=== PATIENT | male | born 1940 | race Caucasian/White ===

== ENCOUNTER → 2017-01-15 | Outpatient (CLI) | payer MEDICARE, OTHER ==
--- NOTE | 2017-01-15 19:59 | CT ---
EXAMINATION TYPE: CT abdomen pelvis w con DATE OF EXAM: 01/15/2017 7:52 PM COMPARISON: NONE HISTORY: Follow-up abdominal abscess after surgery from acute cholecystitis. CT DLP: 1857.00 mGycm Automated exposure control for dose reduction was used. TECHNIQUE: Helical acquisition of images was performed from the lung bases through the pelvis. CONTRAST: Performed with Oral Contrast and with IV Contrast, patient injected with 100 mL of Omnipaque 300. FINDINGS: There is some mild interstitial density at the lung bases. This probably relates to pulmonary fibrosi s. Heart is enlarged. There is no pericardial effusion. There is no pleural effusion. There is a pigtail drainage catheter at the swetha hepatis. Cholecystectomy is noted. Liver shows no f ocal defect. Spleen appear normal. Bile ducts are not dilated. There is a small amount of free fluid in the abdomen in the paracolic gutters. There is no adrenal mass. There are multiple bilateral renal cortical cysts that measure up to 7 cm. There is no hydronephrosis. There is no retroperitoneal adenopathy. There is no sign of a bowel obstr uction. Bladder distends smoothly. There are some sigmoid diverticula. There is no sign of diverticul itis. There is mild stranding around the pancreatic head. I see no bony destructive process. IMPRESSION: PIGTAIL CATHETER APPEARS IN GOOD POSITION AT THE CHOLECYSTECTOMY SITE. I DO NOT SEE EVIDENCE FOR RESI DUAL ABSCESS. NO DILATED DUCTS. MILD FAT STRANDING AROUND THE PANCREATIC HEAD SUGGESTIVE OF PANCREATI TIS. NUMEROUS BILATERAL RENAL CORTICAL CYSTS. FIBROTIC CHANGES AT THE LUNG BASES. NO FREE AIR.
== END ==
LOC: RADCTMAIN 18:40
PROVIDERS: ATTEND Surgery
DX: N28.1 Cyst of kidney, acquired (principal); J84.10 Pulmonary fibrosis, unspecified
CPT/HCPCS: 74177; Q9967

== ENCOUNTER → 2017-07-31 | Outpatient (CLI) | payer MEDICARE, OTHER ==
[2017-07-31 11:58] LABS: Basophils % (A) 1 %; CH 28.1; CHCM 30.6; Eosinophils # (A) 0.1 k/uL (0-0.7); Eosinophils % (A) 1 %; HCT 45.5 % (39.0-53.0); HDW 2.46; HGB 14.2 gm/dL (13.0-17.5); Hypochromasia Moderate; Luc # (Auto) 0.17; Luc % (Auto) 2; Lymphocytes # (A) 1.4 k/uL (1.0-4.8); Lymphocytes % (A) 20 %; MCH 28.8 pg (25.0-35.0); MCHC 31.3 g/dL (31.0-37.0); Mean Platelet Volume 7.6; Monocytes # (A) 0.4 k/uL (0-1.0); Monocytes % (A) 6 %; Neutrophils % (A) 70 %; RBC 4.94 m/uL (4.30-5.90); RDW 13.7 % (11.5-15.5); WBC 7.1 k/uL (3.8-10.6); WBC (Perox) 7.15
[2017-07-31 12:15] LABS: ALT 46 U/L (21-72); AST 38 U/L (17-59); Alkaline Phosphatase 88 U/L (38-126); Anion Gap 12 mmol/L; Blood Urea Nitrogen 18 mg/dL (9-20); Calcium 9.3 mg/dL (8.4-10.2); Carbon Dioxide 24 mmol/L (22-30); Chloride 102 mmol/L (98-107); Cholesterol 114 mg/dL (<200); Creatine Kinase 117 U/L (55-170); Glucose 121 mg/dL (74-99); HDL Cholesterol 52 mg/dL (40-60); Non-African American GFR(MDRD) >60 (>60 ml/min/1.73 sqM); Potassium 5.4 mmol/L (3.5-5.1); Sodium 138 mmol/L (137-145); Total Bilirubin 1.2 mg/dL (0.2-1.3); Total Protein 7.1 g/dL (6.3-8.2)
[2017-07-31 13:46] LABS: Hemoglobin A1C 7.7 % (4.2-6.1)
== END | disposition home or self-care (01) ==
LOC: LABWHC1 11:21
PROVIDERS: ATTEND Internal Medicine Critical Care Medicine
DX: N40.0 Benign prostatic hyperplasia without lower urinary tract symptoms (principal); E11.9 Type 2 diabetes mellitus without complications; E78.5 Hyperlipidemia, unspecified
CPT/HCPCS: 84439; 80061; 80053; 83036; 82550; 85025; 82306; 36415; G0103

== ENCOUNTER → 2018-02-04 | Outpatient (CLI) | payer MEDICARE, OTHER ==
[2018-02-04 11:51] LABS: Albumin 4.1 g/dL (3.5-5.0); Calcium 9.2 mg/dL (8.4-10.2); Total Bilirubin 1.6 mg/dL (0.2-1.3)
[2018-02-04 19:37] LABS: Hemoglobin A1C 8.3 % (4.0-6.0)
== END | disposition home or self-care (01) ==
LOC: LABWHC1 10:38
PROVIDERS: ATTEND Internal Medicine Critical Care Medicine
DX: E11.9 Type 2 diabetes mellitus without complications (principal); N40.0 Benign prostatic hyperplasia without lower urinary tract symptoms; E78.00 Pure hypercholesterolemia, unspecified; J61 Pneumoconiosis due to asbestos and other mineral fibers; I10 Essential (primary) hypertension; I25.10 Atherosclerotic heart disease of native coronary artery without angina pectoris
CPT/HCPCS: 36415; 80053; 82232; 83036

== ENCOUNTER → 2018-12-03 | Outpatient (CLI) | payer MEDICARE ==
[2018-12-03 12:32] LABS: Basophils % (A) 1 %; Eosinophils # (A) 0.1 k/uL (0-0.7); Eosinophils % (A) 3 %; HCT 46.1 % (39.0-53.0); HGB 14.3 gm/dL (13.0-17.5); Lymphocytes # (A) 1.3 k/uL (1.0-4.8); Lymphocytes % (A) 27 %; MCHC 30.9 g/dL (31.0-37.0); MCV 87.5 fL (80.0-100.0); Monocytes # (A) 0.4 k/uL (0-1.0); Monocytes % (A) 8 %; Neutrophils # (A) 2.9 k/uL (1.3-7.7); Neutrophils % (A) 60 %; Platelet Count 189 k/uL (150-450); RBC 5.28 m/uL (4.30-5.90); WBC 4.9 k/uL (3.8-10.6)
[2018-12-03 16:46] LABS: Albumin 4.3 g/dL (3.80-4.90); Albumin/Globulin Ratio 1.95 (1.60-3.17); Anion Gap 7.2 mmol/L (4.00-12.00); Calcium 9.2 mg/dL (8.7-10.3); Carbon Dioxide 26.8 mmol/L (21.6-31.8); Globulin 2.2 g/dL (1.6-3.3); Potassium 5.6 mmol/L (3.5-5.5); Total Bilirubin 1.3 mg/dL (0.3-1.2); Total Protein 6.5 g/dL (6.2-8.2)
[2018-12-03 20:10] LABS: Hemoglobin A1C 8.5 % (4.0-6.0)
== END | disposition home or self-care (01) ==
LOC: LABWHC1 10:56
PROVIDERS: ATTEND Internal Medicine Critical Care Medicine
DX: E11.42 Type 2 diabetes mellitus with diabetic polyneuropathy (principal); N40.0 Benign prostatic hyperplasia without lower urinary tract symptoms
CPT/HCPCS: 36415; 80053; 80061; 83036; 84153; 85025

== ENCOUNTER → 2018-12-11 | Outpatient (CLI) | payer MEDICARE ==
[2018-12-11 23:08] LABS: Anion Gap 6.9 mmol/L (4.00-12.00); Calcium 9.4 mg/dL (8.7-10.3); Carbon Dioxide 27.1 mmol/L (21.6-31.8); Potassium 5.2 mmol/L (3.5-5.5)
== END | disposition home or self-care (01) ==
LOC: LABWHC1 16:31
PROVIDERS: ATTEND Internal Medicine Critical Care Medicine
DX: E11.9 Type 2 diabetes mellitus without complications (principal); E78.5 Hyperlipidemia, unspecified
CPT/HCPCS: 36415; 80048

== ENCOUNTER → 2019-04-10 | Outpatient (CLI) | payer MEDICARE ==
[2019-04-10 16:55] LABS: African American GFR (CKD) 73.1 (60.0-200.0); Albumin 4.2 g/dL (3.80-4.90); Albumin/Globulin Ratio 1.91 (1.60-3.17); Anion Gap 7.2 mmol/L (4.00-12.00); BUN/Creat Ratio 20.91 Ratio (12.00-20.00); Calcium 9.5 mg/dL (8.7-10.3); Carbon Dioxide 26.8 mmol/L (21.6-31.8); Globulin 2.2 g/dL (1.6-3.3); LDL Cholesterol,Calculated 56.2 mg/dL (0.0-131.0); Potassium 5.4 mmol/L (3.5-5.5); Total Protein 6.4 g/dL (6.2-8.2); VLDL Calculation 16.8 mg/dL (5.00-40.00)
[2019-04-10 17:17] LABS: Hemoglobin A1C 7.6 % (4.0-6.0)
== END | disposition home or self-care (01) ==
LOC: LABWHC1 09:19
PROVIDERS: ATTEND Internal Medicine Endocrinology, Diabetes & Metabolism
DX: E11.65 Type 2 diabetes mellitus with hyperglycemia (principal)
CPT/HCPCS: 36415; 80053; 80061; 82043; 82570; 83036; 84443

== ENCOUNTER → 2020-03-16 | Outpatient (CLI) | payer MEDICARE ==
[2020-03-16 18:58] LABS: African American GFR (CKD) 72.6 (60.0-200.0); Albumin 4.3 g/dL (3.80-4.90); Albumin/Globulin Ratio 1.79 (1.60-3.17); Anion Gap 8.6 mmol/L (4.00-12.00); Calcium 9.5 mg/dL (8.7-10.3); Carbon Dioxide 26.4 mmol/L (21.6-31.8); Chol/HDL Ratio 3.23; Globulin 2.4 g/dL (1.6-3.3); LDL Cholesterol,Calculated 61.8 mg/dL (0.0-131.0); Non-African American GFR(CKD) 62.6 (60.0-200.0); Potassium 5.3 mmol/L (3.5-5.5); Total Bilirubin 1.3 mg/dL (0.2-1.2); Total Protein 6.7 g/dL (6.2-8.2); VLDL Calculation 25.2 mg/dL (5.00-40.00)
[2020-03-16 20:01] LABS: Urine Creatinine 48.2 mg/dL
[2020-03-16 22:20] LABS: Hemoglobin A1C 8.3 % (4.0-6.0)
== END | disposition home or self-care (01) ==
LOC: LABWHC1 11:24
PROVIDERS: ATTEND Internal Medicine Endocrinology, Diabetes & Metabolism
DX: E11.65 Type 2 diabetes mellitus with hyperglycemia (principal)
CPT/HCPCS: 36415; 80053; 80061; 82043; 82570; 83036; 84443

== ENCOUNTER → 2020-11-01 | Outpatient (CLI) | payer MEDICARE ==
[2020-11-01 15:35] LABS: African American GFR (CKD) 64.9 (60.0-200.0); Albumin 4.3 g/dL (3.80-4.90); Albumin/Globulin Ratio 2.05 (1.60-3.17); Anion Gap 6.7 mmol/L (4.00-12.00); BUN/Creat Ratio 17.5 Ratio (12.00-20.00); Calcium 8.9 mg/dL (8.7-10.3); Carbon Dioxide 28.3 mmol/L (21.6-31.8); Chol/HDL Ratio 2.97; Globulin 2.1 g/dL (1.6-3.3); LDL Cholesterol,Calculated 49.4 mg/dL (0.0-131.0); Potassium 4.6 mmol/L (3.5-5.5); Total Bilirubin 1.2 mg/dL (0.3-1.2); Total Protein 6.4 g/dL (6.2-8.2); VLDL Calculation 23.6 mg/dL (5.00-40.00)
[2020-11-01 16:59] LABS: Hemoglobin A1C 8.6 % (4.0-6.0)
[2020-11-01 17:52] LABS: Urine Creatinine 78.7 mg/dL
== END | disposition home or self-care (01) ==
LOC: LABWHC1 08:49
PROVIDERS: ATTEND Internal Medicine Endocrinology, Diabetes & Metabolism
DX: E11.65 Type 2 diabetes mellitus with hyperglycemia (principal)
CPT/HCPCS: 36415; 80053; 80061; 82043; 82570; 83036; 84443

== ENCOUNTER 2021-02-09 15:54 | Emergency (ER) | payer MEDICARE ==
--- NOTE | 2021-02-09 16:23 | ED ---
General Adult HPI - General Source: patient, RN notes reviewed Mode of arrival: ambulatory Limitations: no limitations <Hemanth Garcia - Last Filed: 02/09/21 16:20> <Jesse Burden - Last Filed: 02/09/21 19:57> - General Stated complaint: Side Pain Time Seen by Provider: 02/09/21 16:15 - History of Present Illness Initial comments: 80-year-old male presents emergency department chief complaint of right side pain. Patient states his has been going on for a few weeks. Patient states is progressing getting worse. states that he was seen by a chiropractor who told he pulled some muscles. He states it's not improved. He does have pain with movement. He's had some issues with constipation no dysuria. Reports no fevers or chills. Patient does state the pain moves up and down. (Hemanth Garcia) - Related Data Home Medications Medication Instructions Recorded Confirmed Aspirin EC [Ecotrin Low Dose] 81 mg PO DAILY 02/09/21 02/09/21 Atenolol [Tenormin] 50 mg PO DAILY 02/09/21 02/09/21 Atorvastatin [Lipitor] 40 mg PO DAILY 02/09/21 02/09/21 Dapagliflozin Propanediol [Farxiga] 5 mg PO DAILY 02/09/21 02/09/21 Ezetimibe [Zetia] 10 mg PO DAILY 02/09/21 02/09/21 Finasteride [Proscar] 5 mg PO DAILY 02/09/21 02/09/21 Isosorbide Dinitrate 30 mg PO BID 02/09/21 02/09/21 Multivitamins, Thera [Multivitamin 1 tab PO DAILY 02/09/21 02/09/21 (formulary)] Naproxen [Naprosyn] 500 mg PO DAILY 02/09/21 02/09/21 Niacin 500 mg PO DAILY 02/09/21 02/09/21 Nitroglycerin [Nitroglycerin 1 spray TRANSLINGU Q5M PRN 02/09/21 02/09/21 400MCG [place]] [place]-3 Fatty Acids [[place]-3] 1,000 mg PO DAILY 02/09/21 02/09/21 Omeprazole 20 mg PO DAILY 02/09/21 02/09/21 Ramipril [Altace] 10 mg PO DAILY 02/09/21 02/09/21 Terazosin HCl 5 mg PO DAILY 02/09/21 02/09/21 glipiZIDE [Glucotrol] 10 mg PO DAILY 02/09/21 02/09/21 metFORMIN HCL [Glucophage] 500 mg PO BID 02/09/21 02/09/21 sitaGLIPtin PHOSPHATE [Januvia] 100 mg PO DAILY 02/09/21 02/09/21 Previous Rx's Medication Instructions Recorded HYDROcodone/APAP 5-325MG [[place] 1 tab PO Q6HR PRN #10 tab 02/09/21 5-325] Allergies Allergy/AdvReac Type Severity Reaction Status Date / Time No Known Allergies Allergy Verified 02/09/21 17:58 Review of Systems ROS Other: All systems not noted in ROS Statement are negative. <Hemanht Garcia - Last Filed: 02/09/21 16:20> ROS Other: All systems not noted in ROS Statement are negative. <Jesse Burden - Last Filed: 02/09/21 19:57> ROS Statement: Those systems with pertinent positive or pertinent negative responses have been documented in the HPI. Course Vital Signs 02/09/21 02/09/21 16:20 17:41 Temperature 97.6 F Pulse Rate 80 72 Respiratory 16 18 Rate Blood Pressure 110/68 111/65 O2 Sat by Pulse 97 97 Oximetry Medical Decision Making - Lab Data Result diagrams: 02/09/21 16:39 02/09/21 16:39 <Jesse Burden - Last Filed: 02/09/21 19:57> - Medical Decision Making 80-year-old male presents for right-sided pain times one month. Patient does have right upper quadrant and right flank tenderness. CBC is unremarkable. White count is normal. Hemoglobin 13.1. CMP does show slight dehydration, fluids given. Hyperglycemia noted, patient is a diabetic. CT did show an irregular septated cystic complex fluid collection in the right upper quadrant. There is some loculation. Possibilities of abscess versus complex subcapsular hematoma versus pseudocyst from pancreas. Case was discussed with Dr. West. Given symptoms have been ongoing for 1 month she feels he is stable for outpatient follow-up. Patient will be written [place]. He will follow up o utpatient. He will return here for any worsening symptoms. Patient also evaluated by Dr. Oconnor. (Jesse Burden) - Lab Data Lab Results 02/09/21 02/09/21 02/09/21 Range/Units 16:39 16:39 16:39 WBC 10.5 (3.8-10.6) k/uL RBC 4.83 (4.30-5.90) m/uL Hgb 13.1 (13.0-17.5) gm/dL Hct 40.5 (39.0-53.0) % MCV 83.8 (80.0-100.0) fL MCH 27.1 (25.0-35.0) pg MCHC 32.3 (31.0-37.0) g/dL RDW 13.6 (11.5-15.5) % Plt Count 426 (150-450) k/uL MPV 7.2 Neutrophils % 86 % Lymphocytes % 6 % Monocytes % 6 % Eosinophils % 1 % Basophils % 0 % Neutrophils # 9.1 H (1.3-7.7) k/uL Lymphocytes # 0.6 L (1.0-4.8) k/uL Monocytes # 0.7 (0-1.0) k/uL Eosinophils # 0.1 (0-0.7) k/uL Basophils # 0.0 (0-0.2) k/uL Sodium 132 L (137-145) mmol/L Potassium 5.0 (3.5-5.1) mmol/L Chloride 99 (98-107) mmol/L Carbon Dioxide 23 (22-30) mmol/L Anion Gap 10 mmol/L BUN 27 H (9-20) mg/dL Creatinine 0.92 (0.66-1.25) mg/dL Est GFR (CKD-EPI)AfAm 89 (>60 ml/min/1.73 sqM) Est GFR (CKD-EPI)NonAf 77 (>60 ml/min/1.73 sqM) Glucose 289 H (74-99) mg/dL Calcium 9.1 (8.4-10.2) mg/dL Total Bilirubin 1.0 (0.2-1.3) mg/dL AST 31 (17-59) U/L ALT 20 (4-49) U/L Alkaline Phosphatase 140 H (38-126) U/L Total Protein 6.7 (6.3-8.2) g/dL Albumin 3.2 L (3.5-5.0) g/dL Amylase 46 (30-110) U/L Lipase 106 (23-300) U/L Urine Color Light Yellow Urine Appearance Clear (Clear) Urine pH 5.0 (5.0-8.0) Ur Specific [place] 1.031 (1.001-1.035) Urine Protein Negative (Negative) Urine Glucose (UA) 4+ H (Negative) Urine Ketones Negative (Negative) Urine Blood Negative (Negative) Urine Nitrite Negative (Negative) Urine Bilirubin Negative (Negative) Urine Urobilinogen <2.0 (<2.0) mg/dL Ur Leukocyte Esterase Negative (Negative) Disposition <Hemanth Garcia - Last Filed: 02/09/21 16:20> Is patient prescribed a controlled substance at d/c from ED?: Yes When asked, does pt state using other controlled substances?: No If prescribed controlled substance>3 days was MAPS reviewed?: Prescribed <3 Days If opioid is for acute pain is fill amount 7 days or less?: Yes If Rx opioid, was Start Talking consent form obtained?: Yes Time of Disposition: 19:52 <Jesse Burden - Last Filed: 02/09/21 19:57> Clinical Impression: Abdominal pain Narrative: septated cystic collection (Jesse Bruden) Disposition: HOME SELF-CARE Condition: Good Instructions (If sedation given, give patient instructions): Abdominal Pain (ED) Additional Instructions: Please take pain medications as needed. Do not drive while taking these. Follow-up with your doctor. Return to the emergency room for any worsening symptoms. Prescriptions: HYDROcodone/APAP 5-325MG [[place] 5-325] 1 tab PO Q6HR PRN #10 tab PRN Reason: Pain Referrals: Chely Huntley MD [Primary Care Provider] - 1-2 days Mer West MD [STAFF PHYSICIAN] - 1-2 days
[2021-02-09 16:54] LABS: Appearance,Urine Clear (Clear); Bilirubin,Urine Negative (Negative); Blood,Urine Negative (Negative); Color,Urine Light Yellow; Glucose,Urine (UA) 4+ (Negative); Ketones,Urine Negative (Negative); Leukocyte Esterase,Urine Negative (Negative); Nitrite,Urine Negative (Negative); Protein,Urine Negative (Negative); Specific Gravity,Urine 1.031 (1.001-1.035); Urobilinogen,Urine <2.0 mg/dL (<2.0)
[2021-02-09 16:58] LABS: Basophils % (A) 0 %; Eosinophils # (A) 0.1 k/uL (0-0.7); Eosinophils % (A) 1 %; HCT 40.5 % (39.0-53.0); HGB 13.1 gm/dL (13.0-17.5); Lymphocytes # (A) 0.6 k/uL (1.0-4.8); Lymphocytes % (A) 6 %; MCH 27.1 pg (25.0-35.0); MCHC 32.3 g/dL (31.0-37.0); MCV 83.8 fL (80.0-100.0); Mean Platelet Volume 7.2; Monocytes # (A) 0.7 k/uL (0-1.0); Monocytes % (A) 6 %; Neutrophils # (A) 9.1 k/uL (1.3-7.7); Neutrophils % (A) 86 %; Platelet Count 426 k/uL (150-450); RBC 4.83 m/uL (4.30-5.90); RDW 13.6 % (11.5-15.5); WBC 10.5 k/uL (3.8-10.6)
[2021-02-09 17:07] LABS: Albumin 3.2 g/dL (3.5-5.0); Calcium 9.1 mg/dL (8.4-10.2); Total Protein 6.7 g/dL (6.3-8.2)
[2021-02-09] MEDS ORDERED: SODIUM CHLORIDE 0.9% 500 ML 500 ML IV STA (17:22)
[2021-02-09] MEDS ORDERED: MORPHINE SULFATE 2 MG/ML SYRINGE IVP STA (17:22)
[2021-02-09 17:43] VITALS: RESP 18
--- NOTE | 2021-02-09 18:26 | CT ---
EXAMINATION TYPE: CT abdomen pelvis w con DATE OF EXAM: 02/09/2021 COMPARISON: 01/15/2017 HISTORY: right flank pain CT DLP: 1084.1 mGycm Automated exposure control for dose reduction was used. CONTRAST: Performed with IV Contrast, patient injected with 100 mL of Isovue 300. Images were obtained from the diaphragm to the floor the pelvis with IV contrast. FINDINGS: There is mild subsegmental atelectasis at the lung bases. There is no pleural effusion. Heart size is normal. There is coronary artery calcification. There is complex septated fluid collection in the right upper quadrant adjacent to the lateral right lobe of the liver. This measures 11 x 6 cm. This appears to be outside of the liver capsule. There has been removal of the pigtail drainage catheter at the swetha hepatis compared to old exam. Ga llbladder is absent. The bile ducts are not dilated. Spleen is intact. There is vascular calcificatio n. There is no evidence of pancreatic mass. The stomach is intact. There is no adrenal mass. There are multiple bilateral renal cortical cysts that are larger on the le ft side. The largest cyst measures 7 cm. There is no hydronephrosis. Delayed images show normal renal excretion. There is possible tiny calculi in the right kidney. There is 1 cm calcified cyst posterio r left kidney. There are small calcified cyst of the lateral cortex of the left kidney. There is no r etroperitoneal adenopathy. Bladder distends smoothly. There is no inguinal hernia. There is no free f luid in the pelvis. There are multiple sigmoid diverticula. I see no sign of diverticulitis. There is no mesenteric edema. There is no ascites or free air. There is no bowel obstruction. There is a mild L4-5 spondylolisthesis. There is degenerative disc space narrowing in the upper lumba r spine. There is L5-S1 disc space narrowing. There is no lumbar compression fracture. The bony pelvi s is intact. The hip joints are intact. IMPRESSION: There is irregular septated cystic complex fluid collection in the right upper quadrant. There is rosa e loculation. This appears new compared to old exam. I would consider possibilities of abscess or com plex subcapsular hematoma of the liver. Also consider unusual pseudocyst from pancreatitis.. There is clearing of the inflammatory changes in the pancreatic head compared to old exam. Stable mul tiple renal cysts.
[2021-02-09 20:11] VITALS: BP 110/67; PULSE 74; TEMP 98.1
== END 2021-02-09 20:11 | disposition home or self-care (01) ==
LOC: EC 15:54
DX: R10.9 Unspecified abdominal pain (principal); Z79.82 Long term (current) use of aspirin
CPT/HCPCS: 36415; 80053; 82150; 83690; 85025; 81003; 74177; 99284; 96374; 96361; J2270; Q9967

== ENCOUNTER → 2021-02-18 | Outpatient (CLI) | payer MEDICARE ==
--- NOTE | 2021-02-18 12:01 | US ---
EXAMINATION TYPE: US abdomen limited DATE OF EXAM: 02/18/2021 COMPARISON: CT 02/09/2021 CLINICAL HISTORY: 80-year-old male K76.89 Other specified diseases of liver. Liver cysts f/u to CT sc an. EXAM MEASUREMENTS: Liver Length: 16 cm Gallbladder: Surgically absent CBD: .4 cm Right Kidney: 11.7 x 4.8 x 5.1 cm Pancreas: Obscured by bowel gas Liver: Very complex, heterogeneous area seen measuring 9.6 x 11.5 x 12.1 cm along the right liver lo be extending inferiorly. Areas of fluid with debris are present as well. Gallbladder: Surgically absent Evidence for sonographic Kenny's sign: No CBD: wnl Right Kidney: Cystic area seen mid pole 2.7 x 2.4 x 3.7 cm and lower pole measuring 3.8 x 2.9 x 3. 1cm. No hydronephrosis. IMPRESSION: 1. Large 12.1 x 11.5 x 9.6 cm complex, heterogeneous area along the right liver lobe extending inferi zully corresponding to the CT abnormality. Correlate to exclude an aggressive infectious etiology as t here may be some early invasion into the chest wall musculature. Complex pseudocyst as mentioned on C T is also possible. Biliary cystadenoma/cystadenocarcinoma are alternative considerations. 2. Couple cysts within the right kidney measuring up to 3.7 cm.
== END | disposition home or self-care (01) ==
LOC: RADUSWWP 07:21
PROVIDERS: ATTEND Surgery Plastic and Reconstructive Surgery
DX: K76.89 Other specified diseases of liver (principal); N28.89 Other specified disorders of kidney and ureter
CPT/HCPCS: 76705

== ENCOUNTER → 2021-03-07 | Day surgery (SDC) | payer MEDICARE ==
[2021-03-07 09:42] VITALS: RESP 18; TEMP 98.1
[2021-03-07 09:57] LABS: Mean Platelet Volume 7.4; Platelet Count 507 k/uL (150-450)
[2021-03-07 10:11] LABS: INR 1.1 (<1.2); Prothrombin Time 11.5 sec (9.0-12.0)
[2021-03-07 13:26] VITALS: BP 103/64; PULSE 76
--- NOTE | 2021-03-07 13:57 | US ---
EXAMINATION TYPE: US guided soft tissue drainage DATE OF EXAM: 03/07/2021 HISTORY: Perihepatic abscess COMPARISON: CT 02/09/2021 PROCEDURE: Maximal barrier technique was utilized. The skin over suitable path to the abscess was localized wit h ultrasound and the overlying skin prepped and draped. Ultrasound used with sterile technique. Lidoc flash was used for local anesthesia. A skin watson made with a scalpel. Access was gained using NextGxDX maryam dance with a 21-gauge needle, purulent material returned in the hub of the needle. A 0.018 inch wire was advanced and the access site was upsized, the wire was upsized and subsequently an 8-[place] drai n was deployed within the abscess cavity and fixed in place. Catheter attached to gravity drainage, 20 cc of hill fluid was aspirated. No immediate complication. Purulent material sent for laboratory analysis and draining into the bag. The patient remained in stable condition. IMPRESSION: STATUS POST ultrasound GUIDED ABSCESS DRAINAGE, MICROBIOLOGY ANALYSIS IS PENDING. THIS PROCEDURE WAS PERFORMED BY THE UNDERSIGNED.
== END ==
LOC: RADPROMAIN 09:02
PROVIDERS: ATTEND Surgery Plastic and Reconstructive Surgery
DX: K75.0 Abscess of liver (principal); R16.0 Hepatomegaly, not elsewhere classified
CPT/HCPCS: 10030; 82947; 85049; 85610; 87070; 87205; 87075; 36415; J0690; 76942

== ENCOUNTER 2021-03-15 15:36 | Day surgery (SDC) | payer MEDICARE ==
[2021-03-07 15:04] VITALS: RESP 16
[2021-03-15 16:07] VITALS: BP 112/73; PULSE 78; TEMP 98.2
== END 2021-03-15 16:30 | disposition home or self-care (01) ==
LOC: RADPROMAIN 15:36
PROVIDERS: ATTEND Radiology Diagnostic Radiology
DX: Z43.8 Encounter for attention to other artificial openings (principal)
CPT/HCPCS: 99213

== ENCOUNTER 2021-03-22 12:51 | Inpatient (IN) | payer MEDICARE ==
[2021-03-22] MEDS ORDERED: SODIUM CHLORIDE 0.9% 1,000 ML IV STA (13:22)
[2021-03-22] MEDS ORDERED: VANCOMYCIN IV PER PHARMACY 1 EACH MISC MISCELLANE PRN (13:24)
[2021-03-22] MEDS ORDERED: PIPERACILLIN-TAZOBACTAM 3.375 GM in SODIUM CHLORIDE 0.9% 100 ML IVPB STA (13:25)
--- NOTE | 2021-03-22 13:35 | ED ---
General Adult HPI - General Chief complaint: Recheck/Abnormal Lab/Rx Stated complaint: [place] Time Seen by Provider: 03/22/21 13:11 Source: patient, RN notes reviewed, old records reviewed Mode of arrival: wheelchair Limitations: no limitations - History of Present Illness Initial comments: 80-year-old male presents from Dr. Jones's office with concerns for sepsis and persistent liver abscess. Patient had a drainage tube placed approximately 2 weeks ago and had a liver abscess drained at that time. He has been on antibiotics and was seen in follow-up. The drain was no longer draining any purulent material and was removed by the surgeon. He was instructed to present to the emergency department with concerns for ongoing infection. Patient was noted to be mildly hypotensive. He denies measured fever. He does report pain in the flank and right upper quadrant. - Related Data Home Medications Medication Instructions Recorded Confirmed Aspirin EC [Ecotrin Low Dose] 81 mg PO DAILY 02/09/21 02/23/21 Atenolol [Tenormin] 50 mg PO DAILY 02/09/21 02/23/21 Atorvastatin [Lipitor] 40 mg PO DAILY 02/09/21 02/23/21 Dapagliflozin Propanediol [Farxiga] 5 mg PO DAILY 02/09/21 02/23/21 Ezetimibe [Zetia] 10 mg PO DAILY 02/09/21 02/23/21 Finasteride [Proscar] 5 mg PO DAILY 02/09/21 02/23/21 Isosorbide Dinitrate 30 mg PO BID 02/09/21 02/23/21 Multivitamins, Thera [Multivitamin 1 tab PO DAILY 02/09/21 02/23/21 (formulary)] Naproxen [Naprosyn] 500 mg PO DAILY 02/09/21 02/23/21 Niacin 500 mg PO DAILY 02/09/21 02/23/21 Nitroglycerin [Nitroglycerin 1 spray TRANSLINGU Q5M PRN 02/09/21 02/23/21 400MCG [place]] [place]-3 Fatty Acids [[place]-3] 1,000 mg PO DAILY 02/09/21 02/23/21 Omeprazole 20 mg PO DAILY 02/09/21 02/23/21 Ramipril [Altace] 10 mg PO DAILY 02/09/21 02/23/21 Terazosin HCl 5 mg PO DAILY 02/09/21 02/23/21 glipiZIDE [Glucotrol] 10 mg PO DAILY 02/09/21 02/23/21 metFORMIN HCL [Glucophage] 500 mg PO BID 02/09/21 02/23/21 sitaGLIPtin PHOSPHATE [Januvia] 100 mg PO DAILY 02/09/21 02/23/21 Previous Rx's Medication Instructions Recorded Ciprofloxacin HCl [Cipro] 500 mg PO Q12HR #20 tablet 03/07/21 metroNIDAZOLE [Flagyl] 500 mg PO TID #30 tab 03/07/21 Allergies Allergy/AdvReac Type Severity Reaction Status Date / Time No Known Allergies Allergy Verified 03/22/21 13:03 Review of Systems ROS Statement: Those systems with pertinent positive or pertinent negative responses have been documented in the HPI. ROS Other: All systems not noted in ROS Statement are negative. Past Medical History Past Medical History: Coronary Artery Disease (CAD), Diabetes Mellitus, Hyperlipidemia, Hypertension, Prostate Disorder History of Any Multi-Drug Resistant Organisms: None Reported Past Surgical History: Cholecystectomy, Coronary Bypass/CABG, Heart Catheterization Past Anesthesia/Blood Transfusion Reactions: No Reported Reaction Past Psychological History: No Psychological Hx Reported Smoking Status: Former smoker Past Alcohol Use History: Occasional Past Drug Use History: None Reported General Exam Limitations: no limitations Head exam: Present: atraumatic, normocephalic Eye exam: Present: normal appearance, PERRL ENT exam: Present: normal exam Neck exam: Present: normal inspection. Absent: tenderness, meningismus Respiratory exam: Present: normal lung sounds bilaterally. Absent: respiratory distress, wheezes Cardiovascular Exam: Present: regular rate, normal rhythm GI/Abdominal exam: Present: soft, tenderness ( right upper quadrant tenderness). Absent: distended, guarding Extremities exam: Present: normal inspection, normal capillary refill. Absent: pedal edema Back exam: Present: CVA tenderness (R) (There is tenderness at the puncture site of previously inserted drainage tube with purulent drainage.) Neurological exam: Present: alert, oriented X3, CN II-XII intact. Absent: motor sensory deficit Psychiatric exam: Present: normal affect, normal mood Course Vital Signs 03/22/21 13:00 Temperature 98.2 F Pulse Rate 80 Respiratory 18 Rate Blood Pressure 87/51 O2 Sat by Pulse 98 Oximetry Medical Decision Making - Medical Decision Making 80-year-old male came for suspected persistent infection. Recent liver abscess. Patient is started on broad-spectrum antibiotics. CT is ordered, results pending. Patient evaluated by in the emergency department. Will be admitted to internal medicine with general surgery on consult. May require consultation with interventional radiology if abscess is persistent. - Lab Data Result diagrams: 03/22/21 13:47 03/22/21 13:47 Lab Results 03/22/21 03/22/21 03/22/21 Range/Units 13:47 13:47 13:47 WBC 6.8 (3.8-10.6) k/uL RBC 4.66 (4.30-5.90) m/uL Hgb 12.2 L (13.0-17.5) gm/dL Hct 38.8 L (39.0-53.0) % MCV 83.3 (80.0-100.0) fL MCH 26.1 (25.0-35.0) pg MCHC 31.4 (31.0-37.0) g/dL RDW 16.8 H (11.5-15.5) % Plt Count 444 (150-450) k/uL MPV 7.4 Neutrophils % 84 % Lymphocytes % 8 % Monocytes % 6 % Eosinophils % 1 % Basophils % 0 % Neutrophils # 5.7 (1.3-7.7) k/uL Lymphocytes # 0.5 L (1.0-4.8) k/uL Monocytes # 0.4 (0-1.0) k/uL Eosinophils # 0.0 (0-0.7) k/uL Basophils # 0.0 (0-0.2) k/uL Hypochromasia Moderate Anisocytosis Slight PT (9.0-12.0) sec INR (<1.2) APTT (22.0-30.0) sec Sodium 133 L (137-145) mmol/L Potassium 4.8 (3.5-5.1) mmol/L Chloride 99 (98-107) mmol/L Carbon Dioxide 21 L (22-30) mmol/L Anion Gap 13 mmol/L BUN 13 (9-20) mg/dL Creatinine 0.82 (0.66-1.25) mg/dL Est GFR (CKD-EPI)AfAm >90 (>60 ml/min/1.73 sqM) Est GFR (CKD-EPI)NonAf 82 (>60 ml/min/1.73 sqM) Glucose 283 H (74-99) mg/dL Plasma Lactic Acid [place] 4.6 H* (0.7-2.0) mmol/L Calcium 8.9 (8.4-10.2) mg/dL Total Bilirubin 0.4 (0.2-1.3) mg/dL AST 27 (17-59) U/L ALT 13 (4-49) U/L Alkaline Phosphatase 90 (38-126) U/L Total Protein 6.4 (6.3-8.2) g/dL Albumin 3.2 L (3.5-5.0) g/dL 03/22/21 Range/Units 13:47 WBC (3.8-10.6) k/uL RBC (4.30-5.90) m/uL Hgb (13.0-17.5) gm/dL Hct (39.0-53.0) % MCV (80.0-100.0) fL MCH (25.0-35.0) pg MCHC (31.0-37.0) g/dL RDW (11.5-15.5) % Plt Count (150-450) k/uL MPV Neutrophils % % Lymphocytes % % Monocytes % % Eosinophils % % Basophils % % Neutrophils # (1.3-7.7) k/uL Lymphocytes # (1.0-4.8) k/uL Monocytes # (0-1.0) k/uL Eosinophils # (0-0.7) k/uL Basophils # (0-0.2) k/uL Hypochromasia Anisocytosis PT 12.3 H (9.0-12.0) sec INR 1.2 H (<1.2) APTT 23.5 (22.0-30.0) sec Sodium (137-145) mmol/L Potassium (3.5-5.1) mmol/L Chloride (98-107) mmol/L Carbon Dioxide (22-30) mmol/L Anion Gap mmol/L BUN (9-20) mg/dL Creatinine (0.66-1.25) mg/dL Est GFR (CKD-EPI)AfAm (>60 ml/min/1.73 sqM) Est GFR (CKD-EPI)NonAf (>60 ml/min/1.73 sqM) Glucose (74-99) mg/dL Plasma Lactic Acid Arthur (0.7-2.0) mmol/L Calcium (8.4-10.2) mg/dL Total Bilirubin (0.2-1.3) mg/dL AST (17-59) U/L ALT (4-49) U/L Alkaline Phosphatase (38-126) U/L Total Protein (6.3-8.2) g/dL Albumin (3.5-5.0) g/dL Disposition Clinical Impression: Liver abscess Disposition: ADMITTED IP TO THIS HOSP Condition: Stable Is patient prescribed a controlled substance at d/c from ED?: No Referrals: Chely Huntley MD [Primary Care Provider] - 1-2 days Decision to Admit Reason: Admit from EC Decision Date: 03/22/21 Decision Time: 14:33
[2021-03-22] MEDS ORDERED: VANCOMYCIN 1,500 MG in SODIUM CHLORIDE 0.9% 250 ML IVPB ONE (14:00)
[2021-03-22 14:05] LABS: Anisocytosis Slight; Basophils % (A) 0 %; Eosinophils % (A) 1 %; HCT 38.8 % (39.0-53.0); HGB 12.2 gm/dL (13.0-17.5); Hypochromasia Moderate; Lymphocytes # (A) 0.5 k/uL (1.0-4.8); Lymphocytes % (A) 8 %; MCH 26.1 pg (25.0-35.0); MCHC 31.4 g/dL (31.0-37.0); MCV 83.3 fL (80.0-100.0); Mean Platelet Volume 7.4; Monocytes # (A) 0.4 k/uL (0-1.0); Monocytes % (A) 6 %; Neutrophils # (A) 5.7 k/uL (1.3-7.7); Neutrophils % (A) 84 %; Platelet Count 444 k/uL (150-450); RBC 4.66 m/uL (4.30-5.90); RDW 16.8 % (11.5-15.5); WBC 6.8 k/uL (3.8-10.6)
[2021-03-22 14:14] LABS: ALT 13 U/L (4-49); AST 27 U/L (17-59); African American GFR (CKD) >90 (>60 ml/min/1.73 sqM); Albumin 3.2 g/dL (3.5-5.0); Alkaline Phosphatase 90 U/L (38-126); Anion Gap 13 mmol/L; Blood Urea Nitrogen 13 mg/dL (9-20); Calcium 8.9 mg/dL (8.4-10.2); Carbon Dioxide 21 mmol/L (22-30); Chloride 99 mmol/L (98-107); Glucose 283 mg/dL (74-99); Non-African American GFR(CKD) 82 (>60 ml/min/1.73 sqM); Potassium 4.8 mmol/L (3.5-5.1); Sodium 133 mmol/L (137-145); Total Bilirubin 0.4 mg/dL (0.2-1.3); Total Protein 6.4 g/dL (6.3-8.2)
[2021-03-22 14:19] LABS: INR 1.2 (<1.2); Partial Thromboplastin Time 23.5 sec (22.0-30.0); Prothrombin Time 12.3 sec (9.0-12.0)
[2021-03-22] MEDS ORDERED: NALOXONE 0.4 MG/ML 1 ML VIAL IV PRN (14:30)
[2021-03-22] MEDS ORDERED: ACETAMINOPHEN TAB 325 MG TAB PO PRN (14:30)
[2021-03-22] MEDS: SODIUM CHLORIDE 0.9% 1,000 ML IV SCH ×2 (14:43→20:19)
--- NOTE | 2021-03-22 14:55 | P.HPIM ---
History of Present Illness Patient is an 80-year-old pleasant male was sent in from Dr. West's office for liver abscess. Patient came in for regular biopsy for liver mass and patient was told he has an abscess and a drain was put in about 2 weeks ago by interventional radiologist and he the continued to drain until few days ago went stopped draining. Patient has seen Dr. West. Neck following removed the drain as it started draining anymore. The cultures from the drainage fluid are negative for any bacteria or any other infection. Repeat computed tomography scan is being obtained at this time. Patient has seen infectious disease doctor as well who reviewed his chart and all the cultures appear to be negative. Today the drain site had some purulent discharge as per the ER physician when I evaluated it's packed and the didn't see much of drainage but there is mild redness around the day. Patient was started on vancomycin and the Zosyn which will be continued for now infectious disease was consulted. Patient was on ciprofloxacin at home. Patient did note that he had significant weight loss and generalized weakness but doesn't have any fever or leukocytosis. Patient blood sugars are bit high patient is bit hyponatremic does have lactic acidosis. Review of Systems REVIEW OF SYSTEMS: CONSTITUTIONAL: As mentioned in HPI HEENT: No recent visual problems or hearing problems. Denied any sore throat. CARDIOVASCULAR: No chest pain, orthopnea, PND, no palpitations, no syncope. PULMONARY: No shortness of breath, no cough, no hemoptysis. GASTROINTESTINAL: No diarrhea, no nausea, no vomiting, no abdominal pain. NEUROLOGICAL: No headaches, no weakness, no numbness. HEMATOLOGICAL: Denies any bleeding or petechiae. GENITOURINARY: Denies any burning micturition, frequency, or urgency. MUSCULOSKELETAL/RHEUMATOLOGICAL: Denies any joint pain, swelling, or any muscle pain. ENDOCRINE: Denies any polyuria or polydipsia. The rest of the 14-point review of systems is negative. Past Medical History Past Medical History: Coronary Artery Disease (CAD), Diabetes Mellitus, Hyperlipidemia, Hypertension, Prostate Disorder History of Any Multi-Drug Resistant Organisms: None Reported Past Surgical History: Cholecystectomy, Coronary Bypass/CABG, Heart Catheterization Past Anesthesia/Blood Transfusion Reactions: No Reported Reaction Past Psychological History: No Psychological Hx Reported Smoking Status: Former smoker Past Alcohol Use History: Occasional Past Drug Use History: None Reported Medications and Allergies Home Medications Medication Instructions Recorded Confirmed Type Aspirin EC [Ecotrin Low Dose] 81 mg PO DAILY 02/09/21 02/23/21 History Atenolol [Tenormin] 50 mg PO DAILY 02/09/21 02/23/21 History Atorvastatin [Lipitor] 40 mg PO DAILY 02/09/21 02/23/21 History Dapagliflozin Propanediol [Farxiga] 5 mg PO DAILY 02/09/21 02/23/21 History Ezetimibe [Zetia] 10 mg PO DAILY 02/09/21 02/23/21 History Finasteride [Proscar] 5 mg PO DAILY 02/09/21 02/23/21 History Isosorbide Dinitrate 30 mg PO BID 02/09/21 02/23/21 History Multivitamins, Thera [Multivitamin 1 tab PO DAILY 02/09/21 02/23/21 History (formulary)] Naproxen [Naprosyn] 500 mg PO DAILY 02/09/21 02/23/21 History Niacin 500 mg PO DAILY 02/09/21 02/23/21 History Nitroglycerin [Nitroglycerin 1 spray TRANSLINGU Q5M PRN 02/09/21 02/23/21 History 400MCG [place]] [place]-3 Fatty Acids [[place]-3] 1,000 mg PO DAILY 02/09/21 02/23/21 History Omeprazole 20 mg PO DAILY 02/09/21 02/23/21 History Ramipril [Altace] 10 mg PO DAILY 02/09/21 02/23/21 History Terazosin HCl 5 mg PO DAILY 02/09/21 02/23/21 History glipiZIDE [Glucotrol] 10 mg PO DAILY 02/09/21 02/23/21 History metFORMIN HCL [Glucophage] 500 mg PO BID 02/09/21 02/23/21 History sitaGLIPtin PHOSPHATE [Januvia] 100 mg PO DAILY 02/09/21 02/23/21 History Ciprofloxacin HCl [Cipro] 500 mg PO Q12HR #20 tablet 03/07/21 Rx metroNIDAZOLE [Flagyl] 500 mg PO TID #30 tab 03/07/21 Rx Allergies Allergy/AdvReac Type Severity Reaction Status Date / Time No Known Allergies Allergy Verified 03/22/21 13:03 Physical Exam Vitals: Vital Signs Temp Pulse Resp BP Pulse Ox 03/22/21 14:45 72 18 102/57 98 03/22/21 13:00 98.2 F 80 18 87/51 98 Intake and Output 03/21/21 03/22/21 03/22/21 22:59 06:59 14:59 Other: Weight 74.843 kg PHYSICAL EXAMINATION: GENERAL: The patient is alert and oriented x3, not in any acute distress. Well developed, well nourished. HEENT: Pupils are round and equally reacting to light. EOMI. No scleral icterus. No conjunctival pallor. Normocephalic, atraumatic. No pharyngeal erythema. No thyromegaly. CARDIOVASCULAR: S1 and S2 present. No murmurs, rubs, or gallops. PULMONARY: Chest is clear to auscultation, no wheezing or crackles. ABDOMEN: Soft, nontender, nondistended, normoactive bowel sounds. No palpable organomegaly. Patient's the drainage site is bit red MUSCULOSKELETAL: No joint swelling or deformity. EXTREMITIES: No cyanosis, clubbing, or pedal edema. NEUROLOGICAL: Gross neurological examination did not reveal any focal deficits. SKIN: As mentioned above Results CBC & Chem 7: 03/22/21 13:47 03/22/21 13:47 Labs: Abnormal Lab Results - Last 24 Hours (Table) 03/22/21 03/22/21 03/22/21 Range/Units 13:47 13:47 13:47 Hgb 12.2 L (13.0-17.5) gm/dL Hct 38.8 L (39.0-53.0) % RDW 16.8 H (11.5-15.5) % Lymphocytes # 0.5 L (1.0-4.8) k/uL PT (9.0-12.0) sec INR (<1.2) Sodium 133 L (137-145) mmol/L Carbon Dioxide 21 L (22-30) mmol/L Glucose 283 H (74-99) mg/dL Plasma Lactic Acid Arthur 4.6 H* (0.7-2.0) mmol/L Albumin 3.2 L (3.5-5.0) g/dL 03/22/21 Range/Units 13:47 Hgb (13.0-17.5) gm/dL Hct (39.0-53.0) % RDW (11.5-15.5) % Lymphocytes # (1.0-4.8) k/uL PT 12.3 H (9.0-12.0) sec INR 1.2 H (<1.2) Sodium (137-145) mmol/L Carbon Dioxide (22-30) mmol/L Glucose (74-99) mg/dL Plasma Lactic Acid Arthur (0.7-2.0) mmol/L Albumin (3.5-5.0) g/dL Assessment and Plan Plan: -Possible liver abscess: Patient's pain is not draining anymore will obtain a CT of the abdomen to see if the abscess resolved. For now will start him on empiric antibiotics and infectious disease and general surgery were consulted. -Lactic is doses mostly secondary to intravascular depletion rather than infection or sepsis there is no overt evidence of sepsis at this time patient will be started and continued on IV fluids hold off on antidepressant medications patient the is on tramadol and atenolol these will be held although these medications are not verified yet -Type 2 diabetes mellitus patient blood sugars are elevated patient will be resumed on home medications once these are very bad for now patient will be on sliding scale insulin -Gastroesophageal reflux disease -Hyperlipidemia -Benign prostatic hypertrophy -Coronary artery disease with CABG in the past -DVT prophylaxis with Lovenox
--- NOTE | 2021-03-22 15:38 | CT ---
EXAMINATION TYPE: CT abdomen pelvis w con DATE OF EXAM: 03/22/2021 COMPARISON: 01/30/2021 HISTORY: Liver abscess. CT DLP: 966.3 mGycm CONTRAST: CT scan of the abdomen and pelvis is performed without Oral Contrast and with IV Contrast, patient in jected with 100 mL of Isovue 300. FINDINGS: LUNG BASES-: No visible nodule. No infiltrate. LIVER/GB: Again noted is a complex septated collection adjacent to the right hepatic lobe and extendi ng caudally with infiltration into the intercostal musculature as well as the lateral anterior abdomi nal wall musculature. Current measurement of the abscess 16.7 x 8.7 cm versus 11 5 6 cm previously. PANCREAS: No inflammation. No distinct mass. SPLEEN: No splenic enlargement. No lesion seen. ADRENALS: No nodule. No thickening. KIDNEYS/BLADDER: No hydronephrosis. No nephrolithiasis. Multiple bilateral renal cysts identified. Urinary bladder grossly unremarkable. BOWEL: Normal appendix. Normal bowel caliber. No inflammation. GENITAL ORGANS: No gross abnormality. LYMPH NODES: No greater than 1cm abdominal or pelvic lymph nodes are appreciated. AORTA: No significant abnormality. OSSEOUS STRUCTURES: No significant abnormality is seen. OTHER: No significant additional abnormality is seen. IMPRESSION: 1. Subcapsular hepatic abscess with the caudal extension into the intercostal and right lateral obliq ue musculature persists and has increased in size.
[2021-03-22] MEDS: HYDROmorphone 0.5 MG/0.5 ML SYRINGE IVP PRN (19:39)
[2021-03-22 20:15] LABS: Glucose,Whole Blood 233 mg/dL (75-99)
[2021-03-22] MEDS: PIPERACILLIN-TAZOBACTAM 3.375 GM in SODIUM CHLORIDE 0.9% 100 ML IVPB SCH (20:15)
[2021-03-22] MEDS: FAMOTIDINE 20 MG TAB PO SCH (20:16)
[2021-03-23] MEDS: HYDROmorphone 0.5 MG/0.5 ML SYRINGE IVP PRN ×4 (01:09→21:35)
[2021-03-23] MEDS ORDERED: VANCOMYCIN 1,250 MG in SODIUM CHLORIDE 0.9% 250 ML IVPB SCH (02:00)
[2021-03-23] MEDS: PIPERACILLIN-TAZOBACTAM 3.375 GM in SODIUM CHLORIDE 0.9% 100 ML IVPB SCH ×3 (05:38→22:02)
[2021-03-23] MEDS: SODIUM CHLORIDE 0.9% 1,000 ML IV SCH ×3 (05:39→21:33)
[2021-03-23 07:00] LABS: Glucose,Whole Blood 233 mg/dL (75-99)
[2021-03-23] MEDS: ENOXAPARIN 40 MG/0.4 ML SYRINGE SQ SCH (08:36)
[2021-03-23] MEDS: EZETIMIBE 10 MG TAB PO SCH (08:36)
[2021-03-23] MEDS: FAMOTIDINE 20 MG TAB PO SCH ×2 (08:36→21:35)
[2021-03-23] MEDS: ATORVASTATIN 40 MG TAB PO SCH (08:36)
[2021-03-23] MEDS: FINASTERIDE 5 MG TAB PO SCH (08:36)
[2021-03-23 10:47] LABS: HCT 38.1 % (39.6-50.0); HGB 11.4 g/dL (13.0-17.0); MCH 25.4 pg (27.0-32.0); MCHC 29.9 g/dL (32.0-37.0); MCV 84.9 fL (80.0-97.0); Mean Platelet Volume 9.8 fL (9.5-12.2); Platelet Count 379 X 10*3/uL (140-440); RBC 4.49 X 10*6/uL (4.40-5.60); RDW 18.8 % (11.5-14.5); WBC 5.78 X 10*3/uL (4.50-10.00)
[2021-03-23 11:12] LABS: Glucose,Whole Blood 388 mg/dL (75-99)
[2021-03-23] MEDS: INSULIN ASPART (NovoLOG) 100 UNIT/ML VIAL SQ SCH ×3 (11:28→21:37)
[2021-03-23 12:27] LABS: African American GFR (CKD) 96.4 (60.0-200.0); Albumin/Globulin Ratio 1.11 (1.60-3.17); Anion Gap 9.2 mmol/L (4.00-12.00); BUN/Creat Ratio 12.5 Ratio (12.00-20.00); Calcium 8.4 mg/dL (8.7-10.3); Carbon Dioxide 22.8 mmol/L (21.6-31.8); Globulin 2.7 g/dL (1.6-3.3); Non-African American GFR(CKD) 83.2 (60.0-200.0); Potassium 4.4 mmol/L (3.5-5.5); Total Bilirubin 0.4 mg/dL (0.3-1.2); Total Protein 5.7 g/dL (6.2-8.2)
[2021-03-23] MEDS: INSULIN DETEMIR (LEVEMIR) 100 UNIT/ML SYR SQ SCH (16:03)
--- NOTE | 2021-03-23 16:03 | P.PN ---
Subjective Progress Note Date: 03/23/21 Patient is an 80-year-old pleasant male was sent in from Dr. West's office for liver abscess. Patient came in for regular biopsy for liver mass and patient was told he has an abscess and a drain was put in about 2 weeks ago by interventional radiologist and he the continued to drain until few days ago went stopped draining. Patient has seen Dr. West. removed the drain as it wasn't draining anymore. The cultures from the drainage fluid are negative for any bacteria or any other infection. Repeat computed tomography scan is being obtained at this time. Patient has seen infectious disease doctor as well who reviewed his chart and all the cultures appear to be negative. Today the drain site had some purulent discharge as per the ER physician when I evaluated it's packed and the didn't see much of drainage but there is mild redness around the day. Patient was started on vancomycin and the Zosyn which will be continued for now infectious disease was consulted. Patient was on ciprofloxacin at home. Patient did note that he had significant weight loss and generalized weakness b ut doesn't have any fever or leukocytosis. Patient blood sugars are bit high patient is bit hyponatremic does have lactic acidosis. 03/23/2021 Patient is seen and evaluated in follow-up this morning continues to have right- sided discomfort. Surgery following. Patient is maintained on IV antibiotics in the form of Zosyn and infectious disease following. White blood count is 5.78, hemoglobin is 11.4, sodium is 136 with a potassium of 4.4 current creatinine is 0.8. Blood sugars are elevated and will continue sliding scale and will add long-acting and monitor closely. Cardiology has been consulted for possible clearance for surgical intervention. Echo has been ordered and currently pending. Review of systems: Constitutional: No reports of fatigue, fever, or chills Cardiovascular: No reports of chest pain or palpitations Respiratory: No reports of shortness of breath or cough GI: No reports of nausea, vomiting, or diarrhea, reports right side discomfort at the abscess site : No reports of dysuria or retention Neurovascular: No reports of weakness or numbness All medications have been reviewed Objective - Vital Signs Vital signs: Vital Signs Temp 98.5 F 03/23/21 14:00 Pulse 74 03/23/21 14:00 Resp 14 03/23/21 14:00 BP 120/76 03/23/21 14:00 Pulse Ox 97 03/23/21 14:00 Intake & Output 03/22/21 03/23/21 03/23/21 18:59 06:59 18:59 Weight 74.843 kg Other: Voiding Method Toilet Toilet Urinal # Voids 1 2 - Exam GENERAL: The patient is alert and oriented x3, not in any acute distress. Well developed, well nourished. HEENT: Pupils are round and equally reacting to light. EOMI. No scleral icterus. No conjunctival pallor. Normocephalic, atraumatic. No pharyngeal erythema. No thyromegaly. CARDIOVASCULAR: S1 and S2 present. No murmurs, rubs, or gallops. PULMONARY: Chest is clear to auscultation, no wheezing or crackles. ABDOMEN: Soft, nontender, nondistended, normoactive bowel sounds. No palpable organomegaly. Patient's right side abscess site is reddened and inflamed and tender on palpation around the site MUSCULOSKELETAL: No joint swelling or deformity. EXTREMITIES: No cyanosis, clubbing, or pedal edema. NEUROLOGICAL: Gross neurological examination did not reveal any focal deficits. SKIN: As mentioned above - Labs CBC & Chem 7: 03/23/21 07:18 03/23/21 07:18 Labs: Abnormal Lab Results - Last 24 Hours (Table) 03/22/21 03/22/21 03/23/21 Range/Units 17:10 20:13 06:58 Hgb (13.0-17.0) g/dL Hct (39.6-50.0) % MCH (27.0-32.0) pg MCHC (32.0-37.0) g/dL RDW (11.5-14.5) % Glucose (70-110) mg/dL POC Glucose (mg/dL) 233 H 233 H (75-99) mg/dL Plasma Lactic Acid Arthur 2.3 H* (0.7-2.0) mmol/L Calcium (8.7-10.3) mg/dL Total Protein (6.2-8.2) g/dL Albumin (3.80-4.90) g/dL Albumin/Globulin Ratio (1.60-3.17) g/dL 03/23/21 03/23/21 03/23/21 Range/Units 07:18 07:18 11:11 Hgb 11.4 L (13.0-17.0) g/dL Hct 38.1 L (39.6-50.0) % MCH 25.4 L (27.0-32.0) pg MCHC 29.9 L (32.0-37.0) g/dL RDW 18.8 H (11.5-14.5) % Glucose 226 H (70-110) mg/dL POC Glucose (mg/dL) 388 H (75-99) mg/dL Plasma Lactic Acid Arthur (0.7-2.0) mmol/L Calcium 8.4 L (8.7-10.3) mg/dL Total Protein 5.7 L (6.2-8.2) g/dL Albumin 3.00 L (3.80-4.90) g/dL Albumin/Globulin Ratio 1.11 L (1.60-3.17) g/dL Microbiology - Last 24 Hours (Table) 03/22/21 13:47 Gram Stain - Preliminary Back Wound Culture - Preliminary 03/22/21 15:31 Anaerobic Culture - Preliminary Abdominal Fluid Assessment and Plan Assessment: -Possible liver abscess: Patient had an IR guided drain for a liver abscess and is not draining anymore and was removed by surgery. Repeat CT shows subcapsular hepatic abscess with caudal extension into the intercostal and right lateral oblique musculature persists and that is increased in size. Patient remains on IV Zosyn with infectious disease and surgery following. -Lactic acidosis mostly secondary to intravascular depletion rather than infection or sepsis there is no overt evidence of sepsis at this time patient will be started and continued on IV fluids, improved we'll decrease IV fluids to 75 ML per hour -Type 2 diabetes mellitus patient blood sugars are elevated patient will continue with sliding scale and will add small dose of long-acting Levemir and continue to monitor Accu-Cheks before meals and at bedtime -Gastroesophageal reflux disease -Hyperlipidemia -Benign prostatic hypertrophy -Coronary artery disease with CABG in the past -DVT prophylaxis with Lovenox Plan: Continue with current medications with infectious disease and surgery following. Cardiology evaluating the patient for clearance for possible surgical intervention. We'll continue with IV Zosyn at this time. Have decreased IV fluids to 75 ML per hour and will monitor closely. Continue sliding scale and have added long-acting insulin his blood sugars are consistently in the 200s to 300s.
[2021-03-23 16:38] LABS: Glucose,Whole Blood 202 mg/dL (75-99)
--- NOTE | 2021-03-23 18:26 | P.GSCN ---
History of Present Illness Consult date: 03/23/21 History of present illness: Patient seen and evaluated with failed outpatient management for liver abcess and CT guided drainage. He presented to the office with hypotension and weakness and right upper quadrant pain. Patient had lactic acidosis. Today he reports his weakness has improved. He is tolerating diet. CT reviewed with increasing size of liver abscess from prior. Recommend surgical drainage via subcutaneous and robotic approach. Will need cardiac risk assessment prior to surgery. Continue diet in interim. Surgical drainage described pending cardiac clearance. Patient agreed with care plan. Past Medical History Past Medical History: Coronary Artery Disease (CAD), Diabetes Mellitus, Hyperlipidemia, Hypertension, Prostate Disorder History of Any Multi-Drug Resistant Organisms: None Reported Past Surgical History: Cholecystectomy, Coronary Bypass/CABG, Heart Ca theterization Past Anesthesia/Blood Transfusion Reactions: No Reported Reaction Past Psychological History: No Psychological Hx Reported Smoking Status: Former smoker Past Alcohol Use History: Occasional Past Drug Use History: None Reported Medications and Allergies Home Medications Medication Instructions Recorded Confirmed Type Aspirin EC [Ecotrin Low Dose] 81 mg PO DAILY 02/09/21 03/22/21 History Atenolol [Tenormin] 50 mg PO DAILY 02/09/21 03/22/21 History Atorvastatin [Lipitor] 40 mg PO DAILY 02/09/21 03/22/21 History Dapagliflozin Propanediol [Farxiga] 5 mg PO DAILY 02/09/21 03/22/21 History Ezetimibe [Zetia] 10 mg PO DAILY 02/09/21 03/22/21 History Finasteride [Proscar] 5 mg PO DAILY 02/09/21 03/22/21 History Isosorbide Dinitrate 30 mg PO BID 02/09/21 03/22/21 History Multivitamins, Thera [Multivitamin 1 tab PO DAILY 02/09/21 03/22/21 History (formulary)] Naproxen [Naprosyn] 500 mg PO DAILY 02/09/21 03/22/21 History Niacin 500 mg PO DAILY 02/09/21 03/22/21 History Nitroglycerin [Nitroglycerin 1 spray TRANSLINGU Q5M PRN 02/09/21 03/22/21 History 400MCG [place]] [place]-3 Fatty Acids [[place]-3] 1,000 mg PO DAILY 02/09/21 03/22/21 History Omeprazole 20 mg PO DAILY 02/09/21 03/22/21 History Ramipril [Altace] 10 mg PO DAILY 02/09/21 03/22/21 History Terazosin HCl 5 mg PO DAILY 02/09/21 03/22/21 History glipiZIDE [Glucotrol] 10 mg PO DAILY 02/09/21 03/22/21 History metFORMIN HCL [Glucophage] 500 mg PO BID 02/09/21 03/22/21 History sitaGLIPtin PHOSPHATE [Januvia] 100 mg PO DAILY 02/09/21 03/22/21 History metroNIDAZOLE [Flagyl] 500 mg PO TID #30 tab 03/07/21 03/22/21 Rx Ciprofloxacin HCl [Cipro] 500 mg PO Q12H 03/22/21 03/22/21 History Allergies Allergy/AdvReac Type Severity Reaction Status Date / Time No Known Allergies Allergy Verified 03/22/21 15:08 Surgical - Exam Vital Signs Temp Pulse Resp BP Pulse Ox 98.2 F 80 18 87/51 98 03/22/21 13:00 03/22/21 13:00 03/22/21 13:00 03/22/21 13:00 03/22/21 13:00 Results - Labs 03/23/21 07:18 03/23/21 07:18 Abnormal Lab Results - Last 24 Hours (Table) 03/22/21 03/23/21 03/23/21 Range/Units 20:13 06:58 07:18 Hgb 11.4 L (13.0-17.0) g/dL Hct 38.1 L (39.6-50.0) % MCH 25.4 L (27.0-32.0) pg MCHC 29.9 L (32.0-37.0) g/dL RDW 18.8 H (11.5-14.5) % Glucose (70-110) mg/dL POC Glucose (mg/dL) 233 H 233 H (75-99) mg/dL Calcium (8.7-10.3) mg/dL Total Protein (6.2-8.2) g/dL Albumin (3.80-4.90) g/dL Albumin/Globulin Ratio (1.60-3.17) g/dL 03/23/21 03/23/21 03/23/21 Range/Units 07:18 11:11 16:37 Hgb (13.0-17.0) g/dL Hct (39.6-50.0) % MCH (27.0-32.0) pg MCHC (32.0-37.0) g/dL RDW (11.5-14.5) % Glucose 226 H (70-110) mg/dL POC Glucose (mg/dL) 388 H 202 H (75-99) mg/dL Calcium 8.4 L (8.7-10.3) mg/dL Total Protein 5.7 L (6.2-8.2) g/dL Albumin 3.00 L (3.80-4.90) g/dL Albumin/Globulin Ratio 1.11 L (1.60-3.17) g/dL Microbiology - Last 24 Hours (Table) 03/22/21 13:47 Gram Stain - Preliminary Back Wound Culture - Preliminary 03/22/21 14:00 Blood Culture - Preliminary Blood No Growth after 24 hours 03/22/21 13:45 Blood Culture - Preliminary Blood No Growth after 24 hours 03/22/21 15:31 Anaerobic Culture - Preliminary Abdominal Fluid Diabetes panel 03/23/21 Range/Units 07:18 Sodium 136 (135-145) mmol/L Potassium 4.4 (3.5-5.5) mmol/L Chloride 104 (96-109) mmol/L Carbon Dioxide 22.8 (21.6-31.8) mmol/L BUN 10.0 (9.0-27.0) mg/dL Creatinine 0.8 (0.6-1.5) mg/dL Glucose 226 H (70-110) mg/dL Calcium 8.4 L (8.7-10.3) mg/dL AST 19 (14-35) U/L ALT 11 (10-49) U/L Alkaline Phosphatase 75 (41-126) U/L Total Protein 5.7 L (6.2-8.2) g/dL Albumin 3.00 L (3.80-4.90) g/dL Calcium panel 03/23/21 Range/Units 07:18 Calcium 8.4 L (8.7-10.3) mg/dL Albumin 3.00 L (3.80-4.90) g/dL Pituitary panel 03/23/21 Range/Units 07:18 Sodium 136 (135-145) mmol/L Potassium 4.4 (3.5-5.5) mmol/L Chloride 104 (96-109) mmol/L Carbon Dioxide 22.8 (21.6-31.8) mmol/L BUN 10.0 (9.0-27.0) mg/dL Creatinine 0.8 (0.6-1.5) mg/dL Glucose 226 H (70-110) mg/dL Calcium 8.4 L (8.7-10.3) mg/dL Adrenal panel 03/23/21 Range/Units 07:18 Sodium 136 (135-145) mmol/L Potassium 4.4 (3.5-5.5) mmol/L Chloride 104 (96-109) mmol/L Carbon Dioxide 22.8 (21.6-31.8) mmol/L BUN 10.0 (9.0-27.0) mg/dL Creatinine 0.8 (0.6-1.5) mg/dL Glucose 226 H (70-110) mg/dL Calcium 8.4 L (8.7-10.3) mg/dL Total Bilirubin 0.4 (0.3-1.2) mg/dL AST 19 (14-35) U/L ALT 11 (10-49) U/L Alkaline Phosphatase 75 (41-126) U/L Total Protein 5.7 L (6.2-8.2) g/dL Albumin 3.00 L (3.80-4.90) g/dL
--- NOTE | 2021-03-23 18:55 | CONS ---
CONSULTATION DATE OF SERVICE: 03/24/2021. REASON FOR CONSULTATION: Liver abscess. HISTORY OF PRESENT ILLNESS: The patient is an 80-year-old male, apparently started having some pain to the right upper quadrant area, happened around the middle of January of 2021. The patient mentioned there was a snow storm at that time and he was shoveling some snow. Subsequently noted to have some discomfort to the right upper quadrant area. The patient describes the pain to be more of a dull, aching, intensity 4-5 out of 10 and no radiation. The patient was evaluated in the ER on 02/09/2021 The patient did have a CT of abdomen and pelvis completed at that point which did show a complex septated fluid collection in the right upper quadrant adjacent to the lateral right lobe of the liver measuring 11-6 cm for which the patient has been referred to Dr. West in the outpatient setting. The patient did have an ultrasound-guided drainage of this fluid collection on 03/07/2021 and the patient has been treated with oral Cipro and Flagyl. Culture done on March 07 remains to be negative. The patient was referred to the office for evaluation and was seen by Dr. West in the office yesterday. The pigtail catheter was discontinued and the patient was sent to the ER for further evaluation. On arrival to the ER, the patient was afebrile. The patient did have a normal white count. Liver enzymes are normal as well. The patient did have a repeat CT scan completed yesterday which did show subsequent capsular herpetic abscess which has increased with into the intercostal and right lateral oblique musculatures. The patient was started on vancomycin and Zosyn and admitted to the hospital. Infectious disease was consulted for further management of antibiotic therapy. REVIEW OF SYSTEMS: Positive points have been mentioned in HPI. Rest of systems are negative. PAST MEDICAL HISTORY: Significant for cholecystitis status post cholecystectomy. Coronary artery disease, diabetes mellitus, hypertension, hyperlipidemia, prostate disorder. PAST SURGICAL HISTORY: Cholecystectomy, coronary artery bypass grafting and heart catheterization. SOCIAL HISTORY: Remote history of smoking. Rarely drinks. No drug use. FAMILY HISTORY: No pertinent findings noticed. ALLERGIES: No known drug allergies. MEDICATIONS: The patient is currently on Tylenol, Lipitor, Lovenox, Zetia, Pepcid, Proscar, Dilaudid, NovoLog, Narcan, Zosyn and vancomycin . PHYSICAL EXAMINATION: Blood pressure 126/69 with pulse of 62, temperature 98.1. He is 97% on room air. General description: The patient is an elderly male lying in bed in no distress. No tachypnea or accessory muscles of respiration use. HEENT examination: Slight pallor. No scleral icterus. Oral mucous membranes dry. NECK: Trachea. No thyromegaly. LUNGS: Unlabored breathing. Clear to auscultation anteriorly. No rhonchi. No crackles. HEART S1, S2. Regular rate and rhythm. ABDOMEN: Soft. Mild tenderness right upper quadrant area. No guarding. No rigidity. No organomegaly. EXTREMITIES: No edema of the feet. SKIN: No rash or mass palpable. NEUROLOGICAL: Patient is awake, alert, oriented x3. Mood and affect normal. LABS: Hemoglobin 11.4, white count 5.78, BUN of 10, creatinine 0.8. Electrolytes have been normal. Liver enzymes are normal. Previous cultures were negative. DIAGNOSTIC IMPRESSION AND PLAN: Patient with liver abscess. This seemed to have fairly responded to the ultrasound- guided drainage and oral antibiotic therapy. Previous cultures were negative. PLAN: 1. Patient may benefit from open drainage of this abscess and deep cultures. 2. Zosyn 3.375 q.8 hours to continue. 3. We will follow on clinical condition and culture to further adjust medication if needed. Thank you for this consult. We will follow this patient along with you. MMODL / IJN: [id number] /
[2021-03-23 20:25] LABS: Glucose,Whole Blood 263 mg/dL (75-99)
[2021-03-24] MEDS: HYDROmorphone 0.5 MG/0.5 ML SYRINGE IVP PRN ×4 (02:51→19:53)
[2021-03-24] MEDS: PIPERACILLIN-TAZOBACTAM 3.375 GM in SODIUM CHLORIDE 0.9% 100 ML IVPB SCH ×3 (05:50→22:36)
[2021-03-24 07:20] LABS: Anisocytosis Slight; Basophils % (A) 0 %; Eosinophils # (A) 0.1 k/uL (0-0.7); Eosinophils % (A) 2 %; HCT 39.2 % (39.0-53.0); HGB 11.7 gm/dL (13.0-17.5); Hypochromasia Moderate; Lymphocytes # (A) 0.6 k/uL (1.0-4.8); Lymphocytes % (A) 10 %; MCH 25.1 pg (25.0-35.0); MCHC 29.8 g/dL (31.0-37.0); MCV 84.3 fL (80.0-100.0); Mean Platelet Volume 6.9; Monocytes # (A) 0.5 k/uL (0-1.0); Monocytes % (A) 8 %; Neutrophils # (A) 4.5 k/uL (1.3-7.7); Neutrophils % (A) 77 %; Platelet Count 358 k/uL (150-450); RBC 4.65 m/uL (4.30-5.90); RDW 17.2 % (11.5-15.5); WBC 5.8 k/uL (3.8-10.6)
[2021-03-24 07:29] LABS: African American GFR (CKD) >90 (>60 ml/min/1.73 sqM); Anion Gap 3 mmol/L; Blood Urea Nitrogen 8 mg/dL (9-20); Calcium 8.1 mg/dL (8.4-10.2); Carbon Dioxide 28 mmol/L (22-30); Chloride 102 mmol/L (98-107); Glucose 200 mg/dL (74-99); Non-African American GFR(CKD) >90 (>60 ml/min/1.73 sqM); Potassium 4.4 mmol/L (3.5-5.1); Sodium 133 mmol/L (137-145)
[2021-03-24 07:29] LABS: Glucose,Whole Blood 180 mg/dL (75-99)
[2021-03-24] MEDS: INSULIN DETEMIR (LEVEMIR) 100 UNIT/ML SYR SQ SCH (07:40)
[2021-03-24] MEDS: FINASTERIDE 5 MG TAB PO SCH (07:40)
[2021-03-24] MEDS: FAMOTIDINE 20 MG TAB PO SCH ×2 (07:40→21:19)
[2021-03-24] MEDS: INSULIN ASPART (NovoLOG) 100 UNIT/ML VIAL SQ SCH ×4 (07:40→21:17)
[2021-03-24] MEDS: ATORVASTATIN 40 MG TAB PO SCH (07:41)
[2021-03-24] MEDS: EZETIMIBE 10 MG TAB PO SCH (07:41)
[2021-03-24] MEDS: ENOXAPARIN 40 MG/0.4 ML SYRINGE SQ SCH (07:41)
--- NOTE | 2021-03-24 11:00 | ECHOF ---
Referral Reason:congestive heart failure MEASUREMENTS -------- HEIGHT: 167.6 cm WEIGHT: 74.8 kg BP: 123/69 IVSd: 1.3 cm (0.6 - 1.1) LVIDd: 4.3 cm (3.9 - 5.3) LVPWd: 1.4 cm (0.6 - 1.1) EDV(Teich): 82 ml IVSs: 1.7 cm LVIDs: 2.9 cm LVPWs: 1.9 cm %IVS Thck: 29 % ESV(Teich): 32 ml EF(Teich): 61 % %FS: 33 % SV(Teich): 50 ml RVIDd: 4.1 cm (< 3.3) LALs A4C: 5.4 cm LAAs A4C: 18.4 cm LAESV A-L A4C: 53 ml LAESV MOD A4C: 50 ml LALs A2C: 6.2 cm LAAs A2C: 23.5 cm LAESV A-L A2C: 75 ml LAESV MOD A2C: 74 ml LAESV(A-L): 68 ml LAESV Index (A-L): 36.96 ml/m Ao Diam: 3.6 cm (2.0 - 3.7) LA Diam: 4.8 cm (2.7 - 3.8) AV Cusp: 2.3 cm (1.5 - 2.6) EPSS: 1.3 cm MV E Perfecto: 0.73 m/s MV DecT: 202 ms MV Dec [place]: 3.6 m/s MV A Perfecto: 0.97 m/s MV E/A Ratio: 0.75 MV PHT: 59 ms LVOT Vmax: 1.04 m/s LVOT maxP.32 mmHg TR Vmax: 1.61 m/s TR maxP.43 mmHg RAP: 5.00 mmHg RVSP: 15.43 mmHg MV EF SLOPE: 98.27 mm/s (70 - 150) MV EXCURSION: 19.32 mm (> 18.000) FINDINGS -------- Sinus rhythm. This was a technically adequate study. The left ventricular size is normal. Left ventricular wall thickness is normal. Overall left vent ricular systolic function is low-normal with, an EF between 50 - 55 %. Septal wall motion is delaye d and consistent with prior cardiac surgery. The right ventricle is moderately enlarged. LA is moderately dilated 34-39 ml/m2 The right atrial size is normal. Interatrial and interventricular septum intact. There is no evidence of aortic regurgitation. There is no evidence of aortic stenosis. [id number] mitral regurgitation is present. Mild tricuspid regurgitation present. There is no evidence of pulmonary hypertension. The right v entricular systolic pressure, as measured by Doppler, is 15.43mmHg. There is no pulmonic regurgitation present. The aortic root size is normal. IVC Not well visulized. There is no pericardial effusion. CONCLUSIONS -------- 1. The left ventricular size is normal. 2. Left ventricular wall thickness is normal. 3. Overall left ventricular systolic function is low-normal with, an EF between 50 - 55 %. 4. The right ventricle is moderately enlarged. 5. LA is moderately dilated 34-39 ml/m2 6. Gwiw-hr-gkqtqmws mitral regurgitation is present. 7. Mild tricuspid regurgitation present. CHOPPER FEEDER: Raven Eaton RDCS
[2021-03-24 11:58] LABS: Glucose,Whole Blood 198 mg/dL (75-99)
--- NOTE | 2021-03-24 13:12 | P.CRDCN ---
History of Present Illness History of present illness: This is a 80 year old pleasant male with past medical history of coronary artery disease s/p CABG 4 vessel in 01/1988 and PCI to mid RCA in 08/2000, Type 2 Diabetes, Hypertension, Hyperlipidemia, former nicotine dependence. He follow with squilgeer Dr. Foreman. We are being consulted for cardiac clearance. He was sent into the hospital by Dr. West's office due to his liver ab scess and failed outpatient management for liver abcess and CT guided drainage. He presented to Dr. West's office with hypotension and weakness and right upper quadrant pain. CT abdomen and pelvis revealed hepatic abscess which increased in size from prior. Surgery is recommending surgical drainage via subcutaneous and robotic approach. Patient seen and examined at bedside, no acute distress. Resting comfortably in bed. Patient appears euvolemic on exam. He has no complaints at this time. He denies chest pain, shortness of breath, palpitations, dizziness, lightheadedness, lower extremity edema. DIAGNOSTICS Cardiac catheterization 1999 with PCI to mid RCA CABG 01/1988 ACS, FLORIAN and 4 VGs Echocardiogram revealed left ventricular systolic function is low-normal with EF between 50-55%, LA is moderately dilated, mild to moderate mitral regurgitation, mild tricuspid regurgitation. Lexiscan stress test 2019- negative EKG reveals sinus rhythm, heart rate 76, no significant ST-T wave abnormalities. Laboratory reviewed, WBC 5.8, hemoglobin 11.7, platelets 358, sodium 133, potassium 4.4, serum creatinine 0.62, BUN 8 Current home cardiac medications include Imdur 30 mg twice a day, atorvastatin 40 mg daily, atenolol 50 mg daily, aspirin 81 mg daily, Zetia 10 mg daily, Ramipril 10mg daily REVIEW OF SYSTEMS At the time of my exam: CONSTITUTIONAL: Denies fever or chills. CARDIOVASCULAR: Denies chest pain, shortness of breath, orthopnea, PND or palpitations. RESPIRATORY: Denies cough. GASTROINTESTINAL: Denies abdominal pain, diarrhea, constipation, nausea or vomiting. MUSCULOSKELETAL: Denies myalgias. NEUROLOGIC: Denies numbness, tingling, headacbe or weakness. ENDOCRINE: Denies fatigue, weight change, polydipsia or polyurina. GENITOURINARY: Denies burning, hematuria or urgency with micturation. HEMATOLOGIC: Denies history of anemia or bleeding. PHYSICAL EXAMINATION Blood pressure 119/75 heart rate 71 afebrile and maintaining oxygen saturation 96% on room air CONSTITUTIONAL: No apparent distress. HEENT: Head is normocephalic. Pupils are equal, round. Sclerae anicteric. Mucous membranes of the mouth are moist. No JVD. No carotid bruit. CHEST EXAMINATION: Lungs are clear to auscultation. No chest wall tenderness is noted on palpation or with deep breathing. HEART EXAMINATION: Regular rate and rhythm. S1, S2 heard. No murmurs, gallops or rub. ABDOMEN: Soft, nontender. Positive bowel sounds. EXTREMITIES: 2+ peripheral pulses, no lower extremity edema and no calf tenderness. NEUROLOGIC EXAMINATION: Patient is awake, alert and oriented x3. ASSESSMENT Coronary artery disease s/p CABG 4 vessel in 01/1988 and PCI to mid RCA in 08/2000 Type 2 Diabetes Hypertension Hyperlipidemia Former nicotine dependence PLAN EKG and echocardiogram reviewed as above. Patient is at moderate risk for cardiovascular event during surgery. He has the following risk factors history of ischemic heart disease, hypertension, preoperative treatment with insulin. He does not have any acute cardiac conditions. He appears euvolemic on exam. Caution with fluid administration and blood pressure control intraoperatively. Patient may proceed with surgery with no additional cardiac testing or procedures. We will sign off at this time, follow the patient as needed. Please reach out for further questions or concerns. Nurse Practitioner note has been reviewed, I agree with a documented findings and plan of care. Patient was seen and examined. Past Medical History Past Medical History: Coronary Artery Disease (CAD), Diabetes Mellitus, Hyperlipidemia, Hypertension, Prostate Disorder History of Any Multi-Drug Resistant Organisms: None Reported Past Surgical History: Cholecystectomy, Coronary Bypass/CABG, Heart Catheterization Past Anesthesia/Blood Transfusion Reactions: No Reported Reaction Past Psychological History: No Psychological Hx Reported Smoking Status: Former smoker Past Alcohol Use History: Occasional Past Drug Use History: None Reported Medications and Allergies Home Medications Medication Instructions Recorded Confirmed Type Aspirin EC [Ecotrin Low Dose] 81 mg PO DAILY 02/09/21 03/22/21 History Atenolol [Tenormin] 50 mg PO DAILY 02/09/21 03/22/21 History Atorvastatin [Lipitor] 40 mg PO DAILY 02/09/21 03/22/21 History Dapagliflozin Propanediol [Farxiga] 5 mg PO DAILY 02/09/21 03/22/21 History Ezetimibe [Zetia] 10 mg PO DAILY 02/09/21 03/22/21 History Finasteride [Proscar] 5 mg PO DAILY 02/09/21 03/22/21 History Isosorbide Dinitrate 30 mg PO BID 02/09/21 03/22/21 History Multivitamins, Thera [Multivitamin 1 tab PO DAILY 02/09/21 03/22/21 History (formulary)] Naproxen [Naprosyn] 500 mg PO DAILY 02/09/21 03/22/21 History Niacin 500 mg PO DAILY 02/09/21 03/22/21 History Nitroglycerin [Nitroglycerin 1 spray TRANSLINGU Q5M PRN 02/09/21 03/22/21 History 400MCG [place]] [place]-3 Fatty Acids [[place]-3] 1,000 mg PO DAILY 02/09/21 03/22/21 History Omeprazole 20 mg PO DAILY 02/09/21 03/22/21 History Ramipril [Altace] 10 mg PO DAILY 02/09/21 03/22/21 History Terazosin HCl 5 mg PO DAILY 02/09/21 03/22/21 History glipiZIDE [Glucotrol] 10 mg PO DAILY 02/09/21 03/22/21 History metFORMIN HCL [Glucophage] 500 mg PO BID 02/09/21 03/22/21 History sitaGLIPtin PHOSPHATE [Januvia] 100 mg PO DAILY 02/09/21 03/22/21 History metroNIDAZOLE [Flagyl] 500 mg PO TID #30 tab 03/07/21 03/22/21 Rx Ciprofloxacin HCl [Cipro] 500 mg PO Q12H 03/22/21 03/22/21 History Allergies Allergy/AdvReac Type Severity Reaction Status Date / Time No Known Allergies Allergy Verified 03/22/21 15:08 Physical Exam Vitals: Vital Signs Temp Pulse Resp BP Pulse Ox 03/23/21 14:00 98.5 F 74 14 120/76 97 03/23/21 08:00 98.1 F 63 13 123/69 97 03/23/21 00:39 98.3 F 66 14 128/70 97 03/22/21 20:00 72 14 03/22/21 19:02 98.3 F 72 14 96/60 99 Intake and Output 03/23/21 03/23/21 03/23/21 06:59 14:59 22:59 Other: Voiding Method Toilet Urinal # Voids 1 2 2 Results 03/24/21 06:47 03/24/21 06:47 Cardiac Enzymes 03/23/21 Range/Units 07:18 AST 19 (14-35) U/L CBC 03/23/21 Range/Units 07:18 WBC 5.78 (4.50-10.00) X 10*3/uL RBC 4.49 (4.40-5.60) X 10*6/uL Hgb 11.4 L (13.0-17.0) g/dL Hct 38.1 L (39.6-50.0) % Plt Count 379 (140-440) X 10*3/uL Comprehensive Metabolic Panel 03/23/21 Range/Units 07:18 Sodium 136 (135-145) mmol/L Potassium 4.4 (3.5-5.5) mmol/L Chloride 104 (96-109) mmol/L Carbon Dioxide 22.8 (21.6-31.8) mmol/L BUN 10.0 (9.0-27.0) mg/dL Creatinine 0.8 (0.6-1.5) mg/dL Glucose 226 H (70-110) mg/dL Calcium 8.4 L (8.7-10.3) mg/dL AST 19 (14-35) U/L ALT 11 (10-49) U/L Alkaline Phosphatase 75 (41-126) U/L Total Protein 5.7 L (6.2-8.2) g/dL Albumin 3.00 L (3.80-4.90) g/dL Current Medications Generic Name Dose Route Start Last Admin Trade Name Freq PRN Reason Stop Dose Admin Acetaminophen 650 mg 03/22/21 14:30 Acetaminophen Tab 325 Mg Tab PO Q6HR PRN Mild Pain or Fever > 100.5 Atorvastatin Calcium 40 mg 03/23/21 09:00 03/23/21 08:36 Atorvastatin 40 Mg Tab PO 40 mg DAILY ZOEY Administration Ezetimibe 10 mg 03/23/21 09:00 03/23/21 08:36 Ezetimibe 10 Mg Tab PO 10 mg DAILY ZOEY Administration Enoxaparin Sodium 40 mg 03/23/21 09:00 03/23/21 08:36 Enoxaparin 40 Mg/0.4 Ml Syringe SQ 40 mg DAILY ZOEY Administration Famotidine 20 mg 03/22/21 21:00 03/23/21 08:36 Famotidine 20 Mg Tab PO 20 mg BID ZOEY Administration Finasteride 5 mg 03/23/21 09:00 03/23/21 08:36 Finasteride 5 Mg Tab PO 5 mg DAILY ZOEY Administration Hydromorphone HCl 0.5 mg 03/22/21 14:30 03/23/21 15:17 Hydromorphone 0.5 Mg/0.5 Ml Syringe IVP 0.5 mg Q3HR PRN Administration Moderate Pain Piperacillin Sod/Tazobactam 100 mls @ 25 mls/hr 03/22/21 22:00 03/23/21 14:07 Sod 3.375 gm/ Sodium Chloride IVPB 25 mls/hr Q8H ZOEY Administration Sodium Chloride 1,000 mls @ 75 mls/hr 03/22/21 14:30 03/23/21 11:28 Saline 0.9% IV 130 mls/hr .[id number] ZOEY Administration Insulin Aspart 0 unit 03/23/21 12:30 03/23/21 17:18 Insulin Aspart (Novolog) 100 Unit/Ml Vial SQ 2 unit ACHS ZOEY Administration Protocol Insulin Detemir 10 unit 03/23/21 16:15 03/23/21 16:03 Insulin Detemir (Levemir) 100 Unit/Ml Syr SQ Not Given DAILY@0700 ZOEY Naloxone HCl 0.2 mg 03/22/21 14:30 Naloxone 0.4 Mg/Ml 1 Ml Vial IV Q2M PRN Opioid Reversal Intake and Output 03/23/21 03/23/21 03/23/21 06:59 14:59 22:59 Other: Voiding Method Toilet Urinal # Voids 1 2 2 03/23/21 07:18 03/23/21 07:18
[2021-03-24] MEDS: SODIUM CHLORIDE 0.9% 1,000 ML IV SCH (15:12)
--- NOTE | 2021-03-24 15:50 | P.PN ---
Subjective Progress Note Date: 03/24/21 Patient is an 80-year-old pleasant male was sent in from Dr. West's office for liver abscess. Patient came in for regular biopsy for liver mass and patient was told he has an abscess and a drain was put in about 2 weeks ago by interventional radiologist and he the continued to drain until few days ago went stopped draining. Patient has seen Dr. West. removed the drain as it wasn't draining anymore. The cultures from the drainage fluid are negative for any bacteria or any other infection. Repeat computed tomography scan is being obtained at this time. Patient has seen infectious disease doctor as well who reviewed his chart and all the cultures appear to be negative. Today the drain site had some purulent discharge as per the ER physician when I evaluated it's packed and the didn't see much of drainage but there is mild redness around the day. Patient was started on vancomycin and the Zosyn which will be continued for now infectious disease was consulted. Patient was on ciprofloxacin at home. Patient did note that he had significant weight loss and generalized weakness b ut doesn't have any fever or leukocytosis. Patient blood sugars are bit high patient is bit hyponatremic does have lactic acidosis. 03/23/2021 Patient is seen and evaluated in follow-up this morning continues to have right- sided discomfort. Surgery following. Patient is maintained on IV antibiotics in the form of Zosyn and infectious disease following. White blood count is 5.78, hemoglobin is 11.4, sodium is 136 with a potassium of 4.4 current creatinine is 0.8. Blood sugars are elevated and will continue sliding scale and will add long-acting and monitor closely. Cardiology has been consulted for possible clearance for surgical intervention. Echo has been ordered and currently pending. 03/24/2021 Patient is seen this morning with no acute overnight issues. Patient continues to have right-sided discomfort although states is slightly improved and if he does not move around it as tolerated. Patient is currently on diet and tolerating with no reports of nausea or vomiting noted. Plans are for cardiac clearance and surgical intervention with Dr. Liang and possible drainage placement and will await surgical report. No reported results of wound cultures and blood cultures remain negative. Patient is continued on Zosyn and will continue. Blood count this morning within normal limits at 5.8 and hemoglobin is 11.7, sodium is 133 with a potassium of 4.4 and current creatinine is 0.62. Continue with Accu-Cheks and before meals and at bedtime and will continue slidi ng scale along with long-acting. Will repeat a.m. labs. Most likely nothing by mouth at midnight. Patient did undergo 2-D echo showing LV systolic function is low to normal with an EF of 50-55% with septal wall motion delayed consistent with previous cardiac surgery. Mild to moderate mitral regurgitation present along with mild tricuspid regurgitation and no evidence of pulmonary hypertension noted. Cardiology clears for surgical interventions with risks versus benefits explained in detail. Review of systems: Constitutional: No reports of fatigue, fever, or chills Cardiovascular: No reports of chest pain or palpitations Respiratory: No reports of shortness of breath or cough GI: No reports of nausea, vomiting, or diarrhea, reports right side discomfort at the abscess site : No reports of dysuria or retention Neurovascular: No reports of weakness or numbness All medications have been reviewed Objective - Vital Signs Vital signs: Vital Signs Temp 98.0 F 03/24/21 08:00 Pulse 71 03/24/21 08:00 Resp 16 03/24/21 08:00 BP 119/75 03/24/21 08:00 Pulse Ox 96 03/24/21 08:00 Intake & Output 03/23/21 03/24/21 03/24/21 18:59 06:59 18:59 Intake Total 200 Output Total 400 Balance -400 200 Intake: Oral 200 Output: Urine 400 Other: Voiding Method Toilet Toilet Urinal Urinal # Voids 6 - Exam GENERAL: The patient is alert and oriented x3, not in any acute distress. Well developed, well nourished. HEENT: Pupils are round and equally reacting to light. EOMI. No scleral icterus. No conjunctival pallor. Normocephalic, atraumatic. No pharyngeal erythema. No thyromegaly. CARDIOVASCULAR: S1 and S2 present. No murmurs, rubs, or gallops. PULMONARY: Chest is clear to auscultation, no wheezing or crackles. ABDOMEN: Soft, nontender, nondistended, normoactive bowel sounds. No palpable organomegaly. Patient's right side abscess site is reddened and inflamed and tender on palpation around the site MUSCULOSKELETAL: No joint swelling or deformity. EXTREMITIES: No cyanosis, clubbing, or pedal edema. NEUROLOGICAL: Gross neurological examination did not reveal any focal deficits. SKIN: As mentioned above - Labs CBC & Chem 7: 03/24/21 06:47 03/24/21 06:47 Labs: Abnormal Lab Results - Last 24 Hours (Table) 03/23/21 03/23/21 03/24/21 Range/Units 16:37 20:22 06:47 Hgb 11.7 L (13.0-17.5) gm/dL MCHC 29.8 L (31.0-37.0) g/dL RDW 17.2 H (11.5-15.5) % Lymphocytes # 0.6 L (1.0-4.8) k/uL Sodium (137-145) mmol/L BUN (9-20) mg/dL Creatinine (0.66-1.25) mg/dL Glucose (74-99) mg/dL POC Glucose (mg/dL) 202 H 263 H (75-99) mg/dL Calcium (8.4-10.2) mg/dL 03/24/21 03/24/21 03/24/21 Range/Units 06:47 07:24 11:56 Hgb (13.0-17.5) gm/dL MCHC (31.0-37.0) g/dL RDW (11.5-15.5) % Lymphocytes # (1.0-4.8) k/uL Sodium 133 L (137-145) mmol/L BUN 8 L (9-20) mg/dL Creatinine 0.62 L (0.66-1.25) mg/dL Glucose 200 H (74-99) mg/dL POC Glucose (mg/dL) 180 H 198 H (75-99) mg/dL Calcium 8.1 L (8.4-10.2) mg/dL Microbiology - Last 24 Hours (Table) 03/22/21 13:47 Gram Stain - Preliminary Back Wound Culture - Preliminary 03/22/21 14:00 Blood Culture - Preliminary Blood No Growth after 24 hours 03/22/21 13:45 Blood Culture - Preliminary Blood No Growth after 24 hours Assessment and Plan Assessment: -Possible liver abscess: Patient had an IR guided drain for a liver abscess and is not draining anymore and was removed by surgery. Repeat CT shows subcapsular hepatic abscess with caudal extension into the intercostal and right lateral oblique musculature persists and that is increased in size. Patient remains on IV Zosyn with infectious disease and surgery following. -Lactic acidosis mostly secondary to intravascular depletion rather than infection or sepsis there is no overt evidence of sepsis at this time patient will be started and continued on IV fluids, improved we'll decrease IV fluids to 20 ML per hour -Type 2 diabetes mellitus patient blood sugars are elevated patient will contin ue with sliding scale and will add small dose of long-acting Levemir and continue to monitor Accu-Cheks before meals and at bedtime -Gastroesophageal reflux disease -Hyperlipidemia -Benign prostatic hypertrophy -Coronary artery disease with CABG in the past -DVT prophylaxis with Lovenox Plan: Continue with current medications with infectious disease and surgery following. Cardiology evaluating the patient for clearance and has been cleared for surgical intervention. We'll continue with IV Zosyn at this time. Have decreased IV fluids to 20 ML per hour and will monitor closely. Will repeat a.m. labs. Continue sliding scale and have added long-acting insulin and continue with Accu-Cheks before meals and at bedtime.
[2021-03-24 17:04] LABS: Glucose,Whole Blood 246 mg/dL (75-99)
--- NOTE | 2021-03-24 18:21 | P.PN ---
Subjective Progress Note Date: 03/24/21 CHIEF COMPLAINT: Abdominal pain HISTORY OF PRESENT ILLNESS: The patient is a 80 year old male with persistent liver abscess identified over 3+ months ago. He has moderate severe right upper quadrant abdominal pain. Computed tomography scan findings consistent with worsening liver abscess after failure of outpatient treatment was CT-guided drainage and antibiotics. He presented with lactic acidosis, dehydration with hypotension. He is tolerating diet. He reports increased strength. His been seen by cardiology due to pre-existing ischemic cardiomyopathy. REVIEW OF ORGAN SYSTEMS: No chest pain, no shortness of breath. No fevers or chills. PHYSICAL EXAM: VITALS: Reviewed CONSTITUTIONAL: Well developed and in no acute distress. EYES: Conjuctivae without sclera icterus. Extraocular movements grossly intact. HEAD, EARS, NOSE, THROAT: Moist buccal mucosa. Head is atraumatic, normocepha lic. Hears conversational speech. RESPIRATORY: Non labored breathing. No gross wheezes. CARDIOVASCULAR: Palpable 2+ radial pulses. ABDOMEN: Soft. Tender with swelling along the right upper abdomen/flank NEUROLOGIC: Cranial nerves II through XII grossly intact. No focal or lateralizing signs. MUSCULOSKELETAL: No bilateral calf pain. PSYCH: Alert and oriented to person place time CLINCAL LABS: Reviewed. WBC normal at 5.8 MICRO: No new growth at this time ECHO: Ejection fraction of 55% with septal wall motion delay. ASSESSMENT: 1. Failed outpatient treatment for liver abscess 2. Right upper quadrant abdominal pain 3. Diabetes type 2 poorly controlled 4. Ischemic cardiomyopathy PLAN: 1. Care plan discussed with infectious disease team including patient patient had failed outpatient management of a large liver abscess. We'll proceed with surgical drainage. Placement of a drain was also described. 2. Patient's elevated risk for complications with pre-existing ischemic cardiomyopathy including poorly controlled diabetes type 2 Objective - Vital Signs Vital signs: Vital Signs Temp 98.9 F 03/24/21 15:16 Pulse 72 03/24/21 15:16 Resp 16 03/24/21 15:16 BP 150/90 03/24/21 15:16 Pulse Ox 97 03/24/21 15:16 Intake & Output 03/23/21 03/24/21 03/24/21 18:59 06:59 18:59 Intake Total 200 Output Total 400 Balance -400 200 Intake: Oral 200 Output: Urine 400 Other: Voiding Method Toilet Toilet Toilet Urinal Urinal Urinal # Voids 6 - Labs CBC & Chem 7: 03/24/21 06:47 03/24/21 06:47 Labs: Abnormal Lab Results - Last 24 Hours (Table) 03/23/21 03/24/21 03/24/21 Range/Units 20:22 06:47 06:47 Hgb 11.7 L (13.0-17.5) gm/dL MCHC 29.8 L (31.0-37.0) g/dL RDW 17.2 H (11.5-15.5) % Lymphocytes # 0.6 L (1.0-4.8) k/uL Sodium 133 L (137-145) mmol/L BUN 8 L (9-20) mg/dL Creatinine 0.62 L (0.66-1.25) mg/dL Glucose 200 H (74-99) mg/dL POC Glucose (mg/dL) 263 H (75-99) mg/dL Calcium 8.1 L (8.4-10.2) mg/dL 03/24/21 03/24/21 03/24/21 Range/Units 07:24 11:56 16:51 Hgb (13.0-17.5) gm/dL MCHC (31.0-37.0) g/dL RDW (11.5-15.5) % Lymphocytes # (1.0-4.8) k/uL Sodium (137-145) mmol/L BUN (9-20) mg/dL Creatinine (0.66-1.25) mg/dL Glucose (74-99) mg/dL POC Glucose (mg/dL) 180 H 198 H 246 H (75-99) mg/dL Calcium (8.4-10.2) mg/dL Microbiology - Last 24 Hours (Table) 03/22/21 14:00 Blood Culture - Preliminary Blood No Growth after 48 hours 03/22/21 13:45 Blood Culture - Preliminary Blood No Growth after 48 hours 03/22/21 13:47 Gram Stain - Preliminary Back Wound Culture - Preliminary Assessment and Plan (1) Poorly controlled type 2 diabetes mellitus Current Visit: Yes Status: Acute Code(s): E11.65 - TYPE 2 DIABETES MELLITUS WITH HYPERGLYCEMIA SNOMED Code(s): 30749567 (2) Ischemic cardiomyopathy Current Visit: Yes Status: Acute Code(s): I25.5 - ISCHEMIC CARDIOMYOPATHY SNOMED Code(s): 629183673 (3) Right upper quadrant abdominal pain Current Visit: Yes Status: Acute Code(s): R10.11 - RIGHT UPPER QUADRANT PAIN SNOMED Code(s): 127260967 (4) Failure of outpatient treatment Current Visit: Yes Status: Acute Code(s): Z78.9 - OTHER SPECIFIED HEALTH STATUS SNOMED Code(s): 723574083 (5) Hypertensive heart disease Current Visit: Yes Status: Acute Code(s): I11.9 - HYPERTENSIVE HEART DISEASE WITHOUT HEART FAILURE SNOMED Code(s): 50537702 (6) Liver abscess Current Visit: Yes Status: Acute Code(s): K75.0 - ABSCESS OF LIVER SNOMED Code(s): 15595147 (7) Dehydration Current Visit: Yes Status: Acute Code(s): E86.0 - DEHYDRATION SNOMED Code(s): 21576338 (8) Lactic acid acidosis Current Visit: Yes Status: Acute Code(s): E87.2 - ACIDOSIS SNOMED Code(s): 07291709 (9) Hypotension Current Visit: Yes Status: Acute Code(s): I95.9 - HYPOTENSION, UNSPECIFIED SNOMED Code(s): 24601649
[2021-03-24 20:43] LABS: Glucose,Whole Blood 221 mg/dL (75-99)
[2021-03-25] MEDS: SODIUM CHLORIDE 0.9% 1,000 ML IV SCH ×2 (00:26→23:37)
[2021-03-25] MEDS: HYDROmorphone 0.5 MG/0.5 ML SYRINGE IVP PRN ×5 (00:43→21:06)
--- NOTE | 2021-03-25 04:00 | PN ---
PROGRESS NOTE DATE OF SERVICE: 03/24/2021. REASON FOR FOLLOWUP: Liver abscess. INTERVAL HISTORY: The patient is afebrile. The patient is breathing comfortably. The patient's pain to the right upper wound is currently controlled. Denies any nausea, no vomiting. No chest pain, shortness of breath or cough. No diarrhea. PHYSICAL EXAMINATION: Blood pressure 131/76, pulse of 77, temperature 99.2. He is 97% on room air. General description is an elderly male lying in bed in no distress. Respiratory system: Unlabored breathing, clear to auscultation anteriorly. Heart S1, S2. Regular rate and rhythm. ABDOMEN: Soft, no tenderness. EXTREMITIES: No edema of the feet. LAB: Hemoglobin 11.7, white count 5.8, BUN of 8. Creatinine 0.62. DIAGNOSTIC IMPRESSION AND PLAN: Patient with liver abscess failing the CT-guided drainage and antibiotic therapy. Waiting for surgical drainage and deep cultures. The patient is covered with Zosyn to continue, adjusting antibiotic further on the basis of clinical response and culture. Discussed with the admitting surgeon. MMODL / IJN: [id number] /
[2021-03-25] MEDS: PIPERACILLIN-TAZOBACTAM 3.375 GM in SODIUM CHLORIDE 0.9% 100 ML IVPB SCH ×3 (06:05→21:05)
[2021-03-25] MEDS ORDERED: IV FLUID CONTINUATION 1,000 ML IV ONE (06:47)
[2021-03-25 06:57] LABS: Glucose,Whole Blood 209 mg/dL (75-99)
[2021-03-25] MEDS ORDERED: ONDANSETRON 4 MG/2 ML VIAL ONE (07:03)
[2021-03-25] MEDS ORDERED: INSULIN ASPART (NovoLOG) 100 UNIT/ML VIAL SQ ONE (07:05)
[2021-03-25] MEDS ORDERED: ONDANSETRON 4 MG/2 ML VIAL IVP ONE ×2 (07:10→07:11)
[2021-03-25] MEDS ORDERED: DEXAMETHASONE SOD PHOSPHATE 4 MG/ML 1 ML VIAL IV ONE (07:11)
[2021-03-25] MEDS ORDERED: HEPARIN SODIUM,PORCINE/PF 5,000 UNIT/0.5 ML SYRINGE SQ ONE (07:32)
[2021-03-25] MEDS ORDERED: PROPOFOL 10 MG/ML 20 ML VIAL IV ONE (07:34)
[2021-03-25] MEDS ORDERED: fentaNYL (PF) 50 MCG/ML 2 ML AMP ONE (07:34)
[2021-03-25] MEDS ORDERED: LIDOCAINE 1% INJ 10MG/ML (20 ML MDV) ONE (07:34)
[2021-03-25] MEDS ORDERED: MIDAZOLAM 2 MG/2 ML VIAL ONE (07:34)
[2021-03-25] MEDS ORDERED: GLYCOPYRROLATE 0.2 MG/ML 2 ML VIAL ONE (07:34)
[2021-03-25] MEDS ORDERED: SUCCINYLCHOLINE CHLORIDE 100 MG/5 ML SYR IV ONE (07:34)
[2021-03-25] MEDS ORDERED: PHENYLEPHRINE-0.9% NACL SYG 1,000 MCG/10 ML SYRINGE ONE (07:34)
[2021-03-25] MEDS ORDERED: NEOSTIGMINE 1 MG/ML 10 ML VIAL ONE (07:34)
[2021-03-25] MEDS ORDERED: ROCURONIUM 10 MG/ML (5 ML VIAL) IV ONE (07:34)
[2021-03-25] MEDS ORDERED: HEPARIN SODIUM,PORCINE 5,000 UNIT/ML 1 ML VIAL SQ ONE (07:35)
[2021-03-25] MEDS ORDERED: LIDOCAINE 1%-EPI 1:100,000 20 ML VIAL SQ ONE (08:06)
[2021-03-25] MEDS ORDERED: LACTATED RINGERS 1,000 ML IV ONE (08:50)
[2021-03-25] MEDS ORDERED: ONDANSETRON 4 MG/2 ML VIAL IVP PRN (10:31)
[2021-03-25 10:32] LABS: Glucose,Whole Blood 184 mg/dL (75-99)
[2021-03-25] MEDS ORDERED: NITROGLYCERIN SL TABS 0.4 MG TAB SUBLINGUAL PRN (10:33)
[2021-03-25 10:45] LABS: Anisocytosis Slight; Basophils % (A) 0 %; Eosinophils # (A) 0.1 k/uL (0-0.7); Eosinophils % (A) 2 %; HCT 41.6 % (39.0-53.0); HGB 12.8 gm/dL (13.0-17.5); Hypochromasia Slight; Lymphocytes # (A) 0.7 k/uL (1.0-4.8); Lymphocytes % (A) 11 %; MCH 25.6 pg (25.0-35.0); MCHC 30.7 g/dL (31.0-37.0); MCV 83.6 fL (80.0-100.0); Mean Platelet Volume 6.8; Monocytes # (A) 0.4 k/uL (0-1.0); Monocytes % (A) 7 %; Neutrophils # (A) 4.8 k/uL (1.3-7.7); Neutrophils % (A) 78 %; Platelet Count 366 k/uL (150-450); RBC 4.98 m/uL (4.30-5.90); RDW 17.4 % (11.5-15.5); WBC 6.2 k/uL (3.8-10.6)
--- NOTE | 2021-03-25 10:51 | P.OP ---
Date of Procedure: 03/25/21 Description of Procedure: SURGEON: JERRY ALY MD PREOPERATIVE DIAGNOSES: 1. Complicated right lower lobe liver abscess 17 cm x 9 cm 2. Right upper quadrant abdominal pain 3. Failed outpatient treatment for liver abscess 4. Diabetes type 2, poorly controlled 5. Ischemic cardiomyopathy 6. History of prior cholecystectomy 7. Hypertensive heart disease 8. Coronary artery disease 9. History of CABG 10. History of cardiac stent placement POSTOPERATIVE DIAGNOSES: 1. Complicated septated right lower lobe liver abscess, 17 cm x 9 cm , peritoneal adhesions 2. Right upper quadrant abdominal pain 3. Failed outpatient treatment for liver abscess 4. Diabetes type 2, poorly controlled 5. Ischemic cardiomyopathy 6. History of prior cholecystectomy 7. Hypertensive heart disease 8. Coronary artery disease 9. History of CABG 10. History of cardiac stent placement 11. Peritoneal adhesions epigastrium, right upper quadrant OPERATION: 1. Robotic-assisted da Sonja Xi laparoscopic lysis of adhesions over 1 hour 2. Drainage of complex septated liver abscess right lower lobe, 500 mL ryan purulence Anesthesia: GETA, local Pathology: other (aerobic, anerobic, fungal) Condition: stable Disposition: floor Operative Findings: 1. Complex septated right lower lobe liver abscess, 17 cm x 9 cm completely drained with non-malodorous purulence 2. Moderate epigastric and right upper quadrant peritoneal adhesions including andre-hepatic lesions lysed 3. Abscess tract intra-abdominal to subcutaneous at right upper quadrant also drained INDICATIONS: The patient is a 80-year-old female who presents with over 2 month history of persistent right upper quadrant abdominal pain. He had initial CT- guided drainage attempt with outpatient antibiotics and had failed therapy. His condition continued to worsen. He was admitted with orthostatic hypotension, lactic acidosis and suspected sepsis. Patient had cardiac risk assessment prior including discussion infectious disease was performed. Surgical drainage of complex liver abscess was described. Robotic assisted laparoscopic approach was described. Benefits and risks of the procedure including but not limited to bleeding, infection, injury to the biliary tree was described. Informed consent was obtained. DESCRIPTION OF PROCEDURE: Patient was brought to the operating room, placed in supine position. After general induction, the abdomen had been prepped and draped in standard sterile fashion. The robotic da Sonja XI system was primed. After a timeout protocol was performed, the patient had been prepped and draped in standard sterile fashion. A 5 mm 0 degrees laparoscopic trocar entry was performed along the left upper quadrant. The abdomen insufflated to 15 mmHg pressure which was tolerated well. Diagnostic laparoscopy demonstrated no injury to bowel viscera or mesentery. Dense omental to abdominal adhesions involving the right upper quadrant epigastric was identified including perihepatic adhesions. An oblique fashion, 3 - 8 mm trochars were placed from the right lower quadrant to right upper quadrant and 15 cm away from the target anatomy. CT imaging was used during the case to navigate the tract of the abscess. The robot was docked along the right lateral abdomen. The patient was repositioned in reverse Trendelenburg position at 7, with the right side up. Using a grasper for arm 3, including hook cautery for arm 1, the robotic system was docked and primed as described. Instruments were interchanged by the assistant press operator offset including hook cautery, Bovie cautery and vessel sealer as well as suction. I had sat at the console. The right upper quadrant including the epigastrium adhesions were addressed using vessel sealer for over one hour for lysis of adhesions. At the inferior liver edge, cautery was used to identified the tract and confirmed with CT imaging. Lysis of adhesions was performed to free surrounding tissues from the liver edge. Next, moderate yellow non-malodorous purulence was found tracking into the subcutaneous tissue and right lateral abdominal wall of the patient. A total of 500 mL of purulence was aspirated with aerobic, anaerobic, fungal cultures obtained. Hemostasis was checked. The trocar of the left upper quadrant were exchanged for 12 mm trocar. A round #19 drain was navigated into the abdominal wall tract of the abscess and exited along the right inferior edge of the liver. The robot was undocked. I re-scrubbed into the case. The round #19 CHELSEY drain was tacked using 2-0 nylon 2. Bulb suction was attached once the abdomen was desufflated. All pneumoperitoneum instruments were evacuated from the abdominal cavity. The incisions were reapproximated using 4-0 Monocryl in an interrupted subcuticular fashion. Fascial defects were less than 8 mm in size. Please note along the trocar sites, local anesthetic was placed as a field block prior to insertion of all instruments. Liquid glue was applied to the skin. At the end of the procedure needle, sponge, and instrument count had been verified correct by the surgical aide. The patient was transferred to postanesthesia care unit in stable condition. Intraoperative films were shared with the patient's family.
[2021-03-25] MEDS ORDERED: ACETAMINOPHEN IV (For NPO) 1,000 MG in EMPTY BAG 1 BAG IVPB ONE (11:00)
[2021-03-25 11:12] LABS: African American GFR (CKD) >90 (>60 ml/min/1.73 sqM); Anion Gap 9 mmol/L; Blood Urea Nitrogen 8 mg/dL (9-20); Carbon Dioxide 24 mmol/L (22-30); Chloride 102 mmol/L (98-107); Glucose 211 mg/dL (74-99); Non-African American GFR(CKD) 90 (>60 ml/min/1.73 sqM); Potassium 4.1 mmol/L (3.5-5.1); Sodium 135 mmol/L (137-145)
[2021-03-25] MEDS: LACTATED RINGERS 1,000 ML IV SCH (12:04)
[2021-03-25] MEDS: INSULIN DETEMIR (LEVEMIR) 100 UNIT/ML SYR SQ SCH (12:04)
[2021-03-25] MEDS: ATORVASTATIN 40 MG TAB PO SCH (12:05)
[2021-03-25] MEDS: ENOXAPARIN 40 MG/0.4 ML SYRINGE SQ SCH (12:05)
[2021-03-25] MEDS: FINASTERIDE 5 MG TAB PO SCH (12:05)
[2021-03-25] MEDS: INSULIN ASPART (NovoLOG) 100 UNIT/ML VIAL SQ SCH ×4 (12:05→21:42)
[2021-03-25] MEDS: EZETIMIBE 10 MG TAB PO SCH (12:05)
[2021-03-25] MEDS: FAMOTIDINE 20 MG TAB PO SCH ×2 (12:05→21:05)
[2021-03-25 12:08] LABS: Glucose,Whole Blood 166 mg/dL (75-99)
--- NOTE | 2021-03-25 15:51 | P.PN ---
Subjective Progress Note Date: 03/25/21 Patient is an 80-year-old pleasant male was sent in from Dr. West's office for liver abscess. Patient came in for regular biopsy for liver mass and patient was told he has an abscess and a drain was put in about 2 weeks ago by interventional radiologist and he the continued to drain until few days ago went stopped draining. Patient has seen Dr. West. removed the drain as it wasn't draining anymore. The cultures from the drainage fluid are negative for any bacteria or any other infection. Repeat computed tomography scan is being obtained at this time. Patient has seen infectious disease doctor as well who reviewed his chart and all the cultures appear to be negative. Today the drain site had some purulent discharge as per the ER physician when I evaluated it's packed and the didn't see much of drainage but there is mild redness around the day. Patient was started on vancomycin and the Zosyn which will be continued for now infectious disease was consulted. Patient was on ciprofloxacin at home. Patient did note that he had significant weight loss and generalized weakness b ut doesn't have any fever or leukocytosis. Patient blood sugars are bit high patient is bit hyponatremic does have lactic acidosis. 03/23/2021 Patient is seen and evaluated in follow-up this morning continues to have right- sided discomfort. Surgery following. Patient is maintained on IV antibiotics in the form of Zosyn and infectious disease following. White blood count is 5.78, hemoglobin is 11.4, sodium is 136 with a potassium of 4.4 current creatinine is 0.8. Blood sugars are elevated and will continue sliding scale and will add long-acting and monitor closely. Cardiology has been consulted for possible clearance for surgical intervention. Echo has been ordered and currently pending. 03/24/2021 Patient is seen this morning with no acute overnight issues. Patient continues to have right-sided discomfort although states is slightly improved and if he does not move around it as tolerated. Patient is currently on diet and tolerating with no reports of nausea or vomiting noted. Plans are for cardiac clearance and surgical intervention with Dr. Liang and possible drainage placement and will await surgical report. No reported results of wound cultures and blood cultures remain negative. Patient is continued on Zosyn and will continue. Blood count this morning within normal limits at 5.8 and hemoglobin is 11.7, sodium is 133 with a potassium of 4.4 and current creatinine is 0.62. Continue with Accu-Cheks and before meals and at bedtime and will continue slidi ng scale along with long-acting. Will repeat a.m. labs. Most likely nothing by mouth at midnight. Patient did undergo 2-D echo showing LV systolic function is low to normal with an EF of 50-55% with septal wall motion delayed consistent with previous cardiac surgery. Mild to moderate mitral regurgitation present along with mild tricuspid regurgitation and no evidence of pulmonary hypertension noted. Cardiology clears for surgical interventions with risks versus benefits explained in detail. 03/25/2021 Patient is seen and evaluated in follow-up today for liver abscess and is being closely monitored. Patient scheduled to undergo drainage placement Dr. Liang today and has been nothing by mouth. White blood count is 6.2 and hemoglobin is stable at 12.8, sodium is 135 with a potassium 4.1 and current creatinine is 0.67. Will continue with Accu-Cheks before meals and at bedtime and continue to monitor blood sugars closely. Cultures will be obtained during the procedure and patient is maintained on Zosyn with infectious disease following. Blood cultures continue to remain negative and admission cultures are negative and will await culture finalization from the drainage placement. Patient is afebrile. Review of systems: Constitutional: No reports of fatigue, fever, or chills Cardiovascular: No reports of chest pain or palpitations Respiratory: No reports of shortness of breath or cough GI: No reports of nausea, vomiting, or diarrhea, reports right side discomfort a t the abscess site : No reports of dysuria or retention Neurovascular: No reports of weakness or numbness All medications have been reviewed Active Medications Acetaminophen (Acetaminophen Tab 325 Mg Tab) 650 mg PO Q6HR PRN PRN Reason: Mild Pain or Fever > 100.5 Aspirin (Aspirin 81 Mg) 81 mg PO DAILY [facility] Atenolol (Atenolol 50 Mg Tab) 50 mg PO DAILY [facility] Atorvastatin Calcium (Atorvastatin 40 Mg Tab) 40 mg PO DAILY [facility] Last Admin: 03/25/21 12:05 Dose: Not Given Documented by: Doxazosin Mesylate (Doxazosin 4 Mg Tab) 8 mg PO DAILY [facility] Ezetimibe (Ezetimibe 10 Mg Tab) 10 mg PO DAILY [facility] Last Admin: 03/25/21 12:05 Dose: Not Given Documented by: Enoxaparin Sodium (Enoxaparin 40 Mg/0.4 Ml Syringe) 40 mg SQ DAILY [facility] Last Admin: 03/25/21 12:05 Dose: Not Given Documented by: Famotidine (Famotidine 20 Mg Tab) 20 mg PO BID [facility] Last Admin: 03/25/21 12:05 Dose: Not Given Documented by: Finasteride (Finasteride 5 Mg Tab) 5 mg PO DAILY [facility] Last Admin: 03/25/21 12:05 Dose: Not Given Documented by: Hydromorphone HCl (Hydromorphone 0.5 Mg/0.5 Ml Syringe) 0.5 mg IVP Q3HR PRN PRN Reason: Moderate Pain Last Admin: 03/25/21 13:35 Dose: 0.5 mg Documented by: Hydromorphone HCl (Hydromorphone 0.5 Mg/0.5 Ml Syringe) 0.5 mg IVP Q5M PRN PRN Reason: Pain Control Stop: 03/25/21 23:00 Last Admin: 03/25/21 10:24 Dose: 0.5 mg Documented by: Piperacillin Sod/Tazobactam (Sod 3.375 gm/ Sodium Chloride) 100 mls @ 25 mls/hr IVPB Q8H [facility] Last Admin: 03/25/21 13:36 Dose: 25 mls/hr Documented by: Sodium Chloride (Saline 0.9%) 1,000 mls @ 20 mls/hr IV .Q24H [facility] Last Admin: 03/25/21 00:26 Dose: 20 mls/hr Documented by: Lactated Ringer's (Lactated Ringers) 1,000 mls @ 20 mls/hr IV .Q24H [facility] Last Admin: 03/25/21 12:04 Dose: Not Given Documented by: Insulin Aspart (Insulin Aspart (Novolog) 100 Unit/Ml Vial) 0 unit SQ ACHS [facility]; Protocol Last Admin: 03/25/21 12:35 Dose: Not Given Documented by: Insulin Detemir (Insulin Detemir (Levemir) 100 Unit/Ml Syr) 10 unit SQ DAILY@0700 [facility] Last Admin: 03/25/21 12:04 Dose: Not Given Documented by: Isosorbide Dinitrate (Isosorbide Dinitrate 10 Mg Tab) 30 mg PO BID [facility] Linagliptin (Linagliptin 5 Mg Tablet) 5 mg PO DAILY [facility] Lisinopril (Lisinopril 20 Mg Tab) 40 mg PO DAILY [facility] Metformin HCl (Metformin 500 Mg Tab) 500 mg PO AC-BID [facility] Naloxone HCl (Naloxone 0.4 Mg/Ml 1 Ml Vial) 0.2 mg IV Q2M PRN PRN Reason: Opioid Reversal Nitroglycerin (Nitroglycerin Sl Tabs 0.4 Mg Tab) 0.4 mg SUBLINGUAL Q5M PRN PRN Reason: Chest Pain Dapagliflozin Propanediol [Farxiga ] 10 Mg Tablet 5 mg PO DAILY [facility] Ondansetron HCl (Ondansetron 4 Mg/2 Ml Vial) 4 mg IVP Q6HR PRN PRN Reason: Nausea And Vomiting Pantoprazole Sodium (Pantoprazole 40 Mg/10 Ml Vial) 40 mg IV DAILY [facility] Objective - Vital Signs Vital signs: Vital Signs Temp 96.8 F L 03/25/21 10:01 Pulse 64 03/25/21 10:45 Resp 16 03/25/21 10:45 BP 123/62 03/25/21 10:45 Pulse Ox 97 03/25/21 10:45 Intake & Output 03/24/21 03/25/21 03/25/21 18:59 06:59 18:59 Intake Total 726 043 8409 Output Total 600 20 Balance 200 -500 1630 Weight 74.843 kg Intake: IV 100 1650 Oral 200 Output: Urine 600 Estimated Blood Loss 20 Other: Voiding Method Toilet Urinal Urinal # Voids 2 1 - Exam GENERAL: The patient is alert and oriented x3, not in any acute distress. Well developed, well nourished. Temp is 98.7F, pulse is 63, respirations are 16, blood pressure is 127/73, oxygen saturation is 96% on room air. HEENT: Pupils are round and equally reacting to light. EOMI. No scleral icterus. No conjunctival pallor. Normocephalic, atraumatic. No pharyngeal erythema. No thyromegaly. CARDIOVASCULAR: S1 and S2 present. No murmurs, rubs, or gallops. PULMONARY: Chest is clear to auscultation, no wheezing or crackles. ABDOMEN: Soft, nontender, nondistended, normoactive bowel sounds. No palpable organomegaly. Patient's right side abscess site is reddened and inflamed and tender on palpation around the site MUSCULOSKELETAL: No joint swelling or deformity. EXTREMITIES: No cyanosis, clubbing, or pedal edema. NEUROLOGICAL: Gross neurological examination did not reveal any focal deficits. SKIN: As mentioned above - Labs CBC & Chem 7: 03/25/21 10:30 03/25/21 10:30 Labs: Abnormal Lab Results - Last 24 Hours (Table) 03/24/21 03/24/21 03/24/21 Range/Units 11:56 16:51 20:41 Hgb (13.0-17.5) gm/dL MCHC (31.0-37.0) g/dL RDW (11.5-15.5) % Lymphocytes # (1.0-4.8) k/uL Sodium (137-145) mmol/L BUN (9-20) mg/dL Glucose (74-99) mg/dL POC Glucose (mg/dL) 198 H 246 H 221 H (75-99) mg/dL Calcium (8.4-10.2) mg/dL 03/25/21 03/25/21 03/25/21 Range/Units 06:55 10:29 10:30 Hgb 12.8 L (13.0-17.5) gm/dL MCHC 30.7 L (31.0-37.0) g/dL RDW 17.4 H (11.5-15.5) % Lymphocytes # 0.7 L (1.0-4.8) k/uL Sodium (137-145) mmol/L BUN (9-20) mg/dL Glucose (74-99) mg/dL POC Glucose (mg/dL) 209 H 184 H (75-99) mg/dL Calcium (8.4-10.2) mg/dL 03/25/21 Range/Units 10:30 Hgb (13.0-17.5) gm/dL MCHC (31.0-37.0) g/dL RDW (11.5-15.5) % Lymphocytes # (1.0-4.8) k/uL Sodium 135 L (137-145) mmol/L BUN 8 L (9-20) mg/dL Glucose 211 H (74-99) mg/dL POC Glucose (mg/dL) (75-99) mg/dL Calcium 8.0 L (8.4-10.2) mg/dL Microbiology - Last 24 Hours (Table) 03/22/21 15:31 Anaerobic Culture - Preliminary Abdominal Fluid 03/22/21 13:47 Gram Stain - Final Back Wound Culture - Final 03/22/21 14:00 Blood Culture - Preliminary Blood No Growth after 48 hours 03/22/21 13:45 Blood Culture - Preliminary Blood No Growth after 48 hours Assessment and Plan Assessment: -Subcapsular hepatic abscess with caudal extension into the intercostal and right lateral oblique musculature persists and that has increased in size. Failure of outpatient treatment -Lactic acidosis mostly secondary to intravascular depletion rather than infection or sepsis -Type 2 diabetes mellitus with elevated blood sugars -Gastroesophageal reflux disease -Hyperlipidemia -Benign prostatic hypertrophy -Coronary artery disease with CABG in the past -DVT prophylaxis with Lovenox Recommendation and discussion: Recommend continue with current medications, management, and symptomatic treatment. Recommend to continue with IV antibiotic therapy with infectious disease following closely and will await culture finalization of drainage placement. Surgery Dr. West also following closely as she had initially placed the original drainage that had stopped draining and sent patient here for further evaluation. Drain of the liver abscess to be replaced by surgery today and will await report. Continue to monitor Accu-Cheks before meals and at bedtime and treat accordingly with sliding scale and will continue with long- acting. Recommend continue current medication regimen and will repeat a.m. labs. Further recommendations to follow based on the clinical course of the patient. Prognosis is guarded.
[2021-03-25] MEDS: metFORMIN 500 MG TAB PO SCH (16:51)
[2021-03-25 17:21] LABS: Glucose,Whole Blood 159 mg/dL (75-99)
--- NOTE | 2021-03-25 19:51 | PN ---
PROGRESS NOTE DATE OF SERVICE: 03/25/2021 REASON FOR FOLLOWUP: Liver abscess. INTERVAL HISTORY: The patient is afebrile. The patient was taken to the OR and is status post drainage of the liver abscess. Culture has been obtained. Patient tolerated the procedure. He denies having any chest pain, shortness of breath or cough. No vomiting or diarrhea. PHYSICAL EXAMINATION: Blood pressure 117/75 with a pulse of 77, temperature 98.7. He is 95% on room air. General description is an elderly male lying in bed in no distress. RESPIRATORY SYSTEM: Unlabored breathing. Clear to auscultation anteriorly. HEART: S1, S2. Regular rate and rhythm. ABDOMEN: Soft. No tenderness. LABS: Hemoglobin is 12.8, white count 6.2, BUN of 8, creatinine 0.67. DIAGNOSTIC IMPRESSION AND PLAN: Patient with liver abscess, status post drainage. Cultures are pending. The patient is covered with Zosyn, adjusting it further based on the culture report. Continue with supportive care. MMODL / IJN: [id number] /
[2021-03-25] MEDS: ISOSORBIDE DINITRATE 10 MG TAB PO SCH (21:05)
[2021-03-25 21:08] LABS: Glucose,Whole Blood 240 mg/dL (75-99)
[2021-03-26] MEDS: HYDROmorphone 0.5 MG/0.5 ML SYRINGE IVP PRN ×2 (02:10→07:13)
[2021-03-26] MEDS: PIPERACILLIN-TAZOBACTAM 3.375 GM in SODIUM CHLORIDE 0.9% 100 ML IVPB SCH ×3 (05:47→23:07)
[2021-03-26 07:42] LABS: Glucose,Whole Blood 216 mg/dL (75-99)
[2021-03-26] MEDS: INSULIN DETEMIR (LEVEMIR) 100 UNIT/ML SYR SQ SCH (08:16)
[2021-03-26] MEDS: INSULIN ASPART (NovoLOG) 100 UNIT/ML VIAL SQ SCH ×4 (08:16→20:21)
[2021-03-26] MEDS: ENOXAPARIN 40 MG/0.4 ML SYRINGE SQ SCH (08:17)
[2021-03-26] MEDS: ASPIRIN 81 MG PO SCH (08:20)
[2021-03-26] MEDS: metFORMIN 500 MG TAB PO SCH ×2 (08:20→17:20)
[2021-03-26] MEDS: FAMOTIDINE 20 MG TAB PO SCH ×2 (08:20→23:03)
[2021-03-26] MEDS: FINASTERIDE 5 MG TAB PO SCH (08:20)
[2021-03-26] MEDS: ATORVASTATIN 40 MG TAB PO SCH (08:20)
[2021-03-26] MEDS: LINAGLIPTIN 5 MG TABLET PO SCH (08:20)
[2021-03-26] MEDS: ISOSORBIDE DINITRATE 10 MG TAB PO SCH ×2 (08:21→22:57)
[2021-03-26] MEDS: PANTOPRAZOLE 40 MG/10 ML VIAL IV SCH (08:21)
[2021-03-26] MEDS: EZETIMIBE 10 MG TAB PO SCH (08:22)
[2021-03-26] MEDS ORDERED: DOXAZOSIN 4 MG TAB PO SCH (09:00)
[2021-03-26] MEDS ORDERED: lisinopriL 20 MG TAB PO SCH (09:00)
[2021-03-26] MEDS ORDERED: atenoloL 50 MG TAB PO SCH (09:00)
--- NOTE | 2021-03-26 10:22 | P.PN ---
Subjective Progress Note Date: 03/26/21 Principal diagnosis: Liver abscess Patient doing well today. CHELSEY drain is mostly serosanguineous. He is afebrile. Complaining of mild pain. Objective - Vital Signs Vital signs: Vital Signs Temp 98.5 F 03/26/21 08:00 Pulse 91 03/26/21 08:00 Resp 16 03/26/21 08:00 BP 117/67 03/26/21 08:00 Pulse Ox 94 L 03/26/21 08:00 Intake & Output 03/25/21 03/26/21 03/26/21 18:59 06:59 18:59 Intake Total 1650 Output Total 80 880 120 Balance 1570 -880 -120 Weight 74.843 kg Intake: IV 1650 Output: Drainage 60 80 20 Left Upper Abdomen 60 80 20 Urine 800 100 Estimated Blood Loss 20 Other: Voiding Method Toilet Urinal Urinal # Voids 2 1 # Bowel Movements 0 - Exam Abdomen: Soft, nondistended, mild tenderness, CHELSEY drain noted - Labs CBC & Chem 7: 03/25/21 10:30 03/25/21 10:30 Labs: Abnormal Lab Results - Last 24 Hours (Table) 03/25/21 03/25/21 03/25/21 Range/Units 10:29 10:30 10:30 Hgb 12.8 L (13.0-17.5) gm/dL MCHC 30.7 L (31.0-37.0) g/dL RDW 17.4 H (11.5-15.5) % Lymphocytes # 0.7 L (1.0-4.8) k/uL Sodium 135 L (137-145) mmol/L BUN 8 L (9-20) mg/dL Glucose 211 H (74-99) mg/dL POC Glucose (mg/dL) 184 H (75-99) mg/dL Calcium 8.0 L (8.4-10.2) mg/dL 03/25/21 03/25/21 03/25/21 Range/Units 12:01 17:10 21:06 Hgb (13.0-17.5) gm/dL MCHC (31.0-37.0) g/dL RDW (11.5-15.5) % Lymphocytes # (1.0-4.8) k/uL Sodium (137-145) mmol/L BUN (9-20) mg/dL Glucose (74-99) mg/dL POC Glucose (mg/dL) 166 H 159 H 240 H (75-99) mg/dL Calcium (8.4-10.2) mg/dL 03/26/21 Range/Units 07:27 Hgb (13.0-17.5) gm/dL MCHC (31.0-37.0) g/dL RDW (11.5-15.5) % Lymphocytes # (1.0-4.8) k/uL Sodium (137-145) mmol/L BUN (9-20) mg/dL Glucose (74-99) mg/dL POC Glucose (mg/dL) 216 H (75-99) mg/dL Calcium (8.4-10.2) mg/dL Microbiology - Last 24 Hours (Table) 03/25/21 09:45 Gram Stain - Preliminary Aspirate Body Fluid Culture - Preliminary 03/22/21 14:00 Blood Culture - Preliminary Blood No Growth after 72 hours 03/22/21 13:45 Blood Culture - Preliminary Blood No Growth after 72 hours 03/25/21 09:45 Fungal Culture - Preliminary Aspirate 03/25/21 09:45 Anaerobic Culture - Preliminary Aspirate Assessment and Plan (1) Liver abscess Narrative/Plan: Patient doing relatively well. Will add oral pain medication and Toradol for pa in control. Continue diet. Monitor CHELSEY drain. Continue antibiotics. Current Visit: Yes Status: Acute Code(s): K75.0 - ABSCESS OF LIVER SNOMED Code(s): 82161496
[2021-03-26] MEDS: LACTATED RINGERS 1,000 ML IV SCH (11:18)
[2021-03-26 11:39] LABS: Glucose,Whole Blood 241 mg/dL (75-99)
[2021-03-26] MEDS: KETOROLAC 15 MG/ML 1 ML VIAL IVP SCH ×3 (12:01→23:03)
[2021-03-26 12:06] LABS: Basophils # (A) 0.03 X 10*3/uL (0.00-0.10); Basophils % (A) 0.5 %; Eosinophils # (A) 0.05 X 10*3/uL (0.04-0.35); Eosinophils % (A) 0.8 %; HCT 35.9 % (39.6-50.0); HGB 10.8 g/dL (13.0-17.0); Lymphocytes # (A) 0.41 X 10*3/uL (0.90-5.00); Lymphocytes % (A) 6.2 %; MCH 25.4 pg (27.0-32.0); MCHC 30.1 g/dL (32.0-37.0); MCV 84.3 fL (80.0-97.0); Mean Platelet Volume 9.9 fL (9.5-12.2); Monocytes # (A) 0.64 X 10*3/uL (0.20-1.00); Monocytes % (A) 9.7 %; Neutrophils # (A) 5.43 X 10*3/uL (1.80-7.70); Neutrophils % (A) 82.5 %; Platelet Count 415 X 10*3/uL (140-440); RBC 4.26 X 10*6/uL (4.40-5.60); RDW 19.7 % (11.5-14.5); WBC 6.58 X 10*3/uL (4.50-10.00)
[2021-03-26] MEDS: HYDROcodone/APAP 5-325MG 1 EACH TAB PO PRN (12:37)
--- NOTE | 2021-03-26 13:20 | PN ---
PROGRESS NOTE Jimmy Wood is an elderly 80-year-old gentleman, history of aortocoronary bypass surgery in the past. He has stable CAD, came into the hospital for a liver abscess, was seen by Dr. West who performed a laparoscopic drainage of liver abscess. The patient is doing well. Post procedure, he seems to be comfortable, asymptomatic. At the time of my evaluation, he is resting comfortably. Vitals are stable. No JVD. S1, S1-S2 heard normally. There is a short systolic murmur audible. Lungs reveal bilateral diminished air entry. Abdomen exam was deferred. Rest of physical exam unchanged. IMPRESSION: 1. Stable coronary artery disease. 2. Status post drainage of liver abscess. RECOMMENDATIONS: From a cardiac standpoint, no specific recommendations. His medications have been resumed. He is stable and we will see him as needed from a cardiac standpoint. MMODL / IJN: [id number] /
[2021-03-26] MEDS ORDERED: SODIUM CHLORIDE 0.9% 500 ML 500 ML IV ONE (14:14)
[2021-03-26 15:10] LABS: African American GFR (CKD) 108.5 (60.0-200.0); Albumin 2.7 g/dL (3.80-4.90); Albumin/Globulin Ratio 1.04 (1.60-3.17); Anion Gap 7.7 mmol/L (4.00-12.00); BUN/Creat Ratio 13.33 Ratio (12.00-20.00); Carbon Dioxide 24.3 mmol/L (21.6-31.8); Globulin 2.6 g/dL (1.6-3.3); Non-African American GFR(CKD) 93.6 (60.0-200.0); Potassium 4.2 mmol/L (3.5-5.5); Total Bilirubin 0.7 mg/dL (0.2-1.2); Total Protein 5.3 g/dL (6.2-8.2)
--- NOTE | 2021-03-26 15:51 | XR ---
EXAMINATION TYPE: XR chest 1V DATE OF EXAM: 03/26/2021 COMPARISON: 10/12/2020 HISTORY: Pneumonia. TECHNIQUE: Dual view FINDINGS: Heart is enlarged. There is bilateral moderate calcified pleural plaque. There is mild elev ation of the right diaphragm. There is no heart failure. IMPRESSION: Calcified pleural plaque. Atelectasis at right lung base is new compared to old exam. No heart failure.
[2021-03-26 16:45] LABS: Glucose,Whole Blood 194 mg/dL (75-99)
[2021-03-26] MEDS: MIDODRINE 5 MG TAB PO SCH (17:20)
[2021-03-26 20:13] LABS: Glucose,Whole Blood 176 mg/dL (75-99)
[2021-03-26] MEDS: IOPAMIDOL CONTRAST (ORAL USE) VIAL PO PRN ×2 (20:23→21:28)
[2021-03-26] MEDS: metroNIDAZOLE-NS PMX 500 MG in SALINE 1 100ML.BAG IVPB SCH (20:23)
[2021-03-26 21:41] LABS: Glucose,Whole Blood 171 mg/dL (75-99)
[2021-03-26] MEDS: SODIUM CHLORIDE 0.9% 1,000 ML IV SCH (23:09)
--- NOTE | 2021-03-26 23:19 | PN ---
PROGRESS NOTE DATE OF SERVICE: 03/26/2021 REASON FOR FOLLOWUP: Liver abscess. INTERVAL HISTORY: The patient is currently afebrile. The patient is breathing comfortably. The patient denies having any chest pain. No shortness of breath or cough. Abdominal pain is currently controlled. No nausea, no vomiting. No diarrhea. PHYSICAL EXAMINATION: Blood pressure 137/63 with pulse of 81, temperature 98.8. He is 94% on room air. General description is an elderly male lying in in no distress. Respiratory system: Unlabored breathing, clear to auscultation anteriorly. Heart S1, S2. Regular rate and rhythm. Abdomen is soft, no tenderness. Extremities: No edema of the feet. LABS: Cultures currently pending. DIAGNOSTIC IMPRESSION AND PLAN: Patient with liver abscess that has failed to respond to the CT-guided drainage or antibiotic therapy, status post surgical drainage. Cultures are currently pending. Patient is on Zosyn, to continue while waiting for the culture to finalize and monitor clinical course closely. MMODL / IJN: [id number] /
--- NOTE | 2021-03-26 23:37 | PN ---
PROGRESS NOTE DATE OF SERVICE: 03/26/2021 This 80-year-old gentleman who was admitted with liver abscess underwent robotic assisted laparoscopic lysis of adhesions and as well as drainage of the complex septated liver abscess, right lobe. About 500 mL of ryan purulence was noted and the patient is on broad-spectrum IV antibiotics. Currently patient is on IV Zosyn at this time. Otherwise, cultures are negative so far. Surgery and as well as Infectious disease is also following the patient as well as Cardiology. The patient also found to have some relative hypotension today responding to fluid bolus. No chest pain. No palpitations. PAST MEDICAL HISTORY: Reviewed. REVIEW OF SYSTEMS: Cardiovascular: No angina or palpitations. Respiration as mentioned earlier. GI as mentioned earlier. : As mentioned earlier. NERVOUS SYSTEM: No focal deficits. CURRENT MEDICATIONS: Are reviewed and include: Tylenol, [place], aspirin, Lipitor, Lovenox, Zetia, Pepcid, Proscar. Doses reviewed. PHYSICAL EXAMINATION: Patient is alert and oriented x2. Pulse 71. Blood pressure 94/50. Respirations 20. Temp normal. Pulse ox 97%. HEENT: Conjunctivae normal. NECK: No JVD. CARDIOVASCULAR: S1, S2 muffled. RESPIRATION: Breath sounds diminished in the bases. Scattered rhonchi. ABDOMEN: Soft, nontender. LEGS are no edema, no swelling. NERVOUS SYSTEM: No focal deficits. LABS: WBC 6.3, hemoglobin 10.8. Sodium 133, glucose 241. ASSESSMENT: 1. Acute hepatic abscess with complex septated liver abscess, right lower lobe, status post drainage with sepsis, present on admission. 2. Hypertension with severe sepsis. 3. Lactic acidosis. 4. Diabetes mellitus type 2. 5. Gastroesophageal reflux disease. 6. Hyperlipidemia. 7. Benign prostatic hypertrophy. 8. History of coronary artery disease, coronary artery bypass grafting. 9. Hyponatremia. 10.Hypoalbuminemia with mild protein calorie malnutrition. 11.Anemia, normocytic anemia of chronic disease. 12.History of coronary artery disease. 13.History of prostate disorder. 14.Remote history of nicotine dependence. 15.FULL CODE. RECOMMENDATIONS AND DISCUSSION: This 80-year-old gentleman who presented with multiple complex medical issues, we will monitor the patient closely. Continue the current medications, symptomatic treatment. Add Flagyl to the regimen. Otherwise IV fluids and avoid antihypertensive medications. DVT prophylaxis. Troponins are negative and most recent chest x-ray which was done today which was reviewed personally by me showed some bilateral atelectasis. Will repeat CT scan of the chest, abdomen and pelvis also with continued followup. Prognosis guarded. Further recommendations to follow. See orders for details. MMODL / IJN: [id number] /
--- NOTE | 2021-03-26 23:47 | CT ---
EXAMINATION TYPE: CT ChestAbdPelvis wo con DATE OF EXAM: 03/26/2021 COMPARISON: 03/22/2021 CT abdomen pelvis HISTORY: liver abscess CT DLP: 658.1 mGycm Automated exposure control for dose reduction was used. Images were obtained from the thoracic inlet to the floor the pelvis with no contrast. There is mild right pleural effusion. There is infiltrate and atelectasis right lower lobe. There is contrast in the stomach. Liver appears intact. Spleen is intact. There is no pancreatic mass. There i s a drain in the right upper quadrant along the lateral aspect of the lower right lobe of the liver. There is air bubbles along side the right lobe of the liver with fluid. There is some thickening of t he right lateral abdominal wall. There is fluid to a small extent extending along the lower right lat eral abdominal wall that appears extraperitoneal. There is small amount of fluid in the perirenal spa ce bilaterally. There are a few intraperitoneal air bubbles in the upper abdomen. There is no adrenal mass. There are multiple cortical cysts in both kidneys that measure up to 7.2 cm . There is no hydronephrosis. There is cerebral calcification around the lower pole cyst on the left kidney. I see no definite soft tissue density renal mass. There is no retroperitoneal adenopathy. Elver dder distends smoothly. There are some sigmoid diverticula. I see no definite diverticulitis. There i s no evidence of a bowel obstruction. There is oral contrast in the small bowel which extends to the right lower quadrant. There is no sign of thickened appendix. Thoracic and lumbar spine appear intact. There is no compression fracture. Bony pelvis is intact. The hip joints are intact. There is no mediastinal adenopathy. There are no hilar masses. There is extensive coronary artery james cification. There is bilateral calcified pleural plaque formation IMPRESSION: There is complex fluid in the right side of the abdomen adjacent to the liver and extending into the paracolic gutter consistent with abscess which is decreased in size compared to last exam. There is a drainage catheter in good position. There is decrease in the loculated fluid collections along the r ight lateral abdomen. Colonic diverticulosis without diverticulitis. Multiple renal calculi with calcifications. No suspici ous renal mass. Unchanged. There is right pleural effusion and right basilar pulmonary infiltrate that is increased compared to recent exam. No suspicious pulmonary mass.
[2021-03-27] MEDS: metroNIDAZOLE-NS PMX 500 MG in SALINE 1 100ML.BAG IVPB SCH ×3 (05:48→21:17)
[2021-03-27] MEDS: KETOROLAC 15 MG/ML 1 ML VIAL IVP SCH ×4 (06:05→23:01)
[2021-03-27] MEDS: PIPERACILLIN-TAZOBACTAM 3.375 GM in SODIUM CHLORIDE 0.9% 100 ML IVPB SCH ×3 (06:06→23:01)
[2021-03-27 07:11] LABS: Glucose,Whole Blood 188 mg/dL (75-99)
[2021-03-27] MEDS: HYDROcodone/APAP 5-325MG 1 EACH TAB PO PRN (07:20)
[2021-03-27] MEDS: LACTATED RINGERS 1,000 ML IV SCH (07:29)
[2021-03-27] MEDS: INSULIN DETEMIR (LEVEMIR) 100 UNIT/ML SYR SQ SCH ×2 (07:44→21:17)
[2021-03-27] MEDS: INSULIN ASPART (NovoLOG) 100 UNIT/ML VIAL SQ SCH ×4 (07:44→21:17)
[2021-03-27] MEDS: MIDODRINE 5 MG TAB PO SCH ×3 (07:47→17:34)
[2021-03-27] MEDS: FINASTERIDE 5 MG TAB PO SCH (07:47)
[2021-03-27] MEDS: ASPIRIN 81 MG PO SCH (07:47)
[2021-03-27] MEDS: ATORVASTATIN 40 MG TAB PO SCH (07:47)
[2021-03-27] MEDS: LINAGLIPTIN 5 MG TABLET PO SCH (07:47)
[2021-03-27] MEDS: ENOXAPARIN 40 MG/0.4 ML SYRINGE SQ SCH (07:48)
[2021-03-27] MEDS: PANTOPRAZOLE 40 MG/10 ML VIAL IV SCH (07:48)
[2021-03-27] MEDS: FAMOTIDINE 20 MG TAB PO SCH (07:48)
[2021-03-27] MEDS: EZETIMIBE 10 MG TAB PO SCH (07:48)
[2021-03-27] MEDS: ISOSORBIDE DINITRATE 10 MG TAB PO SCH ×2 (07:49→21:17)
[2021-03-27] MEDS ORDERED: SODIUM CHLORIDE 0.9% 1,000 ML IV SCH (08:45)
--- NOTE | 2021-03-27 09:43 | PN ---
PROGRESS NOTE Mr. Jimmy Wood underwent draining of a liver abscess laparoscopically. He had an episode of hypotension yesterday, however, he feels better today. He has diabetes with some orthostatic hypotension, some autonomic dysfunction, hyperlipidemia, and also previous history of aortocoronary bypass surgery. His blood pressure is better. He is comfortable. I think he will continue to need some IV fluids as well. He is doing better today. No chest pain. His vitals are stable. There is no JVD. No carotid bruit. S1-S2 heard normally. Short systolic murmur is evident. Lungs reveal diminished air entry over both bases. Abdomen exam deferred. Lower extremity exam revealed diminished pulses. Central nervous system is normal. RECOMMENDATIONS: I would recommend that we give him IV fluids at 75 mL/hour normal saline and continue his other medications as before. No intervention from a cardiac standpoint. We will see him as needed during this hospitalization. MMODL / IJN: [id number] /
--- NOTE | 2021-03-27 10:30 | P.PN ---
Subjective Progress Note Date: 03/27/21 Principal diagnosis: Liver abscess Patient says his pain is improved today. He is tolerating his diet. He had a bowel movement yesterday. No nausea or vomiting. CHELSEY drain remains serosanguineous with some cloudiness Objective - Vital Signs Vital signs: Vital Signs Temp 98.2 F 03/27/21 07:54 Pulse 85 03/27/21 07:54 Resp 16 03/27/21 07:54 BP 100/61 03/27/21 07:54 Pulse Ox 94 L 03/27/21 07:54 Intake & Output 03/26/21 03/27/21 03/27/21 18:59 06:59 18:59 Intake Total 500 Output Total 160 80 20 Balance 340 -80 -20 Intake: IV 500 Sodium Chloride 0.9% 500 500 ml 500 ml @ 999 mls/hr IV .Q31M ONE Rx#:[id number] Output: Drainage 60 80 20 Left Upper Abdomen 60 80 20 Urine 100 Other: Voiding Method Urinal Toilet Toilet Urinal Urinal # Voids 1 # Bowel Movements 1 - Exam Abdomen: Soft, nondistended, mild tenderness, incisions clean and dry - Labs CBC & Chem 7: 03/26/21 07:31 03/26/21 07:31 Labs: Abnormal Lab Results - Last 24 Hours (Table) 03/26/21 03/26/21 03/26/21 Range/Units 07:31 07:31 11:28 RBC 4.26 L (4.40-5.60) X 10*6/uL Hgb 10.8 L (13.0-17.0) g/dL Hct 35.9 L (39.6-50.0) % MCH 25.4 L (27.0-32.0) pg MCHC 30.1 L (32.0-37.0) g/dL RDW 19.7 H (11.5-14.5) % Lymphocytes # 0.41 L (0.90-5.00) X 10*3/uL Sodium 133 L (135-145) mmol/L BUN 8.0 L (9.0-27.0) mg/dL Glucose 230 H (70-110) mg/dL POC Glucose (mg/dL) 241 H (75-99) mg/dL Calcium 8.0 L (8.7-10.3) mg/dL AST 37 H (14-35) U/L Total Protein 5.3 L (6.2-8.2) g/dL Albumin 2.70 L (3.80-4.90) g/dL Albumin/Globulin Ratio 1.04 L (1.60-3.17) g/dL 03/26/21 03/26/21 03/26/21 Range/Units 16:44 20:11 21:40 RBC (4.40-5.60) X 10*6/uL Hgb (13.0-17.0) g/dL Hct (39.6-50.0) % MCH (27.0-32.0) pg MCHC (32.0-37.0) g/dL RDW (11.5-14.5) % Lymphocytes # (0.90-5.00) X 10*3/uL Sodium (135-145) mmol/L BUN (9.0-27.0) mg/dL Glucose (70-110) mg/dL POC Glucose (mg/dL) 194 H 176 H 171 H (75-99) mg/dL Calcium (8.7-10.3) mg/dL AST (14-35) U/L Total Protein (6.2-8.2) g/dL Albumin (3.80-4.90) g/dL Albumin/Globulin Ratio (1.60-3.17) g/dL 03/27/21 Range/Units 07:04 RBC (4.40-5.60) X 10*6/uL Hgb (13.0-17.0) g/dL Hct (39.6-50.0) % MCH (27.0-32.0) pg MCHC (32.0-37.0) g/dL RDW (11.5-14.5) % Lymphocytes # (0.90-5.00) X 10*3/uL Sodium (135-145) mmol/L BUN (9.0-27.0) mg/dL Glucose (70-110) mg/dL POC Glucose (mg/dL) 188 H (75-99) mg/dL Calcium (8.7-10.3) mg/dL AST (14-35) U/L Total Protein (6.2-8.2) g/dL Albumin (3.80-4.90) g/dL Albumin/Globulin Ratio (1.60-3.17) g/dL Microbiology - Last 24 Hours (Table) 03/22/21 15:31 Anaerobic Culture - Final Abdominal Fluid 03/22/21 14:00 Blood Culture - Preliminary Blood No Growth after 96 hours 03/22/21 13:45 Blood Culture - Preliminary Blood No Growth after 96 hours 03/25/21 09:45 Gram Stain - Preliminary Aspirate Body Fluid Culture - Preliminary Assessment and Plan (1) Liver abscess Narrative/Plan: Patient doing well at this time. Continue antibiotics. Follow cultures. Continue diet as tolerated. Current Visit: Yes Status: Acute Code(s): K75.0 - ABSCESS OF LIVER SNOMED Code(s): 79094264
[2021-03-27 11:56] LABS: Glucose,Whole Blood 269 mg/dL (75-99)
[2021-03-27 17:05] LABS: Glucose,Whole Blood 204 mg/dL (75-99)
--- NOTE | 2021-03-27 18:59 | PN ---
PROGRESS NOTE DATE OF SERVICE: 03/27/2021 REASON FOR FOLLOW UP: Liver abscess. INTERVAL HISTORY: The patient is currently afebrile. The patient is breathing comfortably. Complaining of some pain to the right upper quadrant area especially with cough. No nausea, no vomiting. No chest pain, shortness of breath or cough. PHYSICAL EXAMINATION: Blood pressure 100/61, pulse 85, temperature 98.2. He is 94% on room air. General description: The patient is an elderly male lying in in no distress. Respiratory system: Unlabored breathing, clear to auscultation anteriorly. Heart S1, S2. Regular rate and rhythm. Abdomen soft, no tenderness. LABS: Cultures so far pending. DIAGNOSTIC IMPRESSION AND PLAN: Patient with liver abscess status post surgical drainage. Cultures pending. Continue Zosyn, adjusting it further based on culture report. Continue supportive care. MMODL / IJN: [id number] /
[2021-03-27 21:06] LABS: Glucose,Whole Blood 203 mg/dL (75-99)
--- NOTE | 2021-03-27 21:11 | PN ---
PROGRESS NOTE DATE OF SERVICE: 03/27/2021 This 80-year-old gentleman with liver abscess and drainage. The repeat CT scan of the abdomen and pelvis was done. The cultures are negative so far. The repeat CT scan showed significant complex fluid in the right side of the abdomen adjacent to the liver and extending into the paracolic gutter consistent with abscess which is decreased in size compared to the previous exam. The drainage catheter was found to be in good position. Colonic diverticulosis also noted. Patient closely monitored. The patient was started on Flagyl as well. The sugars are elevated up to 204. PAST MEDICAL HISTORY: Reviewed. REVIEW OF SYSTEMS: Cardiovascular system: No angina or palpitations. Respiration: As mentioned earlier. GI as mentioned earlier. no dysuria. Nervous system: No numbness, weakness. CURRENT MEDICATIONS: Reviewed and include: Tylenol, [place], Lipitor, Zetia, Pepcid, Proscar. Doses reviewed. PHYSICAL EXAMINATION: Patient is alert and oriented times three. Pulse 63, blood pressure 92/50, respirations 20, temperature 97.7, pulse ox 97% on room air. HEENT: Conjunctivae normal. NECK: No JVD. CARDIOVASCULAR: S1, S2 muffled. RESPIRATION: Breath sounds diminished in the bases. A few scattered rhonchi and crackles. ABDOMEN: Soft. Mild diffuse tenderness present. LEGS: No edema. No swelling. NERVOUS SYSTEM: No focal deficits. LABS: Accu-Cheks 260, 204, hemoglobin 10.6, sodium 133. ASSESSMENT: 1. Acute hepatic abscess with complex septated liver abscess with extension in the paracolic gutter and right lower lobe, status post drainage with sepsis present on admission. 2. Change in mental status, acute metabolic encephalopathy secondary to sepsis. 3. Hypotension with severe sepsis present on admission. 4. Lactic acidosis present on admission secondary to sepsis. 5. Diabetes mellitus type 2, uncontrolled with hyperglycemia. 6. Gastroesophageal reflux disease. 7. Hyperlipidemia. 8. Benign prostatic hypertrophy. 9. History of coronary artery disease, coronary artery bypass grafting. 10.Hyponatremia. 11.Hypoalbuminemia with mild protein calorie malnutrition. 12.Anemia, normocytic anemia of chronic disease. 13.History of coronary artery disease. 14.History of prostate disorder. 15.Remote history of nicotine dependence. 16.FULL CODE. RECOMMENDATIONS AND DISCUSSION: Recommend to continue current medications, symptomatic treatment. Otherwise, at this time, I recommend broad-spectrum IV antibiotics. I would also recommend symptomatic treatment. I will add vitamins to the current regimen. I would also recommend increase the dose of Lantus to 20 units daily and continue to monitor. Prognosis guarded. Further recommendations to follow. MMODL / IJN: [id number] /
[2021-03-28] MEDS: metroNIDAZOLE-NS PMX 500 MG in SALINE 1 100ML.BAG IVPB SCH ×3 (03:30→23:04)
[2021-03-28] MEDS: KETOROLAC 15 MG/ML 1 ML VIAL IVP SCH ×3 (06:01→17:37)
[2021-03-28] MEDS: PIPERACILLIN-TAZOBACTAM 3.375 GM in SODIUM CHLORIDE 0.9% 100 ML IVPB SCH ×2 (06:02→15:26)
[2021-03-28] MEDS: LACTATED RINGERS 1,000 ML IV SCH (07:45)
[2021-03-28] MEDS: INSULIN ASPART (NovoLOG) 100 UNIT/ML VIAL SQ SCH ×4 (07:45→23:04)
[2021-03-28] MEDS: PANTOPRAZOLE 40 MG/10 ML VIAL IV SCH (07:47)
[2021-03-28] MEDS: INSULIN DETEMIR (LEVEMIR) 100 UNIT/ML SYR SQ SCH ×2 (07:47→23:05)
[2021-03-28] MEDS: ENOXAPARIN 40 MG/0.4 ML SYRINGE SQ SCH (07:47)
[2021-03-28] MEDS: ASPIRIN 81 MG PO SCH (07:47)
[2021-03-28] MEDS: MIDODRINE 5 MG TAB PO SCH ×3 (07:48→17:37)
[2021-03-28] MEDS: LINAGLIPTIN 5 MG TABLET PO SCH (07:48)
[2021-03-28] MEDS: ATORVASTATIN 40 MG TAB PO SCH (07:48)
[2021-03-28] MEDS: ISOSORBIDE DINITRATE 10 MG TAB PO SCH ×2 (07:48→23:05)
[2021-03-28] MEDS: EZETIMIBE 10 MG TAB PO SCH (07:52)
[2021-03-28 08:01] LABS: Glucose,Whole Blood 119 mg/dL (75-99)
--- NOTE | 2021-03-28 09:53 | P.PN ---
Subjective Progress Note Date: 03/28/21 Principal diagnosis: Liver abscess Patient feels better today. Pain is gradually improving. Cultures remain negative. He had 2 bowel lumens. Feels less bloated. Objective - Vital Signs Vital signs: Vital Signs Temp 98.2 F 03/28/21 08:00 Pulse 74 03/28/21 08:00 Resp 16 03/28/21 08:00 BP 102/60 03/28/21 08:00 Pulse Ox 95 03/28/21 08:00 Intake & Output 03/27/21 03/28/21 03/28/21 18:59 06:59 18:59 Intake Total 200 Output Total 40 Balance 160 Intake: Oral 200 Output: Drainage 40 Left Upper Abdomen 40 Other: Voiding Method Toilet Toilet Urinal Urinal # Voids 1 2 # Bowel Movements 2 - Exam Abdomen: Soft, nondistended, mild tenderness, CHELSEY serosanguineous - Labs CBC & Chem 7: 03/26/21 07:31 03/26/21 07:31 Labs: Abnormal Lab Results - Last 24 Hours (Table) 03/27/21 03/27/21 03/27/21 Range/Units 11:47 16:59 21:05 POC Glucose (mg/dL) 269 H 204 H 203 H (75-99) mg/dL 03/28/21 Range/Units 07:40 POC Glucose (mg/dL) 119 H (75-99) mg/dL Microbiology - Last 24 Hours (Table) 03/26/21 19:10 Blood Culture - Preliminary Blood No Growth after 24 hours 03/22/21 14:00 Blood Culture - Preliminary Blood No Growth after 120 hours 03/22/21 13:45 Blood Culture - Preliminary Blood No Growth after 120 hours 03/25/21 09:45 Gram Stain - Preliminary Aspirate Body Fluid Culture - Preliminary 03/25/21 09:45 Anaerobic Culture - Preliminary Aspirate Assessment and Plan (1) Liver abscess Narrative/Plan: Excision doing fairly well. Continue increasing activity. Continue antibiotics. Follow cultures. Continue regular diet. Current Visit: Yes Status: Acute Code(s): K75.0 - ABSCESS OF LIVER SNOMED Code(s): 11284714
[2021-03-28] MEDS: FINASTERIDE 5 MG TAB PO SCH (11:41)
[2021-03-28 12:00] LABS: Glucose,Whole Blood 171 mg/dL (75-99)
[2021-03-28 17:18] LABS: Glucose,Whole Blood 173 mg/dL (75-99)
[2021-03-28] MEDS: metFORMIN 500 MG TAB PO SCH (17:37)
--- NOTE | 2021-03-28 20:27 | PN ---
PROGRESS NOTE DATE OF SERVICE: 03/28/2021 REASON FOR FOLLOW UP: Liver abscess. INTERVAL HISTORY: The patient is currently afebrile. The patient is breathing comfortably. Abdominal pain is currently controlled. No chest pain, shortness of breath or cough. No nausea, vomiting or diarrhea. PHYSICAL EXAMINATION: Blood pressure 114/68 with a pulse of 69, temperature 98.7. He is 96% on room air. General description: The patient is an elderly male lying in in no distress. Respiratory system: Unlabored breathing, clear to auscultation anteriorly. Heart S1, S2. Regular rate and rhythm. ABDOMEN: Soft, no tenderness. EXTREMITIES: No edema of the feet. LABS: Abdominal cultures still pending. DIAGNOSTIC IMPRESSION AND PLAN: Patient with liver abscess failed to respond to the CT-guided drainage and oral Cipro and Flagyl status post open drainage. Cultures are pending. Continue Zosyn. Discharge antibiotic depending upon the culture report. He will need a PICC line for outpatient antibiotic, which will be arranged. MMODL / IJN: [id number] /
[2021-03-28 21:53] LABS: Glucose,Whole Blood 196 mg/dL (75-99)
[2021-03-28 23:03] LABS: African American GFR (CKD) 96.4 (60.0-200.0); Albumin 2.5 g/dL (3.80-4.90); Albumin/Globulin Ratio 1.09 (1.60-3.17); Calcium 7.4 mg/dL (8.7-10.3); Globulin 2.3 g/dL (1.6-3.3); Non-African American GFR(CKD) 83.2 (60.0-200.0); Potassium 4.4 mmol/L (3.5-5.5); Total Bilirubin 0.4 mg/dL (0.3-1.2); Total Protein 4.8 g/dL (6.2-8.2)
--- NOTE | 2021-03-28 23:04 | PN ---
PROGRESS NOTE DATE OF SERVICE: 03/28/2021 This 80-year-old gentleman who was admitted with liver abscess had drainage. Repeat CT appears to be improving at this time. Cultures are negative. Patient on broad spectrum IV antibiotics. The patient had tracking through the paracolic gutter also at this time on the CT scan. Multiple consultants are following the patient closely including Surgery and as well as Infectious Disease, Cardiology. PAST MEDICAL HISTORY: Reviewed. REVIEW OF SYSTEMS: CARDIOVASCULAR system: No angina or palpitations. RESPIRATORY as mentioned earlier. GI: As mentioned earlier. : No dysuria. NERVOUS SYSTEM: No focal deficits. CURRENT MEDICATIONS: Reviewed and include: Tylenol, [place], aspirin, Lipitor, Lovenox, Zetia, Proscar, Dilaudid, Levemir, Isordil, Toradol, Tradjenta, Glucophage, Flagyl, Narcan, Nitrostat, Zosyn, Protonix. PHYSICAL EXAMINATION: Patient is alert and oriented times three. Pulse 69, blood pressure 140/60, respirations 16, temperature 98.2, pulse ox 97% on room air. HEENT: Conjunctivae normal. NECK: No JVD. CARDIOVASCULAR: S1, S2 muffled. RESPIRATORY SYSTEM: Breath sounds diminished at the bases. A few scattered rhonchi and crackles. ABDOMEN: Soft, mild diffuse tenderness present. CHELSEY drain present. LEGS are no edema. No swelling. NERVOUS SYSTEM: No focal deficits. LABORATORY DATA: Accu-Cheks 171, 173, otherwise WBC 6.8, hemoglobin 10.2, sodium 133. ASSESSMENT: 1. Acute hepatic abscess with complex septated liver abscess with extension into the paracolic gutter and right lower lobe, status post drainage of sepsis present on admission. 2. Change in mental status acute metabolic encephalopathy secondary to sepsis. 3. Hypotension with severe sepsis present on admission. 4. Hyponatremia. 5. Acute lactic acidosis present on admission with secondary to sepsis. 6. Diabetes mellitus type 2, uncontrolled with hyperglycemia. 7. Gastroesophageal reflux disease. 8. Hyperlipidemia. 9. Benign prostatic hypertrophy. 10.History of coronary artery disease, coronary artery bypass grafting. 11.Hypoalbuminemia with mild protein calorie malnutrition. 12.Anemia, normocytic anemia of chronic disease. 13.History of coronary artery disease. 14.History of prostate disorder. 15.Remote history of nicotine dependence. 16.FULL CODE. RECOMMENDATIONS AND DISCUSSION: I recommend to continue current medications, management and symptomatic treatment. Otherwise, at this time I recommend repeat labs. Continue the antibiotics. Monitor blood sugars closely. If blood sugars are still elevated, I would increase the dose of insulin to 20 units subcutaneously b.i.d. and continue to monitor. Guarded prognosis. Further recommendations to follow. MMODL / IJN: [id number] /
[2021-03-29] MEDS: KETOROLAC 15 MG/ML 1 ML VIAL IVP SCH ×5 (00:21→23:09)
[2021-03-29] MEDS: PIPERACILLIN-TAZOBACTAM 3.375 GM in SODIUM CHLORIDE 0.9% 100 ML IVPB SCH ×4 (00:21→20:53)
[2021-03-29] MEDS: metroNIDAZOLE-NS PMX 500 MG in SALINE 1 100ML.BAG IVPB SCH ×2 (04:22→12:02)
[2021-03-29 07:09] LABS: Glucose,Whole Blood 70 mg/dL (75-99)
[2021-03-29] MEDS: INSULIN ASPART (NovoLOG) 100 UNIT/ML VIAL SQ SCH ×4 (07:24→20:54)
[2021-03-29] MEDS: INSULIN DETEMIR (LEVEMIR) 100 UNIT/ML SYR SQ SCH ×2 (07:25→20:54)
[2021-03-29 07:32] LABS: INR 1.2 (<1.2); Prothrombin Time 12.3 sec (9.0-12.0)
[2021-03-29] MEDS: HYDROcodone/APAP 5-325MG 1 EACH TAB PO PRN (08:23)
[2021-03-29] MEDS: ATORVASTATIN 40 MG TAB PO SCH (08:23)
[2021-03-29] MEDS: LINAGLIPTIN 5 MG TABLET PO SCH (08:23)
[2021-03-29] MEDS: metFORMIN 500 MG TAB PO SCH ×2 (08:23→17:31)
[2021-03-29] MEDS: ISOSORBIDE DINITRATE 10 MG TAB PO SCH ×2 (08:23→20:54)
[2021-03-29] MEDS: FINASTERIDE 5 MG TAB PO SCH (08:23)
[2021-03-29] MEDS: MIDODRINE 5 MG TAB PO SCH ×3 (08:23→17:31)
[2021-03-29] MEDS: ASPIRIN 81 MG PO SCH (08:23)
[2021-03-29] MEDS: EZETIMIBE 10 MG TAB PO SCH (08:23)
[2021-03-29] MEDS: ENOXAPARIN 40 MG/0.4 ML SYRINGE SQ SCH (08:24)
[2021-03-29] MEDS: PANTOPRAZOLE 40 MG/10 ML VIAL IV SCH (08:24)
[2021-03-29] MEDS ORDERED: LIDOCAINE 1% INJ 10MG/ML (20 ML MDV) SQ ONE (10:11)
[2021-03-29 11:26] LABS: Basophils # (A) 0.01 X 10*3/uL (0.00-0.10); Basophils % (A) 0.2 %; Eosinophils # (A) 0.04 X 10*3/uL (0.04-0.35); Eosinophils % (A) 0.7 %; HCT 28.5 % (39.6-50.0); HGB 8.8 g/dL (13.0-17.0); Lymphocytes # (A) 0.44 X 10*3/uL (0.90-5.00); Lymphocytes % (A) 7.3 %; MCHC 30.9 g/dL (32.0-37.0); MCV 84.1 fL (80.0-97.0); Mean Platelet Volume 9.8 fL (9.5-12.2); Monocytes # (A) 0.74 X 10*3/uL (0.20-1.00); Monocytes % (A) 12.3 %; Neutrophils # (A) 4.79 X 10*3/uL (1.80-7.70); Neutrophils % (A) 79.2 %; Platelet Count 374 X 10*3/uL (140-440); RBC 3.39 X 10*6/uL (4.40-5.60); RDW 19.8 % (11.5-14.5); WBC 6.04 X 10*3/uL (4.50-10.00)
[2021-03-29 11:30] LABS: Glucose,Whole Blood 98 mg/dL (75-99)
--- NOTE | 2021-03-29 11:32 | IR ---
EXAMINATION TYPE: IR cvc insert >=5 years DATE OF EXAM: 03/29/2021 COMPARISON: NONE CLINICAL HISTORY: Infection Needs long-term intravenous access for antibiotics. PROCEDURE: Hand hygiene obtained with soap and water and alcohol-based hand rub. After informed consent, the skin overlying the left brachial vein was localized with ultrasound and n oted to be compressible and patent. An ultrasound image was obtained and submitted on the patient's chart. The overlying skin was prepped and draped and Lidocaine was used for local anesthesia. A ski n watson was made with a scalpel. Access was gained to the vein under ultrasound guidance with a 21 ga uge needle and a 0.018 inch wire was advanced. Access site was dilated with Peel-Away sheath and cat heter tailored to the appropriate length and advanced such that the distal tip is at the cavoatrial j unction. Spot image was obtained verifying placement. Catheter was fixed to the skin and a sterile dressing was placed following hemostasis. Catheter was aspirated and flushed with saline. Patient w as discharged in stable condition without complication.Maximal barrier technique is utilized. Ultras ound image is documented on the chart. Ultrasound used with sterile technique. Fluoro time and fluoroscopic images submitted to document procedure: 105 intraoperative C-arm images, 0.3 minutes fluoroscopy time IMPRESSION: STATUS POST ULTRASOUND AND FLUOROSCOPIC GUIDED PICC LINE PLACEMENT, READY FOR USE. THIS PROCEDURE WAS PERFORMED BY THE UNDERSIGNED.
[2021-03-29 14:32] VITALS: BMI 26.6
--- NOTE | 2021-03-29 14:58 | P.PN ---
<Chloé Adame - Last Filed: 03/29/21 14:47> Subjective Progress Note Date: 03/29/21 CHIEF COMPLAINT: Abdominal pain HISTORY OF PRESENT ILLNESS: Surgical service is following in regards to patient's liver abscess. He failed outpatient treatment of the liver abscess. He is status post Robotic-assisted da Sonja Xi laparoscopic lysis of adhesions over 1 hour and Drainage of complex septated liver abscess right lower lobe, 500 mL ryan purulence. Patient reports improvement in his abdominal pain. Denies any nause a or vomiting. Tolerating regular diet. He is having bowel movements. Afebrile. WBC is 6.04 hemoglobin 8.8 patient is status post PICC line placement. Fluid Cultures remain negative. Patient does complain of mild cough. He feels weak and was able to sit in bedside chair yesterday. PHYSICAL EXAM: VITAL SIGNS: Reviewed GENERAL: Well-developed in no acute distress. HEENT: No sclera icterus. Extraocular movements grossly intact. Moist buccal mucosa. Head is atraumatic, normocephalic. Hears conversational speech. No nasal drainage. NECK: Supple without lymphadenopathy. CHEST: Non-labored respirations and equal bilateral excursions. CARDIOVASCULAR: Palpable 2+ radial pulses. ABDOMEN: Soft. Nondistended. Abdominal binder in place. Incision sites clean dry and intact. CHELSEY drain with purulent drainage MUSCULOSKELETAL: No clubbing or cyanosis. NEUROLOGIC: No focal or lateralizing signs. Cranial nerves II through XII grossly intact. PSYCH: Appropriate affect. Alert and oriented to person, place and time. SKIN: Well perfused. Good skin turgor. ASSESSMENT: 1. Complicated septated right lower lobe liver abscess, 17 cm x 9 cm , peritoneal adhesions status post Robotic-assisted da Sonja Xi laparoscopic lysis of adhesions over 1 hour and Drainage of complex septated liver abscess right lower lobe, 500 mL ryan purulence 2. Right upper quadrant abdominal pain 3. Failed outpatient treatment for liver abscess 4. Diabetes type 2, poorly controlled 5. Ischemic cardiomyopathy 6. History of prior cholecystectomy 7. Hypertensive heart disease 8. Coronary artery disease 9. History of CABG 10. History of cardiac stent placement 11. Peritoneal adhesions epigastrium, right upper quadrant PLAN: -Continue antibiotics per ID recommendations -Continue pain medication as needed -Ordered incentive spirometer -Encouraged patient to increase activity -Consult PT/OT Physician Diesel [employer] note has been reviewed by physician. Signing provider agrees with the documented findings, assessment, and plan of care. Objective - Vital Signs Vital signs: Vital Signs Temp 98 F 03/29/21 14:21 Pulse 68 03/29/21 08:33 Resp 14 03/29/21 14:21 BP 117/68 03/29/21 14:21 Pulse Ox 97 03/29/21 14:21 Intake & Output 03/28/21 03/29/21 03/29/21 18:59 06:59 18:59 Intake Total 200 Output Total 1 5 Balance 200 -1 -5 Weight 74.843 kg Intake: Oral 200 Output: Drainage 5 Left Upper Abdomen 5 Urine 1 Other: Voiding Method Toilet Toilet Toilet Urinal Urinal Urinal # Voids 4 3 - Labs CBC & Chem 7: 03/29/21 06:46 03/28/21 20:10 Labs: Abnormal Lab Results - Last 24 Hours (Table) 03/28/21 03/28/21 03/28/21 Range/Units 16:57 20:10 21:51 RBC (4.40-5.60) X 10*6/uL Hgb (13.0-17.0) g/dL Hct (39.6-50.0) % MCH (27.0-32.0) pg MCHC (32.0-37.0) g/dL RDW (11.5-14.5) % Lymphocytes # (0.90-5.00) X 10*3/uL PT (9.0-12.0) sec INR (<1.2) Glucose 201 H (70-110) mg/dL POC Glucose (mg/dL) 173 H 196 H (75-99) mg/dL Calcium 7.4 L (8.7-10.3) mg/dL Total Protein 4.8 L (6.2-8.2) g/dL Albumin 2.50 L (3.80-4.90) g/dL Albumin/Globulin Ratio 1.09 L (1.60-3.17) g/dL 03/29/21 03/29/21 03/29/21 Range/Units 06:46 06:46 06:57 RBC 3.39 L (4.40-5.60) X 10*6/uL Hgb 8.8 L (13.0-17.0) g/dL Hct 28.5 L (39.6-50.0) % MCH 26.0 L (27.0-32.0) pg MCHC 30.9 L (32.0-37.0) g/dL RDW 19.8 H (11.5-14.5) % Lymphocytes # 0.44 L (0.90-5.00) X 10*3/uL PT 12.3 H (9.0-12.0) sec INR 1.2 H (<1.2) Glucose (70-110) mg/dL POC Glucose (mg/dL) 70 L (75-99) mg/dL Calcium (8.7-10.3) mg/dL Total Protein (6.2-8.2) g/dL Albumin (3.80-4.90) g/dL Albumin/Globulin Ratio (1.60-3.17) g/dL Microbiology - Last 24 Hours (Table) 03/25/21 09:45 Anaerobic Culture - Final Aspirate 03/25/21 09:45 Gram Stain - Final Aspirate Body Fluid Culture - Final 03/26/21 19:10 Blood Culture - Preliminary Blood No Growth after 48 hours 03/22/21 14:00 Blood Culture - Final Blood No Growth after 144 hours 03/22/21 13:45 Blood Culture - Final Blood No Growth after 144 hours <Mer West - Last Filed: 03/29/21 22:03> Subjective CHELSEY drain to be discontinued as outpatient. Otherwise, stable for discharge from a surgical standpoint. Will follow as needed. Objective - Vital Signs Vital signs: Vital Signs Temp 97.7 F 03/29/21 19:27 Pulse 68 03/29/21 08:33 Resp 18 03/29/21 19:27 BP 143/75 03/29/21 19:27 Pulse Ox 98 03/29/21 19:27 Intake & Output 03/29/21 03/29/21 03/30/21 06:59 18:59 06:59 Output Total 1 5 Balance -1 -5 Weight 74.843 kg Output: Drainage 5 Left Upper Abdomen 5 Urine 1 Other: Voiding Method Toilet Toilet Urinal Urinal # Voids 3 3 1 # Bowel Movements 1 1 - Labs CBC & Chem 7: 03/29/21 06:46 03/28/21 20:10 Labs: Abnormal Lab Results - Last 24 Hours (Table) 03/28/21 03/29/21 03/29/21 Range/Units 20:10 06:46 06:46 RBC 3.39 L (4.40-5.60) X 10*6/uL Hgb 8.8 L (13.0-17.0) g/dL Hct 28.5 L (39.6-50.0) % MCH 26.0 L (27.0-32.0) pg MCHC 30.9 L (32.0-37.0) g/dL RDW 19.8 H (11.5-14.5) % Lymphocytes # 0.44 L (0.90-5.00) X 10*3/uL PT 12.3 H (9.0-12.0) sec INR 1.2 H (<1.2) Glucose 201 H (70-110) mg/dL POC Glucose (mg/dL) (75-99) mg/dL Calcium 7.4 L (8.7-10.3) mg/dL Total Protein 4.8 L (6.2-8.2) g/dL Albumin 2.50 L (3.80-4.90) g/dL Albumin/Globulin Ratio 1.09 L (1.60-3.17) g/dL 03/29/21 03/29/21 03/29/21 Range/Units 06:57 16:37 20:26 RBC (4.40-5.60) X 10*6/uL Hgb (13.0-17.0) g/dL Hct (39.6-50.0) % MCH (27.0-32.0) pg MCHC (32.0-37.0) g/dL RDW (11.5-14.5) % Lymphocytes # (0.90-5.00) X 10*3/uL PT (9.0-12.0) sec INR (<1.2) Glucose (70-110) mg/dL POC Glucose (mg/dL) 70 L 151 H 203 H (75-99) mg/dL Calcium (8.7-10.3) mg/dL Total Protein (6.2-8.2) g/dL Albumin (3.80-4.90) g/dL Albumin/Globulin Ratio (1.60-3.17) g/dL Microbiology - Last 24 Hours (Table) 03/26/21 19:10 Blood Culture - Preliminary Blood No Growth after 72 hours 03/25/21 09:45 Anaerobic Culture - Final Aspirate 03/25/21 09:45 Gram Stain - Final Aspirate Body Fluid Culture - Final Assessment and Plan (1) Poorly controlled type 2 diabetes mellitus Current Visit: Yes Status: Acute Code(s): E11.65 - TYPE 2 DIABETES MELLITUS WITH HYPERGLYCEMIA SNOMED Code(s): 62253383 (2) Ischemic cardiomyopathy Current Visit: Yes Status: Acute Code(s): I25.5 - ISCHEMIC CARDIOMYOPATHY SNOMED Code(s): 872017342 (3) Right upper quadrant abdominal pain Current Visit: Yes Status: Acute Code(s): R10.11 - RIGHT UPPER QUADRANT PAIN SNOMED Code(s): 107217943 (4) Failure of outpatient treatment Current Visit: Yes Status: Acute Code(s): Z78.9 - OTHER SPECIFIED HEALTH STATUS SNOMED Code(s): 766516904 (5) Hypertensive heart disease Current Visit: Yes Status: Acute Code(s): I11.9 - HYPERTENSIVE HEART DISEASE WITHOUT HEART FAILURE SNOMED Code(s): 19029176 (6) Liver abscess Current Visit: Yes Status: Acute Code(s): K75.0 - ABSCESS OF LIVER SNOMED Code(s): 30988310 (7) Dehydration Current Visit: Yes Status: Acute Code(s): E86.0 - DEHYDRATION SNOMED Code(s): 60179784 (8) Lactic acid acidosis Current Visit: Yes Status: Acute Code(s): E87.2 - ACIDOSIS SNOMED Code(s): 61133800 (9) Hypotension Current Visit: Yes Status: Acute Code(s): I95.9 - HYPOTENSION, UNSPECIFIED SNOMED Code(s): 65287605
[2021-03-29 16:39] LABS: Glucose,Whole Blood 151 mg/dL (75-99)
--- NOTE | 2021-03-29 17:04 | P.PN ---
Subjective Progress Note Date: 03/29/21 Patient is an 80-year-old pleasant male was sent in from Dr. West's office for liver abscess. Patient came in for regular biopsy for liver mass and patient was told he has an abscess and a drain was put in about 2 weeks ago by interventional radiologist and he the continued to drain until few days ago went stopped draining. Patient has seen Dr. West. removed the drain as it wasn't draining anymore. The cultures from the drainage fluid are negative for any bacteria or any other infection. Repeat computed tomography scan is being obtained at this time. Patient has seen infectious disease doctor as well who reviewed his chart and all the cultures appear to be negative. Today the drain site had some purulent discharge as per the ER physician when I evaluated it's packed and the didn't see much of drainage but there is mild redness around the day. Patient was started on vancomycin and the Zosyn which will be continued for now infectious disease was consulted. Patient was on ciprofloxacin at home. Patient did note that he had significant weight loss and generalized weakness b ut doesn't have any fever or leukocytosis. Patient blood sugars are bit high patient is bit hyponatremic does have lactic acidosis. 03/29/2021 Patient is seen and evaluated and follow-up and continues to be closely monitored and is maintained on IV antibiotics in the form of Zosyn with infectious disease following closely. Surgery also following status post liver abscess with drainage. Patient underwent repeat CT abdomen which appears to be improving. Patient has received a PICC line and will require broad-spectrum IV antibiotics and again infectious disease is following closely. Patient is weak and will have PT/OT evaluate the patient as he may likely need ECF upon discharge for some strengthening mobility with continued PT/OT therapy and also IV antibiotic management. Social work is being consulted and patient would like to go to [facility]. Patient denies any chest pain or shortness of breath. Patient is afebrile. Patient is tolerating diet and will continue with Accu- Cheks before meals and at bedtime. Review of systems: Constitutional: No reports of fatigue, fever, or chills Cardiovascular: No reports of chest pain or palpitations Respiratory: No reports of shortness of breath or cough GI: No reports of nausea, vomiting, or diarrhea : No reports of dysuria or retention Neurovascular: No reports of weakness or numbness All medications have been reviewed Active Medications Acetaminophen (Acetaminophen Tab 325 Mg Tab) 650 mg PO Q6HR PRN PRN Reason: Mild Pain or Fever > 100.5 Hydrocodone Bitart/Acetaminophen (Hydrocodone/Apap 5-325mg 1 Each Tab) 1 each PO Q4HR PRN PRN Reason: Pain Last Admin: 03/29/21 08:23 Dose: 1 each Documented by: Aspirin (Aspirin 81 Mg) 81 mg PO DAILY [facility] Last Admin: 03/29/21 08:23 Dose: 81 mg Documented by: Atorvastatin Calcium (Atorvastatin 40 Mg Tab) 40 mg PO DAILY [facility] Last Admin: 03/29/21 08:23 Dose: 40 mg Documented by: Ezetimibe (Ezetimibe 10 Mg Tab) 10 mg PO DAILY [facility] Last Admin: 03/29/21 08:23 Dose: 10 mg Documented by: Enoxaparin Sodium (Enoxaparin 40 Mg/0.4 Ml Syringe) 40 mg SQ DAILY [facility] Last Admin: 03/29/21 08:24 Dose: 40 mg Documented by: Finasteride (Finasteride 5 Mg Tab) 5 mg PO DAILY [facility] Last Admin: 03/29/21 08:23 Dose: 5 mg Documented by: Hydromorphone HCl (Hydromorphone 0.5 Mg/0.5 Ml Syringe) 0.5 mg IVP Q3HR PRN PRN Reason: Moderate Pain Last Admin: 03/26/21 07:13 Dose: 0.5 mg Documented by: Piperacillin Sod/Tazobactam (Sod 3.375 gm/ Sodium Chloride) 100 mls @ 25 mls/hr IVPB Q8H [facility] Last Admin: 03/29/21 15:50 Dose: 25 mls/hr Documented by: Lactated Ringer's (Lactated Ringers) 1,000 mls @ 20 mls/hr IV .Q24H [facility] Last Admin: 03/28/21 07:45 Dose: Not Given Documented by: Insulin Aspart (Insulin Aspart (Novolog) 100 Unit/Ml Vial) 0 unit SQ ACHS [facility]; Protocol Last Admin: 03/29/21 12:01 Dose: Not Given Documented by: Insulin Detemir (Insulin Detemir (Levemir) 100 Unit/Ml Syr) 20 unit SQ BID [facility] Last Admin: 03/29/21 07:25 Dose: Not Given Documented by: Isosorbide Dinitrate (Isosorbide Dinitrate 10 Mg Tab) 30 mg PO BID [facility] Last Admin: 03/29/21 08:23 Dose: 30 mg Documented by: Ketorolac Tromethamine (Ketorolac 15 Mg/Ml 1 Ml Vial) 15 mg IVP Q6HR [facility] Stop: 03/31/21 12:01 Last Admin: 03/29/21 12:02 Dose: 15 mg Documented by: Linagliptin (Linagliptin 5 Mg Tablet) 5 mg PO DAILY [facility] Last Admin: 03/29/21 08:23 Dose: 5 mg Documented by: Metformin HCl (Metformin 500 Mg Tab) 500 mg PO AC-BID [facility] Last Admin: 03/29/21 08:23 Dose: 500 mg Documented by: Metronidazole (Metronidazole 500 Mg Tab) 500 mg PO Q8H [facility] Midodrine (Midodrine 5 Mg Tab) 5 mg PO AC-TID [facility] Last Admin: 03/29/21 12:01 Dose: Not Given Documented by: Naloxone HCl (Naloxone 0.4 Mg/Ml 1 Ml Vial) 0.2 mg IV Q2M PRN PRN Reason: Opioid Reversal Nitroglycerin (Nitroglycerin Sl Tabs 0.4 Mg Tab) 0.4 mg SUBLINGUAL Q5M PRN PRN Reason: Chest Pain Dapagliflozin Propanediol [Farxiga ] 10 Mg Tablet 5 mg PO DAILY [facility] Last Admin: 03/29/21 08:24 Dose: Not Given Documented by: Ondansetron HCl (Ondansetron 4 Mg/2 Ml Vial) 4 mg IVP Q6HR PRN PRN Reason: Nausea And Vomiting Last Admin: 03/26/21 14:32 Dose: 4 mg Documented by: Pantoprazole Sodium (Pantoprazole 40 Mg/10 Ml Vial) 40 mg IV DAILY [facility] Last Admin: 03/29/21 08:24 Dose: 40 mg Documented by: Sodium Chloride (Sodium Chloride 0.9% Flush 10 Ml Syringe) 10 ml IV Q4HR PRN PRN Reason: PICC Line Sodium Chloride (Sodium Chloride 0.9% Flush 10 Ml Syringe) 10 ml IV WEEKLY [facility] Sodium Chloride (Sodium Chloride 0.9% Flush 10 Ml Syringe) 20 ml IV Q4HR PRN PRN Reason: PICC Line Objective - Vital Signs Vital signs: Vital Signs Temp 97.9 F 03/29/21 08:33 Pulse 68 03/29/21 08:33 Resp 14 03/29/21 08:33 BP 118/62 03/29/21 08:33 Pulse Ox 95 03/29/21 08:33 Intake & Output 03/28/21 03/29/21 03/29/21 18:59 06:59 18:59 Intake Total 200 Output Total 1 5 Balance 200 -1 -5 Intake: Oral 200 Output: Drainage 5 Left Upper Abdomen 5 Urine 1 Other: Voiding Method Toilet Toilet Toilet Urinal Urinal Urinal # Voids 4 3 - Exam GENERAL: The patient is alert and oriented x3, not in any acute distress. Well developed, well nourished. Temp is 98.0F, pulse is 68, respirations are 14, blood pressure is 117/68, oxygen saturation is 97% on room air. HEENT: Pupils are round and equally reacting to light. EOMI. No scleral icterus. No conjunctival pallor. Normocephalic, atraumatic. No pharyngeal erythema. No thyromegaly. CARDIOVASCULAR: S1 and S2 muffled PULMONARY: Diminished breath sounds with some mild rhonchi noted ABDOMEN: Soft, nontender, nondistended, normoactive bowel sounds. No palpable organomegaly. CHELSEY drain noted MUSCULOSKELETAL: No joint swelling or deformity. EXTREMITIES: No cyanosis, clubbing, or pedal edema. NEUROLOGICAL: Gross neurological examination did not reveal any focal deficits. Diffusely weak SKIN: As mentioned above - Labs CBC & Chem 7: 03/29/21 06:46 03/28/21 20:10 Labs: Abnormal Lab Results - Last 24 Hours (Table) 03/28/21 03/28/21 03/28/21 Range/Units 16:57 20:10 21:51 RBC (4.40-5.60) X 10*6/uL Hgb (13.0-17.0) g/dL Hct (39.6-50.0) % MCH (27.0-32.0) pg MCHC (32.0-37.0) g/dL RDW (11.5-14.5) % Lymphocytes # (0.90-5.00) X 10*3/uL PT (9.0-12.0) sec INR (<1.2) Glucose 201 H (70-110) mg/dL POC Glucose (mg/dL) 173 H 196 H (75-99) mg/dL Calcium 7.4 L (8.7-10.3) mg/dL Total Protein 4.8 L (6.2-8.2) g/dL Albumin 2.50 L (3.80-4.90) g/dL Albumin/Globulin Ratio 1.09 L (1.60-3.17) g/dL 03/29/21 03/29/21 03/29/21 Range/Units 06:46 06:46 06:57 RBC 3.39 L (4.40-5.60) X 10*6/uL Hgb 8.8 L (13.0-17.0) g/dL Hct 28.5 L (39.6-50.0) % MCH 26.0 L (27.0-32.0) pg MCHC 30.9 L (32.0-37.0) g/dL RDW 19.8 H (11.5-14.5) % Lymphocytes # 0.44 L (0.90-5.00) X 10*3/uL PT 12.3 H (9.0-12.0) sec INR 1.2 H (<1.2) Glucose (70-110) mg/dL POC Glucose (mg/dL) 70 L (75-99) mg/dL Calcium (8.7-10.3) mg/dL Total Protein (6.2-8.2) g/dL Albumin (3.80-4.90) g/dL Albumin/Globulin Ratio (1.60-3.17) g/dL Microbiology - Last 24 Hours (Table) 03/25/21 09:45 Anaerobic Culture - Final Aspirate 03/25/21 09:45 Gram Stain - Final Aspirate Body Fluid Culture - Final 03/26/21 19:10 Blood Culture - Preliminary Blood No Growth after 48 hours 03/22/21 14:00 Blood Culture - Final Blood No Growth after 144 hours 03/22/21 13:45 Blood Culture - Final Blood No Growth after 144 hours Assessment and Plan Assessment: Acute hepatic abscess with complex septated liver abscess with extension into the paracolic gutter and right lower lobe, status post drainage of sepsis, present on admission Change in mental status, acute mental encephalopathy, secondary to sepsis Hypotension with severe sepsis, present on admission Hyponatremia next line acute lactic acidosis, present on admission with secondary to sepsis Diabetes mellitus type 2, uncontrolled with hyperglycemia Gastroesophageal reflux disease Hyperlipidemia benign prostatic hypertrophy history of coronary artery disease, coronary artery bypass grafting Hypoalbuminemia with mild protein calorie malnutrition Anemia, normocytic anemia of chronic disease History of coronary artery disease history of prostate disorder remote history of nicotine dependence Full code Recommendations and discussion: Recommend continue current medications, management, and symptomatic treatment. We'll continue to monitor and repeat a.m. labs. Patient to receive a PICC line as he will likely require IV antibiotics outpatient. He should maintain on Accu-Cheks before meals and at bedtime and will continue. Blood sugars on the lower side today and will continue with current regimen and monitor closely. Patient is weak and will have PT/OT therapy evaluate the patient with the possibility of the ECF and patient is requesting [facility] if possible. Patient may require ECF for continued PT/OT therapy and IV antibiotic management. S ocial work consulted and will continue to follow. Due to multiple complex medical issues, prognosis is guarded. Further recommendations to follow.
--- NOTE | 2021-03-29 20:02 | PN ---
PROGRESS NOTE DATE OF SERVICE: 03/29/2021 REASON FOR FOLLOW UP: Liver abscess. INTERVAL HISTORY: The patient is afebrile. The patient is breathing comfortably. Occasional pain to the right upper quadrant area. No chest pain, shortness of breath or cough and no diarrhea. PHYSICAL EXAMINATION: Blood pressure is 113/68 with a pulse of 68, temperature 98. He is 97% on room air. General description is an elderly male lying in in no distress. Respiratory system: Unlabored breathing, clear to auscultation anteriorly. Heart S1, S2. Regular rate and rhythm. Abdomen soft, no tenderness. Extremities: No edema of the feet. LAB: Hemoglobin 8.1 white count 6.04, BUN of 16, creatinine 0.8. Abdominal culture so far negative. DIAGNOSTIC IMPRESSION AND PLAN: Patient with liver abscess status post surgical drainage. Cultures negative. The patient on Zosyn. May consider short course of IV Rocephin and Flagyl in the outpatient setting and close outpatient followup. MMODL / IJN: [id number] /
[2021-03-29 20:32] LABS: Glucose,Whole Blood 203 mg/dL (75-99)
[2021-03-29] MEDS: LACTATED RINGERS 1,000 ML IV SCH (20:47)
[2021-03-29] MEDS: metroNIDAZOLE 500 MG TAB PO SCH (20:53)
[2021-03-30] MEDS: LACTATED RINGERS 1,000 ML IV SCH (00:38)
[2021-03-30] MEDS: KETOROLAC 15 MG/ML 1 ML VIAL IVP SCH ×4 (05:58→23:07)
[2021-03-30] MEDS: PIPERACILLIN-TAZOBACTAM 3.375 GM in SODIUM CHLORIDE 0.9% 100 ML IVPB SCH ×3 (05:58→20:57)
[2021-03-30] MEDS: metroNIDAZOLE 500 MG TAB PO SCH ×3 (05:58→20:57)
[2021-03-30 06:42] LABS: Glucose,Whole Blood 71 mg/dL (75-99)
[2021-03-30] MEDS: INSULIN ASPART (NovoLOG) 100 UNIT/ML VIAL SQ SCH ×4 (06:58→20:57)
[2021-03-30] MEDS: INSULIN DETEMIR (LEVEMIR) 100 UNIT/ML SYR SQ SCH ×2 (06:58→20:57)
[2021-03-30] MEDS: FINASTERIDE 5 MG TAB PO SCH (08:13)
[2021-03-30] MEDS: ENOXAPARIN 40 MG/0.4 ML SYRINGE SQ SCH (08:13)
[2021-03-30] MEDS: MIDODRINE 5 MG TAB PO SCH ×3 (08:13→18:30)
[2021-03-30] MEDS: metFORMIN 500 MG TAB PO SCH ×2 (08:13→18:30)
[2021-03-30] MEDS: ATORVASTATIN 40 MG TAB PO SCH (08:13)
[2021-03-30] MEDS: EZETIMIBE 10 MG TAB PO SCH (08:14)
[2021-03-30] MEDS: ASPIRIN 81 MG PO SCH (08:14)
[2021-03-30] MEDS: LINAGLIPTIN 5 MG TABLET PO SCH (08:14)
[2021-03-30] MEDS: ISOSORBIDE DINITRATE 10 MG TAB PO SCH ×2 (08:14→20:57)
[2021-03-30] MEDS ORDERED: FUROSEMIDE 10 MG/ML 4 ML VIAL IV STA (09:29)
[2021-03-30] MEDS: PANTOPRAZOLE 40 MG/10 ML VIAL IV SCH (10:50)
[2021-03-30 11:08] LABS: Anisocytosis Slight; Basophils % (A) 0 %; Eosinophils # (A) 0.1 k/uL (0-0.7); Eosinophils % (A) 1 %; HGB 10.2 gm/dL (13.0-17.5); Hypochromasia Moderate; Lymphocytes # (A) 0.4 k/uL (1.0-4.8); Lymphocytes % (A) 6 %; MCH 26.1 pg (25.0-35.0); MCHC 30.9 g/dL (31.0-37.0); MCV 84.3 fL (80.0-100.0); Mean Platelet Volume 7.2; Monocytes # (A) 0.4 k/uL (0-1.0); Monocytes % (A) 7 %; Neutrophils # (A) 5.6 k/uL (1.3-7.7); Neutrophils % (A) 85 %; Platelet Count 436 k/uL (150-450); RBC 3.91 m/uL (4.30-5.90); WBC 6.6 k/uL (3.8-10.6)
[2021-03-30 11:15] LABS: African American GFR (CKD) >90 (>60 ml/min/1.73 sqM); Anion Gap 7 mmol/L; Blood Urea Nitrogen 15 mg/dL (9-20); Calcium 8.1 mg/dL (8.4-10.2); Carbon Dioxide 25 mmol/L (22-30); Chloride 107 mmol/L (98-107); Glucose 133 mg/dL (74-99); Non-African American GFR(CKD) 85 (>60 ml/min/1.73 sqM); Potassium 4.5 mmol/L (3.5-5.1); Sodium 139 mmol/L (137-145)
[2021-03-30 11:48] LABS: Glucose,Whole Blood 107 mg/dL (75-99)
--- NOTE | 2021-03-30 14:25 | P.PN ---
Subjective Progress Note Date: 03/30/21 CHIEF COMPLAINT: Abdominal pain HISTORY OF PRESENT ILLNESS: Surgical service is following in regards to jimmy mortensen's liver abscess. He failed outpatient treatment of the liver abscess. He is status post Robotic-assisted da Sonja Xi laparoscopic lysis of adhesions over 1 hour and Drainage of complex septated liver abscess right lower lobe, 500 mL ryan purulence. Patient denies any abdominal pain. Denies any nausea or vomiting. Tolerating regular diet. He is having bowel movements. Nursing staff was concerned that CHELSEY drain output was more cloudy and had increase in output. Therefore surgical service came back through to reevaluate. CHELSEY drain and is still is having purulent drainage and did have 30 mL output through the drain. These are expected findings. Patient remains Afebrile. WBC 6.6 hemoglobin 10.2 patient has worked with PT OT and they're recommending ECF placement. PHYSICAL EXAM: VITAL SIGNS: Reviewed GENERAL: Well-developed in no acute distress. HEENT: No sclera icterus. Extraocular movements grossly intact. Moist buccal mucosa. Head is atraumatic, normocephalic. Hears conversational speech. No nasal drainage. NECK: Supple without lymphadenopathy. CHEST: Non-labored respirations and equal bilateral excursions. CARDIOVASCULAR: Palpable 2+ radial pulses. ABDOMEN: Soft. Nondistended. Abdominal binder in place. Incision sites clean dry and intact. CHELSEY drain with purulent drainage MUSCULOSKELETAL: No clubbing or cyanosis. NEUROLOGIC: No focal or lateralizing signs. Cranial nerves II through XII grossly intact. PSYCH: Appropriate affect. Alert and oriented to person, place and time. SKIN: Well perfused. Good skin turgor. ASSESSMENT: 1. Complicated septated right lower lobe liver abscess, 17 cm x 9 cm , peritoneal adhesions status post Robotic-assisted da Sonja Xi laparoscopic lysis of adhesions over 1 hour and Drainage of complex septated liver abscess right lower lobe, 500 mL ryan purulence 2. Right upper quadrant abdominal pain 3. Failed outpatient treatment for liver abscess 4. Diabetes type 2, poorly controlled 5. Ischemic cardiomyopathy 6. History of prior cholecystectomy 7. Hypertensive heart disease 8. Coronary artery disease 9. History of CABG 10. History of cardiac stent placement 11. Peritoneal adhesions epigastrium, right upper quadrant PLAN: -Patient is stable for discharge from surgical standpoint. We will follow as needed -Patient will be discharged with CHELSEY drain -Continue antibiotics per ID recommendations -Continue pain medication as needed -Continue incentive spirometer -Encouraged patient to increase activity Physician Machinist [employer] note has been reviewed by physician. Signing provider agrees with the documented findings, assessment, and plan of care. Objective - Vital Signs Vital signs: Vital Signs Temp 98.3 F 03/30/21 07:31 Pulse 72 03/30/21 07:51 Resp 15 03/30/21 07:51 BP 140/73 03/30/21 07:31 Pulse Ox 98 03/30/21 07:31 Intake & Output 03/29/21 03/30/21 03/30/21 18:59 06:59 18:59 Intake Total 100 Output Total 5 31 Balance -5 100 -31 Weight 74.843 kg Intake: Intake, IV Titration 100 Amount Piperacillin-Tazobactam 3 100 .375 gm In Sodium Chloride 0.9% 100 ml @ 25 mls/hr IVPB Q8H [facility] Rx#: [id number] Output: Drainage 5 30 Left Upper Abdomen 5 30 Urine 1 Other: Voiding Method Toilet Toilet Toilet Urinal Urinal Urinal # Voids 3 1 1 # Bowel Movements 1 1 1 - Labs CBC & Chem 7: 03/30/21 10:30 03/30/21 10:30 Labs: Abnormal Lab Results - Last 24 Hours (Table) 03/29/21 03/29/21 03/30/21 Range/Units 16:37 20:26 06:40 RBC (4.30-5.90) m/uL Hgb (13.0-17.5) gm/dL Hct (39.0-53.0) % MCHC (31.0-37.0) g/dL RDW (11.5-15.5) % Lymphocytes # (1.0-4.8) k/uL Glucose (74-99) mg/dL POC Glucose (mg/dL) 151 H 203 H 71 L (75-99) mg/dL Calcium (8.4-10.2) mg/dL 03/30/21 03/30/21 03/30/21 Range/Units 10:30 10:30 11:46 RBC 3.91 L (4.30-5.90) m/uL Hgb 10.2 L (13.0-17.5) gm/dL Hct 33.0 L (39.0-53.0) % MCHC 30.9 L (31.0-37.0) g/dL RDW 18.0 H (11.5-15.5) % Lymphocytes # 0.4 L (1.0-4.8) k/uL Glucose 133 H (74-99) mg/dL POC Glucose (mg/dL) 107 H (75-99) mg/dL Calcium 8.1 L (8.4-10.2) mg/dL Microbiology - Last 24 Hours (Table) 03/26/21 19:10 Blood Culture - Preliminary Blood No Growth after 72 hours 03/25/21 09:45 Anaerobic Culture - Final Aspirate
[2021-03-30 16:45] LABS: Glucose,Whole Blood 153 mg/dL (75-99)
--- NOTE | 2021-03-30 20:33 | PN ---
PROGRESS NOTE This 80-year-old gentleman who was admitted with acute hepatic abscess is being closely monitored. No chest pain. No palpitations. No fever. The cultures are negative so far. The patient on empiric antibiotics. EXAM: Alert and oriented x2. Pulse 73, blood pressure 117/79, respiration 18, temperature 97.6, pulse ox 98% on room air. HEENT: Conjunctivae normal. NECK: No JVD. RESPIRATION: Breath sounds diminished in the bases. A few scattered rhonchi. ABDOMEN: Soft. Mild diffuse tenderness. LEGS: No edema. NERVOUS SYSTEM: No focal deficits. LABS: WBC 6.6, hemoglobin 10.2. Accu-Cheks noted. Calcium is 8.1. ASSESSMENT: 1. Acute hepatic abscess with complex septated liver abscess with extension into the pericolic gutter and right lower lobe, status post drainage with sepsis, present on admission. 2. Change in mental status, acute metabolic encephalopathy secondary to sepsis. 3. Hypotension with severe sepsis, present on admission. 4. Hyponatremia. 5. Acute lactic acidosis present on admission secondary to sepsis. 6. Diabetes mellitus type 2, uncontrolled with hyperglycemia. 7. Gastroesophageal reflux disease. 8. Hyperlipidemia. 9. Benign prostatic hypertrophy. 10.History of coronary artery disease, coronary artery bypass grafting. 11.Hypoalbuminemia with mild protein calorie malnutrition. 12.Anemia, normocytic anemia of chronic disease. 13.History of coronary artery disease. 14.History of prostate disorder. 15.Remote history of nicotine dependence. 16.FULL CODE. COMMENT: Continue current medications, management and symptomatic treatment. Otherwise, continue the antibiotics. PT/OT evaluation, possible ECF rehab. Guarded prognosis. Further recommendations to follow. MMODL / IJN: [id number] /
[2021-03-30 20:41] LABS: Glucose,Whole Blood 203 mg/dL (75-99)
[2021-03-30] MEDS: TEMAZEPAM 15 MG CAP PO SCH (20:57)
--- NOTE | 2021-03-30 22:58 | PN ---
PROGRESS NOTE DATE OF SERVICE: 04/17/2021 REASON FOR FOLLOWUP: Liver abscess. INTERVAL HISTORY: The patient is afebrile. The patient is breathing comfortably. The patient denies having any chest pain. No shortness of breath. No cough. No nausea, no vomiting. Abdominal pain is currently controlled. No diarrhea. PHYSICAL EXAMINATION: Blood pressure 147/73 with a pulse of 73, temperature 97.9. He is 97% on room air. General description: The patient is an elderly male lying in bed in no distress. Respiratory system: Unlabored breathing, clear to auscultation anteriorly. Heart S1, S2. Regular rate and rhythm. ABDOMEN: Soft, no tenderness. LABS: Hemoglobin is 10.1, white count 6.6. Abdominal culture so far negative. DIAGNOSTIC IMPRESSION AND PLAN: Patient with liver abscess status post open drainage. Unfortunately cultures negative so far with negative for resistant pathogen. We will plan on Rocephin 2 grams daily with oral Flagyl for 3 weeks with close outpatient followup. MMODL / IJN: [id number] /
[2021-03-31] MEDS: metroNIDAZOLE 500 MG TAB PO SCH ×3 (05:26→21:06)
[2021-03-31] MEDS: KETOROLAC 15 MG/ML 1 ML VIAL IVP SCH ×2 (05:26→14:29)
[2021-03-31] MEDS: PIPERACILLIN-TAZOBACTAM 3.375 GM in SODIUM CHLORIDE 0.9% 100 ML IVPB SCH (05:26)
[2021-03-31 06:48] LABS: Glucose,Whole Blood 55 mg/dL (75-99)
[2021-03-31 06:58] LABS: Glucose,Whole Blood 65 mg/dL (75-99)
[2021-03-31 07:11] LABS: Glucose,Whole Blood 75 mg/dL (75-99)
[2021-03-31] MEDS: INSULIN ASPART (NovoLOG) 100 UNIT/ML VIAL SQ SCH ×4 (08:22→21:06)
[2021-03-31] MEDS: EZETIMIBE 10 MG TAB PO SCH (08:26)
[2021-03-31] MEDS: metFORMIN 500 MG TAB PO SCH ×2 (08:26→17:32)
[2021-03-31] MEDS: FINASTERIDE 5 MG TAB PO SCH (08:26)
[2021-03-31] MEDS: ASPIRIN 81 MG PO SCH (08:26)
[2021-03-31] MEDS: LINAGLIPTIN 5 MG TABLET PO SCH (08:26)
[2021-03-31] MEDS: INSULIN DETEMIR (LEVEMIR) 100 UNIT/ML SYR SQ SCH (08:26)
[2021-03-31] MEDS: ATORVASTATIN 40 MG TAB PO SCH (08:26)
[2021-03-31] MEDS: ENOXAPARIN 40 MG/0.4 ML SYRINGE SQ SCH (08:26)
[2021-03-31] MEDS: ISOSORBIDE DINITRATE 10 MG TAB PO SCH ×2 (08:26→21:07)
[2021-03-31] MEDS: MIDODRINE 5 MG TAB PO SCH ×3 (08:26→17:32)
[2021-03-31] MEDS: PANTOPRAZOLE 40 MG/10 ML VIAL IV SCH (08:32)
[2021-03-31 11:07] LABS: Glucose,Whole Blood 71 mg/dL (75-99)
--- NOTE | 2021-03-31 14:12 | PN ---
PROGRESS NOTE DATE OF SERVICE: 03/31/2021 REASON FOR FOLLOWUP: Liver abscess. INTERVAL HISTORY: The patient is currently afebrile. The patient is breathing comfortably. Denies having any chest pain. No shortness of breath or cough. No nausea, no vomiting. Abdominal pain is currently controlled. No diarrhea. PHYSICAL EXAMINATION: Blood pressure 154/78, pulse of 71, temperature is 97.6. He is 97% on room air. General description is an elderly male lying in bed in no distress. Respiratory system: Unlabored breathing, clear to auscultation anteriorly. Heart S1, S2. Regular rate and rhythm. ABDOMEN: Soft, no tenderness EXTREMITIES: No edema of the feet. LABS: No new labs have been obtained today. Cultures remain to be negative. DIAGNOSTIC IMPRESSION AND PLAN: Patient with liver abscess status post surgical drainage. Culture negative, sensitive pathogen. Antibiotic adjusted to Rocephin 2 grams daily along with oral Flagyl to continue for another [address] before completion of antibiotic therapy and weekly monitor of blood work. MMODL / IJN: [id number] /
--- NOTE | 2021-03-31 15:46 | PN ---
PROGRESS NOTE DATE OF SERVICE: 03/31/2021 This 80-year-old gentleman admitted with acute hepatic abscess had a CHELSEY drain. The patient is on empiric antibiotics. No chest pain. No palpitations. No fever. ECF rehab is being planned. PHYSICAL EXAMINATION: Alert and oriented times three. Pulse 71, pressure 150/78, respiration 18, temperature 97.6, pulse ox 97 percent on room air. HEENT: Conjunctivae normal. NECK: No JVD. CARDIOVASCULAR: S1, S2 muffled. RESPIRATORY: Breath sounds diminished in the bases. A few scattered rhonchi and crackles. ABDOMEN: Soft. LEGS: No edema, no swelling. NERVOUS SYSTEM: No focal deficits. LABS: Glucose 65, 71. ASSESSMENT: 1. Acute hepatic abscess with complex septated liver abscess with extension in the pericolic gutter and right lower lobe, status post drainage with sepsis, present on admission. 2. Change in mental status, acute metabolic encephalopathy secondary to sepsis. 3. Hypotension with severe sepsis present on admission. 4. Hyponatremia. 5. Acute lactic acidosis, present on admission, secondary to sepsis. 6. Diabetes mellitus type 2, uncontrolled with hyperglycemia. 7. Gastroesophageal reflux disease. 8. Hyperlipidemia. 9. Benign prostatic hypertrophy. 10.History of coronary artery disease, coronary artery bypass grafting. 11.Hypoalbuminemia with mild protein calorie malnutrition. 12.Anemia, normocytic anemia of chronic disease. 13.History of coronary artery disease. 14.History of prostate disorder. 15.Remote history of nicotine dependence. 16.FULL CODE. 17.Diabetes mellitus type 2. DISCUSSION AND RECOMMENDATIONS: Recommend to continue current medications, monitoring and symptomatic treatment. Otherwise at this time I would recommend continued IV antibiotics. Continue with drainage. Outpatient followup. ECF rehab. Recommend followup CT scan in the next 1-2 weeks and follow with multiple consultants. Prognosis extremely guarded. Discussed with the family. Further recommendations to follow. MMODL / IJN: [id number] /
[2021-03-31 17:14] LABS: Glucose,Whole Blood 106 mg/dL (75-99)
[2021-03-31 20:19] LABS: Glucose,Whole Blood 212 mg/dL (75-99)
[2021-03-31] MEDS: TEMAZEPAM 15 MG CAP PO SCH (21:07)
[2021-03-31] MEDS: LACTATED RINGERS 1,000 ML IV SCH (22:46)
[2021-04-01] MEDS: metroNIDAZOLE 500 MG TAB PO SCH ×2 (04:35→12:52)
[2021-04-01 06:58] LABS: Glucose,Whole Blood 138 mg/dL (75-99)
[2021-04-01] MEDS ORDERED: INSULIN DETEMIR (LEVEMIR) 100 UNIT/ML SYR SQ SCH (07:00)
[2021-04-01] MEDS: LACTATED RINGERS 1,000 ML IV SCH (07:28)
[2021-04-01] MEDS: ENOXAPARIN 40 MG/0.4 ML SYRINGE SQ SCH (07:31)
[2021-04-01] MEDS: FINASTERIDE 5 MG TAB PO SCH (07:32)
[2021-04-01] MEDS: ASPIRIN 81 MG PO SCH (07:32)
[2021-04-01] MEDS: LINAGLIPTIN 5 MG TABLET PO SCH (07:32)
[2021-04-01] MEDS: MIDODRINE 5 MG TAB PO SCH ×2 (07:32→12:52)
[2021-04-01] MEDS: ATORVASTATIN 40 MG TAB PO SCH (07:32)
[2021-04-01] MEDS: ISOSORBIDE DINITRATE 10 MG TAB PO SCH (07:32)
[2021-04-01] MEDS: EZETIMIBE 10 MG TAB PO SCH (07:32)
[2021-04-01] MEDS: metFORMIN 500 MG TAB PO SCH (07:32)
[2021-04-01] MEDS: PANTOPRAZOLE 40 MG/10 ML VIAL IV SCH (07:32)
[2021-04-01] MEDS: INSULIN ASPART (NovoLOG) 100 UNIT/ML VIAL SQ SCH ×2 (07:33→12:07)
[2021-04-01 09:15] VITALS: BP 157/88; PULSE 68; RESP 18; TEMP 97.9
[2021-04-01 11:26] LABS: Glucose,Whole Blood 125 mg/dL (75-99)
--- NOTE | 2021-04-01 11:46 | P.DS ---
Providers Date of admission: 03/22/21 14:30 Attending physician: Josseline Jaimes Consults: 03/22/21 14:30 Consult Physician Routine Consulting Provider: Mer West Consult Reason/Comments: Liver abscess Do you want consulting provider notified?: Yes Consult Physician Routine Consulting Provider: Clinton Khan Consult Reason/Comments: liver abscess Do you want consulting provider notified?: Yes 03/23/21 11:22 Consult Physician Urgent Consulting Provider: Tere Foreman Consult Reason/Comments: Cardiac risk assessment Do you want consulting provider notified?: Yes Primary care physician: [facility] Course: Vital diagnosis Acute hepatic abscess with a complex septated liver abscess with the extension into the paracolic guarded in the right lower lobe status post drainage with the sepsis present on admission Change in mental status acute metabolic considerably secondary to sepsis Hypotension with a severe sepsis present on admission improved Hyponatremia hypovolemic Acute lactic acidosis present on admission possibly secondary sepsis Diabetes was type II uncontrolled with hypoglycemia GERD Hyperlipidemia BPH History of CAD CABG Hypoalbuminemia the mild protein calorie calorie malnutrition Anemia normocytic anemia of chronic disease History of CAD History of prostate disorder History and nicotine dependence Full code Discharge depression patient discharged in a stable condition with guarded prognosis. Total time taken 35 minutes. Patient be discharged to ECF at this time. She present illness This 80-year-old gentleman with a past medical history multiple medical problems admitted with acute hepatic abscess. The drainage was done. Patient was treated medically with antibiotics. Patient was significantly. Cultures are negative. Patient was also seen by multiple consults. ECF rehab is being planned because of gait dysfunction multiple complex medical issues. IV antibiotics were recommended. See orders for further details. On exam vitals are stable. Cardio system normal. Abdomen soft nontender. Nervous system no focal deficit. The patient has been recommended the insulin for better sugar control. Monitor blood sugars closely and hold insulin if the Accu-Chek less than 120. Recommended follow-up as mentioned earlier. Please see the medication list sheet for list of medications. Patient Condition at Discharge: Stable Plan - Discharge Summary Discharge Rx Participant: No New Discharge Prescriptions: New cefTRIAXone [Rocephin] 2 gm IVPB Q24H #21 bag Enoxaparin [Lovenox] 40 mg SQ DAILY #1 syringe Acetaminophen Tab [Tylenol] 650 mg PO Q6HR PRN tab PRN Reason: Mild Pain Or Fever > 100.5 metroNIDAZOLE [Flagyl] 500 mg PO TID #90 tab Insulin Detemir (Levemir) [Levemir] 20 unit SQ DAILY@0700 syr Midodrine [ProAmatine] 5 mg PO AC-TID tab Continue Terazosin HCl 5 mg PO DAILY Nitroglycerin [Nitroglycerin 400MCG [place]] 1 spray TRANSLINGU Q5M PRN PRN Reason: Chest Pain Multivitamins, Thera [Multivitamin (formulary)] 1 tab PO DAILY metFORMIN HCL [Glucophage] 500 mg PO BID Finasteride [Proscar] 5 mg PO DAILY Ezetimibe [Zetia] 10 mg PO DAILY Atenolol [Tenormin] 50 mg PO DAILY Aspirin EC [Ecotrin Low Dose] 81 mg PO DAILY sitaGLIPtin PHOSPHATE [Januvia] 100 mg PO DAILY Ramipril [Altace] 10 mg PO DAILY Omeprazole 20 mg PO DAILY [place]-3 Fatty Acids [[place]-3] 1,000 mg PO DAILY Niacin 500 mg PO DAILY Isosorbide Dinitrate 30 mg PO BID glipiZIDE [Glucotrol] 10 mg PO DAILY Dapagliflozin Propanediol [Farxiga] 5 mg PO DAILY Atorvastatin [Lipitor] 40 mg PO DAILY Discontinued Ciprofloxacin HCl [Cipro] 500 mg PO Q12H Naproxen [Naprosyn] 500 mg PO DAILY metroNIDAZOLE [Flagyl] 500 mg PO TID #30 tab Discharge Medication List Aspirin EC [Ecotrin Low Dose] 81 mg PO DAILY 02/09/21 [History] Atenolol [Tenormin] 50 mg PO DAILY 02/09/21 [History] Atorvastatin [Lipitor] 40 mg PO DAILY 02/09/21 [History] Dapagliflozin Propanediol [Farxiga] 5 mg PO DAILY 02/09/21 [History] Ezetimibe [Zetia] 10 mg PO DAILY 02/09/21 [History] Finasteride [Proscar] 5 mg PO DAILY 02/09/21 [History] Isosorbide Dinitrate 30 mg PO BID 02/09/21 [History] Multivitamins, Thera [Multivitamin (formulary)] 1 tab PO DAILY 02/09/21 [History] Niacin 500 mg PO DAILY 02/09/21 [History] Nitroglycerin [Nitroglycerin 400MCG [place]] 1 spray TRANSLINGU Q5M PRN 02/09/21 [History] [place]-3 Fatty Acids [[place]-3] 1,000 mg PO DAILY 02/09/21 [History] Omeprazole 20 mg PO DAILY 02/09/21 [History] Ramipril [Altace] 10 mg PO DAILY 02/09/21 [History] Terazosin HCl 5 mg PO DAILY 02/09/21 [History] glipiZIDE [Glucotrol] 10 mg PO DAILY 02/09/21 [History] metFORMIN HCL [Glucophage] 500 mg PO BID 02/09/21 [History] sitaGLIPtin PHOSPHATE [Januvia] 100 mg PO DAILY 02/09/21 [History] cefTRIAXone [Rocephin] 2 gm IVPB Q24H #21 bag 03/31/21 [Rx] metroNIDAZOLE [Flagyl] 500 mg PO TID #90 tab 03/31/21 [Rx] Acetaminophen Tab [Tylenol] 650 mg PO Q6HR PRN tab 04/01/21 [Rx] Enoxaparin [Lovenox] 40 mg SQ DAILY #1 syringe 04/01/21 [Rx] Insulin Detemir (Levemir) [Levemir] 20 unit SQ DAILY@0700 syr 04/01/21 [Rx] Midodrine [ProAmatine] 5 mg PO AC-TID tab 04/01/21 [Rx] Follow up Appointment(s)/Referral(s): [facility], [NON-STAFF] - As Needed Mer West MD [STAFF PHYSICIAN] - 04/12/21 Clinton Khan MD [STAFF PHYSICIAN] - 1 Week Chely Huntley MD [Primary Care Provider] - 2 Weeks Ambulatory/Diagnostic Orders: Basic Metabolic Panel [LAB.AMB] Location: None Selected C Reactive Protein [LAB.AMB] Location: None Selected Complete Blood Count w/diff [LAB.AMB] Location: None Selected Patient Instructions/Handouts: Liver Abscess (ED), How to Flush Your PICC or Midline Catheter (DC) Activity/Diet/Wound Care/Special Instructions: Keep a log of CHELSEY drain output and bring with you to your follow-up appointment Milk/strip drains 2-3 times a day Diet cardiac Act as limited follow-up Follow-up with the primary physician as recommended
--- NOTE | 2021-04-01 12:42 | P.PN ---
Subjective Progress Note Date: 04/01/21 CHIEF COMPLAINT: Abdominal pain HISTORY OF PRESENT ILLNESS: Surgical service is following in regards to jimmy mortensen's liver abscess. He failed outpatient treatment of the liver abscess. He is status post Robotic-assisted da Sonja Xi laparoscopic lysis of adhesions over 1 hour and Drainage of complex septated liver abscess right lower lobe, 500 mL ryan purulence. Patient denies any abdominal pain. Denies any nausea or vomiting. Tolerating regular diet. He is having bowel movements. Nursing staff was concerned about drainage around the CHELSEY drain site. The drainage is serous in color. There is no skin breakdown. No evidence of any erythema around the skin CHELSEY drain. Patient's CHELSEY drain has serosanguineous output. He is afebrile. And is scheduled for discharge to [facility] today. PHYSICAL EXAM: VITAL SIGNS: Reviewed GENERAL: Well-developed in no acute distress. HEENT: No sclera icterus. Extraocular movements grossly intact. Moist buccal mucosa. Head is atraumatic, normocephalic. Hears conversational speech. No nasal drainage. NECK: Supple without lymphadenopathy. CHEST: Non-labored respirations and equal bilateral excursions. CARDIOVASCULAR: Palpable 2+ radial pulses. ABDOMEN: Soft. Nondistended. Abdominal binder in place. Incision sites clean dry and intact. CHELSEY drain with serosanguineous fluid. Serous drainage noted around the CHELSEY site. No skin breakdown or erythema noted. MUSCULOSKELETAL: No clubbing or cyanosis. NEUROLOGIC: No focal or lateralizing signs. Cranial nerves II through XII grossly intact. PSYCH: Appropriate affect. Alert and oriented to person, place and time. SKIN: Well perfused. Good skin turgor. ASSESSMENT: 1. Complicated septated right lower lobe liver abscess, 17 cm x 9 cm , peritoneal adhesions status post Robotic-assisted da Sonja Xi laparoscopic lysis of adhesions over 1 hour and Drainage of complex septated liver abscess right lower lobe, 500 mL ryan purulence 2. Right upper quadrant abdominal pain 3. Failed outpatient treatment for liver abscess 4. Diabetes type 2, poorly controlled 5. Ischemic cardiomyopathy 6. History of prior cholecystectomy 7. Hypertensive heart disease 8. Coronary artery disease 9. History of CABG 10. History of cardiac stent placement 11. Peritoneal adhesions epigastrium, right upper quadrant PLAN: -Patient is stable for discharge from surgical standpoint. -Patient will be discharged with CHELSEY drain -Patient to have the dressing changed around CHELSEY drain site as needed or if it becomes saturated -Continue antibiotics per ID recommendations -Continue pain medication as needed -Continue incentive spirometer -Encouraged patient to increase activity Physician Proof Carrier note has been reviewed by physician. Signing provider agrees with the documented findings, assessment, and plan of care. Objective - Vital Signs Vital signs: Vital Signs Temp 97.9 F 04/01/21 08:00 Pulse 68 04/01/21 08:00 Resp 18 04/01/21 08:00 BP 157/88 04/01/21 08:00 Pulse Ox 96 04/01/21 08:00 Intake & Output 03/31/21 04/01/21 04/01/21 18:59 06:59 18:59 Intake Total 750 Output Total 5 20 Balance 745 -20 Intake: Intake, IV Titration 100 Amount Piperacillin-Tazobactam 3 100 .375 gm In Sodium Chloride 0.9% 100 ml @ 25 mls/hr IVPB Q8H [facility] Rx#: [id number] Oral 650 Output: Drainage 5 20 Left Upper Abdomen 5 20 Other: Voiding Method Toilet Toilet Urinal Urinal # Voids 3 1 # Bowel Movements 1 1 - Labs CBC & Chem 7: 03/30/21 10:30 03/30/21 10:30 Labs: Abnormal Lab Results - Last 24 Hours (Table) 03/31/21 03/31/21 04/01/21 Range/Units 17:12 20:16 06:56 POC Glucose (mg/dL) 106 H 212 H 138 H (75-99) mg/dL 04/01/21 Range/Units 11:25 POC Glucose (mg/dL) 125 H (75-99) mg/dL Microbiology - Last 24 Hours (Table) 03/26/21 19:10 Blood Culture - Preliminary Blood No Growth after 120 hours
--- NOTE | 2021-04-01 18:08 | PN ---
PROGRESS NOTE DATE OF SERVICE: 04/01/2021. REASON FOR FOLLOWUP: Liver abscess. INTERVAL HISTORY: The patient is afebrile. The patient is breathing comfortably. Denies having any chest pain. No shortness of breath or cough. No nausea, vomiting, abdominal pain. Did have some drainage around the drainage catheter site. No diarrhea. PHYSICAL EXAMINATION: Blood pressure 157/80 with a pulse of 68. Temperature is 97.9. He is 93% on room air. General description: The patient is an elderly male up in the chair in no distress. Respiratory system: Unlabored breathing. Abdominal examination is soft and did have a minimal drainage around his drainage catheter. No significant output in the drainage tube itself. LABS: Cultures have been negative so far. DIAGNOSTIC IMPRESSION AND PLAN: Patient with a liver abscess status post open drainage. Culture did not grow any resistant pathogen, finishing therapy with Rocephin 2 grams daily and Flagyl for 3 weeks and close outpatient followup. MMODL / IJN: [id number] /
== END 2021-04-01 15:31 | DRG 853 ==
LOC: EC 12:51 → 4SSUR 14:30
PROVIDERS: ADMIT Internal Medicine; ATTEND Internal Medicine
PROC: 0W9F40Z Drainage of Abdominal Wall with Drainage Device, Percutaneous Endoscopic Approach (ICD-10-PCS; 2021-03-25)
PROC: 8E0W4CZ Robotic Assisted Procedure of Trunk Region, Percutaneous Endoscopic Approach (ICD-10-PCS; 2021-03-25)
PROC: 0FN14ZZ Release Right Lobe Liver, Percutaneous Endoscopic Approach (ICD-10-PCS; principal; 2021-03-25 07:30)
PROC: 02HV33Z Insertion of Infusion Device into Superior Vena Cava, Percutaneous Approach (ICD-10-PCS; 2021-03-29)
PROC: B548ZZA Ultrasonography of Superior Vena Cava, Guidance (ICD-10-PCS; 2021-03-29)
DX: A41.9 Sepsis, unspecified organism (principal); K75.0 Abscess of liver; G93.41 Metabolic encephalopathy; K65.1 Peritoneal abscess; E87.2 Acidosis; E87.1 Hypo-osmolality and hyponatremia; E44.1 Mild protein-calorie malnutrition; R65.20 Severe sepsis without septic shock; I25.10 Atherosclerotic heart disease of native coronary artery without angina pectoris; N40.0 Benign prostatic hyperplasia without lower urinary tract symptoms; Z20.822 Contact with and (suspected) exposure to COVID-19; I10 Essential (primary) hypertension; K21.9 Gastro-esophageal reflux disease without esophagitis; D63.8 Anemia in other chronic diseases classified elsewhere; E11.43 Type 2 diabetes mellitus with diabetic autonomic (poly)neuropathy; E11.65 Type 2 diabetes mellitus with hyperglycemia; E86.0 Dehydration; I11.9 Hypertensive heart disease without heart failure; I25.5 Ischemic cardiomyopathy; I95.1 Orthostatic hypotension; Z79.82 Long term (current) use of aspirin; Z79.84 Long term (current) use of oral hypoglycemic drugs; Z95.1 Presence of aortocoronary bypass graft; Z95.5 Presence of coronary angioplasty implant and graft; E78.5 Hyperlipidemia, unspecified; Z87.891 Personal history of nicotine dependence; Z68.26 Body mass index [BMI] 26.0-26.9, adult; F32.9 Major depressive disorder, single episode, unspecified; R26.9 Unspecified abnormalities of gait and mobility; D53.9 Nutritional anemia, unspecified; E86.1 Hypovolemia; Z90.49 Acquired absence of other specified parts of digestive tract; K66.0 Peritoneal adhesions (postprocedural) (postinfection); K57.30 Diverticulosis of large intestine without perforation or abscess without bleeding; Z79.899 Other long term (current) drug therapy
CPT/HCPCS: 36415; 36573; 71045; 71250; 74176; 74177; 80048; 80053; 83605; 84484; 85025; 85027; 85610; 85652; 85730; 86140; 87040; 87070; 87075; 87102; 87205; 87635; 93005; 93306; 96365; 99285

== ENCOUNTER → 2021-06-22 | Outpatient (CLI) | payer MEDICARE ==
[2021-06-22 14:56] LABS: African American GFR (CKD) >90 (>60 ml/min/1.73 sqM); Blood Urea Nitrogen 18 mg/dL (9-20); Non-African American GFR(CKD) 89 (>60 ml/min/1.73 sqM)
--- NOTE | 2021-06-22 21:52 | CT ---
EXAMINATION TYPE: CT abdomen w con DATE OF EXAM: 06/22/2021 COMPARISON: 03/26/2021 and 04/22/2021 HISTORY: 81 year-old male K75.0, f/u liver abscess TECHNIQUE: Contiguous axial scanning of the abdomen following administration of 100 ml Isovue 300 IV contrast. Delayed images through the kidneys and coronal/sagittal reconstructions performed. CT DLP: 867.8 mGycm Automated exposure control for dose reduction was used. FINDINGS: Median sternotomy wires are present. Heart upper limits of normal in size post CABG changes. Some strandy atelectasis and scarring in the lower lungs with some subpleural reticulation suggesting some interstitial fibrosis. Some scattered calcified pleural plaques are also noted suggesting prior asbestos exposure. There are approximately 9 subtle new hypodense hepatic lesions measuring up to 7 mm, not clearly seen on 04/22/2021. Portal venous system is patent. No biliary ductal dilatation. The extensive abnormal heterogeneous enhancing thickened soft tissue and fluid collections along the right flank have largely resolved. There is mild residual asymmetric thickening of the right lateral mid abdominal wall musculature and only a thin sliver of residual fluid within the planes of the intr a-abdominal musculature measuring 4.9 cm AP by 5 mm wide, refer to axial images 42 and 43. The previous peritoneal or subcapsular liver abscess along the inferior right liver lobe has largely resolved. Minimal thickening hypodensity remains, reference axial image 32 measuring 4.5 x 1.0 cm. Surgical material in the gallbladder fossa. Adrenal glands, spleen with anterior splenule, and pancreas appear within normal limits. Numerous bilateral renal cysts measuring up to 7.7 cm on the left and 3.6 cm on the right are unchang ed. Some of these lesions measuring up to 1.1 cm on the left show peripheral calcification. Somewhat delayed excretion of contrast from both kidneys. Correlate with kidney function to exclude acute kidn ey injury. No dilated small bowel, free fluid, or free air. No mesenteric or retroperitoneal lymphadenopathy. Moderate stool burden. Left-sided colonic diverticulosis. No pericolonic inflammatory change. Mild anasarca change. Pelvis not imaged. Bones: Degenerative changes SI joints. Advanced hypertrophic facet arthropathy throughout the lumbar spine. Grade 1 retrolisthesis T12-L1 and L1-L2. Grade 1, nearly grade 2 anterolisthesis L4-L5. Possib le moderate to severe spinal canal stenosis secondary to disc bulge and ligamentum flavum thickening at L2-L3. IMPRESSION: 1. THE EXTENSIVE HETEROGENEOUSLY ENHANCING THICKENED SOFT TISSUE WITH ASSOCIATED FLUID COLLECTIONS CE NTERED WITHIN THE RIGHT LATERAL FLANK ABDOMINAL WALL MUSCULATURE HAS LARGELY RESOLVED. THERE IS MINIM AL RESIDUAL THICKENING OF THE MUSCULATURE HERE NOW WITH ONLY A THIN SLIVER OF FLUID MEASURING 4.9 CM AP BY 5 MM WIDE. 2. THE ABNORMAL PERITONEAL VERSUS SUBCAPSULAR ABSCESS ALONG THE INFERIOR CORNER OF THE RIGHT LIVER LO BE HAS LARGELY RESOLVED WELL. MINIMAL 4.5 X 1.0 CM HYPODENSITY REMAINS HERE. SOME RESIDUAL INFLAMM ATORY CHANGE OR SCAR TISSUE ARE POSSIBILITIES. 3. APPROXIMATELY 9 NEW SUBTLE HYPODENSE HEPATIC LESIONS MEASURING UP TO 7 MM. SHORT INTERVAL FOLLOW-U P CT RECOMMENDED TO EXCLUDE MULTIPLE DEVELOPING LIVER ABSCESSES AND ALSO TO EXCLUDE OTHER POSSIBILITI ES SUCH METASTATIC DISEASE. 4. CALCIFIED PLEURAL PLAQUES COMPATIBLE WITH PRIOR ASBESTOS EXPOSURE.
== END | disposition home or self-care (01) ==
LOC: RADCTMAIN 13:38
PROVIDERS: ATTEND Internal Medicine Critical Care Medicine
DX: K75.0 Abscess of liver (principal)
CPT/HCPCS: 82565; 84520; 74160; 36415; Q9967

== ENCOUNTER 2021-09-02 01:29 | Observation (INO) | payer MEDICARE ==
[2021-09-02 01:41] VITALS: TEMP 97.3
--- NOTE | 2021-09-02 01:56 | ED ---
Chest Pain HPI - General Chief Complaint: Chest Pain Stated Complaint: Chest pain Time Seen by Provider: 09/02/21 01:44 Source: patient, family, RN notes reviewed, old records reviewed Mode of arrival: wheelchair Limitations: no limitations - History of Present Illness Initial Comments: This is a 81-year-old male to the emergency room today. Patient is drinking today for evaluation regards to chest pain patient has no significant traumatic injuries. Patient has no cough or congestion no fevers. She does have history of CAD high blood pressure high cholesterol. MD Complaint: chest pain -: hour(s) Onset: during rest, during exertion Pain Location: substernal, left chest Pain Radiation: back Severity: moderate Quality: tightness Consistency: intermittent Improves With: nothing Worsens With: nothing Anginal Symptoms: dyspnea Other Symptoms: palpitations Treatments Prior to Arrival: none - Related Data Home Medications Medication Instructions Recorded Confirmed Aspirin EC [Ecotrin Low Dose] 81 mg PO DAILY 02/09/21 05/05/21 Atenolol [Tenormin] 50 mg PO DAILY 02/09/21 05/05/21 Atorvastatin [Lipitor] 40 mg PO DAILY 02/09/21 05/05/21 Dapagliflozin Propanediol [Farxiga] 5 mg PO DAILY 02/09/21 05/05/21 Ezetimibe [Zetia] 10 mg PO DAILY 02/09/21 05/05/21 Finasteride [Proscar] 5 mg PO DAILY 02/09/21 05/05/21 Isosorbide Dinitrate 30 mg PO BID 02/09/21 05/05/21 Multivitamins, Thera [Multivitamin 1 tab PO DAILY 02/09/21 05/05/21 (formulary)] Niacin 500 mg PO DAILY 02/09/21 05/05/21 Nitroglycerin [Nitroglycerin 1 spray TRANSLINGU Q5M PRN 02/09/21 05/05/21 400MCG [place]] [place]-3 Fatty Acids [[place]-3] 1,000 mg PO DAILY 02/09/21 05/05/21 Omeprazole 20 mg PO DAILY 02/09/21 05/05/21 Ramipril [Altace] 10 mg PO DAILY 02/09/21 05/05/21 Terazosin HCl 5 mg PO DAILY 02/09/21 05/05/21 glipiZIDE [Glucotrol] 10 mg PO DAILY 02/09/21 05/05/21 metFORMIN HCL [Glucophage] 500 mg PO BID 02/09/21 05/05/21 sitaGLIPtin PHOSPHATE [Januvia] 100 mg PO DAILY 02/09/21 05/05/21 Previous Rx's Medication Instructions Recorded cefTRIAXone [Rocephin] 2 gm IVPB Q24H #21 bag 03/31/21 metroNIDAZOLE [Flagyl] 500 mg PO TID #90 tab 03/31/21 Acetaminophen Tab [Tylenol] 650 mg PO Q6HR PRN tab 04/01/21 Insulin Detemir (Levemir) [Levemir] 20 unit SQ DAILY@0700 syr 04/01/21 Allergies Allergy/AdvReac Type Severity Reaction Status Date / Time No Known Allergies Allergy Verified 09/02/21 01:41 Review of Systems ROS Statement: Those systems with pertinent positive or pertinent negative responses have been documented in the HPI. ROS Other: All systems not noted in ROS Statement are negative. EKG Findings - EKG Comments: EKG Findings:: EKG is sinus rhythm 64 WV 184 QRS 92 QTC 437 Past Medical History Past Medical History: Coronary Artery Disease (CAD), Diabetes Mellitus, Hyperlipidemia, Hypertension, Prostate Disorder History of Any Multi-Drug Resistant Organisms: None Reported Past Surgical History: Cholecystectomy, Coronary Bypass/CABG, Heart Catheterization Past Anesthesia/Blood Transfusion Reactions: No Reported Reaction Past Psychological History: No Psychological Hx Reported Smoking Status: Former smoker Past Alcohol Use History: Occasional Past Drug Use History: None Reported General Exam Limitations: no limitations General appearance: alert, in no apparent distress Head exam: Present: atraumatic, normocephalic, normal inspection Eye exam: Present: normal appearance, PERRL, EOMI. Absent: scleral icterus, conjunctival injection, periorbital swelling ENT exam: Present: normal exam, mucous membranes moist Neck exam: Present: normal inspection. Absent: tenderness, meningismus, lymphadenopathy Respiratory exam: Present: normal lung sounds bilaterally. Absent: respiratory distress, wheezes, rales, rhonchi, stridor Cardiovascular Exam: Present: regular rate, normal rhythm, normal heart sounds. Absent: systolic murmur, diastolic murmur, rubs, gallop, clicks GI/Abdominal exam: Present: soft, normal bowel sounds. Absent: distended, tenderness, guarding, rebound, rigid Extremities exam: Present: normal inspection, full ROM, normal capillary refill. Absent: tenderness, pedal edema, joint swelling, calf tenderness Back exam: Present: normal inspection Neurological exam: Present: alert, oriented X3, CN II-XII intact Psychiatric exam: Present: normal affect, normal mood Skin exam: Present: warm, dry, intact, normal color. Absent: rash Course Vital Signs 09/02/21 09/02/21 01:37 03:40 Temperature 97.3 F L Pulse Rate 67 67 Respiratory 16 17 Rate Blood Pressure 114/72 110/52 O2 Sat by Pulse 100 99 Oximetry - Reevaluation(s) Reevaluation #1: 09/02/21 04:42 Medical records reviewed Reevaluation #2: 09/02/21 04:42 Patient has had recurrent chest pain here in the ER Reevaluation #3: 09/02/21 04:42 Patient informed results and questions answered - Consultations Consultation #1: Spoke with PMH related admit this patient Chest Pain MDM - MDM 78 female to the emergency department with chest pain help with nitro. Patient does have chest pain here in the emergency department which recurred. EKG is negative 2 patient be admitted for cardiac evaluation Disposition Clinical Impression: Chest pain, CAD (coronary artery disease) Disposition: ADMITTED IP TO THIS HOSP Condition: Undetermined Instructions (If sedation given, give patient instructions): Chest Pain (ED) Is patient prescribed a controlled substance at d/c from ED?: No Referrals: Chely Huntley MD [Primary Care Provider] - 1-2 days
[2021-09-02] MEDS ORDERED: SODIUM CHLORIDE 0.9% 500 ML 500 ML IV STA (02:27)
[2021-09-02 02:41] LABS: Basophils % (A) 1 %; Eosinophils # (A) 0.2 k/uL (0-0.7); Eosinophils % (A) 3 %; HCT 45.8 % (39.0-53.0); HGB 14.1 gm/dL (13.0-17.5); Lymphocytes # (A) 1.1 k/uL (1.0-4.8); Lymphocytes % (A) 20 %; MCHC 30.9 g/dL (31.0-37.0); MCV 84.3 fL (80.0-100.0); Mean Platelet Volume 8.6; Monocytes # (A) 0.5 k/uL (0-1.0); Monocytes % (A) 9 %; Neutrophils # (A) 3.5 k/uL (1.3-7.7); Neutrophils % (A) 65 %; Platelet Count 203 k/uL (150-450); RBC 5.43 m/uL (4.30-5.90); RDW 15.3 % (11.5-15.5); WBC 5.4 k/uL (3.8-10.6)
--- NOTE | 2021-09-02 02:42 | XR ---
EXAMINATION TYPE: XR chest 2V DATE OF EXAM: 09/02/2021 COMPARISON: 05/11/2021 HISTORY: Chest pain TECHNIQUE: FINDINGS: There is bilateral calcified pleural plaque formation. Heart size is normal. There are ster nal wires. There is no pleural effusion. There is no sign of mediastinal adenopathy. IMPRESSION: No active cardiopulmonary disease. Calcified pleural plaque. No change.
[2021-09-02 03:28] LABS: Albumin 4.5 g/dL (3.5-5.0); Calcium 9.8 mg/dL (8.4-10.2); Magnesium 1.9 mg/dL (1.6-2.3); Potassium 5.4 mmol/L (3.5-5.1); Total Bilirubin 1.2 mg/dL (0.2-1.3); Total Protein 8.4 g/dL (6.3-8.2)
[2021-09-02 04:12] LABS: INR 1.2 (<1.2); Partial Thromboplastin Time 27.1 sec (22.0-30.0)
[2021-09-02] MEDS ORDERED: ASPIRIN 81 MG PO STA (04:40)
[2021-09-02] MEDS ORDERED: NITROGLYCERIN SL TABS 0.4 MG TAB SUBLINGUAL PRN (04:40)
[2021-09-02] MEDS ORDERED: MORPHINE SULFATE 4 MG/ML SYRINGE IV PRN (04:40)
[2021-09-02 07:38] VITALS: BP 115/70; PULSE 64
[2021-09-02] MEDS ORDERED: ISOSORBIDE DINITRATE 10 MG TAB PO SCH (09:00)
[2021-09-02] MEDS ORDERED: lisinopriL 20 MG TAB PO SCH (09:00)
[2021-09-02] MEDS ORDERED: atenoloL 50 MG TAB PO SCH (09:00)
[2021-09-02] MEDS ORDERED: ATORVASTATIN 40 MG TAB PO SCH (09:00)
[2021-09-02] MEDS ORDERED: EZETIMIBE 10 MG TAB PO SCH (09:00)
[2021-09-02 10:54] LABS: ALT 18 U/L (4-49); AST 27 U/L (17-59); Amylase 96 U/L (30-110)
[2021-09-02] MEDS ORDERED: PANTOPRAZOLE 40 MG/10 ML VIAL IVP SCH (11:00)
[2021-09-02 11:52] VITALS: RESP 16
--- NOTE | 2021-09-02 11:56 | P.CRDCN ---
History of Present Illness History of present illness: This is a 81 year old pleasant male with past medical history of coronary artery disease s/p CABG 4 vessel in 01/1988 and PCI to mid RCA in 08/2000, Type 2 Diabetes, Hypertension, Hyperlipidemia, former nicotine dependence, liver abscess s/p laparoscopic lysis of adhesions in 02/2021. He follow with manager retention Dr. Foreman. We are being consulted for chest pain. Patient presents emergency department with left upper abdominal pain and epigastric pain. He states that yesterday at 10:30 PM he started to have epigastric abdominal pain with radiation to his left upper quadrant of his abdomen. He also had associated mild lightheadedness. He denies any chest pain, shortness of breath, palpitations, syncope or presyncope. Denies any symptoms of orthopnea PND. DIAGNOSTICS Cardiac catheterization 1999 with PCI to mid RCA CABG 01/1988 ACS, FLORIAN and 4 VGs Echocardiogram 02/2021 revealed left ventricular systolic function is low-normal with EF between 50-55%, LA is moderately dilated, mild to moderate mitral regurgitation, mild tricuspid regurgitation. Lexiscan stress test 2019- negative EKG reveals sinus rhythm, HR 69, non-specific ST-T wave abnormalities , prior EKG similar findings. Laboratory reviewed, troponin negative x 2, Lipase elevated, Current home medications include atenolol 50 mg daily, atorvastatin 40 mg daily, study at 10 mg daily, Imdur 30 mg twice a day, Januvia, metformin, proscar REVIEW OF SYSTEMS At the time of my exam: CONSTITUTIONAL: Denies fever or chills. CARDIOVASCULAR: Denies chest pain, shortness of breath, orthopnea, PND or palpitations. RESPIRATORY: Denies cough. GASTROINTESTINAL: +epigastric and LUQ abdominal pain, +constipation, diarrhea, nausea or vomiting. MUSCULOSKELETAL: Denies myalgias. NEUROLOGIC: Denies numbness, tingling, headacbe or weakness. ENDOCRINE: Denies fatigue, weight change, polydipsia or polyurina. GENITOURINARY: Denies burning, hematuria or urgency with micturation. HEMATOLOGIC: Denies history of anemia or bleeding. PHYSICAL EXAMINATION Blood pressure 115/70, heart rate 64, afebrile, maintaining a saturations 97% on room air CONSTITUTIONAL: No apparent distress. HEENT: Head is normocephalic. Pupils are equal, round. Sclerae anicteric. Mucous membranes of the mouth are moist. No JVD. No carotid bruit. CHEST EXAMINATION: Lungs are clear to auscultation. No chest wall tenderness is noted on palpation or with deep breathing. HEART EXAMINATION: Regular rate and rhythm. S1, S2 heard. Systolic ejection murmur ABDOMEN: Soft, +tenderness to palpation of LUQ and epigastric area. Positive bowel sounds. EXTREMITIES: 2+ peripheral pulses, no lower extremity edema and no calf tenderness. NEUROLOGIC EXAMINATION: Patient is awake, alert and oriented x3. ASSESSMENT Non-cardiac chest pain Epigastric, Left upper quadrant pain Coronary artery disease s/p CABG 4 vessel in 01/1988 and PCI to mid RCA in 08/2000 Type 2 Diabetes Hypertension Hyperlipidemia Former nicotine dependence PLAN -From a cardiology perspective, no further cardiac workup indicated at this time. Recommend workup for patient's abdominal pain. -Patient in follow up with an outpatient with Dr. Foreman -Continue home cardiac medications Nurse Practitioner note has been reviewed, I agree with a documented findings an d plan of care. Patient was seen and examined. Past Medical History Past Medical History: Coronary Artery Disease (CAD), Diabetes Mellitus, Hyperlipidemia, Hypertension, Prostate Disorder History of Any Multi-Drug Resistant Organisms: None Reported Past Surgical History: Cholecystectomy, Coronary Bypass/CABG, Heart Catheterization Past Anesthesia/Blood Transfusion Reactions: No Reported Reaction Past Psychological History: No Psychological Hx Reported Smoking Status: Former smoker Past Alcohol Use History: Occasional Past Drug Use History: None Reported Medications and Allergies Home Medications Medication Instructions Recorded Confirmed Type Atenolol [Tenormin] 50 mg PO DAILY 02/09/21 09/02/21 History Atorvastatin [Lipitor] 40 mg PO DAILY 02/09/21 09/02/21 History Dapagliflozin Propanediol [Farxiga] 10 mg PO DAILY 02/09/21 09/02/21 History Ezetimibe [Zetia] 10 mg PO DAILY 02/09/21 09/02/21 History Finasteride [Proscar] 5 mg PO DAILY 02/09/21 09/02/21 History Isosorbide Dinitrate 30 mg PO BID 02/09/21 09/02/21 History Niacin 500 mg PO DAILY 02/09/21 09/02/21 History Nitroglycerin [Nitroglycerin 1 spray TRANSLINGU Q5M PRN 02/09/21 09/02/21 History 400MCG [place]] Terazosin HCl 5 mg PO HS 02/09/21 09/02/21 History glipiZIDE [Glucotrol] 10 mg PO DAILY 02/09/21 09/02/21 History metFORMIN HCL [Glucophage] 500 mg PO BID 02/09/21 09/02/21 History sitaGLIPtin PHOSPHATE [Januvia] 100 mg PO DAILY 02/09/21 09/02/21 History Acetaminophen Tab [Tylenol] 650 mg PO Q6HR PRN 09/02/21 09/02/21 History Insulin Glargine [Lantus Vial] 10 - 20 unit SQ HS 09/02/21 09/02/21 History Multivit-Min/FA/Lycopen/Lutein 1 tab PO DAILY 09/02/21 09/02/21 History [Centrum Silver Tablet] Omeprazole 20 mg PO DAILY #0 09/02/21 09/02/21 Rx Allergies Allergy/AdvReac Type Severity Reaction Status Date / Time canagliflozin [From [facility]] Allergy Rash/Hives Verified 09/02/21 08:35 Physical Exam Vitals: Vital Signs Temp Pulse Resp BP Pulse Ox 09/02/21 04:52 74 18 103/68 96 09/02/21 03:40 67 17 110/52 99 09/02/21 01:37 97.3 F L 67 16 114/72 100 Intake and Output 09/01/21 09/02/21 09/02/21 22:59 06:59 14:59 Other: Weight 75.75 kg Results 09/02/21 02:31 09/02/21 02:31 Cardiac Enzymes 09/02/21 09/02/21 Range/Units 02:31 02:31 AST 40 (17-59) U/L Troponin I <0.012 (0.000-0.034) ng/mL Coagulation 09/02/21 Range/Units 03:22 PT 12.0 (9.0-12.0) sec APTT 27.1 (22.0-30.0) sec CBC 09/02/21 Range/Units 02:31 WBC 5.4 (3.8-10.6) k/uL RBC 5.43 (4.30-5.90) m/uL Hgb 14.1 (13.0-17.5) gm/dL Hct 45.8 (39.0-53.0) % Plt Count 203 (150-450) k/uL Comprehensive Metabolic Panel 09/02/21 Range/Units 02:31 Sodium 135 L (137-145) mmol/L Potassium 5.4 H (3.5-5.1) mmol/L Chloride 100 (98-107) mmol/L Carbon Dioxide 27 (22-30) mmol/L BUN 26 H (9-20) mg/dL Creatinine 0.98 (0.66-1.25) mg/dL Glucose 119 H (74-99) mg/dL Calcium 9.8 (8.4-10.2) mg/dL AST 40 (17-59) U/L ALT 21 (4-49) U/L Alkaline Phosphatase 87 (38-126) U/L Total Protein 8.4 H (6.3-8.2) g/dL Albumin 4.5 (3.5-5.0) g/dL Current Medications Generic Name Dose Route Start Last Admin Trade Name Freq PRN Reason Stop Dose Admin Aspirin 325 mg 09/03/21 09:00 Aspirin 325 Mg Tab PO DAILY ZOEY Morphine Sulfate 4 mg 09/02/21 04:40 Morphine Sulfate 4 Mg/Ml Syringe IV Q4HR PRN Chest Pain Nitroglycerin 0.4 mg 09/02/21 04:40 Nitroglycerin Sl Tabs 0.4 Mg Tab SUBLINGUAL Q5M PRN Chest Pain Intake and Output 09/01/21 09/02/21 09/02/21 22:59 06:59 14:59 Other: Weight 75.75 kg 09/02/21 02:31 09/02/21 02:31
--- NOTE | 2021-09-02 13:12 | P.DS ---
Providers Date of admission: 09/02/21 04:41 Attending physician: Rosalva Rubio Consults: 09/02/21 04:41 Consult Physician Urgent Consulting Provider: Claudette Talavera Consult Reason/Comments: cp Do you want consulting provider notified?: Yes [facility]: [facility] Course: Refer to my history of present illness for further details Patient Condition at Discharge: Good Plan - Discharge Summary New Discharge Prescriptions: Continue Terazosin HCl 5 mg PO HS Nitroglycerin [Nitroglycerin 400MCG [place]] 1 spray TRANSLINGU Q5M PRN PRN Reason: Chest Pain metFORMIN HCL [Glucophage] 500 mg PO BID Finasteride [Proscar] 5 mg PO DAILY Ezetimibe [Zetia] 10 mg PO DAILY Atenolol [Tenormin] 50 mg PO DAILY Acetaminophen Tab [Tylenol] 650 mg PO Q6HR PRN PRN Reason: Fever And/ Or Pain sitaGLIPtin PHOSPHATE [Januvia] 100 mg PO DAILY Niacin 500 mg PO DAILY Isosorbide Dinitrate 30 mg PO BID glipiZIDE [Glucotrol] 10 mg PO DAILY Dapagliflozin Propanediol [Farxiga] 10 mg PO DAILY Atorvastatin [Lipitor] 40 mg PO DAILY Multivit-Min/FA/Lycopen/Lutein [Centrum Silver Tablet] 1 tab PO DAILY Insulin Glargine [Lantus Vial] 10 - 20 unit SQ HS Omeprazole 20 mg PO DAILY #0 Discontinued Ramipril [Altace] 10 mg PO DAILY Discharge Medication List Atenolol [Tenormin] 50 mg PO DAILY 02/09/21 [History] Atorvastatin [Lipitor] 40 mg PO DAILY 02/09/21 [History] Dapagliflozin Propanediol [Farxiga] 10 mg PO DAILY 02/09/21 [History] Ezetimibe [Zetia] 10 mg PO DAILY 02/09/21 [History] Finasteride [Proscar] 5 mg PO DAILY 02/09/21 [History] Isosorbide Dinitrate 30 mg PO BID 02/09/21 [History] Niacin 500 mg PO DAILY 02/09/21 [History] Nitroglycerin [Nitroglycerin 400MCG [place]] 1 spray TRANSLINGU Q5M PRN 02/09/21 [History] Terazosin HCl 5 mg PO HS 02/09/21 [History] glipiZIDE [Glucotrol] 10 mg PO DAILY 02/09/21 [History] metFORMIN HCL [Glucophage] 500 mg PO BID 02/09/21 [History] sitaGLIPtin PHOSPHATE [Januvia] 100 mg PO DAILY 02/09/21 [History] Acetaminophen Tab [Tylenol] 650 mg PO Q6HR PRN 09/02/21 [History] Insulin Glargine [Lantus Vial] 10 - 20 unit SQ HS 09/02/21 [History] Multivit-Min/FA/Lycopen/Lutein [Centrum Silver Tablet] 1 tab PO DAILY 09/02/21 [History] Omeprazole 20 mg PO DAILY #0 09/02/21 [Rx] Follow up Appointment(s)/Referral(s): Tere Foreman MD [STAFF PHYSICIAN] - 2 Weeks Chely Huntley MD [Primary Care Provider] - 09/16/21 3:00 pm (with Tamra Vargas NP) Patient Instructions/Handouts: Chest Pain (ED), Gastroesophageal Reflux Disease (DC) Activity/Diet/Wound Care/Special Instructions: Follow up Increase in Prilosec to twice daily Hold Lisinopril Fall risk/safety precautions Discharge Disposition: HOME SELF-CARE
--- NOTE | 2021-09-02 13:12 | P.HPIM ---
History of Present Illness Patient was an 81-year-old male with history of coronary artery bypass grafting 4 vessel in the past came in with comments of epigastric abdominal discomfort with place wasn't nausea patient pain is a nonradiating and lasted for a few hours. Patient doesn't have any gallbladder. Patient was ordered by cardiology patient had troponins and EKG which were negative and cardiology is according outpatient stress test does not believe patient has typical chest pain and cleared for discharge. Patient is mildly hypokalemic with potassium of 5.4 and patient is on HIRO inhibitor at home. Patient blood pressure is low. All the patient is diabetic. Unknown whether patient has proteinuria. Patient denied any lightheadedness shortness of breath palpitations. had an EKG which did not show any acute ST-T wave changes echocardiogram in month of February showed normal ejection fraction with moderate mitral regurgitation a stress test in 2019 is negative. Chest x-ray did not show any significant abnormality REVIEW OF SYSTEMS: CONSTITUTIONAL: No fever, no malaise, no fatigue. HEENT: No recent visual problems or hearing problems. Denied any sore throat. CARDIOVASCULAR: No orthopnea, PND, no palpitations, no syncope. PULMONARY: No shortness of breath, no cough, no hemoptysis. GASTROINTESTINAL: No diarrhea, no nausea, no vomiting, NEUROLOGICAL: No headaches, no weakness, no numbness. HEMATOLOGICAL: Denies any bleeding or petechiae. GENITOURINARY: Denies any burning micturition, frequency, or urgency. MUSCULOSKELETAL/RHEUMATOLOGICAL: Denies any joint pain, swelling, or any muscle pain. ENDOCRINE: Denies any polyuria or polydipsia. The rest of the 14-point review of systems is negative. PHYSICAL EXAMINATION: GENERAL: The patient is alert and oriented x3, not in any acute distress. Well developed, well nourished. HEENT: Pupils are round and equally reacting to light. EOMI. No scleral icterus. No conjunctival pallor. Normocephalic, atraumatic. No pharyngeal erythema. No thyromegaly. CARDIOVASCULAR: S1 and S2 present. No murmurs, rubs, or gallops. PULMONARY: Chest is clear to auscultation, no wheezing or crackles. ABDOMEN: Soft, nontender, nondistended, normoactive bowel sounds. No palpable organomegaly. MUSCULOSKELETAL: No joint swelling or deformity. EXTREMITIES: No cyanosis, clubbing, or pedal edema. NEUROLOGICAL: Gross neurological examination did not reveal any focal deficits. SKIN: No rashes. Assessment and plan -Epigastric abdominal pain/chest pain: Rule out acute medicine syndromes patient will be discharged today patient may have a because of disease or gastritis incr ease the proton woman admitted to 20 g twice a day empirically for 14 days. -Mild nonspecific elevation of lipase not consistent with that pancreatitis as the lipase level is not high enough for pancreatitis. -Hyperkalemia secondary to HIRO inhibitor which will be held, if patient has proteinuria will benefit from HIRO inhibitor or angiotensin receptor lizzy can be reinitiated down the line if he has proteinuria secondary to diabetes mellitus next and t type 2 diabetes mellitus: Unknown whether controlled or uncontrolled ration will be continued on home regimen follow-up with PCP -Hyperlipidemia Patient will be discharged today Past Medical History Past Medical History: Coronary Artery Disease (CAD), Diabetes Mellitus, Hyperlipidemia, Hypertension, Prostate Disorder History of Any Multi-Drug Resistant Organisms: None Reported Past Surgical History: Cholecystectomy, Coronary Bypass/CABG, Heart Ca theterization Past Anesthesia/Blood Transfusion Reactions: No Reported Reaction Past Psychological History: No Psychological Hx Reported Smoking Status: Former smoker Past Alcohol Use History: Occasional Past Drug Use History: None Reported Medications and Allergies Home Medications Medication Instructions Recorded Confirmed Type Atenolol [Tenormin] 50 mg PO DAILY 02/09/21 09/02/21 History Atorvastatin [Lipitor] 40 mg PO DAILY 02/09/21 09/02/21 History Dapagliflozin Propanediol [Farxiga] 10 mg PO DAILY 02/09/21 09/02/21 History Ezetimibe [Zetia] 10 mg PO DAILY 02/09/21 09/02/21 History Finasteride [Proscar] 5 mg PO DAILY 02/09/21 09/02/21 History Isosorbide Dinitrate 30 mg PO BID 02/09/21 09/02/21 History Niacin 500 mg PO DAILY 02/09/21 09/02/21 History Nitroglycerin [Nitroglycerin 1 spray TRANSLINGU Q5M PRN 02/09/21 09/02/21 History 400MCG [place]] Terazosin HCl 5 mg PO HS 02/09/21 09/02/21 History glipiZIDE [Glucotrol] 10 mg PO DAILY 02/09/21 09/02/21 History metFORMIN HCL [Glucophage] 500 mg PO BID 02/09/21 09/02/21 History sitaGLIPtin PHOSPHATE [Januvia] 100 mg PO DAILY 02/09/21 09/02/21 History Acetaminophen Tab [Tylenol] 650 mg PO Q6HR PRN 09/02/21 09/02/21 History Insulin Glargine [Lantus Vial] 10 - 20 unit SQ HS 09/02/21 09/02/21 History Multivit-Min/FA/Lycopen/Lutein 1 tab PO DAILY 09/02/21 09/02/21 History [Centrum Silver Tablet] Omeprazole 20 mg PO DAILY #0 09/02/21 09/02/21 Rx Allergies Allergy/AdvReac Type Severity Reaction Status Date / Time canagliflozin [From [facility]] Allergy Rash/Hives Verified 09/02/21 08:35 Physical Exam Vitals: Vital Signs Temp Pulse Resp BP Pulse Ox 09/02/21 08:00 16 09/02/21 07:37 64 20 115/70 97 09/02/21 04:52 74 18 103/68 96 09/02/21 03:40 67 17 110/52 99 09/02/21 01:37 97.3 F L 67 16 114/72 100 Intake and Output 09/01/21 09/02/21 09/02/21 22:59 06:59 14:59 Other: Voiding Method Toilet Weight 75.75 kg Results CBC & Chem 7: 09/02/21 02:31 09/02/21 02:31 Labs: Abnormal Lab Results - Last 24 Hours (Table) 09/02/21 09/02/21 09/02/21 Range/Units 02:31 02:31 03:22 MCHC 30.9 L (31.0-37.0) g/dL INR 1.2 H (<1.2) Sodium 135 L (137-145) mmol/L Potassium 5.4 H (3.5-5.1) mmol/L BUN 26 H (9-20) mg/dL Glucose 119 H (74-99) mg/dL Total Protein 8.4 H (6.3-8.2) g/dL Lipase 365 H (23-300) U/L
[2021-09-03] MEDS ORDERED: ASPIRIN 81 MG PO SCH (09:00)
[2021-09-03] MEDS ORDERED: ASPIRIN 325 MG TAB PO SCH (09:00)
== END 2021-09-02 12:03 | disposition home or self-care (01) ==
LOC: EC 01:29 → 6NMEDSUR 04:41
PROVIDERS: ADMIT Hospitalist; ATTEND Hospitalist
DX: R07.89 Other chest pain (principal); R10.12 Left upper quadrant pain; R10.13 Epigastric pain; R74.8 Abnormal levels of other serum enzymes; E87.5 Hyperkalemia; T46.4X5A Adverse effect of angiotensin-converting-enzyme inhibitors, initial encounter; I25.10 Atherosclerotic heart disease of native coronary artery without angina pectoris; E11.9 Type 2 diabetes mellitus without complications; I10 Essential (primary) hypertension; E78.5 Hyperlipidemia, unspecified; N42.9 Disorder of prostate, unspecified; I08.1 Rheumatic disorders of both mitral and tricuspid valves; I95.9 Hypotension, unspecified; Z20.822 Contact with and (suspected) exposure to COVID-19; Z79.82 Long term (current) use of aspirin; Z79.84 Long term (current) use of oral hypoglycemic drugs; Z79.899 Other long term (current) drug therapy; Z79.4 Long term (current) use of insulin; Z87.891 Personal history of nicotine dependence; Z88.8 Allergy status to other drugs, medicaments and biological substances; Z90.49 Acquired absence of other specified parts of digestive tract; Z95.1 Presence of aortocoronary bypass graft; Z87.19 Personal history of other diseases of the digestive system
CPT/HCPCS: 96374; 99285; 36415; 93005; 83880; 80053; 82150; 83690; 83735; 84450; 84460; 84484; 85025; 85610; 85730; 87635; 71046; G0378; C9113

== ENCOUNTER → 2021-10-03 | Outpatient (CLI) | payer MEDICARE ==
[2021-10-03 15:14] LABS: ALT 22 U/L (10-49); AST 41 U/L (14-35); African American GFR (CKD) 62.5 (60.0-200.0); Albumin 4.4 g/dL (3.8-4.9); Albumin/Globulin Ratio 1.46 (1.60-3.17); Alkaline Phosphatase 83 U/L (41-126); BUN/Creat Ratio 19.35 Ratio (12.00-20.00); Blood Urea Nitrogen 23.8 mg/dL (9.0-27.0); Calcium 9.5 mg/dL (8.7-10.3); Carbon Dioxide 24.9 mmol/L (20.0-27.5); Chloride 100 mmol/L (96-109); Chol/HDL Ratio 2.38 Ratio; Glucose 126 mg/dL (70-110); LDL Cholesterol,Calculated 50.2 mg/dL (0.0-131.0); Potassium 5.5 mmol/L (3.5-5.5); Sodium 137 mmol/L (135-145); Total Protein 7.4 g/dL (6.2-8.2); VLDL Calculation 15.44 mg/dL (5.00-40.00)
[2021-10-03 23:01] LABS: Microalbumin Creatinine Ratio <30 mg/g Creat (0-30)
== END | disposition home or self-care (01) ==
LOC: LABWHC1 09:56
PROVIDERS: ATTEND Internal Medicine Endocrinology, Diabetes & Metabolism
DX: E11.65 Type 2 diabetes mellitus with hyperglycemia (principal)
CPT/HCPCS: 36415; 80053; 80061; 82043; 82570; 83036; 84443

== ENCOUNTER → 2021-12-06 | Outpatient (CLI) | payer MEDICARE ==
--- NOTE | 2021-12-06 15:10 | CT ---
EXAMINATION TYPE: CT abdomen w con DATE OF EXAM: 12/06/2021 COMPARISON: CT June 22, 2021 and older CTs HISTORY: Abscess of liver. CT DLP: 1239 mGycm Automated exposure control for dose reduction was used. TECHNIQUE: Helical acquisition of images was performed from the lung bases through the top of iliac crest to include entire abdomen. CONTRAST: Performed CT abdomen with Oral Contrast and with IV Contrast, patient injected with 100 mL of Isovue 300. FINDINGS: LUNG BASES: And a few tiny calcified pleural plaques in the left lung base are noted. Mild to moderat e peripheral parenchymal fibrotic changes redemonstrated. Overlying Sternal wires and mediastinal clips from CABG procedure redemonstrated. Heart size stable and upper l imits of normal. LIVER/GB: Liver remains heterogeneously hypodense. There is redemonstration of roughly 5-10 scattered heterogeneous hypodense lesions throughout the liver, they are felt enlarging in size from most rece nt CT with new or more Prominent 1.1 cm lesion left hepatic lobe axial image 17 and 1.7 cm lesion rig ht hepatic lesion axial image 16 noted for reference. Gallbladder surgically absent. Sutures at this level redemonstrated. No recurrent adjacent complex fluid collection or abscess. PANCREAS: No significant abnormality is seen. SPLEEN: There are 2 stable small splenules. ADRENALS: No significant abnormality is seen. KIDNEYS: There are thin-walled cysts of varying size and shape scattered throughout both kidneys were prominent and numerous on the left. Exophytic small rim calcified lesions laterally left kidney axia l image 31 and posteriorly axial image 37 are redemonstrated and stable. Largest exophytic lesion low er pole left kidney has thin rim calcified wall is redemonstrated. BOWEL: Oral contrast does not reach level of terminal ileum. No suspicious small or large bowel dila tation. Diverticula in the left sigmoid colon redemonstrated. LYMPH NODES: Heterogeneous 2.4 x 1.8 cm hypodense mass possible adenopathy posterior to the portal vein confluence causing mass effect or compression on the IVC which it is immediately anterior to axial image 23 is noted. OSSEOUS STRUCTURES: Grade 1 anterolisthesis L4 on L5. Multilevel disc space narrowing which is sever e at T12-L1 level with sclerosis and moderate spurring. Moderate disc space narrowing and vacuum disc phenomenon and right L4-L5 level. Severe disc space narrowing L5-S1 level with vacuum disc phenomeno n. OTHER: Moderate calcified plaque of the aorta extends into branch vessels. No significant residual fl uid in the right lateral abdominal muscles on current study. IMPRESSION: 1. Resolved complex fluid collection or abscess along the inferior posterior right liver margin with involvement of the right lateral abdominal muscles or second abscess noted. 2. There are however subtle enlarging subtle hypodense hepatic masses with new superior 2.4 cm hetero geneous retroperitoneal mass between portal vein and IVC. Hepatic metastatic disease is suspected. Co nsider primary GIST tumor.
== END | disposition home or self-care (01) ==
LOC: RADCTMAIN 12:36
PROVIDERS: ATTEND Internal Medicine Critical Care Medicine
DX: K75.0 Abscess of liver (principal); K76.89 Other specified diseases of liver
CPT/HCPCS: 82565; 84520; 74160; 36415; Q9967 ×2

== ENCOUNTER 2022-01-18 07:13 | Day surgery (SDC) | payer MEDICARE ==
[2022-01-13 18:18] VITALS: BMI 27.8
[~2022-01-18 07:13] MED LIST: LACTATED RINGERS 1,000 ML IV SCH; LIDOCAINE 1% (10MG/ML) FOR IV START INTRADERMA PRN
--- NOTE | 2022-01-18 07:37 | P.GSHP ---
History of Present Illness H&P Date: 01/18/22 CHIEF COMPLAINT: GERD HISTORY OF PRESENT ILLNESS: The patient is a 81-year-old male who presents reports gastroesophageal reflux disease. Upper endoscopy was offered for further evaluation and management. PAST MEDICAL HISTORY: Please see list. PAST SURGICAL HISTORY: Please see list. MEDICATIONS: Please see list. ALLERGIES: Please see list. SOCIAL HISTORY: No illicit drug use FAMILY HISTORY: No reports of Crohn disease or ulcerative colitis. REVIEW OF ORGAN SYSTEMS: CONSTITUTIONAL: No reports of fevers or chills. GI: Denies any blood in stools or constipation. PHYSICAL EXAM: VITAL SIGNS: Stable GENERAL: Well-developed and pleasant in no acute distress. HEENT: No scleral icterus. Extraocular movements grossly intact. Moist buccal mucosa. NECK: Supple without lymphadenopathy. CHEST: Unlabored respirations. Equal bilateral excursions. CARDIOVASCULAR: Regular rate and rhythm. Distal 2+ pulses. ABDOMEN: Soft, nondistended. MUSCULOSKELETAL: No clubbing, cyanosis, or edema. ASSESSMENT: 1. Gastroesophageal reflux disease PLAN: 1. Recommend proceeding with an upper endoscopy Past Medical History Past Medical History: Coronary Artery Disease (CAD), Diabetes Mellitus, GERD/Reflux, Hearing Disorder / Deafness, Hyperlipidemia, Hypertension, Prostate Disorder, Skin Disorder Additional Past Medical History / Comment(s): Rash on face, itchy. History of Any Multi-Drug Resistant Organisms: None Reported Past Surgical History: Cholecystectomy, Coronary Bypass/CABG, Heart Catheterization, Heart Catheterization With Stent Additional Past Surgical History / Comment(s): Quad CABG 1987. Cyst exc Rt abd, behind liver. Past Anesthesia/Blood Transfusion Reactions: No Reported Reaction Date of Last Stent Placement:: 1989 Smoking Status: Former smoker - Past Family History Mother Family Medical History: Cancer Additional Family Medical History / Comment(s): [place] Lymphoma Medications and Allergies Home Medications Medication Instructions Recorded Confirmed Type Atenolol [Tenormin] 50 mg PO DAILY 02/09/21 01/13/22 History Atorvastatin [Lipitor] 40 mg PO DAILY 02/09/21 01/13/22 History Dapagliflozin Propanediol [Farxiga] 10 mg PO DAILY 02/09/21 01/13/22 History Ezetimibe [Zetia] 10 mg PO DAILY 02/09/21 01/13/22 History Finasteride [Proscar] 5 mg PO DAILY 02/09/21 01/13/22 History Isosorbide Dinitrate 30 mg PO BID 02/09/21 01/13/22 History Niacin 500 mg PO DAILY 02/09/21 01/13/22 History Nitroglycerin [Nitroglycerin 1 spray TRANSLINGU Q5M PRN 02/09/21 01/13/22 History 400MCG [place]] Terazosin HCl 5 mg PO HS 02/09/21 01/13/22 History glipiZIDE [Glucotrol] 10 mg PO DAILY 02/09/21 01/13/22 History metFORMIN HCL [Glucophage] 500 mg PO BID 02/09/21 01/13/22 History sitaGLIPtin PHOSPHATE [Januvia] 100 mg PO DAILY 02/09/21 01/13/22 History Acetaminophen Tab [Tylenol] 500 - 1,000 mg PO Q6HR PRN 09/02/21 01/13/22 History Insulin Glargine [Lantus Vial] 10 - 20 unit SQ HS 09/02/21 01/13/22 History Multivit-Min/FA/Lycopen/Lutein 1 tab PO DAILY 09/02/21 01/13/22 History [Centrum Silver Tablet] Omeprazole 20 mg PO DAILY #0 09/02/21 01/13/22 Rx Naproxen [Naprosyn] 500 mg PO DAILY 01/13/22 01/13/22 History [place]-3 Fatty Acids/Fish Oil [Fish 1 each PO DAILY 01/13/22 01/13/22 History Oil 1,000 mg Softgel] Ramipril [Altace] 10 mg PO DAILY 01/13/22 01/13/22 History Allergies Allergy/AdvReac Type Severity Reaction Status Date / Time canagliflozin [From [facility]] Allergy Rash/Hives Verified 01/13/22 17:50
[2022-01-18 07:44] VITALS: TEMP 97
[2022-01-18 07:48] LABS: Glucose,Whole Blood 92 mg/dL (75-99)
[2022-01-18] MEDS ORDERED: PROPOFOL 10 MG/ML 20 ML VIAL IV ONE (07:53)
[2022-01-18] MEDS ORDERED: LIDOCAINE 1% INJ 10MG/ML (20 ML MDV) ONE (07:53)
--- NOTE | 2022-01-18 08:20 | P.PCN ---
Date of Procedure: 01/18/22 Description of Procedure: PREOPERATIVE DIAGNOSIS: Abnormal computed tomography scan gastric mass Gastroesophageal reflux disease POSTOPERATIVE DIAGNOSIS: Large ulcerative gastric mass, gastric cardia Chronic gastritis Gastroesophageal reflux disease OPERATION: Esophagogastroduodenoscopy with biopsies along antrum and gastric mass SURGEON: Mer West MD ANESTHESIA: MAC. INDICATIONS: The patient is a 81-year-old male who presents with reflux disease including new computed tomography scan findings of gastric mass. Benefits and risks of the procedure were described. Informed consent was obtained. DESCRIPTION: The patient was brought into the endoscopy suite and laid in the left lateral de cubitus position. An Olympus gastroscope was passed along the posterior oropharynx down to the distal esophagus where the squamocolumnar junction was encountered at 39 cm from the incisors. The stomach was entered and no bile reflux was found. Additional findings are listed below regarding large gastric tumor. Biopsies with cold forceps were obtained of the antrum. The first through third portion of the duodenum was examined and unremarkable. Retroflexion of the scope confirmed Hill grade 2 lower esophageal valve. The squamocolumnar junction demonstrated LA grade A erosive esophagitis. The stomach was desufflated. The patient tolerated the procedure well. FINDINGS: Squamocolumnar junction 39 cm from the incisors. Diaphragmatic hiatus at 39 cm. Large fungating gastric tumor incorporating gastric cardia from 39 cm from the incisors to 47 cm from the incisors, 8 cm tumor -Large area of ulceration at gastric tumor over 3 cm -Firm immobile calcified tumor with intermittent bleeding gastric ulceration essential core tumor -Tumor involves lesser curvature of stomach including gastric cardia starting at GE junction distally Hill grade 2 lower esophageal valve. LA grade A erosive esophagitis. No active duodenitis. Chronic gastritis RECOMMENDATIONS: 1. Await biopsies. 2. Pending biopsies, referral to cancer center including for endoscopic ultrasound for further staging diagnostic assessment. Plan - Discharge Summary Discharge Rx Participant: No New Discharge Prescriptions: Continue Terazosin HCl 5 mg PO HS Nitroglycerin [Nitroglycerin 400MCG [place]] 1 spray TRANSLINGU Q5M PRN PRN Reason: Chest Pain metFORMIN HCL [Glucophage] 500 mg PO BID Finasteride [Proscar] 5 mg PO DAILY Ezetimibe [Zetia] 10 mg PO DAILY Atenolol [Tenormin] 50 mg PO DAILY Acetaminophen Tab [Tylenol] 500 - 1,000 mg PO Q6HR PRN PRN Reason: Fever And/ Or Pain Ramipril [Altace] 10 mg PO DAILY Index-3 Fatty Acids/Fish Oil [Fish Oil 1,000 mg Softgel] 1 each PO DAILY sitaGLIPtin PHOSPHATE [Januvia] 100 mg PO DAILY Niacin 500 mg PO DAILY Isosorbide Dinitrate 30 mg PO BID glipiZIDE [Glucotrol] 10 mg PO DAILY Dapagliflozin Propanediol [Farxiga] 10 mg PO DAILY Atorvastatin [Lipitor] 40 mg PO DAILY Multivit-Min/FA/Lycopen/Lutein [Centrum Silver Tablet] 1 tab PO DAILY Insulin Glargine [Lantus Vial] 10 - 20 unit SQ HS Omeprazole 20 mg PO DAILY #0 Discontinued Naproxen [Naprosyn] 500 mg PO DAILY Discharge Medication List Atenolol [Tenormin] 50 mg PO DAILY 02/09/21 [History] Atorvastatin [Lipitor] 40 mg PO DAILY 02/09/21 [History] Dapagliflozin Propanediol [Farxiga] 10 mg PO DAILY 02/09/21 [History] Ezetimibe [Zetia] 10 mg PO DAILY 02/09/21 [History] Finasteride [Proscar] 5 mg PO DAILY 02/09/21 [History] Isosorbide Dinitrate 30 mg PO BID 02/09/21 [History] Niacin 500 mg PO DAILY 02/09/21 [History] Nitroglycerin [Nitroglycerin 400MCG [place]] 1 spray TRANSLINGU Q5M PRN 02/09/21 [History] Terazosin HCl 5 mg PO HS 02/09/21 [History] glipiZIDE [Glucotrol] 10 mg PO DAILY 02/09/21 [History] metFORMIN HCL [Glucophage] 500 mg PO BID 02/09/21 [History] sitaGLIPtin PHOSPHATE [Januvia] 100 mg PO DAILY 02/09/21 [History] Acetaminophen Tab [Tylenol] 500 - 1,000 mg PO Q6HR PRN 09/02/21 [History] Insulin Glargine [Lantus Vial] 10 - 20 unit SQ HS 09/02/21 [History] Multivit-Min/FA/Lycopen/Lutein [Centrum Silver Tablet] 1 tab PO DAILY 09/02/21 [History] Omeprazole 20 mg PO DAILY #0 09/02/21 [Rx] Index-3 Fatty Acids/Fish Oil [Fish Oil 1,000 mg Softgel] 1 each PO DAILY 01/13/22 [History] Ramipril [Altace] 10 mg PO DAILY 01/13/22 [History] Follow up Appointment(s)/Referral(s): Mer West MD [STAFF PHYSICIAN] - 01/24/22 Patient Instructions/Handouts: *[facility] - (Anesthesia) Endoscopy Discharge Instructions, Peptic Ulcer (DC) Discharge Disposition: HOME SELF-CARE
[2022-01-18 08:45] VITALS: BP 101/61; PULSE 54; RESP 18
== END 2022-01-18 09:20 | disposition home or self-care (01) ==
LOC: ORWHC2ENDO 07:13
PROVIDERS: ATTEND Surgery Plastic and Reconstructive Surgery
DX: C16.3 Malignant neoplasm of pyloric antrum (principal); K29.50 Unspecified chronic gastritis without bleeding; K31.A11 Gastric intestinal metaplasia without dysplasia, involving the antrum; K21.9 Gastro-esophageal reflux disease without esophagitis; I25.10 Atherosclerotic heart disease of native coronary artery without angina pectoris; E11.9 Type 2 diabetes mellitus without complications; E78.5 Hyperlipidemia, unspecified; I10 Essential (primary) hypertension; N42.9 Disorder of prostate, unspecified; H91.90 Unspecified hearing loss, unspecified ear; R21 Rash and other nonspecific skin eruption; K21.00 Gastro-esophageal reflux disease with esophagitis, without bleeding; M19.90 Unspecified osteoarthritis, unspecified site; Z95.1 Presence of aortocoronary bypass graft; Z95.5 Presence of coronary angioplasty implant and graft; Z87.891 Personal history of nicotine dependence; Z79.899 Other long term (current) drug therapy; Z79.84 Long term (current) use of oral hypoglycemic drugs; Z79.4 Long term (current) use of insulin; Z88.8 Allergy status to other drugs, medicaments and biological substances; Z90.49 Acquired absence of other specified parts of digestive tract; Z97.2 Presence of dental prosthetic device (complete) (partial); Z80.7 Family history of other malignant neoplasms of lymphoid, hematopoietic and related tissues
CPT/HCPCS: 88305; 88342; 88341; 43239; J2001; J2704

== ENCOUNTER → 2022-05-20 | Outpatient (CLI) | payer MEDICARE ==
[2022-05-20 17:23] LABS: ALT 30 U/L (10-49); AST 46 U/L (14-35); African American GFR (CKD) 78.8 (60.0-200.0); Albumin/Globulin Ratio 1.33 (1.60-3.17); Alkaline Phosphatase 124 U/L (41-126); BUN/Creat Ratio 23.47 Ratio (12.00-20.00); Blood Urea Nitrogen 23.7 mg/dL (9.0-27.0); Calcium 9.3 mg/dL (8.7-10.3); Carbon Dioxide 24.1 mmol/L (20.0-27.5); Chloride 100 mmol/L (96-109); Chol/HDL Ratio 4.73 Ratio; Glucose 115 mg/dL (70-110); LDL Cholesterol,Calculated 111.2 mg/dL (0.0-131.0); Potassium 5.5 mmol/L (3.5-5.5); Sodium 135 mmol/L (135-145)
== END | disposition home or self-care (01) ==
LOC: LABWHC1 10:13
PROVIDERS: ATTEND Internal Medicine Endocrinology, Diabetes & Metabolism
DX: E11.65 Type 2 diabetes mellitus with hyperglycemia (principal)
CPT/HCPCS: 36415; 80053; 80061; 83036; 84443

== ENCOUNTER 2022-06-21 11:06 | Inpatient (IN) | payer MEDICARE ==
--- NOTE | 2022-06-21 11:31 | ED ---
General Adult HPI - General Chief complaint: Weakness Stated complaint: Fall, weakness Time Seen by Provider: 06/21/22 11:20 Source: patient, family, RN notes reviewed Mode of arrival: ambulatory Limitations: no limitations - History of Present Illness Initial comments: Patient is an 82-year-old male presents the emergency room with complaints of generalized weakness along with numbness and tingling in both hands and both feet. Symptoms have been ongoing since he completed his fourth round of chemotherapy just under one week ago. He states that he tolerated his first 3 rounds well but has had significant weakness resulting in multiple falls over the past week. His most recent fall in the bathroom today resulted in him falling to the floor hitting his hand on the wall and possibly twisting his ankle. He has no impairment in range of motion in his right ankle that was twisted or swelling or pain in his right hand which he guided himself to the ground with. He did fall hitting his head 3 days ago 2 days ago on the bumper of his car. He reports that all of his falls are precipitated by generalized weakness and feeling as though his legs are buckling. He denies any focal neurological deficits or loss of consciousness. He did have one episode of emesis yesterday morning. He is currently undergoing chemotherapy under the direction of Dr. Granados for gastric cancer. In addition to his recently diagnosed gastric cancer his past medical history significant for diabetes, hypertension, hyperlipidemia, GERD and cardiovascular disease. Location: buttocks - Related Data Home Medications Medication Instructions Recorded Confirmed Atorvastatin [Lipitor] 40 mg PO DAILY 02/09/21 06/21/22 Dapagliflozin Propanediol [Farxiga] 10 mg PO DAILY 02/09/21 06/21/22 Ezetimibe [Zetia] 10 mg PO DAILY 02/09/21 06/21/22 Finasteride [Proscar] 5 mg PO DAILY 02/09/21 06/21/22 Isosorbide Dinitrate 30 mg PO BID 02/09/21 06/21/22 Niacin 500 mg PO DAILY 02/09/21 06/21/22 Nitroglycerin [Nitroglycerin 1 spray TRANSLINGU Q5M PRN 02/09/21 06/21/22 400MCG [place]] Terazosin HCl 5 mg PO HS 02/09/21 06/21/22 atenoloL [Tenormin] 50 mg PO DAILY 02/09/21 06/21/22 glipiZIDE [Glucotrol] 10 mg PO DAILY 02/09/21 06/21/22 metFORMIN HCL [Glucophage] 500 mg PO BID 02/09/21 06/21/22 Insulin Glargine [Lantus Vial] 5 - 15 unit SQ HS 09/02/21 06/21/22 Multivit-Min/FA/Lycopen/Lutein 1 tab PO DAILY 09/02/21 06/21/22 [Centrum Silver Tablet] [place]-3 Fatty Acids/Fish Oil [Fish 1 cap PO DAILY 01/13/22 06/21/22 Oil 1,000 mg Softgel] ramipriL [Altace] 10 mg PO DAILY 01/13/22 06/21/22 Januvia(Unknown) 1 tab PO DAILY 06/21/22 06/21/22 Naproxen [Naprosyn] 500 mg PO DAILY 06/21/22 06/21/22 Omeprazole 40 mg PO BID 06/21/22 06/21/22 Ondansetron Odt [Zofran Odt] 4 mg PO Q6H PRN 06/21/22 06/21/22 traMADol HCL 50 mg PO Q6H PRN 06/21/22 06/21/22 Allergies Allergy/AdvReac Type Severity Reaction Status Date / Time canagliflozin [From [employer]] Allergy Rash/Hives, Verified 06/21/22 14:44 Yeast infection Review of Systems ROS Statement: Those systems with pertinent positive or pertinent negative responses have been documented in the HPI. ROS Other: All systems not noted in ROS Statement are negative. Past Medical History Past Medical History: Coronary Artery Disease (CAD), Cancer, Diabetes Mellitus, GERD/Reflux, Hearing Disorder / Deafness, Hyperlipidemia, Hypertension, Prostate Disorder, Skin Disorder Additional Past Medical History / Comment(s): Rash on face, itchy. stomach cancer History of Any Multi-Drug Resistant Organisms: None Reported Past Surgical History: Cholecystectomy, Coronary Bypass/CABG, Heart Catheterizat ion, Heart Catheterization With Stent Additional Past Surgical History / Comment(s): Quad CABG 1987. Cyst exc Rt abd, behind liver. Past Anesthesia/Blood Transfusion Reactions: No Reported Reaction Date of Last Stent Placement:: 1989 Past Psychological History: No Psychological Hx Reported Smoking Status: Former smoker Past Alcohol Use History: Occasional Past Drug Use History: None Reported - Past Family History Mother Family Medical History: Cancer Additional Family Medical History / Comment(s): [place] Lymphoma General Exam Limitations: no limitations Course Vital Signs 06/21/22 06/21/22 06/21/22 11:10 14:19 17:24 Temperature 97.4 F L Pulse Rate 106 H 77 96 Respiratory 16 18 18 Rate Blood Pressure 149/82 145/89 141/100 O2 Sat by Pulse 99 98 98 Oximetry Medical Decision Making - Medical Decision Making 82-year-old male presents to the emergency room with generalized weakness and multiple falls over the last week after completing his fourth round of chemotherapy with numbness and tingling in bilateral hands and feet. High probability for electrolyte derangement along with vitamin B12 deficiency in the setting of gastric cancer. Will check CBC, CMP, ionized calcium, thyroid panel, vitamin B12 level along with urinalysis. Due to no focal neurological weakness or blood thinners with falls or loss of consciousness will defer computed tomography scan at this time. Lab stable. Awaiting urinalysis. Given stable labs will check chest x-ray and CT the brain to evaluate for other etiologies for underlying weakness. Chest x-ray negative for acute disease. CT of the brain shows age-related atrophy no acute process. Likely generalized weakness secondary to chemotherapy induced. Discussed symptoms with family. Will give IV hydration and admit for observation for further evaluation. Case discussed with Dr. Brenner excepting admission for observation. Case discussed with Dr. Oconnor. - Lab Data Result diagrams: 06/21/22 11:45 06/21/22 11:45 Lab Results 06/21/22 06/21/22 06/21/22 Range/Units 11:45 11:45 14:32 WBC 2.9 L (3.8-10.6) k/uL RBC 4.57 (4.30-5.90) m/uL Hgb 12.7 L (13.0-17.5) gm/dL Hct 40.0 (39.0-53.0) % MCV 87.5 (80.0-100.0) fL MCH 27.9 (25.0-35.0) pg MCHC 31.8 (31.0-37.0) g/dL RDW 19.0 H (11.5-15.5) % Plt Count 189 (150-450) k/uL MPV 7.6 Neutrophils % 67 % Lymphocytes % 15 % Monocytes % 15 % Eosinophils % 0 % Basophils % 1 % Neutrophils # 1.9 (1.3-7.7) k/uL Lymphocytes # 0.4 L (1.0-4.8) k/uL Monocytes # 0.4 (0-1.0) k/uL Eosinophils # 0.0 (0-0.7) k/uL Basophils # 0.0 (0-0.2) k/uL Hypochromasia Slight Anisocytosis Slight Sodium 139 (137-145) mmol/L Potassium 3.7 (3.5-5.1) mmol/L Chloride 105 (98-107) mmol/L Carbon Dioxide 22 (22-30) mmol/L Anion Gap 12 mmol/L BUN 14 (9-20) mg/dL Creatinine 0.84 (0.66-1.25) mg/dL Est GFR (CKD-EPI)AfAm >90 (>60 ml/min/1.73 sqM) Est GFR (CKD-EPI)NonAf 81 (>60 ml/min/1.73 sqM) Glucose 148 H (74-99) mg/dL Calcium 8.7 (8.4-10.2) mg/dL Ionized Calcium [place] 4.8 (4.5-5.3) mg/dL Total Bilirubin 0.9 (0.2-1.3) mg/dL AST 45 (17-59) U/L ALT 21 (4-49) U/L Alkaline Phosphatase 122 (38-126) U/L Total Protein 6.4 (6.3-8.2) g/dL Albumin 3.4 L (3.5-5.0) g/dL TSH 0.979 (0.465-4.680) mIU/L Urine Color Light Yellow Urine Appearance Clear (Clear) Urine pH 6.0 (5.0-8.0) Ur Specific [place] 1.012 (1.001-1.035) Urine Protein Negative (Negative) Urine Glucose (UA) 4+ H (Negative) Urine Ketones Negative (Negative) Urine Blood Negative (Negative) Urine Nitrite Negative (Negative) Urine Bilirubin Negative (Negative) Urine Urobilinogen <2.0 (<2.0) mg/dL Ur Leukocyte Esterase Large H (Negative) Urine RBC 19 H (0-5) /hpf Urine WBC 3 (0-5) /hpf Ur Squamous Epith Cells 1 (0-4) /hpf Urine Bacteria Rare H (None) /hpf Urine Mucus Rare H (None) /hpf - EKG Data EKG Comments: Sinus rhythm, 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 CT of the brain without contrast shows age-related atrophy with mild chronic appearing white matter ischemic type changes. No acute intracranial process. Disposition Clinical Impression: Generalized weakness Disposition: ADMITTED IP TO THIS HOSP Is patient prescribed a controlled substance at d/c from ED?: No Time of Disposition: 13:55
[2022-06-21 12:11] LABS: ALT 21 U/L (4-49); AST 45 U/L (17-59); African American GFR (CKD) >90 (>60 ml/min/1.73 sqM); Albumin 3.4 g/dL (3.5-5.0); Alkaline Phosphatase 122 U/L (38-126); Anion Gap 12 mmol/L; Blood Urea Nitrogen 14 mg/dL (9-20); Calcium 8.7 mg/dL (8.4-10.2); Carbon Dioxide 22 mmol/L (22-30); Chloride 105 mmol/L (98-107); Glucose 148 mg/dL (74-99); Non-African American GFR(CKD) 81 (>60 ml/min/1.73 sqM); Potassium 3.7 mmol/L (3.5-5.1); Sodium 139 mmol/L (137-145); Total Bilirubin 0.9 mg/dL (0.2-1.3); Total Protein 6.4 g/dL (6.3-8.2)
[2022-06-21 12:21] LABS: Anisocytosis Slight; Basophils % (A) 1 %; Eosinophils % (A) 0 %; HGB 12.7 gm/dL (13.0-17.5); Hypochromasia Slight; Ionized Calcium 4.8 mg/dL (4.5-5.3); Lymphocytes # (A) 0.4 k/uL (1.0-4.8); Lymphocytes % (A) 15 %; MCH 27.9 pg (25.0-35.0); MCHC 31.8 g/dL (31.0-37.0); MCV 87.5 fL (80.0-100.0); Mean Platelet Volume 7.6; Monocytes # (A) 0.4 k/uL (0-1.0); Monocytes % (A) 15 %; Neutrophils # (A) 1.9 k/uL (1.3-7.7); Neutrophils % (A) 67 %; Platelet Count 189 k/uL (150-450); RBC 4.57 m/uL (4.30-5.90); WBC 2.9 k/uL (3.8-10.6)
--- NOTE | 2022-06-21 13:23 | XR ---
EXAMINATION TYPE: XR chest 2V DATE OF EXAM: 06/21/2022 COMPARISON: 09/02/2021 TECHNIQUE: PA and lateral views submitted. HISTORY: Weakness FINDINGS: The lungs are clear and there is no pneumothorax, pleural effusion, or focal pneumonia. Calcified p leural plaques are seen bilaterally. Postoperative change. Atherosclerotic change aorta. Arthropathy of the shoulders with diffuse osteopenia. Right-sided consolidation and small effusion. Hypertrophic and degenerative change of the spine. IMPRESSION: 1. No acute process. Correlate for asbestos-related disease.
--- NOTE | 2022-06-21 13:26 | CT ---
EXAMINATION TYPE: CT brain wo con DATE OF EXAM: 06/21/2022 COMPARISON: None INDICATION: weakness, fall DLP: 1108.4 mGycm, Automated exposure control for dose reduction was used. CONTRAST: None CT of the brain is performed utilizing 3 mm thick sections through the posterior fossa and 3 mm thick sections through the remaining calvarium. Study is performed within 24 hours of arrival to the hosp [facility]. No abnormal hyperdensity is present to suggest an acute intracranial hemorrhage. No mass lesion is evident. No acute infarcts are evident. Minimal periventricular white matter hypodensity is present, likely on the basis of chronic white matter ischemic changes. Ventricles and sulci are prominent for the patient age. Paranasal sinuses and mastoid air cells within the [id number] are clear. IMPRESSIONS: 1. Age-related atrophy with mild chronic appearing white matter ischemic type changes. 2. No acute intracranial process. Follow-up MRI can be performed as clinically indicated.
[2022-06-21] MEDS ORDERED: NALOXONE 0.4 MG/ML 1 ML VIAL IV PRN ×2 (13:42→16:57)
[2022-06-21 14:50] LABS: Appearance,Urine Clear (Clear); Bacteria,Urine Rare /hpf; Bilirubin,Urine Negative (Negative); Blood,Urine Negative (Negative); Color,Urine Light Yellow; Glucose,Urine (UA) 4+ (Negative); Ketones,Urine Negative (Negative); Leukocyte Esterase,Urine Large (Negative); Mucus,Urine Rare /hpf; Nitrite,Urine Negative (Negative); Protein,Urine Negative (Negative); RBC,Urine 19 /hpf (0-5); Specific Gravity,Urine 1.012 (1.001-1.035); Squamous Epithelial Cell,Urine 1 /hpf (0-4); Urobilinogen,Urine <2.0 mg/dL (<2.0); WBC,Urine 3 /hpf (0-5)
[2022-06-21] MEDS ORDERED: traMADol 50 MG TAB PO PRN (16:55)
[2022-06-21] MEDS ORDERED: ONDANSETRON ODT 4 MG TAB PO PRN (16:55)
[2022-06-21] MEDS ORDERED: ONDANSETRON 4 MG/2 ML VIAL IVP PRN (16:57)
--- NOTE | 2022-06-21 17:00 | P.HPIM ---
History of Present Illness H&P Date: 06/21/22 Chief Complaint: weakness 82-year-old male with hx of hx of gastric cancer on chemo currently, diabetes, hypertension, hyperlipidemia, GERD and cardiovascular disease presents the emergency room with complaints of generalized weakness and frequent falls. He started feeling this way since the fourth chemo he had for the gastric cancer about 1-2 weeks ago. He also has some numbness and tingling in both hands and feet. He states that he tolerated his first 3 rounds well. He did have head trauma with the falls. He has not been eating and drinking well since the last chemo, no appetite. He denies any focal neurological deficits or loss of consciousness. He did have one episode of emesis yesterday morning. Evaluation in the emergency department revealed WBC count of 2.9 as well as microscopic hematuria on UA. Rest of labs okay. Chest x-ray showed no acute cardiopulmonary disease. Head CT scan showed no acute intracranial bleeding or any acute intracranial event. Review of Systems Complete review of system performed, pertinent positives per HPI, otherwise negative Past Medical History Past Medical History: Coronary Artery Disease (CAD), Cancer, Diabetes Mellitus, GERD/Reflux, Hearing Disorder / Deafness, Hyperlipidemia, Hypertension, Prostate Disorder, Skin Disorder Additional Past Medical History / Comment(s): Rash on face, itchy. stomach cancer History of Any Multi-Drug Resistant Organisms: None Reported Past Surgical History: Cholecystectomy, Coronary Bypass/CABG, Heart Catheterization, Heart Catheterization With Stent Additional Past Surgical History / Comment(s): Quad CABG 1987. Cyst exc Rt abd, behind liver. Past Anesthesia/Blood Transfusion Reactions: No Reported Reaction Date of Last Stent Placement:: 1989 Past Psychological History: No Psychological Hx Reported Smoking Status: Former smoker Past Alcohol Use History: Occasional Past Drug Use History: None Reported - Past Family History Mother Family Medical History: Cancer Additional Family Medical History / Comment(s): [place] Lymphoma Medications and Allergies Home Medications Medication Instructions Recorded Confirmed Type Atorvastatin [Lipitor] 40 mg PO DAILY 02/09/21 06/21/22 History Dapagliflozin Propanediol [Farxiga] 10 mg PO DAILY 02/09/21 06/21/22 History Ezetimibe [Zetia] 10 mg PO DAILY 02/09/21 06/21/22 History Finasteride [Proscar] 5 mg PO DAILY 02/09/21 06/21/22 History Isosorbide Dinitrate 30 mg PO BID 02/09/21 06/21/22 History Niacin 500 mg PO DAILY 02/09/21 06/21/22 History Nitroglycerin [Nitroglycerin 1 spray TRANSLINGU Q5M PRN 02/09/21 06/21/22 History 400MCG [place]] Terazosin HCl 5 mg PO HS 02/09/21 06/21/22 History atenoloL [Tenormin] 50 mg PO DAILY 02/09/21 06/21/22 History glipiZIDE [Glucotrol] 10 mg PO DAILY 02/09/21 06/21/22 History metFORMIN HCL [Glucophage] 500 mg PO BID 02/09/21 06/21/22 History sitaGLIPtin PHOSPHATE [Januvia] 1 tab PO DIRECTED 02/09/21 06/21/22 History Insulin Glargine [Lantus Vial] 5 - 15 unit SQ HS 09/02/21 06/21/22 History Multivit-Min/FA/Lycopen/Lutein 1 tab PO DAILY 09/02/21 06/21/22 History [Centrum Silver Tablet] [place]-3 Fatty Acids/Fish Oil [Fish 1 cap PO DAILY 01/13/22 06/21/22 History Oil 1,000 mg Softgel] ramipriL [Altace] 10 mg PO DAILY 01/13/22 06/21/22 History Naproxen [Naprosyn] 500 mg PO DAILY 06/21/22 06/21/22 History Omeprazole 40 mg PO BID 06/21/22 06/21/22 History Ondansetron Odt [Zofran Odt] 4 mg PO Q6H PRN 06/21/22 06/21/22 History traMADol HCL 50 mg PO Q6H PRN 06/21/22 06/21/22 History Allergies Allergy/AdvReac Type Severity Reaction Status Date / Time canagliflozin [From [facility]] Allergy Rash/Hives, Verified 06/21/22 14:44 Yeast infection Physical Exam Vitals: Vital Signs Temp Pulse Resp BP Pulse Ox 06/21/22 14:19 77 18 145/89 98 06/21/22 11:10 97.4 F L 106 H 16 149/82 99 Intake and Output 06/21/22 06/21/22 06/21/22 06:59 14:59 22:59 Other: Weight 68.039 kg Constitutional: No acute distress, conversant, pleasant Eyes:Anicteric sclerae, moist conjunctiva, no lid-lag, PERRLA, ENMT: Oropharynx clear, no erythema, exudates Neck: Supple, FROM, no masses, or JVD, No carotid bruits, No thyromegaly Lungs: Clear to auscultation, Clear to percussion, Normal respiratory effort, no accessory muscle use Cardiovascular: Heart regular in rate and rhythm, No murmurs, gallops, or rubs, No peripheral edema Abdominal: Soft, Nontender, no guarding, rebound or rigidity, Normoactive bowel sounds, No hepatomegaly, No splenomegaly, No palpable mass Skin: Normal temperature, tone, texture, turgor, no induration, No subcutaneous nodules, No rash, lesions, No ulcers Extremities: No digital cyanosis, No clubbing, Pedal pulses intact and symmetrical, Radial pulses intact and symmetrical, No calf tenderness Psychiatric: Alert and oriented to person, place and time, appropriate affect, intact judgement Neuro: Muscles Strength 5/5 in all 4 extremities, Sensation to light touch grossly present throughout, Cranial nerves II-XII grossly intact, no focal sensory deficits Results CBC & Chem 7: 06/21/22 11:45 06/21/22 11:45 Labs: Abnormal Lab Results - Last 24 Hours (Table) 06/21/22 06/21/22 06/21/22 Range/Units 11:45 11:45 14:32 WBC 2.9 L (3.8-10.6) k/uL Hgb 12.7 L (13.0-17.5) gm/dL RDW 19.0 H (11.5-15.5) % Lymphocytes # 0.4 L (1.0-4.8) k/uL Glucose 148 H (74-99) mg/dL Albumin 3.4 L (3.5-5.0) g/dL Urine Glucose (UA) 4+ H (Negative) Ur Leukocyte Esterase Large H (Negative) Urine RBC 19 H (0-5) /hpf Urine Bacteria Rare H (None) /hpf Urine Mucus Rare H (None) /hpf Assessment and Plan Plan: Adult failure to thrive, general weakness IV fluids Likely secondary to dehydration Physical therapy evaluation History of gastric cancers Currently on chemotherapy Management per oncology, outpatient Nausea and vomiting Zofran when necessary Diabetes 2 Hold oral hypoglycemics Sliding scale insulin Chronic GERD/Reflux, Hyperlipidemia, Hypertension All stable resume meds Admit to inpatient expected length of stay more than 2 midnights.
[2022-06-21] MEDS: SODIUM CHLORIDE 0.9% 1,000 ML IV SCH (17:29)
[2022-06-21 19:25] LABS: Glucose,Whole Blood 183 mg/dL (70-110)
[2022-06-21] MEDS: PANTOPRAZOLE 40 MG TABLET PO SCH (19:34)
[2022-06-21] MEDS: INSULIN ASPART (NovoLOG) 100 UNIT/ML VIAL SQ SCH ×2 (19:35→23:09)
[2022-06-21] MEDS: DOXAZOSIN 4 MG TAB PO SCH (23:04)
[2022-06-21] MEDS: ISOSORBIDE DINITRATE 10 MG TAB PO SCH (23:04)
[2022-06-22] MEDS: SODIUM CHLORIDE 0.9% 1,000 ML IV SCH ×2 (03:35→08:15)
[2022-06-22] MEDS: EZETIMIBE 10 MG TAB PO SCH (07:40)
[2022-06-22] MEDS: FINASTERIDE 5 MG TAB PO SCH (07:41)
[2022-06-22] MEDS: ATORVASTATIN 40 MG TAB PO SCH (07:41)
[2022-06-22] MEDS: lisinopriL 20 MG TAB PO SCH (07:41)
[2022-06-22] MEDS: PANTOPRAZOLE 40 MG TABLET PO SCH ×2 (07:41→18:01)
[2022-06-22] MEDS: atenoloL 50 MG TAB PO SCH (07:41)
[2022-06-22 08:10] LABS: Glucose,Whole Blood 125 mg/dL (70-110)
[2022-06-22] MEDS: INSULIN ASPART (NovoLOG) 100 UNIT/ML VIAL SQ SCH ×4 (08:13→21:09)
[2022-06-22] MEDS: NIACIN TR 500 MG CAPLET PO SCH (08:14)
[2022-06-22] MEDS: ISOSORBIDE DINITRATE 10 MG TAB PO SCH ×2 (08:14→21:03)
[2022-06-22 10:42] LABS: Basophils # (A) 0.02 X 10*3/uL (0.00-0.10); Basophils % (A) 0.7 %; Eosinophils # (A) 0.01 X 10*3/uL (0.04-0.35); Eosinophils % (A) 0.4 %; HCT 36.8 % (39.6-50.0); HGB 11.6 g/dL (13.0-17.0); Immature Grans, Automated 0 %; Lymphocytes # (A) 0.44 X 10*3/uL (0.90-5.00); Lymphocytes % (A) 16.1 %; MCH 27.4 pg (27.0-32.0); MCHC 31.5 g/dL (32.0-37.0); MCV 86.8 fL (80.0-97.0); Mean Platelet Volume 10.2 fL (9.5-12.2); Monocytes # (A) 0.64 X 10*3/uL (0.20-1.00); Monocytes % (A) 23.4 %; NRBC Per 100 WBC 0 /100 WBCS (0.0-0.0); Neutrophils # (A) 1.62 X 10*3/uL (1.80-7.70); Neutrophils % (A) 59.4 %; Platelet Count 192 X 10*3/uL (140-440); RBC 4.24 X 10*6/uL (4.40-5.60); RDW 21.6 % (11.5-14.5); WBC 2.73 X 10*3/uL (4.50-10.00)
[2022-06-22 11:11] LABS: African American GFR (CKD) 96.4 (60.0-200.0); Anion Gap 8.9 mmol/L (10.00-18.00); BUN/Creat Ratio 14.99 Ratio (12.00-20.00); Blood Urea Nitrogen 11.6 mg/dL (9.0-27.0); Non-African American GFR(CKD) 83.2 (60.0-200.0); Potassium 4.2 mmol/L (3.5-5.5)
[2022-06-22 11:59] LABS: Glucose,Whole Blood 125 mg/dL (70-110)
--- NOTE | 2022-06-22 14:26 | P.PN ---
Subjective Progress Note Date: 06/22/22 Principal diagnosis: falls Still feeling weak, he states he has not feelings in the hands and feet. He is not having any pain. It is hard for him to walk because of the lack of se nsation. He states his neuropathy started after the last chemo. Objective - Vital Signs Vital signs: Vital Signs Temp 97.7 F 06/22/22 11:14 Pulse 74 06/22/22 11:14 Resp 18 06/22/22 11:14 BP 102/52 06/22/22 11:14 Pulse Ox 96 06/22/22 11:14 FiO2 Intake & Output 06/21/22 06/22/22 06/22/22 18:59 06:59 18:59 Intake Total 840 Output Total 1200 Balance -360 Weight 68.039 kg 68.039 kg Intake: Intake, IV Titration 600 Amount Sodium Chloride 0.9% 1, 600 000 ml @ 75 mls/hr IV . [id number] [facility] Rx#:[id number] Oral 240 Output: Urine 1200 Other: Voiding Method Urinal - Exam Constitutional: No acute distress, conversant, pleasant Eyes:Anicteric sclerae, moist conjunctiva, no lid-lag, PERRLA, ENMT: Oropharynx clear, no erythema, exudates Neck: Supple, FROM, no masses, or JVD, No carotid bruits, No thyromegaly Lungs: Clear to auscultation, Clear to percussion, Normal respiratory effort, no accessory muscle use Cardiovascular: Heart regular in rate and rhythm, No murmurs, gallops, or rubs, No peripheral edema Abdominal: Soft, Nontender, no guarding, rebound or rigidity, Normoactive bowel sounds, No hepatomegaly, No splenomegaly, No palpable mass Skin: Normal temperature, tone, texture, turgor, no induration, No subcutaneous nodules, No rash, lesions, No ulcers Extremities: No digital cyanosis, No clubbing, Pedal pulses intact and symmetrical, Radial pulses intact and symmetrical, No calf tenderness Psychiatric: Alert and oriented to person, place and time, appropriate affect, intact judgement Neuro: Muscles Strength 5/5 in all 4 extremities, Sensation to light touch grossly present throughout, Cranial nerves II-XII grossly intact, no focal sensory deficits - Labs CBC & Chem 7: 06/22/22 07:18 08/25/22 07:18 Labs: Abnormal Lab Results - Last 24 Hours (Table) 06/21/22 06/21/22 06/22/22 Range/Units 14:32 19:24 07:18 WBC 2.73 L (4.50-10.00) X 10*3/uL RBC 4.24 L (4.40-5.60) X 10*6/uL Hgb 11.6 L (13.0-17.0) g/dL Hct 36.8 L (39.6-50.0) % MCHC 31.5 L (32.0-37.0) g/dL RDW 21.6 H (11.5-14.5) % Neutrophils # 1.62 L (1.80-7.70) X 10*3/uL Lymphocytes # 0.44 L (0.90-5.00) X 10*3/uL Eosinophils # 0.01 L (0.04-0.35) X 10*3/uL Anion Gap (10.00-18.00) mmol/L Glucose (70-110) mg/dL POC Glucose (mg/dL) 183 H (70-110) mg/dL Calcium (8.7-10.3) mg/dL Urine Glucose (UA) 4+ H (Negative) Ur Leukocyte Esterase Large H (Negative) Urine RBC 19 H (0-5) /hpf Urine Bacteria Rare H (None) /hpf Urine Mucus Rare H (None) /hpf 06/22/22 06/22/22 06/22/22 Range/Units 07:18 08:07 11:56 WBC (4.50-10.00) X 10*3/uL RBC (4.40-5.60) X 10*6/uL Hgb (13.0-17.0) g/dL Hct (39.6-50.0) % MCHC (32.0-37.0) g/dL RDW (11.5-14.5) % Neutrophils # (1.80-7.70) X 10*3/uL Lymphocytes # (0.90-5.00) X 10*3/uL Eosinophils # (0.04-0.35) X 10*3/uL Anion Gap 8.90 L (10.00-18.00) mmol/L Glucose 114 H (70-110) mg/dL POC Glucose (mg/dL) 125 H 125 H (70-110) mg/dL Calcium 8.0 L (8.7-10.3) mg/dL Urine Glucose (UA) (Negative) Ur Leukocyte Esterase (Negative) Urine RBC (0-5) /hpf Urine Bacteria (None) /hpf Urine Mucus (None) /hpf Assessment and Plan Plan: Adult failure to thrive, general weakness IV fluids Likely secondary to dehydration Physical therapy evaluation Peripheral neuropathy D/w oncology service, will need to start neurontin. History of gastric cancers Currently on chemotherapy Management per oncology, outpatient Nausea and vomiting Zofran when necessary Diabetes 2 Hold oral hypoglycemics Sliding scale insulin Chronic GERD/Reflux, Hyperlipidemia, Hypertension All stable resume meds
[2022-06-22] MEDS: GABAPENTIN 100 MG CAP PO SCH ×2 (15:33→21:03)
[2022-06-22 17:05] LABS: Glucose,Whole Blood 176 mg/dL (70-110)
[2022-06-22 20:35] LABS: Glucose,Whole Blood 204 mg/dL (70-110)
[2022-06-22] MEDS: DOXAZOSIN 4 MG TAB PO SCH (21:05)
[2022-06-23 07:11] LABS: Glucose,Whole Blood 113 mg/dL (70-110)
[2022-06-23] MEDS: INSULIN ASPART (NovoLOG) 100 UNIT/ML VIAL SQ SCH ×4 (08:13→22:04)
[2022-06-23] MEDS: lisinopriL 20 MG TAB PO SCH (08:57)
[2022-06-23] MEDS: PANTOPRAZOLE 40 MG TABLET PO SCH ×2 (08:57→16:04)
[2022-06-23] MEDS: EZETIMIBE 10 MG TAB PO SCH (08:57)
[2022-06-23] MEDS: FINASTERIDE 5 MG TAB PO SCH (09:00)
[2022-06-23] MEDS: ATORVASTATIN 40 MG TAB PO SCH (09:00)
[2022-06-23] MEDS: ISOSORBIDE DINITRATE 10 MG TAB PO SCH ×2 (09:00→22:06)
[2022-06-23] MEDS: GABAPENTIN 100 MG CAP PO SCH ×3 (09:00→22:06)
[2022-06-23] MEDS: NIACIN TR 500 MG CAPLET PO SCH (09:01)
[2022-06-23] MEDS: atenoloL 50 MG TAB PO SCH (09:04)
[2022-06-23 09:28] LABS: Basophils # (A) 0.03 X 10*3/uL (0.00-0.10); Basophils % (A) 0.9 %; Eosinophils # (A) 0.01 X 10*3/uL (0.04-0.35); Eosinophils % (A) 0.3 %; HCT 36.3 % (39.6-50.0); HGB 11.3 g/dL (13.0-17.0); Immature Grans, Automated 0.3 %; Lymphocytes # (A) 0.61 X 10*3/uL (0.90-5.00); MCH 26.8 pg (27.0-32.0); MCHC 31.1 g/dL (32.0-37.0); Mean Platelet Volume 9.7 fL (9.5-12.2); Monocytes # (A) 0.78 X 10*3/uL (0.20-1.00); Monocytes % (A) 24.3 %; NRBC Per 100 WBC 0 /100 WBCS (0.0-0.0); Neutrophils # (A) 1.77 X 10*3/uL (1.80-7.70); Neutrophils % (A) 55.2 %; Platelet Count 168 X 10*3/uL (140-440); RBC 4.22 X 10*6/uL (4.40-5.60); RDW 21.3 % (11.5-14.5); WBC 3.21 X 10*3/uL (4.50-10.00)
[2022-06-23 09:45] LABS: African American GFR (CKD) 95.1 (60.0-200.0); Anion Gap 6.2 mmol/L (10.00-18.00); BUN/Creat Ratio 13.63 Ratio (12.00-20.00); Blood Urea Nitrogen 10.9 mg/dL (9.0-27.0); Calcium 8.1 mg/dL (8.7-10.3); Carbon Dioxide 23.8 mmol/L (20.0-27.5); Potassium 4.2 mmol/L (3.5-5.5)
[2022-06-23 11:45] LABS: Glucose,Whole Blood 211 mg/dL (70-110)
[2022-06-23] MEDS: SODIUM CHLORIDE 0.9% 1,000 ML IV SCH ×2 (13:24→18:28)
--- NOTE | 2022-06-23 14:22 | P.PN ---
Subjective Progress Note Date: 06/23/22 Principal diagnosis: falls Doing well. Weakness is better but still having severe numbness of his hands and feet. No cp or sob. No fevers. Objective - Vital Signs Vital signs: Vital Signs Temp 97.9 F 06/23/22 12:46 Pulse 63 06/23/22 12:46 Resp 16 06/23/22 12:46 BP 105/66 06/23/22 12:46 Pulse Ox 98 06/23/22 12:46 FiO2 Intake & Output 06/22/22 06/23/22 06/23/22 18:59 06:59 18:59 Intake Total 900 Output Total 625 Balance 900 -625 Intake: Intake, IV Titration 900 Amount Sodium Chloride 0.9% 1, 900 000 ml @ 75 mls/hr IV . [id number] [facility] Rx#:[id number] Output: Urine 625 Other: Voiding Method Urinal Urinal Urinal # Voids 5 # Bowel Movements 1 - Exam Constitutional: No acute distress, conversant, pleasant Eyes:Anicteric sclerae, moist conjunctiva, no lid-lag, PERRLA, ENMT: Oropharynx clear, no erythema, exudates Neck: Supple, FROM, no masses, or JVD, No carotid bruits, No thyromegaly Lungs: Clear to auscultation, Clear to percussion, Normal respiratory effort, no accessory muscle use Cardiovascular: Heart regular in rate and rhythm, No murmurs, gallops, or rubs, No peripheral edema Abdominal: Soft, Nontender, no guarding, rebound or rigidity, Normoactive bowel sounds, No hepatomegaly, No splenomegaly, No palpable mass Skin: Normal temperature, tone, texture, turgor, no induration, No subcutaneous nodules, No rash, lesions, No ulcers Extremities: No digital cyanosis, No clubbing, Pedal pulses intact and symmetrical, Radial pulses intact and symmetrical, No calf tenderness Psychiatric: Alert and oriented to person, place and time, appropriate affect, intact judgement Neuro: Muscles Strength 5/5 in all 4 extremities, Sensation to light touch grossly present throughout, Cranial nerves II-XII grossly intact, no focal sensory deficits - Labs CBC & Chem 7: 06/23/22 06:28 06/23/22 06:28 Labs: Abnormal Lab Results - Last 24 Hours (Table) 06/22/22 06/22/22 06/23/22 Range/Units 17:02 20:33 06:28 WBC 3.21 L (4.50-10.00) X 10*3/uL RBC 4.22 L (4.40-5.60) X 10*6/uL Hgb 11.3 L (13.0-17.0) g/dL Hct 36.3 L (39.6-50.0) % MCH 26.8 L (27.0-32.0) pg MCHC 31.1 L (32.0-37.0) g/dL RDW 21.3 H (11.5-14.5) % Neutrophils # 1.77 L (1.80-7.70) X 10*3/uL Lymphocytes # 0.61 L (0.90-5.00) X 10*3/uL Eosinophils # 0.01 L (0.04-0.35) X 10*3/uL Anion Gap (10.00-18.00) mmol/L Glucose (70-110) mg/dL POC Glucose (mg/dL) 176 H 204 H (70-110) mg/dL Calcium (8.7-10.3) mg/dL 06/23/22 06/23/22 06/23/22 Range/Units 06:28 07:10 11:43 WBC (4.50-10.00) X 10*3/uL RBC (4.40-5.60) X 10*6/uL Hgb (13.0-17.0) g/dL Hct (39.6-50.0) % MCH (27.0-32.0) pg MCHC (32.0-37.0) g/dL RDW (11.5-14.5) % Neutrophils # (1.80-7.70) X 10*3/uL Lymphocytes # (0.90-5.00) X 10*3/uL Eosinophils # (0.04-0.35) X 10*3/uL Anion Gap 6.20 L (10.00-18.00) mmol/L Glucose 119 H (70-110) mg/dL POC Glucose (mg/dL) 113 H 211 H (70-110) mg/dL Calcium 8.1 L (8.7-10.3) mg/dL Assessment and Plan Plan: Adult failure to thrive, general weakness IV fluids Likely secondary to dehydration Physical therapy Peripheral neuropathy D/w oncology service, continue neurontin. History of gastric cancers Currently on chemotherapy Management per oncology, outpatient Nausea and vomiting Zofran when necessary Diabetes 2 Hold oral hypoglycemics Sliding scale insulin Chronic GERD/Reflux, Hyperlipidemia, Hypertension All stable resume meds Dispo: likely home with home care vs rehab
[2022-06-23 17:37] LABS: Glucose,Whole Blood 174 mg/dL (70-110)
[2022-06-23 20:37] LABS: Glucose,Whole Blood 191 mg/dL (70-110)
--- NOTE | 2022-06-23 21:08 | P.CONS ---
History of Present Illness - Reason for Consult Consult date: 06/23/22 Gastric Cancer Requesting physician: Chavo Winkler - History of Present Illness [place] presented with liver abscess following lap Kyra surgery > treated with antibiotics > clinically resolved. CT Scan Nov 2021 revealed fundal mass (5.7 cm) > referred to Dr West > EGD > large 8 cm mass, biopsy revealed high-grade Adenocarcinoma. PET Scan: Liver mets and retroperitoneal lymphadenopathy. He is C/O epigastric/RUQ pain, no anorexia or weight loss The paytient is a lifetime non smoker, denied ETOH use 03/02/22: Feels well, has minimal abdominal pain controlled by Tramadol. Her2 negative, Gardant 360 negative, NGS studies negative, PD-L1 pending 03/29/22: Tolerated cycle # 1 of Carboplatinum+Taxol very well > Grade I nausea & fatigue X 3 days, abdominal pain improved 04/18/22: Feels well, tired X 4-5 days after chemotherapy, no N/V. 05/09/22: Feels Ok, C/O fatigue after last Rx. We have been asked to evaluate. He is status post cycle 5 of carbo and taxol, he has been progressively weaker and has fallen, neuropathy has also progressed peripherally, initiated gabapentin with some relief. Review of Systems All systems: negative Constitutional: Reports as per HPI Past Medical History Past Medical History: Coronary Artery Disease (CAD), Cancer, Diabetes Mellitus, GERD/Reflux, Hearing Disorder / Deafness, Hyperlipidemia, Hypertension, Prostate Disorder, Skin Disorder Additional Past Medical History / Comment(s): Rash on face, itchy. stomach cancer History of Any Multi-Drug Resistant Organisms: None Reported Past Surgical History: Cholecystectomy, Coronary Bypass/CABG, Heart Catheterization, Heart Catheterization With Stent Additional Past Surgical History / Comment(s): Quad CABG 1987. Cyst exc Rt abd, behind liver. Past Anesthesia/Blood Transfusion Reactions: No Reported Reaction Date of Last Stent Placement:: 1989 Past Psychological History: No Psychological Hx Reported Smoking Status: Former smoker Past Alcohol Use History: Occasional Additional Past Alcohol Use History / Comment(s): Smoked pipe & cigars, quit 1980 Past Drug Use History: None Reported - Past Family History Mother Family Medical History: Cancer Additional Family Medical History / Comment(s): [place] Lymphoma Medications and Allergies Home Medications Medication Instructions Recorded Confirmed Type Atorvastatin [Lipitor] 40 mg PO DAILY 02/09/21 06/21/22 History Dapagliflozin Propanediol [Farxiga] 10 mg PO DAILY 02/09/21 06/21/22 History Ezetimibe [Zetia] 10 mg PO DAILY 02/09/21 06/21/22 History Finasteride [Proscar] 5 mg PO DAILY 02/09/21 06/21/22 History Isosorbide Dinitrate 30 mg PO BID 02/09/21 06/21/22 History Niacin 500 mg PO DAILY 02/09/21 06/21/22 History Nitroglycerin [Nitroglycerin 1 spray TRANSLINGU Q5M PRN 02/09/21 06/21/22 History 400MCG [place]] Terazosin HCl 5 mg PO HS 02/09/21 06/21/22 History atenoloL [Tenormin] 50 mg PO DAILY 02/09/21 06/21/22 History glipiZIDE [Glucotrol] 10 mg PO DAILY 02/09/21 06/21/22 History metFORMIN HCL [Glucophage] 500 mg PO BID 02/09/21 06/21/22 History Insulin Glargine [Lantus Vial] 5 - 15 unit SQ HS 09/02/21 06/21/22 History Multivit-Min/FA/Lycopen/Lutein 1 tab PO DAILY 09/02/21 06/21/22 History [Centrum Silver Tablet] [place]-3 Fatty Acids/Fish Oil [Fish 1 cap PO DAILY 01/13/22 06/21/22 History Oil 1,000 mg Softgel] ramipriL [Altace] 10 mg PO DAILY 01/13/22 06/21/22 History Naproxen [Naprosyn] 500 mg PO DAILY 06/21/22 06/21/22 History Omeprazole 40 mg PO BID 06/21/22 06/21/22 History Ondansetron Odt [Zofran Odt] 4 mg PO Q6H PRN 06/21/22 06/21/22 History traMADol HCL 50 mg PO Q6H PRN 06/21/22 06/21/22 History sitaGLIPtin [Januvia] 100 mg PO DAILY 06/22/22 06/22/22 History Allergies Allergy/AdvReac Type Severity Reaction Status Date / Time canagliflozin [From [employer]] Allergy Rash/Hives, Verified 06/21/22 14:44 Yeast infection Physical Exam Vitals: Vital Signs Temp Pulse Pulse Resp BP Pulse Ox 06/23/22 12:46 97.9 F 63 16 105/66 98 06/23/22 08:00 82 69 14 06/23/22 03:57 97.6 F 69 14 125/65 98 Intake and Output 06/23/22 06/23/22 06/23/22 06:59 14:59 22:59 Output Total 325 250 Balance -325 -250 Output: Urine 325 250 Other: Voiding Method Urinal - Constitutional General appearance: cooperative - EENT Eyes: EOMI ENT: hard of hearing - Neck Neck: normal ROM - Respiratory Respiratory: bilateral: diminished - Cardiovascular Rhythm: regularly irregular - Gastrointestinal General gastrointestinal: soft - Integumentary Integumentary: pale - Musculoskeletal Musculoskeletal: generalized weakness - Psychiatric Psychiatric: A&O x's 3 Results CBC & Chem 7: 06/23/22 06:28 06/23/22 06:28 Labs: Abnormal Lab Results - Last 24 Hours (Table) 06/23/22 06/23/22 06/23/22 Range/Units 06:28 06:28 07:10 WBC 3.21 L (4.50-10.00) X 10*3/uL RBC 4.22 L (4.40-5.60) X 10*6/uL Hgb 11.3 L (13.0-17.0) g/dL Hct 36.3 L (39.6-50.0) % MCH 26.8 L (27.0-32.0) pg MCHC 31.1 L (32.0-37.0) g/dL RDW 21.3 H (11.5-14.5) % Neutrophils # 1.77 L (1.80-7.70) X 10*3/uL Lymphocytes # 0.61 L (0.90-5.00) X 10*3/uL Eosinophils # 0.01 L (0.04-0.35) X 10*3/uL Anion Gap 6.20 L (10.00-18.00) mmol/L Glucose 119 H (70-110) mg/dL POC Glucose (mg/dL) 113 H (70-110) mg/dL Calcium 8.1 L (8.7-10.3) mg/dL 06/23/22 06/23/22 06/23/22 Range/Units 11:43 17:36 20:36 WBC (4.50-10.00) X 10*3/uL RBC (4.40-5.60) X 10*6/uL Hgb (13.0-17.0) g/dL Hct (39.6-50.0) % MCH (27.0-32.0) pg MCHC (32.0-37.0) g/dL RDW (11.5-14.5) % Neutrophils # (1.80-7.70) X 10*3/uL Lymphocytes # (0.90-5.00) X 10*3/uL Eosinophils # (0.04-0.35) X 10*3/uL Anion Gap (10.00-18.00) mmol/L Glucose (70-110) mg/dL POC Glucose (mg/dL) 211 H 174 H 191 H (70-110) mg/dL Calcium (8.7-10.3) mg/dL Assessment and Plan (1) Gastric cancer Narrative/Plan: Hold chemo until increased performance and see primary onc prior to next treatment for peripheral neuropathy possible dose reduction Continue supportive care and gabapentin Current Visit: Yes Status: Acute Code(s): C16.9 - MALIGNANT NEOPLASM OF STOMACH, UNSPECIFIED SNOMED Code(s): 657148231 (2) Falls Current Visit: Yes Status: Acute Code(s): W19.XXXA - UNSPECIFIED FALL, INITIAL ENCOUNTER SNOMED Code(s): 9816543 (3) Generalized weakness Current Visit: Yes Status: Acute Code(s): R53.1 - WEAKNESS SNOMED Code(s): 33400166 Plan: PT/OT Dr. Saeed: I have completed the full history an physical and developed the above impression and plan, agree with dictation, dictated as a ascribe
[2022-06-23] MEDS: DOXAZOSIN 4 MG TAB PO SCH (22:06)
[2022-06-24 07:26] LABS: Glucose,Whole Blood 161 mg/dL (70-110)
[2022-06-24] MEDS: SODIUM CHLORIDE 0.9% 1,000 ML IV SCH (07:51)
[2022-06-24] MEDS: INSULIN ASPART (NovoLOG) 100 UNIT/ML VIAL SQ SCH ×2 (07:52→11:42)
[2022-06-24] MEDS: EZETIMIBE 10 MG TAB PO SCH (07:52)
[2022-06-24] MEDS: atenoloL 50 MG TAB PO SCH (07:53)
[2022-06-24] MEDS: GABAPENTIN 100 MG CAP PO SCH (07:53)
[2022-06-24] MEDS: FINASTERIDE 5 MG TAB PO SCH (07:53)
[2022-06-24] MEDS: lisinopriL 20 MG TAB PO SCH (07:53)
[2022-06-24] MEDS: ATORVASTATIN 40 MG TAB PO SCH (07:54)
[2022-06-24] MEDS: PANTOPRAZOLE 40 MG TABLET PO SCH (07:54)
[2022-06-24] MEDS: ISOSORBIDE DINITRATE 10 MG TAB PO SCH (07:54)
[2022-06-24] MEDS: NIACIN TR 500 MG CAPLET PO SCH (07:54)
--- NOTE | 2022-06-24 09:48 | P.DS ---
Providers Date of admission: 06/21/22 16:57 Expected date of discharge: 06/24/22 Attending physician: Meghan Melendez DO Consults: 06/23/22 09:41 Consult Physician Routine Consulting Provider: Justin Cardenas Consult Reason/Comments: neuropathy Do you want consulting provider notified?: Yes Primary care physician: [facility] Course: 82-year-old male with hx of hx of gastric cancer on chemo currently, diabetes, hypertension, hyperlipidemia, GERD and cardiovascular disease presents the emergency room with complaints of generalized weakness and frequent falls. He started feeling this way since the fourth chemo he had for the gastric cancer about 1-2 weeks ago. He also has some numbness and tingling in both hands and feet. He states that he tolerated his first 3 rounds well. He did have head trauma with the falls. He has not been eating and drinking well since the last chemo, no appetite. He denies any focal neurological deficits or loss of consci ousness. He did have one episode of emesis yesterday morning. Evaluation in the emergency department revealed WBC count of 2.9 as well as microscopic hematuria on UA. Rest of labs okay. Chest x-ray showed no acute cardiopulmonary disease. Head CT scan showed no acute intracranial bleeding or any acute intracranial event. Patient was admitted, he underwent physical therapy evaluation thought that patient will benefit from rehabilitation stay. He was referred to rehab. He was seen by oncology service who advised Neurontin for peripheral neuropathy induced by chemo, which was significantly contributing to his weakness. Chemotherapy will have to be held during the rehabilitation stay. Patient was cleared for discharge by oncology. He'll be discharged home in stable condition. Time for discharge 35 min Plan - Discharge Summary Discharge Rx Participant: No New Discharge Prescriptions: New Gabapentin [Neurontin] 300 mg PO TID 30 Days #90 cap Continue Terazosin HCl 5 mg PO HS Nitroglycerin [Nitroglycerin 400MCG [place]] 1 spray TRANSLINGU Q5M PRN PRN Reason: Chest Pain metFORMIN HCL [Glucophage] 500 mg PO BID Finasteride [Proscar] 5 mg PO DAILY Ezetimibe [Zetia] 10 mg PO DAILY atenoloL [Tenormin] 50 mg PO DAILY ramipriL [Altace] 10 mg PO DAILY [place]-3 Fatty Acids/Fish Oil [Fish Oil 1,000 mg Softgel] 1 cap PO DAILY Niacin 500 mg PO DAILY Isosorbide Dinitrate 30 mg PO BID glipiZIDE [Glucotrol] 10 mg PO DAILY Dapagliflozin Propanediol [Farxiga] 10 mg PO DAILY Atorvastatin [Lipitor] 40 mg PO DAILY Multivit-Min/FA/Lycopen/Lutein [Centrum Silver Tablet] 1 tab PO DAILY Insulin Glargine [Lantus Vial] 5 - 15 unit SQ HS Ondansetron Odt [Zofran ODT] 4 mg PO Q6H PRN PRN Reason: Nausea Omeprazole 40 mg PO BID Naproxen [Naprosyn] 500 mg PO DAILY traMADol HCL 50 mg PO Q6H PRN PRN Reason: Pain sitaGLIPtin [Januvia] 100 mg PO DAILY Discharge Medication List Atorvastatin [Lipitor] 40 mg PO DAILY 02/09/21 [History] Dapagliflozin Propanediol [Farxiga] 10 mg PO DAILY 02/09/21 [History] Ezetimibe [Zetia] 10 mg PO DAILY 02/09/21 [History] Finasteride [Proscar] 5 mg PO DAILY 02/09/21 [History] Isosorbide Dinitrate 30 mg PO BID 02/09/21 [History] Niacin 500 mg PO DAILY 02/09/21 [History] Nitroglycerin [Nitroglycerin 400MCG [place]] 1 spray TRANSLINGU Q5M PRN 02/09/21 [History] Terazosin HCl 5 mg PO HS 02/09/21 [History] atenoloL [Tenormin] 50 mg PO DAILY 02/09/21 [History] glipiZIDE [Glucotrol] 10 mg PO DAILY 02/09/21 [History] metFORMIN HCL [Glucophage] 500 mg PO BID 02/09/21 [History] Insulin Glargine [Lantus Vial] 5 - 15 unit SQ HS 09/02/21 [History] Multivit-Min/FA/Lycopen/Lutein [Centrum Silver Tablet] 1 tab PO DAILY 09/02/21 [History] [place]-3 Fatty Acids/Fish Oil [Fish Oil 1,000 mg Softgel] 1 cap PO DAILY 01/13/22 [History] ramipriL [Altace] 10 mg PO DAILY 01/13/22 [History] Naproxen [Naprosyn] 500 mg PO DAILY 06/21/22 [History] Omeprazole 40 mg PO BID 06/21/22 [History] Ondansetron Odt [Zofran ODT] 4 mg PO Q6H PRN 06/21/22 [History] traMADol HCL 50 mg PO Q6H PRN 06/21/22 [History] sitaGLIPtin [Januvia] 100 mg PO DAILY 06/22/22 [History] Gabapentin [Neurontin] 300 mg PO TID 30 Days #90 cap 06/24/22 [Rx] Follow up Appointment(s)/Referral(s): Chely Huntley MD [Primary Care Provider] - 1-2 days
[2022-06-24 11:14] LABS: Glucose,Whole Blood 196 mg/dL (70-110)
[2022-06-24 12:51] VITALS: BP 99/52; PULSE 68; RESP 18; TEMP 98
== END 2022-06-24 13:15 | DRG 74 ==
LOC: EC 11:06 → 5NMEDONC 16:57
PROVIDERS: ADMIT Internal Medicine; ATTEND Internal Medicine
DX: G62.0 Drug-induced polyneuropathy (principal); C16.1 Malignant neoplasm of fundus of stomach; C78.7 Secondary malignant neoplasm of liver and intrahepatic bile duct; S09.90XA Unspecified injury of head, initial encounter; R62.7 Adult failure to thrive; E86.0 Dehydration; E11.9 Type 2 diabetes mellitus without complications; Z79.4 Long term (current) use of insulin; Z20.822 Contact with and (suspected) exposure to COVID-19; T45.1X5A Adverse effect of antineoplastic and immunosuppressive drugs, initial encounter; E78.5 Hyperlipidemia, unspecified; K21.9 Gastro-esophageal reflux disease without esophagitis; I10 Essential (primary) hypertension; I25.10 Atherosclerotic heart disease of native coronary artery without angina pectoris; N42.9 Disorder of prostate, unspecified; H91.90 Unspecified hearing loss, unspecified ear; R29.6 Repeated falls; R31.29 Other microscopic hematuria; Z79.84 Long term (current) use of oral hypoglycemic drugs; Z79.1 Long term (current) use of non-steroidal anti-inflammatories (NSAID); Z79.899 Other long term (current) drug therapy; Z87.891 Personal history of nicotine dependence; Z91.81 History of falling; Z95.1 Presence of aortocoronary bypass graft; Z90.49 Acquired absence of other specified parts of digestive tract; Z95.5 Presence of coronary angioplasty implant and graft; W01.198A Fall on same level from slipping, tripping and stumbling with subsequent striking against other object, initial encounter; Y92.002 Bathroom of unspecified non-institutional (private) residence as the place of occurrence of the external cause; Z88.8 Allergy status to other drugs, medicaments and biological substances
CPT/HCPCS: 36415; 70450; 71046; 80048; 80053; 81001; 82330; 82607; 84443; 85025; 87635; 93005; 99285

== ENCOUNTER 2022-07-01 17:21 | Observation (INO) | payer MEDICARE ==
[2022-07-01] MEDS ORDERED: SODIUM CHLORIDE 0.9% 1,000 ML IV STA ×2 (17:53→22:21)
[2022-07-01] MEDS ORDERED: ONDANSETRON 4 MG/2 ML VIAL IVP STA (17:55)
[2022-07-01 18:54] LABS: Albumin 2.6 g/dL (3.5-5.0); Calcium 7.6 mg/dL (8.4-10.2); Magnesium 1.8 mg/dL (1.6-2.3); Potassium 4.1 mmol/L (3.5-5.1); Total Bilirubin 0.7 mg/dL (0.2-1.3); Total Protein 5.7 g/dL (6.3-8.2)
[2022-07-01 18:55] LABS: Anisocytosis Slight; HCT 38.2 % (39.0-53.0); HGB 11.9 gm/dL (13.0-17.5); Hypochromasia Moderate; INR 1.1 (<1.2); MCH 28.5 pg (25.0-35.0); MCHC 31.2 g/dL (31.0-37.0); MCV 91.3 fL (80.0-100.0); Mean Platelet Volume 8.3; Partial Thromboplastin Time 27.6 sec (22.0-30.0); Platelet Count 163 k/uL (150-450); Prothrombin Time 11.8 sec (9.0-12.0); RBC 4.19 m/uL (4.30-5.90); RDW 19.8 % (11.5-15.5); WBC 3.7 k/uL (3.8-10.6)
--- NOTE | 2022-07-01 19:00 | XR ---
EXAMINATION TYPE: XR chest 2V DATE OF EXAM: 07/01/2022 6:53 PM COMPARISON: Chest x-ray 06/21/2022, chest x-ray 09/02/2021 TECHNIQUE: XR chest 2V . CLINICAL INDICATION:Male, 82 years old with history of Weakness; FINDINGS: Lungs/Pleura: There is no evidence of pleural effusion, focal consolidation, or pneumothorax. Mild st reaky atelectasis in the right lung base. Calcified pleural plaques are seen bilaterally, similar to prior examinations. Pulmonary vascularity: Unremarkable. Heart/mediastinum: Cardiomediastinal silhouette is unremarkable. Atherosclerotic calcifications are seen in the aorta. Musculoskeletal: No acute osseous pathology. Degenerative changes of the left acromioclavicular joint and thoracic spine. Midline sternotomy wires and surgical clips project over the mediastinum. IMPRESSION: 1. Right basilar atelectasis. No focal airspace consolidation. 2. Bilateral calcified pleural plaques.
[2022-07-01 19:25] LABS: Band Neutrophils % 1 %; Basophils # (M) 0.04 k/uL (0-0.2); Crenated RBC Present; Lymphocytes # (M) 0.19 k/uL (1.0-4.8); Monocytes # (M) 0.67 k/uL (0-1.0); Neutrophils % (M) 75 %; Nucleated Red Blood Cells 0 /100 WBC (0-0); Poikilocytosis (M) Present; Total Cells Counted 100
--- NOTE | 2022-07-01 19:42 | ED ---
General Adult HPI - General Chief complaint: Weakness Stated complaint: lethargy, hypotension Time Seen by Provider: 07/01/22 17:37 Source: patient, RN notes reviewed Mode of arrival: EMS Limitations: no limitations - History of Present Illness Initial comments: 82-year-old male presents to the emergency department for evaluation of generalized weakness for the past several days. States he had been living at home independently until a few weeks ago when he and his family made the decision to go [facility]. States since he has been there he had a decrease in appetite and constipation. Complains of spasming rectal pain. EMS reports patient was hypotensive per [facility], and continues to be so upon arrival. Denies fever, chills, headache, dizziness and chest pain, shortness of breath, cough or congestion, nausea, vomiting, diarrhea, constipation, dysuria, or hematuria. - Related Data Home Medications Medication Instructions Recorded Confirmed Atorvastatin [Lipitor] 40 mg PO HS@209902/09/21 07/01/22 Dapagliflozin Propanediol [Farxiga] 10 mg PO DAILY@0802/09/21 07/01/22 Ezetimibe [Zetia] 10 mg PO DAILY@0800 02/09/21 07/01/22 Finasteride [Proscar] 5 mg PO HS@209902/09/21 07/01/22 Isosorbide Dinitrate 30 mg PO BID@0800,17002/09/21 07/01/22 Niacin 500 mg PO DAILY@0802/09/21 07/01/22 Nitroglycerin [Nitroglycerin 1 spray TRANSLINGU Q5M PRN 02/09/21 07/01/22 400MCG [place]] Terazosin HCl 5 mg PO HS@209902/09/21 07/01/22 atenoloL [Tenormin] 50 mg PO DAILY@0800 02/09/21 07/01/22 glipiZIDE [Glucotrol] 10 mg PO DAILY@0802/09/21 07/01/22 metFORMIN HCL [Glucophage] 500 mg PO BID@0800,1700 02/09/21 07/01/22 Insulin Glargine [Lantus Vial] 5 unit SQ HS@209909/02/21 07/01/22 Multivit-Min/FA/Lycopen/Lutein 1 tab PO DAILY@0800 09/02/21 07/01/22 [Centrum Silver Tablet] Naproxen [Naprosyn] 500 mg PO DAILY@0800 06/21/22 07/01/22 Omeprazole 40 mg PO BID@0800,1700 06/21/22 07/01/22 traMADol HCL 50 mg PO Q6H PRN 06/21/22 07/01/22 sitaGLIPtin [Januvia] 100 mg PO DAILY@0800 06/22/22 07/01/22 Fish Oil/Dha/Epa [Fish Oil 1,200 1 cap PO DAILY@1700 07/01/22 07/01/22 mg Fish Oil] Gabapentin [Neurontin] 300 mg PO TID@0800,1400,2100 07/01/22 07/01/22 Glucerna Shake 1 can PO TID@0800,1200,1700 07/01/22 07/01/22 INSULIN ASPART (NovoLOG) [NovoLOG See Protocol SQ ACHS 07/01/22 07/01/22 (formulary)] Magnesium Hydroxide [Milk of 7,200 mg PO Q48H PRN 07/01/22 07/01/22 Magnesia Concentrate] Na Phos,M-B/Na Phos,Di-Ba [Fleet 133 ml RECTAL DAILY PRN 07/01/22 07/01/22 Adult] Ondansetron [Zofran] 4 mg PO Q8HR PRN 07/01/22 07/01/22 bisacodyL [Dulcolax] 10 mg RECTAL DAILY PRN 07/01/22 07/01/22 Allergies Allergy/AdvReac Type Severity Reaction Status Date / Time canagliflozin [From Invokana] Allergy Rash/Hives, Verified 07/01/22 20:14 Yeast infection Review of Systems ROS Statement: Those systems with pertinent positive or pertinent negative responses have been documented in the HPI. ROS Other: All systems not noted in ROS Statement are negative. Past Medical History Past Medical History: Coronary Artery Disease (CAD), Cancer, Diabetes Mellitus, GERD/Reflux, Hearing Disorder / Deafness, Hyperlipidemia, Hypertension, Prostate Disorder, Skin Disorder Additional Past Medical History / Comment(s): Rash on face, itchy. stomach cancer History of Any Multi-Drug Resistant Organisms: None Reported Past Surgical History: Cholecystectomy, Coronary Bypass/CABG, Heart Catheterization, Heart Catheterization With Stent Additional Past Surgical History / Comment(s): Quad CABG 1987. Cyst exc Rt abd, behind liver. Past Anesthesia/Blood Transfusion Reactions: No Reported Reaction Date of Last Stent Placement:: 1989 Past Psychological History: No Psychological Hx Reported Smoking Status: Former smoker Past Alcohol Use History: Occasional Past Drug Use History: None Reported - Past Family History Mother Family Medical History: Cancer Additional Family Medical History / Comment(s): [place] Lymphoma General Exam Limitations: no limitations General appearance: alert, in no apparent distress, other (Well-developed, ill- appearing male in no acute distress. Initial temperature 98.0, pulse 70, respirations 18, blood pressure 74/47, pulse ox 96% on room air.) Eye exam: Present: normal appearance, PERRL, EOMI. Absent: scleral icterus, conjunctival injection ENT exam: Present: mucous membranes dry Neck exam: Absent: lymphadenopathy Respiratory exam: Present: normal lung sounds bilaterally. Absent: respiratory distress, wheezes, rales, rhonchi, stridor, chest wall tenderness Cardiovascular Exam: Present: regular rate, irregular rhythm, normal heart sounds. Absent: systolic murmur, diastolic murmur, rubs, gallop, clicks GI/Abdominal exam: Present: soft, normal bowel sounds. Absent: distended, tenderness, guarding, rebound, rigid Rectal exam: Present: normal rectal tone, heme (+) stool Extremities exam: Present: normal capillary refill. Absent: pedal edema Back exam: Absent: CVA tenderness (R), CVA tenderness (L) Psychiatric exam: Present: flat affect Skin exam: Present: warm, dry, pallor, other (blanchable area of redness on coccyx; barrier cream present upon arrival) Course Vital Signs 07/01/22 07/01/22 07/01/22 17:22 19:00 19:30 Temperature 98 F Pulse Rate 70 70 77 Respiratory 18 16 16 Rate Blood Pressure 74/47 87/59 92/58 O2 Sat by Pulse 96 99 99 Oximetry 07/01/22 23:32 Temperature Pulse Rate 64 Respiratory 15 Rate Blood Pressure 101/68 O2 Sat by Pulse 99 Oximetry Medical Decision Making - Medical Decision Making This is an 82-year-old male who presents to the emergency department via EMS from [facility] for evaluation of hypotension and generalized weakness. History of gastric cancer for which he has been unable to tolerate chemo. Upon exam, patient is ill-appearing in no acute distress. He is hypotensive and receiving IV fluids with improvement in blood pressure. He is afebrile and complaining of rectal discomfort he attributes to constipation. KARIN unremarkable. No palpable impacted stool, though occult is positive Laboratory studies were obtained. WBC 3.7. Hemoglobin stable at 11.9, hematocrit 38.2. Renal function somewhat decreased though is likely due to dehydration. Calcium 7.6, though when corrected for albumin, is 8.3. Given patient's hypotension and generalized weakness, he will be admitted to the hospital for further evaluation and treatment. I did speak with Dr. Blanco and Margy regarding the care of this patient. Attending: Dr. Cobos. - Lab Data Result diagrams: 07/01/22 18:28 07/01/22 18:28 Lab Results 07/01/22 07/01/22 07/01/22 Range/Units 18:28 18:28 18:28 WBC 3.7 L (3.8-10.6) k/uL RBC 4.19 L (4.30-5.90) m/uL Hgb 11.9 L (13.0-17.5) gm/dL Hct 38.2 L (39.0-53.0) % MCV 91.3 (80.0-100.0) fL MCH 28.5 (25.0-35.0) pg MCHC 31.2 (31.0-37.0) g/dL RDW 19.8 H (11.5-15.5) % Plt Count 163 (150-450) k/uL MPV 8.3 Neutrophils % (Manual) 75 % Band Neuts % (Manual) 1 % Lymphocytes % (Manual) 5 % Monocytes % (Manual) 18 % Basophils % (Manual) 1 % Neutrophils # (Manual) 2.80 (1.3-7.7) k/uL Lymphocytes # (Manual) 0.19 L (1.0-4.8) k/uL Monocytes # (Manual) 0.67 (0-1.0) k/uL Basophils # (Manual) 0.04 (0-0.2) k/uL Nucleated RBCs 0 (0-0) /100 WBC Manual Slide Review Performed Hypochromasia Moderate Poikilocytosis (manual Present Anisocytosis Slight Crenated Cell Present PT 11.8 (9.0-12.0) sec INR 1.1 (<1.2) APTT 27.6 (22.0-30.0) sec Sodium 135 L (137-145) mmol/L Potassium 4.1 (3.5-5.1) mmol/L Chloride 105 (98-107) mmol/L Carbon Dioxide 20 L (22-30) mmol/L Anion Gap 10 mmol/L BUN 35 H (9-20) mg/dL Creatinine 1.29 H (0.66-1.25) mg/dL Est GFR (CKD-EPI)AfAm 59 (>60 ml/min/1.73 sqM) Est GFR (CKD-EPI)NonAf 51 (>60 ml/min/1.73 sqM) Glucose 142 H (74-99) mg/dL Plasma Lactic Acid Arthur (0.7-2.0) mmol/L Calcium 7.6 L (8.4-10.2) mg/dL Magnesium 1.8 (1.6-2.3) mg/dL Total Bilirubin 0.7 (0.2-1.3) mg/dL AST 44 (17-59) U/L ALT 21 (4-49) U/L Alkaline Phosphatase 158 H (38-126) U/L Troponin I (0.000-0.034) ng/mL NT-Pro-B Natriuret Pep pg/mL Total Protein 5.7 L (6.3-8.2) g/dL Albumin 2.6 L (3.5-5.0) g/dL Urine Color Urine Appearance (Clear) Urine pH (5.0-8.0) Ur Specific [place] (1.001-1.035) Urine Protein (Negative) Urine Glucose (UA) (Negative) Urine Ketones (Negative) Urine Blood (Negative) Urine Nitrite (Negative) Urine Bilirubin (Negative) Urine Urobilinogen (<2.0) mg/dL Ur Leukocyte Esterase (Negative) Urine RBC (0-5) /hpf Urine WBC (0-5) /hpf Urine Bacteria (None) /hpf Urine Yeast (Budding) (None) /hpf Stool Occult Blood (Negative) 07/01/22 07/01/22 07/01/22 Range/Units 18:28 18:28 18:28 WBC (3.8-10.6) k/uL RBC (4.30-5.90) m/uL Hgb (13.0-17.5) gm/dL Hct (39.0-53.0) % MCV (80.0-100.0) fL MCH (25.0-35.0) pg MCHC (31.0-37.0) g/dL RDW (11.5-15.5) % Plt Count (150-450) k/uL MPV Neutrophils % (Manual) % Band Neuts % (Manual) % Lymphocytes % (Manual) % Monocytes % (Manual) % Basophils % (Manual) % Neutrophils # (Manual) (1.3-7.7) k/uL Lymphocytes # (Manual) (1.0-4.8) k/uL Monocytes # (Manual) (0-1.0) k/uL Basophils # (Manual) (0-0.2) k/uL Nucleated RBCs (0-0) /100 WBC Manual Slide Review Hypochromasia Poikilocytosis (manual Anisocytosis Crenated Cell PT (9.0-12.0) sec INR (<1.2) APTT (22.0-30.0) sec Sodium (137-145) mmol/L Potassium (3.5-5.1) mmol/L Chloride (98-107) mmol/L Carbon Dioxide (22-30) mmol/L Anion Gap mmol/L BUN (9-20) mg/dL Creatinine (0.66-1.25) mg/dL Est GFR (CKD-EPI)AfAm (>60 ml/min/1.73 sqM) Est GFR (CKD-EPI)NonAf (>60 ml/min/1.73 sqM) Glucose (74-99) mg/dL Plasma Lactic Acid Arthur 1.4 (0.7-2.0) mmol/L Calcium (8.4-10.2) mg/dL Magnesium (1.6-2.3) mg/dL Total Bilirubin (0.2-1.3) mg/dL AST (17-59) U/L ALT (4-49) U/L Alkaline Phosphatase (38-126) U/L Troponin I <0.012 (0.000-0.034) ng/mL NT-Pro-B Natriuret Pep 696 pg/mL Total Protein (6.3-8.2) g/dL Albumin (3.5-5.0) g/dL Urine Color Urine Appearance (Clear) Urine pH (5.0-8.0) Ur Specific [place] (1.001-1.035) Urine Protein (Negative) Urine Glucose (UA) (Negative) Urine Ketones (Negative) Urine Blood (Negative) Urine Nitrite (Negative) Urine Bilirubin (Negative) Urine Urobilinogen (<2.0) mg/dL Ur Leukocyte Esterase (Negative) Urine RBC (0-5) /hpf Urine WBC (0-5) /hpf Urine Bacteria (None) /hpf Urine Yeast (Budding) (None) /hpf Stool Occult Blood (Negative) 07/01/22 07/01/22 Range/Units 18:28 20:08 WBC (3.8-10.6) k/uL RBC (4.30-5.90) m/uL Hgb (13.0-17.5) gm/dL Hct (39.0-53.0) % MCV (80.0-100.0) fL MCH (25.0-35.0) pg MCHC (31.0-37.0) g/dL RDW (11.5-15.5) % Plt Count (150-450) k/uL MPV Neutrophils % (Manual) % Band Neuts % (Manual) % Lymphocytes % (Manual) % Monocytes % (Manual) % Basophils % (Manual) % Neutrophils # (Manual) (1.3-7.7) k/uL Lymphocytes # (Manual) (1.0-4.8) k/uL Monocytes # (Manual) (0-1.0) k/uL Basophils # (Manual) (0-0.2) k/uL Nucleated RBCs (0-0) /100 WBC Manual Slide Review Hypochromasia Poikilocytosis (manual Anisocytosis Crenated Cell PT (9.0-12.0) sec INR (<1.2) APTT (22.0-30.0) sec Sodium (137-145) mmol/L Potassium (3.5-5.1) mmol/L Chloride (98-107) mmol/L Carbon Dioxide (22-30) mmol/L Anion Gap mmol/L BUN (9-20) mg/dL Creatinine (0.66-1.25) mg/dL Est GFR (CKD-EPI)AfAm (>60 ml/min/1.73 sqM) Est GFR (CKD-EPI)NonAf (>60 ml/min/1.73 sqM) Glucose (74-99) mg/dL Plasma Lactic Acid Arthur (0.7-2.0) mmol/L Calcium (8.4-10.2) mg/dL Magnesium (1.6-2.3) mg/dL Total Bilirubin (0.2-1.3) mg/dL AST (17-59) U/L ALT (4-49) U/L Alkaline Phosphatase (38-126) U/L Troponin I (0.000-0.034) ng/mL NT-Pro-B Natriuret Pep pg/mL Total Protein (6.3-8.2) g/dL Albumin (3.5-5.0) g/dL Urine Color Yellow Urine Appearance Clear (Clear) Urine pH 5.0 (5.0-8.0) Ur Specific [place] 1.032 (1.001-1.035) Urine Protein Trace H (Negative) Urine Glucose (UA) 4+ H (Negative) Urine Ketones Negative (Negative) Urine Blood Negative (Negative) Urine Nitrite Negative (Negative) Urine Bilirubin Negative (Negative) Urine Urobilinogen <2.0 (<2.0) mg/dL Ur Leukocyte Esterase Moderate H (Negative) Urine RBC 3 (0-5) /hpf Urine WBC 7 H (0-5) /hpf Urine Bacteria Rare H (None) /hpf Urine Yeast (Budding) Occasional H (None) /hpf Stool Occult Blood Positive (Negative) - EKG Data EKG shows normal: sinus rhythm Rate: normal EKG Comments: EKG obtained at 1731 shows sinus rhythm with occasional supraventricular premature complexes and probable inferior myocardial infarction of ind eterminate. Ventricular rate 68, WY interval 172, QRS duration 95, QT/QTc 425/442. Interpretation abnormal ECG. - Radiology Data Radiology results: report reviewed, image reviewed Two-view chest x-ray was obtained. Report was reviewed in its entirety. Impre ssion per Dr. Fam has right basilar atelectasis. No focal airspace consolidation. Bilateral calcified pleural plaques. KUB x-ray was obtained. Report was reviewed in its entirety. Impression per Dr. Cristel is moderate stool burden without evidence for bowel obstruction. CT of the abdomen and pelvis with contrast was obtained. Report was reviewed in its entirety. Impression per Dr. Bhatti is multiple irregular hypodense liver lesions are larger than previous computed tomography scan and could be metastatic disease. Multiple abscess also possible. Enlarged lymph nodes at the swetha hepatis appearing new compared to previous exam. There is some mild rectal physical impaction. Atherosclerotic vascular disease. Mild colonic diverticulosis. Bilateral multiple renal cortical cysts. No suspicious renal mass. Mild interstitial infiltrates and atelectasis at the lung bases. Lung abnormality appears new compared to old exam. Disposition Clinical Impression: Generalized weakness, Occult blood positive stool, Hypotension Disposition: ADMITTED IP TO THIS HOSP Condition: Serious Referrals: Chely Huntley MD [Primary Care Provider] - 1-2 days Decision Date: 07/01/22 Decision Time: 22:11
[2022-07-01 20:36] LABS: Appearance,Urine Clear (Clear); Bacteria,Urine Rare /hpf; Bilirubin,Urine Negative (Negative); Blood,Urine Negative (Negative); Budding Yeast,Urine Occasional /hpf; Color,Urine Yellow; Glucose,Urine (UA) 4+ (Negative); Ketones,Urine Negative (Negative); Leukocyte Esterase,Urine Moderate (Negative); Nitrite,Urine Negative (Negative); Protein,Urine Trace (Negative); RBC,Urine 3 /hpf (0-5); Specific Gravity,Urine 1.032 (1.001-1.035); Urobilinogen,Urine <2.0 mg/dL (<2.0); WBC,Urine 7 /hpf (0-5)
--- NOTE | 2022-07-01 21:12 | XR ---
EXAMINATION TYPE: XR KUB DATE OF EXAM: 07/01/2022 8:43 PM INDICATION: Patient age:Male; 82 years old; Reason for study: constipation; PHH. COMPARISON: CT abdomen pelvis 05/30/2022 TECHNIQUE: Frontal radiographic views of the abdomen was obtained. FINDINGS: The bowel gas pattern is nonspecific without dilated loops of small or large bowel. Moderat e stool burden is seen throughout the colonic bowel, air and mottled stool are seen within the distal rectum. There is no evidence for pneumoperitoneum. Calcifications project over the left upper quadr ant consistent with calcified cyst seen on prior CT from February 2022. Multiple phleboliths are seen with in the pelvis. Degenerative changes of the lumbar spine and bilateral hip joints.The osseous structur es are intact. IMPRESSION: Moderate stool burden without evidence for bowel obstruction.
[2022-07-01] MEDS ORDERED: HYDROmorphone 0.5 MG/0.5 ML SYRINGE IVP STA (21:21)
--- NOTE | 2022-07-01 23:57 | CT ---
EXAMINATION TYPE: CT abdomen pelvis w con DATE OF EXAM: 07/01/2022 COMPARISON: 12/06/2021 HISTORY: abdominal/rectal pain CT DLP: 1246.3 mGycm Automated exposure control for dose reduction was used. CONTRAST: Performed with IV Contrast, patient injected with 80 mL of Isovue 300. Images obtained from the diaphragm to the floor the pelvis with the IV contrast. There is some infiltrate and atelectasis at both lung bases. No pleural effusion. Heart is top normal in size. No pericardial effusion. Spleen is intact. The stomach is intact and there is no pancreatic mass. There is a 1.5 cm calcificat ion at the gastroesophageal junction. Liver shows multiple irregular low-attenuation areas which are also present on previous exam and appear slightly larger on today's exam. There is also some apparent hepatic enlarged lymph nodes near the swetha hepatis that measure up to 2.5 cm. These appear new comp ared to old exam. The bile ducts are not dilated. Gallbladder appears absent. Spleen measures 13 cm. There is no adrenal mass. Kidneys show multiple cortical cysts that measure up to 7 cm. 3 large cyst in the lower pole left kidney shows some calcification in the wall. There is no hydronephrosis. No ev idence of a solid renal mass. No retroperitoneal adenopathy. Abdominal aorta is atheromatous. The laurent dder distends smoothly. No inguinal hernia. Rectum measures 6.8 cm with fecal material. There is no m esenteric edema. No ascites or free air. There are some large bowel diverticula without diverticuliti s. No evidence of a bowel obstruction. The lumbar vertebrae appear intact. No compression fracture. B ferdinand pelvis is intact. Hip joints are intact. IMPRESSION: Multiple irregular hypodense liver lesions are larger than previous CT scan and could be metastatic d isease. Multiple abscess also possible. Enlarged lymph nodes at the swetha hepatis appear new compared to previous exam. There is some mild rectal fecal impaction. Atherosclerotic vascular disease. Mild colonic diverticulosis. Bilateral multiple renal cortical cysts. No suspicious renal mass. Mild interstitial infiltrates and atelectasis at the lung bases. Lung abnormality appears new compare d to old exam.
[2022-07-02] MEDS ORDERED: NALOXONE 0.4 MG/ML 1 ML VIAL IV PRN ×2 (02:23→04:25)
[2022-07-02] MEDS ORDERED: HYDROmorphone 0.5 MG/0.5 ML SYRINGE IVP PRN ×2 (02:23→08:20)
[2022-07-02] MEDS ORDERED: LACTULOSE 20 GM/30 ML CUP PO PRN (02:23)
[2022-07-02] MEDS ORDERED: ONDANSETRON 4 MG/2 ML VIAL IVP PRN (02:23)
[2022-07-02] MEDS ORDERED: IBUPROFEN 400 MG TAB PO PRN (02:23)
--- NOTE | 2022-07-02 05:13 | P.HPIM ---
History of Present Illness H&P Date: 07/02/22 Chief Complaint: Hypotension, weakness 82-year-old male with gastric cancer not tolerating chemotherapy at this time, diabetes mellitus, Patient was discharged recently from our facility where he was evaluated for weakness and falling patient was placed at [facility] for rehab. He's been there for about 1 week reports no episodes of falling as he is not allowed to walk around without supervision and assistive device. However today he was feeling extremely weak and tired and staff found that he was hypotensive for which she was sent to the hospital for evaluation he otherwise denies any dizziness lightheadedness denies any chest pain palpitation or trouble breathing denies any abdominal pain. He does report some painful defecation as he feels some rectal pain when he tries to defecate. He denies any GI bleeding however staff at [facility] did report some possible blood in his stool. Otherwise patient denies any diarrhea or changes in his urinary habits he denies any chest pain or trouble breathing denies any fevers or chills denies any nausea or vomiting. In the ED digital rectal exam was unremarkable fecal occult blood test was positive hemoglobin seems to be stable. Other blood work did show some acute kidney injury CT imaging of the abdomen and pelvis showed no/worsening lesions suggestive of metastatic disease to the liver and possibly due to the length Otherwise patient denies any tobacco smoking illicit drugs or alcohol Upon presentation to the ED patient was found to be hypotensive however that has improved with IV fluid hydration( Review of Systems Pertinent positives as noted in HPI. All other systems were reviewed and are negative Past Medical History Past Medical History: Coronary Artery Disease (CAD), Cancer, Diabetes Mellitus, GERD/Reflux, Hearing Disorder / Deafness, Hyperlipidemia, Hypertension, Prostate Disorder, Skin Disorder Additional Past Medical History / Comment(s): Rash on face, itchy. stomach cancer History of Any Multi-Drug Resistant Organisms: None Reported Past Surgical History: Cholecystectomy, Coronary Bypass/CABG, Heart Catheterization, Heart Catheterization With Stent Additional Past Surgical History / Comment(s): Quad CABG 1987. Cyst exc Rt abd, behind liver. Past Anesthesia/Blood Transfusion Reactions: No Reported Reaction Date of Last Stent Placement:: 1989 Past Psychological History: No Psychological Hx Reported Smoking Status: Former smoker Past Alcohol Use History: Occasional Past Drug Use History: None Reported - Past Family History Mother Family Medical History: Cancer Additional Family Medical History / Comment(s): [place] Lymphoma Medications and Allergies Home Medications Medication Instructions Recorded Confirmed Type Atorvastatin [Lipitor] 40 mg PO HS@209902/09/21 07/01/22 History Dapagliflozin Propanediol [Farxiga] 10 mg PO DAILY@0800 02/09/21 07/01/22 History Ezetimibe [Zetia] 10 mg PO DAILY@0800 02/09/21 07/01/22 History Finasteride [Proscar] 5 mg PO HS@209902/09/21 07/01/22 History Isosorbide Dinitrate 30 mg PO BID@0800,1700 02/09/21 07/01/22 History Niacin 500 mg PO DAILY@0802/09/21 07/01/22 History Nitroglycerin [Nitroglycerin 1 spray TRANSLINGU Q5M PRN 02/09/21 07/01/22 History 400MCG [place]] Terazosin HCl 5 mg PO HS@209902/09/21 07/01/22 History atenoloL [Tenormin] 50 mg PO DAILY@0802/09/21 07/01/22 History glipiZIDE [Glucotrol] 10 mg PO DAILY@0800 02/09/21 07/01/22 History metFORMIN HCL [Glucophage] 500 mg PO BID@0800,1700 02/09/21 07/01/22 History Insulin Glargine [Lantus Vial] 5 unit SQ HS@209909/02/21 07/01/22 History Multivit-Min/FA/Lycopen/Lutein 1 tab PO DAILY@0800 09/02/21 07/01/22 History [Centrum Silver Tablet] Naproxen [Naprosyn] 500 mg PO DAILY@0806/21/22 07/01/22 History Omeprazole 40 mg PO BID@0800,1700 06/21/22 07/01/22 History traMADol HCL 50 mg PO Q6H PRN 06/21/22 07/01/22 History sitaGLIPtin [Januvia] 100 mg PO DAILY@0800 06/22/22 07/01/22 History Fish Oil/Dha/Epa [Fish Oil 1,200 1 cap PO DAILY@169907/01/22 07/01/22 History mg Fish Oil] Gabapentin [Neurontin] 300 mg PO TID@0800,1400,2099 07/01/22 07/01/22 History Glucerna Shake 1 can PO TID@0800,1200,1700 07/01/22 07/01/22 History INSULIN ASPART (NovoLOG) [NovoLOG See Protocol SQ ACHS 07/01/22 07/01/22 History (formulary)] Magnesium Hydroxide [Milk of 7,200 mg PO Q48H PRN 07/01/22 07/01/22 History Magnesia Concentrate] Na Phos,M-B/Na Phos,Di-Ba [Fleet 133 ml RECTAL DAILY PRN 07/01/22 07/01/22 History Adult] Ondansetron [Zofran] 4 mg PO Q8HR PRN 07/01/22 07/01/22 History bisacodyL [Dulcolax] 10 mg RECTAL DAILY PRN 07/01/22 07/01/22 History Allergies Allergy/AdvReac Type Severity Reaction Status Date / Time canagliflozin [From Invokana] Allergy Rash/Hives, Verified 07/01/22 20:14 Yeast infection Physical Exam Vitals: Vital Signs Temp Pulse Resp BP Pulse Ox 07/02/22 04:36 74 15 101/67 99 07/01/22 23:32 64 15 101/68 99 07/01/22 19:30 77 16 92/58 99 07/01/22 19:00 70 16 87/59 99 07/01/22 17:22 98 F 70 18 74/47 96 Intake and Output 07/01/22 07/01/22 07/02/22 14:59 22:59 06:59 Other: Weight 68.039 kg Constitutional: No acute distress, conversant, pleasant Eyes: Anicteric sclerae, moist conjunctiva, Pupils equal round reactive to light ENMT: NC/AT Oropharynx clear, no erythema, or exudates Neck: Supple, no masses, or JVD No carotid bruits No thyromegaly Lungs: Clear to auscultation Clear to percussion Normal respiratory effort, no accessory muscle use Cardiovascular: Heart regular in rate and rhythm, No murmurs, gallops, or rubs No peripheral edema Abdominal: Soft Nontender, no guarding, rebound or rigidity Abdomen moving with respiration Normoactive bowel sounds No hepatomegaly, No splenomegaly No palpable mass No abdominal wall hernia noted Digital rectal exam unremarkable no palpable masses or fissures. No impacted stool in the rectum Skin: Dry skin otherwise Normal temperature, tone, texture, turgor Extremities: No digital cyanosis No clubbing Pedal pulses intact and symmetrical Radial pulses intact and symmetrical No calf tenderness Psychiatric: Alert and oriented to person, place and time Appropriate affect fair judgement Neuro Muscles Strength 3/5 in bilateral lower extremities, 4 out of 5 in bilateral upper extremities Sensation to light touch grossly present throughout Cranial nerves II-XII grossly intact Results CBC & Chem 7: 07/01/22 18:28 07/01/22 18:28 Labs: Abnormal Lab Results - Last 24 Hours (Table) 07/01/22 07/01/22 07/01/22 Range/Units 18:28 18:28 18:28 WBC 3.7 L (3.8-10.6) k/uL RBC 4.19 L (4.30-5.90) m/uL Hgb 11.9 L (13.0-17.5) gm/dL Hct 38.2 L (39.0-53.0) % RDW 19.8 H (11.5-15.5) % Lymphocytes # (Manual) 0.19 L (1.0-4.8) k/uL Sodium 135 L (137-145) mmol/L Carbon Dioxide 20 L (22-30) mmol/L BUN 35 H (9-20) mg/dL Creatinine 1.29 H (0.66-1.25) mg/dL Glucose 142 H (74-99) mg/dL Calcium 7.6 L (8.4-10.2) mg/dL Alkaline Phosphatase 158 H (38-126) U/L Total Protein 5.7 L (6.3-8.2) g/dL Albumin 2.6 L (3.5-5.0) g/dL Urine Protein Trace H (Negative) Urine Glucose (UA) 4+ H (Negative) Ur Leukocyte Esterase Moderate H (Negative) Urine WBC 7 H (0-5) /hpf Urine Bacteria Rare H (None) /hpf Urine Yeast (Budding) Occasional H (None) /hpf Assessment and Plan Assessment: Hypotension Generalized weakness Rule out GI bleeding Acute kidney injury Gastric cancer with metastases Plan Supportive care Aggressive IV fluid hydration normal saline Oncology and surgery consult Monitor hemoglobin Monitor renal function Monitor urine output Pain control CT imaging of the abdomen pelvis reviewed hypodense lesions on the liver suspected for metastasis 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
[2022-07-02] MEDS ORDERED: PANTOPRAZOLE 40 MG TABLET PO SCH (08:00)
[2022-07-02] MEDS ORDERED: FAMOTIDINE 20 MG TAB PO SCH (09:00)
--- NOTE | 2022-07-02 10:04 | P.GSCN ---
History of Present Illness Consult date: 07/02/22 Reason for Consult: Lower GI bleed History of present illness: 82-year-old male admitted with weakness, hypotension, and possible rectal bleeding. Patient had Y positive stools in the ER on digital rectal examination yesterday evening. He had a CAT scan performed which showed some excess feces in the rectum. He was having some rectal spasming. He has had 2 uncontrolled bowel movements however since he came to the floor. According to the nurses this is brown in color. No nausea or vomiting currently but did have an episode of vomiting a few days ago. Last colonoscopy 10 years ago. Patient currently being treated for metastatic gastric cancer. He was at [facility] trying to gain back some strength before reinitiating palliative chemotherapy it sounds like. Patient had CAT scan performed yesterday also suggesting either liver metastasis or liver abscesses area patient has a history of liver abscess last year. Review of Systems The patient denies any acute changes in vision or hearing, no dysphagia or odynophagia, no chest pain or shortness of breath, no dysuria or hematuria, no headache, no runny nose, no melena, no unexplained weight loss Past Medical History Past Medical History: Coronary Artery Disease (CAD), Cancer, Diabetes Mellitus, GERD/Reflux, Hearing Disorder / Deafness, Hyperlipidemia, Hypertension, Prostate Disorder, Skin Disorder Additional Past Medical History / Comment(s): Rash on face, itchy. stomach cancer History of Any Multi-Drug Resistant Organisms: None Reported Past Surgical History: Cholecystectomy, Coronary Bypass/CABG, Heart Catheterization, Heart Catheterization With Stent Additional Past Surgical History / Comment(s): Quad CABG 1987. Cyst exc Rt abd, behind liver. Past Anesthesia/Blood Transfusion Reactions: No Reported Reaction Date of Last Stent Placement:: 1989 Past Psychological History: No Psychological Hx Reported Smoking Status: Former smoker Past Alcohol Use History: Occasional Past Drug Use History: None Reported - Past Family History Mother Family Medical History: Cancer Additional Family Medical History / Comment(s): [place] Lymphoma Medications and Allergies Home Medications Medication Instructions Recorded Confirmed Type Atorvastatin [Lipitor] 40 mg PO HS@2100 02/09/21 07/01/22 History Dapagliflozin Propanediol [Farxiga] 10 mg PO DAILY@0800 02/09/21 07/01/22 History Ezetimibe [Zetia] 10 mg PO DAILY@0802/09/21 07/01/22 History Finasteride [Proscar] 5 mg PO HS@209902/09/21 07/01/22 History Isosorbide Dinitrate 30 mg PO BID@0800,1700 02/09/21 07/01/22 History Niacin 500 mg PO DAILY@0800 02/09/21 07/01/22 History Nitroglycerin [Nitroglycerin 1 spray TRANSLINGU Q5M PRN 02/09/21 07/01/22 History 400MCG [place]] Terazosin HCl 5 mg PO HS@209902/09/21 07/01/22 History atenoloL [Tenormin] 50 mg PO DAILY@0800 02/09/21 07/01/22 History glipiZIDE [Glucotrol] 10 mg PO DAILY@0800 02/09/21 07/01/22 History metFORMIN HCL [Glucophage] 500 mg PO BID@0800,1700 02/09/21 07/01/22 History Insulin Glargine [Lantus Vial] 5 unit SQ HS@209909/02/21 07/01/22 History Multivit-Min/FA/Lycopen/Lutein 1 tab PO DAILY@0800 09/02/21 07/01/22 History [Centrum Silver Tablet] Naproxen [Naprosyn] 500 mg PO DAILY@0806/21/22 07/01/22 History Omeprazole 40 mg PO BID@0800,1700 06/21/22 07/01/22 History traMADol HCL 50 mg PO Q6H PRN 06/21/22 07/01/22 History sitaGLIPtin [Januvia] 100 mg PO DAILY@0800 06/22/22 07/01/22 History Fish Oil/Dha/Epa [Fish Oil 1,200 1 cap PO DAILY@169907/01/22 07/01/22 History mg Fish Oil] Gabapentin [Neurontin] 300 mg PO TID@0800,1400,209907/01/22 07/01/22 History Glucerna Shake 1 can PO TID@0800,1200,1700 07/01/22 07/01/22 History INSULIN ASPART (NovoLOG) [NovoLOG See Protocol SQ ACHS 07/01/22 07/01/22 History (formulary)] Magnesium Hydroxide [Milk of 7,200 mg PO Q48H PRN 07/01/22 07/01/22 History Magnesia Concentrate] Na Phos,M-B/Na Phos,Di-Ba [Fleet 133 ml RECTAL DAILY PRN 07/01/22 07/01/22 History Adult] Ondansetron [Zofran] 4 mg PO Q8HR PRN 07/01/22 07/01/22 History bisacodyL [Dulcolax] 10 mg RECTAL DAILY PRN 07/01/22 07/01/22 History Allergies Allergy/AdvReac Type Severity Reaction Status Date / Time canagliflozin [From Invokana] Allergy Rash/Hives, Verified 07/01/22 20:14 Yeast infection Surgical - Exam Vital Signs Temp Pulse Resp BP Pulse Ox 98 F 70 18 74/47 96 07/01/22 17:22 07/01/22 17:22 07/01/22 17:22 07/01/22 17:22 07/01/22 17:22 Physical exam: General: Well-developed, well-nourished HEENT: Normocephalic, sclerae nonicteric Abdomen: Nontender, nondistended Extremities: No edema Neuro: Alert and oriented Results - Labs 07/01/22 18:28 07/01/22 18:28 Abnormal Lab Results - Last 24 Hours (Table) 07/01/22 07/01/22 07/01/22 Range/Units 18:28 18:28 18:28 WBC 3.7 L (3.8-10.6) k/uL RBC 4.19 L (4.30-5.90) m/uL Hgb 11.9 L (13.0-17.5) gm/dL Hct 38.2 L (39.0-53.0) % RDW 19.8 H (11.5-15.5) % Lymphocytes # (Manual) 0.19 L (1.0-4.8) k/uL Sodium 135 L (137-145) mmol/L Carbon Dioxide 20 L (22-30) mmol/L BUN 35 H (9-20) mg/dL Creatinine 1.29 H (0.66-1.25) mg/dL Glucose 142 H (74-99) mg/dL Calcium 7.6 L (8.4-10.2) mg/dL Alkaline Phosphatase 158 H (38-126) U/L Total Protein 5.7 L (6.3-8.2) g/dL Albumin 2.6 L (3.5-5.0) g/dL Urine Protein Trace H (Negative) Urine Glucose (UA) 4+ H (Negative) Ur Leukocyte Esterase Moderate H (Negative) Urine WBC 7 H (0-5) /hpf Urine Bacteria Rare H (None) /hpf Urine Yeast (Budding) Occasional H (None) /hpf Diabetes panel 07/01/22 Range/Units 18:28 Sodium 135 L (137-145) mmol/L Potassium 4.1 (3.5-5.1) mmol/L Chloride 105 (98-107) mmol/L Carbon Dioxide 20 L (22-30) mmol/L BUN 35 H (9-20) mg/dL Creatinine 1.29 H (0.66-1.25) mg/dL Glucose 142 H (74-99) mg/dL Calcium 7.6 L (8.4-10.2) mg/dL AST 44 (17-59) U/L ALT 21 (4-49) U/L Alkaline Phosphatase 158 H (38-126) U/L Total Protein 5.7 L (6.3-8.2) g/dL Albumin 2.6 L (3.5-5.0) g/dL Calcium panel 07/01/22 Range/Units 18:28 Calcium 7.6 L (8.4-10.2) mg/dL Albumin 2.6 L (3.5-5.0) g/dL Pituitary panel 07/01/22 Range/Units 18:28 Sodium 135 L (137-145) mmol/L Potassium 4.1 (3.5-5.1) mmol/L Chloride 105 (98-107) mmol/L Carbon Dioxide 20 L (22-30) mmol/L BUN 35 H (9-20) mg/dL Creatinine 1.29 H (0.66-1.25) mg/dL Glucose 142 H (74-99) mg/dL Calcium 7.6 L (8.4-10.2) mg/dL Adrenal panel 07/01/22 Range/Units 18:28 Sodium 135 L (137-145) mmol/L Potassium 4.1 (3.5-5.1) mmol/L Chloride 105 (98-107) mmol/L Carbon Dioxide 20 L (22-30) mmol/L BUN 35 H (9-20) mg/dL Creatinine 1.29 H (0.66-1.25) mg/dL Glucose 142 H (74-99) mg/dL Calcium 7.6 L (8.4-10.2) mg/dL Total Bilirubin 0.7 (0.2-1.3) mg/dL AST 44 (17-59) U/L ALT 21 (4-49) U/L Alkaline Phosphatase 158 H (38-126) U/L Total Protein 5.7 L (6.3-8.2) g/dL Albumin 2.6 L (3.5-5.0) g/dL Assessment and Plan (1) Lower GI bleed Narrative/Plan: 82-year-old male with complicated medical history. We were consulted for lower GI bleed. Patient was admitted with hypotension and fatigue. CAT scan results noted. Await oncology evaluation. No plans for endoscopy at this time. Will follow. Current Visit: Yes Status: Acute Code(s): K92.2 - GASTROINTESTINAL HEMORRHAGE, UNSPECIFIED SNOMED Code(s): 59631873
[2022-07-02] MEDS: GABAPENTIN 300 MG CAP PO SCH ×3 (11:23→21:36)
[2022-07-02] MEDS: EZETIMIBE 10 MG TAB PO SCH (11:24)
[2022-07-02] MEDS: ISOSORBIDE DINITRATE 10 MG TAB PO SCH ×2 (11:25→17:23)
[2022-07-02] MEDS: atenoloL 50 MG TAB PO SCH (11:26)
[2022-07-02] MEDS: NIACIN TR 500 MG CAPLET PO SCH (11:26)
[2022-07-02] MEDS: INSULIN ASPART (NovoLOG) 100 UNIT/ML VIAL SQ SCH ×4 (11:30→21:36)
[2022-07-02] MEDS: SENNOSIDES 8.6 MG TAB PO SCH (11:39)
--- NOTE | 2022-07-02 13:42 | P.PN ---
Subjective Progress Note Date: 07/02/22 Principal diagnosis: hypotension Hospital course: 82-year-old male with past medical history of gastric cancer with metastatic disease, CAD, insulin-dependent diabetes, GERD, hypertension, dyslipidemia, and BPH presenting from rehab facility for hypotension, and hematochezia. Patient was recently discharged from our facility when he was evaluated for weakness and falls. Patient has been complaining of some painful defecation since being at the facility. On this presentation, he has acute kidney injury, and hypotension. His blood pressure improved with IV fluids. Oncology and surgery consulted, pending recommendations. Subjective: Patient seen and examined at bedside. Patient denies any further constipation. Claims that he had 2 bowel movements while in the ED. He denies any chest pain, shortness of breath, lightheadedness, palpitations, abdominal pain, nausea, or vomiting. General: nontoxic, no distress, appears at stated age, cachectic Derm: warm, dry Head: atraumatic, normocephalic, symmetric Eyes: EOMI, no lid lag, anicteric sclera Mouth: no lip lesion, mucus membranes moist Cardiovascular: S1S2 reg, soft systolic murmur in the parasternal region Lungs: CTA bilateral, no rhonchi, no rales , no accessory muscle use Abdominal: soft, nontender to palpation, no guarding, no appreciable organomegaly Ext: no gross muscle atrophy, no edema, no contractures Neuro: CN II-XI grossly intact, no focal neuro deficits Psych: Alert, oriented, appropriate affect Assessment and plan: Acute kidney injury Hypotension Generalized weakness -Continue IV fluid -Encourage oral intake -Monitor urine output and renal function GI bleed Gastric cancer with metastatic disease -CT abdomen and pelvis reviewed - findings concerning for metastatic liver disease, multiple abscess also possible -Surgery and oncology consulted, pending recommendations -PPI twice a day -no significant drop in hemoglobin compared to prior -Monitor H&H Fecal impaction, seen on CT -will start on bowel regimen Chronic conditions: Diabetes- on sliding scale insulin Hyperlipidemia- continue statin CAD Hypertension -resume home medications BPH -restart elements DVT prophylaxis: Mechanical Full code Disposition: Likely back to rehab after evaluated by surgery and oncology Objective - Vital Signs Vital signs: Vital Signs Temp 98 F 07/01/22 17:22 Pulse 66 07/02/22 08:03 Resp 18 07/02/22 08:03 BP 113/69 07/02/22 08:03 Pulse Ox 97 07/02/22 08:03 FiO2 Intake & Output 07/01/22 07/02/22 07/02/22 18:59 06:59 18:59 Weight 68.039 kg - Labs CBC & Chem 7: 07/01/22 18:28 07/01/22 18:28 Labs: Abnormal Lab Results - Last 24 Hours (Table) 07/01/22 07/01/22 07/01/22 Range/Units 18:28 18:28 18:28 WBC 3.7 L (3.8-10.6) k/uL RBC 4.19 L (4.30-5.90) m/uL Hgb 11.9 L (13.0-17.5) gm/dL Hct 38.2 L (39.0-53.0) % RDW 19.8 H (11.5-15.5) % Lymphocytes # (Manual) 0.19 L (1.0-4.8) k/uL Sodium 135 L (137-145) mmol/L Carbon Dioxide 20 L (22-30) mmol/L BUN 35 H (9-20) mg/dL Creatinine 1.29 H (0.66-1.25) mg/dL Glucose 142 H (74-99) mg/dL Calcium 7.6 L (8.4-10.2) mg/dL Alkaline Phosphatase 158 H (38-126) U/L Total Protein 5.7 L (6.3-8.2) g/dL Albumin 2.6 L (3.5-5.0) g/dL Urine Protein Trace H (Negative) Urine Glucose (UA) 4+ H (Negative) Ur Leukocyte Esterase Moderate H (Negative) Urine WBC 7 H (0-5) /hpf Urine Bacteria Rare H (None) /hpf Urine Yeast (Budding) Occasional H (None) /hpf
[2022-07-02] MEDS: SODIUM CHLORIDE 0.9% 1,000 ML IV SCH ×2 (15:21→15:32)
[2022-07-02 17:15] LABS: Glucose,Whole Blood 190 mg/dL (70-110)
[2022-07-02] MEDS: PANTOPRAZOLE 40 MG TABLET PO SCH (17:23)
[2022-07-02 20:45] LABS: Glucose,Whole Blood 192 mg/dL (70-110)
[2022-07-02] MEDS: DOXAZOSIN 4 MG TAB PO SCH (21:35)
[2022-07-02] MEDS: ATORVASTATIN 40 MG TAB PO SCH (21:36)
[2022-07-02] MEDS: FINASTERIDE 5 MG TAB PO SCH (21:36)
[2022-07-03] MEDS: SODIUM CHLORIDE 0.9% 1,000 ML IV SCH ×2 (06:21→11:07)
[2022-07-03 06:55] LABS: Glucose,Whole Blood 112 mg/dL (70-110)
[2022-07-03] MEDS: INSULIN ASPART (NovoLOG) 100 UNIT/ML VIAL SQ SCH ×4 (07:44→20:29)
[2022-07-03] MEDS: EZETIMIBE 10 MG TAB PO SCH (07:56)
[2022-07-03] MEDS: PANTOPRAZOLE 40 MG TABLET PO SCH ×2 (07:56→17:54)
[2022-07-03] MEDS: NIACIN TR 500 MG CAPLET PO SCH (07:57)
[2022-07-03] MEDS: SENNOSIDES 8.6 MG TAB PO SCH (07:57)
[2022-07-03] MEDS: GABAPENTIN 300 MG CAP PO SCH ×3 (07:57→20:33)
[2022-07-03] MEDS ORDERED: ISOSORBIDE DINITRATE 20 MG TAB PO SCH (08:00)
[2022-07-03 09:13] LABS: Basophils # (A) 0.01 X 10*3/uL (0.00-0.10); Basophils % (A) 0.2 %; Eosinophils # (A) 0.02 X 10*3/uL (0.04-0.35); Eosinophils % (A) 0.5 %; HGB 11.5 g/dL (13.0-17.0); Immature Grans, Automated 0.2 %; Lymphocytes # (A) 0.63 X 10*3/uL (0.90-5.00); Lymphocytes % (A) 15.2 %; MCH 27.4 pg (27.0-32.0); MCHC 31.1 g/dL (32.0-37.0); MCV 88.3 fL (80.0-97.0); Mean Platelet Volume 10.2 fL (9.5-12.2); Monocytes % (A) 16.9 %; NRBC Per 100 WBC 0 /100 WBCS (0.0-0.0); Neutrophils # (A) 2.77 X 10*3/uL (1.80-7.70); Platelet Count 148 X 10*3/uL (140-440); RBC 4.19 X 10*6/uL (4.40-5.60); RDW 21.5 % (11.5-14.5); WBC 4.14 X 10*3/uL (4.50-10.00)
[2022-07-03 10:20] LABS: African American GFR (CKD) 100.4 (60.0-200.0); BUN/Creat Ratio 27.14 Ratio (12.00-20.00); Calcium 7.9 mg/dL (8.7-10.3); Non-African American GFR(CKD) 86.7 (60.0-200.0); Potassium 4.4 mmol/L (3.5-5.5)
[2022-07-03] MEDS ORDERED: MAGNESIUM CITRATE 296 ML BOTTLE PO ONE (10:28)
--- NOTE | 2022-07-03 10:28 | P.PN ---
Subjective Progress Note Date: 07/03/22 Principal diagnosis: GI bleed Patient did have a formed bowel movement earlier this morning. No blood present. Patient says he still is having some intermittent rectal spasms. Labs improved. Oncology evaluation pending. Objective - Vital Signs Vital signs: Vital Signs Temp 97.8 F 07/03/22 07:00 Pulse 71 07/03/22 08:00 Resp 20 07/03/22 08:00 BP 89/51 07/03/22 07:00 Pulse Ox 98 07/03/22 07:00 FiO2 Intake & Output 07/02/22 07/03/22 07/03/22 18:59 06:59 18:59 Intake Total 118 118 Balance 118 118 Weight 68.039 kg Intake: Oral 118 118 Other: Voiding Method Urinal # Voids 1 2 # Bowel Movements 1 1 - Exam Abdomen: Soft, nontender, nondistended - Labs CBC & Chem 7: 07/03/22 05:53 07/03/22 05:53 Labs: Abnormal Lab Results - Last 24 Hours (Table) 07/02/22 07/02/22 07/03/22 Range/Units 17:14 20:44 05:53 WBC 4.14 L (4.50-10.00) X 10*3/uL RBC 4.19 L (4.40-5.60) X 10*6/uL Hgb 11.5 L (13.0-17.0) g/dL Hct 37.0 L (39.6-50.0) % MCHC 31.1 L (32.0-37.0) g/dL RDW 21.5 H (11.5-14.5) % Lymphocytes # 0.63 L (0.90-5.00) X 10*3/uL Eosinophils # 0.02 L (0.04-0.35) X 10*3/uL Sodium (135-145) mmol/L BUN/Creatinine Ratio (12.00-20.00) Ratio POC Glucose (mg/dL) 190 H 192 H (70-110) mg/dL Calcium (8.7-10.3) mg/dL 07/03/22 07/03/22 Range/Units 05:53 06:53 WBC (4.50-10.00) X 10*3/uL RBC (4.40-5.60) X 10*6/uL Hgb (13.0-17.0) g/dL Hct (39.6-50.0) % MCHC (32.0-37.0) g/dL RDW (11.5-14.5) % Lymphocytes # (0.90-5.00) X 10*3/uL Eosinophils # (0.04-0.35) X 10*3/uL Sodium 133 L (135-145) mmol/L BUN/Creatinine Ratio 27.14 H (12.00-20.00) Ratio POC Glucose (mg/dL) 112 H (70-110) mg/dL Calcium 7.9 L (8.7-10.3) mg/dL Microbiology - Last 24 Hours (Table) 07/01/22 18:28 Blood Culture - Preliminary Blood No Growth after 24 hours 07/01/22 18:28 Blood Culture - Preliminary Blood No Growth after 24 hours Assessment and Plan (1) Lower GI bleed Narrative/Plan: Patient without active bleeding at this time. Patient with multiple comorbidities including abnormalities identified in the liver that may represent metastasis or abscess. Await oncology evaluation. Will follow. Current Visit: Yes Status: Acute Code(s): K92.2 - GASTROINTESTINAL HEMORRHAGE, UNSPECIFIED SNOMED Code(s): 87475365
[2022-07-03] MEDS: atenoloL 50 MG TAB PO SCH (11:07)
--- NOTE | 2022-07-03 11:16 | P.PN ---
Subjective Progress Note Date: 07/03/22 Principal diagnosis: hypotension Hospital course: 82-year-old male with past medical history of gastric cancer with metastatic disease, CAD, insulin-dependent diabetes, GERD, hypertension, dyslipidemia, and BPH presenting from rehab facility for hypotension, and hematochezia. Patient was recently discharged from our facility when he was evaluated for weakness and falls. Patient has been complaining of some painful defecation since being at the facility. On this presentation, he has acute kidney injury, and hypotension. His blood pressure improved with IV fluids. Oncology and surgery consulted, pending recommendations. Subjective: Patient seen and examined at bedside. Patient denies any further constipation. He has had a few bowel movements since being hospitalized. He denies any chest pain, shortness of breath, lightheadedness, palpitations, abdominal pain, nausea, or vomiting. General: nontoxic, no distress, appears at stated age, cachectic Derm: warm, dry Head: atraumatic, normocephalic, symmetric Eyes: EOMI, no lid lag, anicteric sclera Mouth: no lip lesion, mucus membranes moist Cardiovascular: S1S2 reg, soft systolic murmur in the parasternal region Lungs: CTA bilateral, no rhonchi, no rales , no accessory muscle use Abdominal: soft, nontender to palpation, no guarding, no appreciable organomegaly Ext: no gross muscle atrophy, no edema, no contractures Neuro: CN II-XI grossly intact, no focal neuro deficits Psych: Alert, oriented, appropriate affect Assessment and plan: Asymptomatic Hypotension Acute kidney injury - resolved -Encourage oral intake -Monitor urine output - discontinued isosorbide - will keep atenolol for now due to risk of rebound tachycardia, consider discontinuing slowly as outpatient GI bleed Gastric cancer with metastatic disease -CT abdomen and pelvis reviewed - findings concerning for metastatic liver disease, multiple abscess also possible -Surgery - no acute interventions -Oncology recs pending -PPI twice a day -no significant drop in hemoglobin compared to prior -Monitor H&H Fecal impaction, seen on CT -now having regular BM Chronic conditions: Diabetes- on sliding scale insulin Hyperlipidemia- continue statin CAD Hypertension -holding isosorbide BPH -restart home meds DVT prophylaxis: Mechanical Full code Disposition: Likely back to rehab tomorrow, if continues to improve. unable to discharge today due to holiday weekend. Objective - Vital Signs Vital signs: Vital Signs Temp 97.8 F 07/03/22 07:00 Pulse 71 07/03/22 08:00 Resp 20 07/03/22 08:00 BP 101/64 07/03/22 10:39 Pulse Ox 98 07/03/22 07:00 FiO2 Intake & Output 07/02/22 07/03/22 07/03/22 18:59 06:59 18:59 Intake Total 118 118 Balance 118 118 Weight 68.039 kg Intake: Oral 118 118 Other: Voiding Method Urinal # Voids 1 2 # Bowel Movements 1 1 - Labs CBC & Chem 7: 07/03/22 05:53 07/03/22 05:53 Labs: Abnormal Lab Results - Last 24 Hours (Table) 07/02/22 07/02/22 07/03/22 Range/Units 17:14 20:44 05:53 WBC 4.14 L (4.50-10.00) X 10*3/uL RBC 4.19 L (4.40-5.60) X 10*6/uL Hgb 11.5 L (13.0-17.0) g/dL Hct 37.0 L (39.6-50.0) % MCHC 31.1 L (32.0-37.0) g/dL RDW 21.5 H (11.5-14.5) % Lymphocytes # 0.63 L (0.90-5.00) X 10*3/uL Eosinophils # 0.02 L (0.04-0.35) X 10*3/uL Sodium (135-145) mmol/L BUN/Creatinine Ratio (12.00-20.00) Ratio POC Glucose (mg/dL) 190 H 192 H (70-110) mg/dL Calcium (8.7-10.3) mg/dL 07/03/22 07/03/22 Range/Units 05:53 06:53 WBC (4.50-10.00) X 10*3/uL RBC (4.40-5.60) X 10*6/uL Hgb (13.0-17.0) g/dL Hct (39.6-50.0) % MCHC (32.0-37.0) g/dL RDW (11.5-14.5) % Lymphocytes # (0.90-5.00) X 10*3/uL Eosinophils # (0.04-0.35) X 10*3/uL Sodium 133 L (135-145) mmol/L BUN/Creatinine Ratio 27.14 H (12.00-20.00) Ratio POC Glucose (mg/dL) 112 H (70-110) mg/dL Calcium 7.9 L (8.7-10.3) mg/dL Microbiology - Last 24 Hours (Table) 07/01/22 18:28 Blood Culture - Preliminary Blood No Growth after 24 hours 07/01/22 18:28 Blood Culture - Preliminary Blood No Growth after 24 hours
[2022-07-03 12:06] LABS: Glucose,Whole Blood 149 mg/dL (70-110)
--- NOTE | 2022-07-03 12:16 | P.CONS ---
History of Present Illness - Reason for Consult Consult date: 07/03/22 Metastatic Gastric Cancer, weakness, low BP - History of Present Illness The pt is an 82 yr old WM, well known to our service. He has known diagnosis sof metastatic gastric cancer. His oncology history is as follows: He presented with liver abscess following lap Kyra surgery > treated with antibiotics > clinically resolved. CT Scan Nov 2021 revealed fundal mass (5.7 cm) > referred to Dr West > EGD > large 8 cm mass, biopsy revealed high-grade Adenocarcinoma. PET Scan: Liver mets and retroperitoneal lymphadenopathy. He had C/O epigastric/RUQ pain, no anorexia or weight loss. The patient is a lifetime non smoker, denied ETOH use Her2 negative, Gardant 360 negative, NGS studies negative, PD-L1 pending He was iniated on Carbo/taxol in late 03/19. He is status post cycle 5 of carbo and taxol. He was admitted last week, and seen in consult on 06/23. he had been progressively weaker and has fallen, neuropathy has also progressed peripherally. Symptoms had become more marked with C 4 onwards. He wad treated supportively, and transferred to ECF, with treatment on hold till PS improved he came back with persistent weakness, and low blood pressure in the ECF. He was noted to be hypotensive ( SBP 74), but improved with hydration. He reportedly had bleeding per rectum. Hgb was stable in his usual range at 11.8. Ct scans showed persistent liver lesions, with possible slight progression. Consult was placed for further evaluation and recommendations Review of Systems Constitutional: Reports fatigue, Reports poor appetite, Reports weakness, Reports weight loss Eyes: denies blurred vision, denies pain Ears: deny: decreased hearing, ear discharge, earache, tinnitus Ears, nose, mouth and throat: Denies headache, Denies sore throat Cardiovascular: Reports decreased exercise tolerance Respiratory: Denies cough Gastrointestinal: Reports as per HPI, Reports BRBPR, Reports constipation Genitourinary: Reports as per HPI, Reports urinary frequency Musculoskeletal: Reports frequent falls, Reports gait dysfunction, Reports muscle weakness Integumentary: Denies pruritus, Denies rash Neurological: Reports gait dysfunction, Reports weakness Psychiatric: Denies anxiety, Denies depression Endocrine: Reports fatigue, Reports weight change Hematologic/Lymphatic: Reports as per HPI Past Medical History Past Medical History: Coronary Artery Disease (CAD), Cancer, Diabetes Mellitus, GERD/Reflux, Hearing Disorder / Deafness, Hyperlipidemia, Hypertension, Prostate Disorder, Skin Disorder Additional Past Medical History / Comment(s): Rash on face, itchy. stomach cancer History of Any Multi-Drug Resistant Organisms: None Reported Past Surgical History: Cholecystectomy, Coronary Bypass/CABG, Heart Catheterization, Heart Catheterization With Stent Additional Past Surgical History / Comment(s): Quad CABG 1987. Cyst exc Rt abd, behind liver. Past Anesthesia/Blood Transfusion Reactions: No Reported Reaction Date of Last Stent Placement:: 1989 Past Psychological History: No Psychological Hx Reported Smoking Status: Former smoker Past Alcohol Use History: Occasional Additional Past Alcohol Use History / Comment(s): Smoked pipe & cigars, quit 1980 Past Drug Use History: None Reported - Past Family History Mother Family Medical History: Cancer Additional Family Medical History / Comment(s): [place] Lymphoma Medications and Allergies Home Medications Medication Instructions Recorded Confirmed Type Atorvastatin [Lipitor] 40 mg PO HS@209902/09/21 07/01/22 History Dapagliflozin Propanediol [Farxiga] 10 mg PO DAILY@0800 02/09/21 07/01/22 History Ezetimibe [Zetia] 10 mg PO DAILY@0800 02/09/21 07/01/22 History Finasteride [Proscar] 5 mg PO HS@209902/09/21 07/01/22 History Isosorbide Dinitrate 30 mg PO BID@0800,1700 02/09/21 07/01/22 History Niacin 500 mg PO DAILY@0800 02/09/21 07/01/22 History Nitroglycerin [Nitroglycerin 1 spray TRANSLINGU Q5M PRN 02/09/21 07/01/22 History 400MCG [place]] Terazosin HCl 5 mg PO HS@209902/09/21 07/01/22 History atenoloL [Tenormin] 50 mg PO DAILY@0800 02/09/21 07/01/22 History glipiZIDE [Glucotrol] 10 mg PO DAILY@0800 02/09/21 07/01/22 History metFORMIN HCL [Glucophage] 500 mg PO BID@0800,1700 02/09/21 07/01/22 History Insulin Glargine [Lantus Vial] 5 unit SQ HS@209909/02/21 07/01/22 History Multivit-Min/FA/Lycopen/Lutein 1 tab PO DAILY@0800 09/02/21 07/01/22 History [Centrum Silver Tablet] Naproxen [Naprosyn] 500 mg PO DAILY@0800 06/21/22 07/01/22 History Omeprazole 40 mg PO BID@0800,1700 06/21/22 07/01/22 History traMADol HCL 50 mg PO Q6H PRN 06/21/22 07/01/22 History sitaGLIPtin [Januvia] 100 mg PO DAILY@0800 06/22/22 07/01/22 History Fish Oil/Dha/Epa [Fish Oil 1,200 1 cap PO DAILY@1700 07/01/22 07/01/22 History mg Fish Oil] Gabapentin [Neurontin] 300 mg PO TID@0800,1400,2100 07/01/22 07/01/22 History Glucerna Shake 1 can PO TID@0800,1200,1700 07/01/22 07/01/22 History INSULIN ASPART (NovoLOG) [NovoLOG See Protocol SQ ACHS 07/01/22 07/01/22 History (formulary)] Magnesium Hydroxide [Milk of 7,200 mg PO Q48H PRN 07/01/22 07/01/22 History Magnesia Concentrate] Na Phos,M-B/Na Phos,Di-Ba [Fleet 133 ml RECTAL DAILY PRN 07/01/22 07/01/22 History Adult] Ondansetron [Zofran] 4 mg PO Q8HR PRN 07/01/22 07/01/22 History bisacodyL [Dulcolax] 10 mg RECTAL DAILY PRN 07/01/22 07/01/22 History Allergies Allergy/AdvReac Type Severity Reaction Status Date / Time canagliflozin [From Invokana] Allergy Rash/Hives, Verified 07/01/22 20:14 Yeast infection Physical Exam Vitals: Vital Signs Temp Pulse Pulse Resp BP BP Pulse Ox 07/02/22 09:22 97.4 F L 104 H 20 116/68 90 L 07/02/22 08:03 66 18 113/69 97 07/02/22 04:36 74 15 101/67 99 07/01/22 23:32 64 15 101/68 99 07/01/22 19:30 77 16 92/58 99 07/01/22 19:00 70 16 87/59 99 07/01/22 17:22 98 F 70 18 74/47 96 Intake and Output 07/02/22 07/02/22 07/02/22 06:59 14:59 22:59 Other: # Voids 1 # Bowel Movements 1 Weight 68.039 kg - Constitutional General appearance: no acute distress - EENT Eyes: EOMI, PERRLA ENT: hearing grossly normal, normal oropharynx - Neck Neck: no lymphadenopathy Thyroid: bilateral: normal size - Respiratory Respiratory: bilateral: CTA - Cardiovascular Rhythm: regular Heart sounds: normal: S1, S2 - Gastrointestinal General gastrointestinal: normal bowel sounds, soft - Integumentary Integumentary: normal - Neurologic Neurologic: CNII-XII intact - Musculoskeletal Muscle loss of lower extremity Musculoskeletal: generalized weakness, strength equal bilaterally - Psychiatric Psychiatric: A&O x's 3, appropriate affect Results CBC & Chem 7: 07/03/22 05:53 07/03/22 05:53 Labs: Abnormal Lab Results - Last 24 Hours (Table) 07/01/22 07/01/22 07/01/22 Range/Units 18:28 18:28 18:28 WBC 3.7 L (3.8-10.6) k/uL RBC 4.19 L (4.30-5.90) m/uL Hgb 11.9 L (13.0-17.5) gm/dL Hct 38.2 L (39.0-53.0) % RDW 19.8 H (11.5-15.5) % Lymphocytes # (Manual) 0.19 L (1.0-4.8) k/uL Sodium 135 L (137-145) mmol/L Carbon Dioxide 20 L (22-30) mmol/L BUN 35 H (9-20) mg/dL Creatinine 1.29 H (0.66-1.25) mg/dL Glucose 142 H (74-99) mg/dL Calcium 7.6 L (8.4-10.2) mg/dL Alkaline Phosphatase 158 H (38-126) U/L Total Protein 5.7 L (6.3-8.2) g/dL Albumin 2.6 L (3.5-5.0) g/dL Urine Protein Trace H (Negative) Urine Glucose (UA) 4+ H (Negative) Ur Leukocyte Esterase Moderate H (Negative) Urine WBC 7 H (0-5) /hpf Urine Bacteria Rare H (None) /hpf Urine Yeast (Budding) Occasional H (None) /hpf Comments: EKG image reviewed Chest x-ray: report reviewed Abdominal x-ray: report reviewed CT scan - abdomen: report reviewed CT scan - pelvis: report reviewed Assessment and Plan (1) Generalized weakness Narrative/Plan: Inirtially mainly due to chemo effect. He has also had decreased appetite, was was likely dehydrated with CHARITO, and hypotension on presentation, with improvement with IV fluids. There is very likely contribution from his meds, as he is on multiple anti hypertensives. continue supportive care per IM, with IV hydration, and adjustment ogf meds - Pt was transferred to ECF after his recent admission. Recommend PT inpt, and transfer back to ECF after stabilization. Pt likely has scope to improve with further time off chemo, appropriate adjustment of his medications to achieve optimal pressure, and ongoing PT Current Visit: Yes Status: Acute Code(s): R53.1 - WEAKNESS SNOMED Code(s): 97812382 (2) Gastric cancer Narrative/Plan: Metastatic with diagnostic and therapeutic circumstances as described. Ct scans show possibility of progression, but this overall slight. His decline would thus be more likely due to rx effect. In case of progression the pt has other systemic therapy options. Thus the plan would be to try to improve PS as noted above, and resume rx as outpt, if PS improves sufficiently Current Visit: No Status: Acute Code(s): C16.9 - MALIGNANT NEOPLASM OF STOMACH, UNSPECIFIED SNOMED Code(s): 627359084 (3) Lower GI bleed Narrative/Plan: Questionable if significant. Pt had additional BMs which were visually normal, on admission. Hgb has remained close to his baseline Current Visit: Yes Status: Acute Code(s): K92.2 - GASTROINTESTINAL HEMORRHAGE, UNSPECIFIED SNOMED Code(s): 83240178
[2022-07-03 16:39] LABS: Glucose,Whole Blood 204 mg/dL (70-110)
[2022-07-03 20:14] LABS: Glucose,Whole Blood 147 mg/dL (70-110)
[2022-07-03] MEDS: ATORVASTATIN 40 MG TAB PO SCH (20:33)
[2022-07-03] MEDS: FINASTERIDE 5 MG TAB PO SCH (20:33)
[2022-07-03] MEDS: DOXAZOSIN 4 MG TAB PO SCH (20:33)
[2022-07-04 07:14] LABS: Glucose,Whole Blood 119 mg/dL (70-110)
[2022-07-04] MEDS: EZETIMIBE 10 MG TAB PO SCH (07:56)
[2022-07-04] MEDS: SENNOSIDES 8.6 MG TAB PO SCH (07:56)
[2022-07-04] MEDS: PANTOPRAZOLE 40 MG TABLET PO SCH (07:56)
[2022-07-04] MEDS: atenoloL 50 MG TAB PO SCH (07:56)
[2022-07-04] MEDS: NIACIN TR 500 MG CAPLET PO SCH (07:56)
[2022-07-04] MEDS: GABAPENTIN 300 MG CAP PO SCH (08:00)
[2022-07-04] MEDS: INSULIN ASPART (NovoLOG) 100 UNIT/ML VIAL SQ SCH (08:07)
--- NOTE | 2022-07-04 10:31 | P.DS ---
Providers Date of admission: 07/02/22 04:26 Expected date of discharge: 07/04/22 Attending physician: Meryl Vera MD Consults: 07/02/22 02:23 Consult Physician Routine Consulting Provider: Leo Ji Consult Reason/Comments: Lower GI Bleed Do you want consulting provider notified?: Already Contacted Consult Physician Routine Consulting Provider: Ángel Davies Consult Reason/Comments: Gastric cancer Do you want consulting provider notified?: Yes, Notify in am Primary care physician: [facility] Course: Discharge Diagnosis: Asymptomatic hypotension, resolved with IV fluid hydration. Acute kidney injury, resolved BUN of 19, and creatinine of 0.7. GI bleed, resolved. Hemoglobin stable at 11.5. Patient to follow up outpatient with PCP in 1-2 days and general surgery in one week. Gastric cancer with metastatic disease, computed tomography scan revealing possibility of worsening/progression of gastric cancer. Patient was evaluated by oncology and it is recommended patient continue current treatment regimen and to follow-up outpatient as scheduled. Insulin-dependent diabetes mellitus Hyperlipidemia Hypertension BPH Hospital Course: Patient is a very pleasant 82-year-old male with a past medical history of gastric cancer with metastases, CAD, hypertension, hyperlipidemia, GERD, insulin-dependent diabetes mellitus, and BPH. He presented from [facility] on 07/01/22 with a chief complaint of asymptomatic hypotension and reports of hematochezia. Patient reported having painful defecation since arrival to rehabilitation Center after short stay in the hospital for weakness and falls. Upon presentation to our facility patient was found to have an acute kidney injury and hypotension. Both improved with administration of IV fluids. Vital signs stable with blood pressure 116/70, heart rate 72, and SpO2 of 99% on room air. Renal function unremarkable with BUN of 19, creatinine 0.7, and GFR of 86.7. Urinalysis was negative for infection. Occult stool was positive and patient was evaluated by general surgery. Computed tomography scan was completed which revealed the possibility of worsening/progression of gastric cancer. Oncology was consulted and recommending patient continue current treatment regimen and to follow up outpatient as scheduled. Patient is medically stable at this time and is stable for discharge back to rehab. Patient to follow up outpatient with PCP in 1-2 days, Gen. surgery in one week, and oncology in 1 week. Patient seen and examined at bedside. Vital signs reviewed and stable. General: Nontoxic, no distress and appears stated age. Derm: Skin warm and dry, normal coloration for ethnicity. Head: Atraumatic, normocephalic and symmetric. Eyes: EOMs intact, no lid lag, and anicteric sclera Mouth: no lip lesions, mucus membranes moist Cardiovascular: regular rate and rhythm with normal S1S2, no murmur, positive posterior tibial pulses bilaterally, and cap refill < 2 seconds. Lungs: Respirations even, regular, and unlabored on room air. Lungs CTA bilaterally, no rhonchi, no rales, no wheezing, and no accessory muscle usage. Abdominal: soft, nontender to palpation, no guarding, no appreciable organomegaly Ext: ROM intact. No gross muscle atrophy, no edema, no contractures Neuro: Speech clear, face symmetrical and CN II-XII grossly intact with no noted focal neuro deficits Psych: Alert and oriented to person, place, time, and situation. Appropriate and pleasant affect. A total of 35 minutes of time were spent preparing this complex discharge summary. Pt was discharged on 07/04/22 at 10:31 AM. I reviewed the documentation as provided by the MARK above, who is the original author of this note. I agree with the documented assessment and plan, with the following changes: none Patient Condition at Discharge: Stable Plan - Discharge Summary Discharge Rx Participant: Yes New Discharge Prescriptions: New Sennosides [Senokot] 8.6 mg PO DAILY #0 tab Continue Terazosin HCl 5 mg PO HS@2100 Nitroglycerin [Nitroglycerin 400MCG [place]] 1 spray TRANSLINGU Q5M PRN PRN Reason: Chest Pain metFORMIN HCL [Glucophage] 500 mg PO BID@0800,1700 Finasteride [Proscar] 5 mg PO HS@2100 Ezetimibe [Zetia] 10 mg PO DAILY@0800 atenoloL [Tenormin] 50 mg PO DAILY@0800 Magnesium Hydroxide [Milk of Magnesia Concentrate] 7,200 mg PO Q48H PRN PRN Reason: Constipation bisacodyL [Dulcolax] 10 mg RECTAL DAILY PRN PRN Reason: Constipation Niacin 500 mg PO DAILY@0800 Isosorbide Dinitrate 30 mg PO BID@0800,1700 glipiZIDE [Glucotrol] 10 mg PO DAILY@0800 Dapagliflozin Propanediol [Farxiga] 10 mg PO DAILY@0800 Atorvastatin [Lipitor] 40 mg PO HS@2099 Insulin Glargine [Lantus Vial] 5 unit SQ HS@2099 Omeprazole 40 mg PO BID@0800,1700 traMADol HCL 50 mg PO Q6H PRN PRN Reason: Pain sitaGLIPtin [Januvia] 100 mg PO DAILY@0800 Ondansetron [Zofran] 4 mg PO Q8HR PRN PRN Reason: Nausea Na Phos,M-B/Na Phos,Di-Ba [Fleet Adult] 133 ml RECTAL DAILY PRN PRN Reason: Constipation INSULIN ASPART (NovoLOG) [NovoLOG (formulary)] See Protocol SQ ACHS Glucerna Shake 1 can PO TID@0800,1200,1700 Fish Oil/Dha/Epa [Fish Oil 1,200 mg Fish Oil] 1 cap PO DAILY@1700 Gabapentin [Neurontin] 300 mg PO TID@0800,1400,2100 Discontinued Naproxen [Naprosyn] 500 mg PO DAILY@0800 No Action Multivit-Min/FA/Lycopen/Lutein [Centrum Silver Tablet] 1 tab PO DAILY@0800 Discharge Medication List Atorvastatin [Lipitor] 40 mg PO HS@209902/09/21 [History] Dapagliflozin Propanediol [Farxiga] 10 mg PO DAILY@0800 02/09/21 [History] Ezetimibe [Zetia] 10 mg PO DAILY@0800 02/09/21 [History] Finasteride [Proscar] 5 mg PO HS@209902/09/21 [History] Isosorbide Dinitrate 30 mg PO BID@0800,1700 02/09/21 [History] Niacin 500 mg PO DAILY@0800 02/09/21 [History] Nitroglycerin [Nitroglycerin 400MCG [place]] 1 spray TRANSLINGU Q5M PRN 02/09/21 [History] Terazosin HCl 5 mg PO HS@209902/09/21 [History] atenoloL [Tenormin] 50 mg PO DAILY@0800 02/09/21 [History] glipiZIDE [Glucotrol] 10 mg PO DAILY@0800 02/09/21 [History] metFORMIN HCL [Glucophage] 500 mg PO BID@0800,1700 02/09/21 [History] Insulin Glargine [Lantus Vial] 5 unit SQ HS@2100 09/02/21 [History] Multivit-Min/FA/Lycopen/Lutein [Centrum Silver Tablet] 1 tab PO DAILY@0800 09/02/21 [History] Omeprazole 40 mg PO BID@0800,1700 06/21/22 [History] traMADol HCL 50 mg PO Q6H PRN 06/21/22 [History] sitaGLIPtin [Januvia] 100 mg PO DAILY@0800 06/22/22 [History] Fish Oil/Dha/Epa [Fish Oil 1,200 mg Fish Oil] 1 cap PO DAILY@1700 07/01/22 [History] Gabapentin [Neurontin] 300 mg PO TID@0800,1400,2100 07/01/22 [History] Glucerna Shake 1 can PO TID@0800,1200,1700 07/01/22 [History] INSULIN ASPART (NovoLOG) [NovoLOG (formulary)] See Protocol SQ ACHS 07/01/22 [History] Magnesium Hydroxide [Milk of Magnesia Concentrate] 7,200 mg PO Q48H PRN 07/01/22 [History] Na Phos,M-B/Na Phos,Di-Ba [Fleet Adult] 133 ml RECTAL DAILY PRN 07/01/22 [History] Ondansetron [Zofran] 4 mg PO Q8HR PRN 07/01/22 [History] bisacodyL [Dulcolax] 10 mg RECTAL DAILY PRN 07/01/22 [History] Sennosides [Senokot] 8.6 mg PO DAILY #0 tab 07/04/22 [Rx] Follow up Appointment(s)/Referral(s): Leo Ji MD [Medical Doctor] - 1 Week Justin Cardenas MD [STAFF PHYSICIAN] - 1 Week Chely uHntley MD [Primary Care Provider] - 1-2 days Activity/Diet/Wound Care/Special Instructions: Activity: As tolerated. Take breaks as needed. Diet: Heart healthy and carb consistent diet. Avoid salts, or foods with hidden salts such as canned or boxed foods and frozen dinners. Extra salt makes your heart work harder and traps the fluid in your body for longer. Special Instructions: Take all of your medications as directed and remember to keep all of your doctor's appointments and follow-up as needed. Thank you for allowing us to participate in your care, it was truly a pleasure having you for our patient!!! Discharge Disposition: TRANSFER TO SNF/ECF
[2022-07-04 11:19] VITALS: BP 116/70; PULSE 72; RESP 16; TEMP 97.8
[2022-07-04 12:02] LABS: Glucose,Whole Blood 128 mg/dL (70-110)
[2022-07-04 19:11] LABS: Glucose,Whole Blood 191 mg/dL (70-110)
--- NOTE | 2022-07-04 21:38 | P.PN ---
Progress Note - Text Progress Note Date: 07/04/22 patient doing well today. No further bleeding. He has had several stools. Plan is for discharge today. Abdomen: Soft, nontender, nondistended Continue stool softeners post discharge. Patient will discuss whether he should have colonoscopy with his oncologist.
== END 2022-07-04 19:00 ==
LOC: EC 17:21 → 6NMEDSUR 07-02 04:26
PROVIDERS: ADMIT Internal Medicine; ATTEND Internal Medicine
DX: I95.9 Hypotension, unspecified (principal); N17.9 Acute kidney failure, unspecified; C16.9 Malignant neoplasm of stomach, unspecified; K92.1 Melena; K56.41 Fecal impaction; C78.7 Secondary malignant neoplasm of liver and intrahepatic bile duct; K59.4 Anal spasm; R59.0 Localized enlarged lymph nodes; R53.83 Other fatigue; R53.1 Weakness; T45.1X5A Adverse effect of antineoplastic and immunosuppressive drugs, initial encounter; E11.9 Type 2 diabetes mellitus without complications; R94.31 Abnormal electrocardiogram [ECG] [EKG]; E78.5 Hyperlipidemia, unspecified; I10 Essential (primary) hypertension; N40.0 Benign prostatic hyperplasia without lower urinary tract symptoms; J92.9 Pleural plaque without asbestos; J98.11 Atelectasis; I25.10 Atherosclerotic heart disease of native coronary artery without angina pectoris; H91.90 Unspecified hearing loss, unspecified ear; K21.9 Gastro-esophageal reflux disease without esophagitis; R59.9 Enlarged lymph nodes, unspecified; K57.30 Diverticulosis of large intestine without perforation or abscess without bleeding; N28.1 Cyst of kidney, acquired; I70.0 Atherosclerosis of aorta; D64.9 Anemia, unspecified; G62.9 Polyneuropathy, unspecified; Z79.4 Long term (current) use of insulin; Z79.84 Long term (current) use of oral hypoglycemic drugs; Z79.1 Long term (current) use of non-steroidal anti-inflammatories (NSAID); Z79.899 Other long term (current) drug therapy; Z88.8 Allergy status to other drugs, medicaments and biological substances; Z90.49 Acquired absence of other specified parts of digestive tract; Z95.1 Presence of aortocoronary bypass graft; Z95.5 Presence of coronary angioplasty implant and graft; Z98.890 Other specified postprocedural states; Z87.891 Personal history of nicotine dependence; Z80.7 Family history of other malignant neoplasms of lymphoid, hematopoietic and related tissues
CPT/HCPCS: 96376 ×2; 96361 ×4; 96374; 96375; 99285; 36415; 93005; 97163; 97167; 83880; 80053; 80048; 83605; 83735; 84484; 85025 ×2; 85610; 85730; 82272; 81001; 87040; 71046; 74018; 74177; G0378 ×3; S0138 ×2; J2405; J1170 ×2; Q9967

== ENCOUNTER 2022-08-03 10:49 | Observation (INO) | payer MEDICARE ==
--- NOTE | 2022-08-03 11:02 | ED ---
Chest Pain HPI - General Stated Complaint: chest pain Time Seen by Provider: 08/03/22 10:50 - History of Present Illness Initial Comments: 82-year-old male with past medical history of coronary artery disease, stomach cancer, diabetes who presents emergency department with chest pain. He does come from [facility]. Reports that he started having chest pain last night. Facility states that the patient was having a fever. Laboratory studies were conducted and they were unremarkable. Upon transfer to the hospital the patient was given a sublingual nitro, 324 mg of aspirin. He arrives and states that he is completely pain-free at this time. He denies fevers, chills or cough. No abdominal pain. No ripping or tearing sensation to his back. No other alleviating, precipitating or modifying factors - Related Data Home Medications Medication Instructions Recorded Confirmed Atorvastatin [Lipitor] 40 mg PO HS 02/09/21 08/03/22 Dapagliflozin Propanediol [Farxiga] 10 mg PO DAILY@0800 02/09/21 08/03/22 Ezetimibe [Zetia] 10 mg PO DAILY@0800 02/09/21 08/03/22 Finasteride [Proscar] 5 mg PO HS 02/09/21 08/03/22 Isosorbide Dinitrate 30 mg PO BID@0800,1700 02/09/21 08/03/22 Niacin 500 mg PO DAILY@0800 02/09/21 08/03/22 Nitroglycerin [Nitroglycerin 1 spray TRANSLINGU Q5M PRN 02/09/21 08/03/22 400MCG [place]] Terazosin HCl 5 mg PO HS 02/09/21 08/03/22 glipiZIDE [Glucotrol] 10 mg PO DAILY@0800 02/09/21 08/03/22 metFORMIN HCL [Glucophage] 500 mg PO BID@0800,1700 02/09/21 08/03/22 Insulin Glargine [Lantus Vial] 5 unit SQ HS 09/02/21 08/03/22 Multivit-Min/FA/Lycopen/Lutein 1 tab PO DAILY@0800 09/02/21 08/03/22 [Centrum Silver Tablet] Omeprazole 40 mg PO BID@0600,1700 06/21/22 08/03/22 sitaGLIPtin [Januvia] 100 mg PO DAILY@0800 08/25/22 10/06/22 Fish Oil/Dha/Epa [Fish Oil 1,200 1 cap PO DAILY@1700 07/01/22 08/03/22 mg Fish Oil] Glucerna Shake 237 ml PO TID@0800,1200,1700 07/01/22 08/03/22 INSULIN ASPART (NovoLOG) [NovoLOG See Protocol SQ ACHS 07/01/22 08/03/22 (formulary)] Magnesium Hydroxide [Milk of 7,200 mg PO Q48H PRN 07/01/22 08/03/22 Magnesia Concentrate] Na Phos,M-B/Na Phos,Di-Ba [Fleet 133 ml RECTAL DAILY PRN 07/01/22 08/03/22 Adult] Ondansetron [Zofran] 4 mg PO Q8H PRN 07/01/22 08/03/22 bisacodyL [Dulcolax] 10 mg RECTAL DAILY PRN 07/01/22 08/03/22 Acetaminophen Tab [Tylenol] 650 mg PO Q4H PRN 08/03/22 08/03/22 Ascorbic Acid [Vitamin C] 500 mg PO DAILY@0800 08/03/22 08/03/22 Midodrine [ProAmatine] 5 mg PO TID PRN 08/03/22 08/03/22 Sennosides/Docusate Sodium [Senna 1 tab PO DAILY@1700 08/03/22 08/03/22 Plus 8.6-50 mg Tablet] Zinc Gluconate [Zinc] 50 mg PO DAILY@0800 08/03/22 08/03/22 Previous Rx's Medication Instructions Recorded Aspirin 81 mg PO DAILY tab 08/04/22 Gabapentin [Neurontin] 300 mg PO TID@0600,1400,2100 #9 cap 08/04/22 Metoprolol Tartrate [Lopressor] 12.5 mg PO DAILY 30 Days #30 tab 08/04/22 traMADol HCL 50 mg PO Q6H PRN #12 tab 08/04/22 Allergies Allergy/AdvReac Type Severity Reaction Status Date / Time canagliflozin [From Invokana] Allergy Rash/Hives, Verified 08/03/22 14:21 Yeast infection Review of Systems ROS Statement: Those systems with pertinent positive or pertinent negative responses have been documented in the HPI. ROS Other: All systems not noted in ROS Statement are negative. EKG Findings - EKG Comments: EKG Findings:: EKG demonstrates sinus rhythm with a rate of 81. [place] interval 161. QRS 97. QTC of 430. No acute ST segment elevations or depressions. Q-wave in lead 3 Past Medical History Past Medical History: Coronary Artery Disease (CAD), Cancer, Diabetes Mellitus, GERD/Reflux, Hearing Disorder / Deafness, Hyperlipidemia, Hypertension, Prostate Disorder, Skin Disorder Additional Past Medical History / Comment(s): Rash on face, itchy. stomach cancer History of Any Multi-Drug Resistant Organisms: None Reported Past Surgical History: Cholecystectomy, Coronary Bypass/CABG, Heart Catheterization, Heart Catheterization With Stent Additional Past Surgical History / Comment(s): Quad CABG 1987. Cyst exc Rt abd, behind liver. Past Anesthesia/Blood Transfusion Reactions: No Reported Reaction Date of Last Stent Placement:: 1989 Past Psychological History: No Psychological Hx Reported Smoking Status: Former smoker Past Alcohol Use History: Occasional Additional Past Alcohol Use History / Comment(s): Smoked pipe & cigars, quit 1980 Past Drug Use History: None Reported - Past Family History Mother Family Medical History: Cancer Additional Family Medical History / Comment(s): [place] Lymphoma General Exam General appearance: alert, in no apparent distress Head exam: Present: atraumatic, normocephalic, normal inspection Eye exam: Present: normal appearance, PERRL, EOMI. Absent: scleral icterus, conjunctival injection, periorbital swelling ENT exam: Present: normal exam, mucous membranes moist Neck exam: Present: normal inspection. Absent: tenderness, meningismus, lymphadenopathy Respiratory exam: Present: normal lung sounds bilaterally. Absent: respiratory distress, wheezes, rales, rhonchi, stridor Cardiovascular Exam: Present: regular rate, normal rhythm, normal heart sounds. Absent: systolic murmur, diastolic murmur, rubs, gallop, clicks GI/Abdominal exam: Present: soft, normal bowel sounds. Absent: distended, tenderness, guarding, rebound, rigid Extremities exam: Present: normal inspection, full ROM, normal capillary refill. Absent: tenderness, pedal edema, joint swelling, calf tenderness Back exam: Present: normal inspection Neurological exam: Present: alert, oriented X3, CN II-XII intact Psychiatric exam: Present: normal affect, normal mood Skin exam: Present: warm, dry, intact, normal color. Absent: rash Course Vital Signs 08/03/22 08/03/22 08/03/22 10:50 11:07 11:57 Temperature 97.9 F Pulse Rate 76 80 Pulse Rate [ 80 Portfolio Lead ] Respiratory 16 16 Rate Blood Pressure 101/70 86/66 O2 Sat by Pulse 97 97 Oximetry 08/03/22 13:57 Temperature Pulse Rate 68 Pulse Rate [ Portfolio Lead ] Respiratory 16 Rate Blood Pressure 91/62 O2 Sat by Pulse 97 Oximetry Chest Pain MDM - MDM Upon arrival patient was placed into trauma 1. History ans physical exam was performed. 12-lead EKG is obtained. Patient placed on continuous pulse ox and cardiac monitoring. Laboratory studies are conducted and reviewed. Troponin is negative. Covid not detected. Chest x-ray demonstrates bibasilar atelectasis. Patient is afebrile here. Has no chest pain. Will admit for chest pain observation. Spoke with Dr. Hawley who agreed to admit the patient Disposition Clinical Impression: Chest pain Disposition: ADMITTED IP TO THIS HOSP Condition: Stable Is patient prescribed a controlled substance at d/c from ED?: No Time of Disposition: 14:03 Decision to Admit Reason: Admit from EC Decision Date: 08/03/22 Decision Time: 14:03
[2022-08-03 11:07] LABS: Glucose,Whole Blood 228 mg/dL (70-110)
[2022-08-03 11:21] LABS: Anisocytosis Slight; Basophils % (A) 0 %; Eosinophils # (A) 0.1 k/uL (0-0.7); Eosinophils % (A) 1 %; HCT 37.1 % (39.0-53.0); HGB 11.7 gm/dL (13.0-17.5); Hypochromasia Marked; Lymphocytes # (A) 0.5 k/uL (1.0-4.8); Lymphocytes % (A) 7 %; MCH 28.6 pg (25.0-35.0); MCHC 31.5 g/dL (31.0-37.0); Mean Platelet Volume 8.8; Monocytes # (A) 0.3 k/uL (0-1.0); Monocytes % (A) 4 %; Neutrophils # (A) 5.9 k/uL (1.3-7.7); Neutrophils % (A) 86 %; Platelet Count 160 k/uL (150-450); RBC 4.08 m/uL (4.30-5.90); RDW 16.9 % (11.5-15.5); WBC 6.8 k/uL (3.8-10.6)
[2022-08-03 11:36] LABS: INR 1.4 (<1.2); Partial Thromboplastin Time 26.7 sec (22.0-30.0); Prothrombin Time 14.6 sec (9.0-12.0)
[2022-08-03 11:43] LABS: Albumin 2.7 g/dL (3.5-5.0); Calcium 7.9 mg/dL (8.4-10.2); Magnesium 1.8 mg/dL (1.6-2.3); Potassium 4.2 mmol/L (3.5-5.1); Total Bilirubin 1.8 mg/dL (0.2-1.3); Total Protein 6.3 g/dL (6.3-8.2)
--- NOTE | 2022-08-03 11:51 | XR ---
EXAMINATION TYPE: XR chest 2V DATE OF EXAM: 08/03/2022 11:46 AM COMPARISON: Chest radiographs from 07/01/2022. TECHNIQUE: XR chest 2V Frontal and lateral views of the chest. CLINICAL INDICATION:Male, 82 years old with history of Chest Pain; FINDINGS: Lungs/Pleura: There is no evidence of pleural effusion, focal consolidation, or pneumothorax. Unchan ged mild streaky atelectasis in the bases. Calcified pleural plaques are again seen bilaterally and n ot changed. Pulmonary vascularity: Unremarkable. Heart/mediastinum: Cardiomediastinal silhouette is unremarkable. Post surgical changes from CABG. Musculoskeletal: No acute osseous pathology. Midline sternotomy wires are noted and stable. Generativ e changes of both AC joints. IMPRESSION: 1. Bibasilar atelectasis otherwise no acute thoracic process. 2. Stable bilateral calcified pleural plaques.
[2022-08-03] MEDS ORDERED: ASPIRIN 81 MG PO STA (14:03)
[2022-08-03] MEDS ORDERED: NALOXONE 0.4 MG/ML 1 ML VIAL IV PRN (14:04)
[2022-08-03] MEDS ORDERED: MIDODRINE 5 MG TAB PO STA (14:05)
--- NOTE | 2022-08-03 14:06 | P.HPIM ---
History of Present Illness H&P Date: 08/03/22 History of Presenting Illness: Patient is a very pleasant 82-year-old male with a past medical history of gastric cancer with metastasis currently undergoing chemotherapy, CAD status post CABG 4 in 1987, hypertension, hyperlipidemia, GERD, and insulin-dependent diabetes mellitus. He presented to the emergency department from [facility] secondary to reports of chest pain. Patient reports he is currently staying at the extended care facility for rehab and experienced some chest pain last night. Patient reports this pain completely subsided but when he told staff about the chest pain they said he also had a low fever and had to go to the hospital for evaluation.upon arrival to our facility patient afebrile and denied having any complaints including headache, lightheadedness, dizziness, chest pain, palpitations, shortness of breath, nausea, vomiting, abdominal pain, or experiencing any numbness/tingling/weakness/swelling in his extremities. Upon arrival to our facility, pts vital signs were unremarkable with temp 97.9F, heart rate 76, respiratory rate 16, blood pressure 101/70, and SpO2 of 97% on room air. He underwent full evaluation in the emergency department. EKG was completed showing normal sinus rhythm at 81 bpm with T-wave inversion in inferior leads III, and aVF, T-wave inversions are a new finding when compared to previous EKG completed on 07/01/22.CBC revealed normocytic anemia with hemoglobin of 11.7, at baseline. BMP showing no significant abnormalities. Liver profile revealing slightly elevated total bili of 1.8 with AST of 80 and alkaline phosphatase of 219. Troponin normal findings at less than 0.012. Review of systems: Pertinent positives and negatives as discussed in HPI, a complete review of systems was performed and all other systems are negative. Physical exam: Vital signs reviewed and stable. General: Nontoxic, no distress and appears stated age. Derm: Skin warm and dry, normal coloration for ethnicity. Head: Atraumatic, normocephalic and symmetric. Eyes: EOMs intact, no lid lag, and anicteric sclera Mouth: no lip lesions, mucus membranes moist Cardiovascular: regular rate and rhythm with normal S1S2, systolic murmur, positive posterior tibial pulses bilaterally, and cap refill < 2 seconds. Lungs: Respirations even, regular, and unlabored on room air. Lungs CTA bilaterally, no rhonchi, no rales, no wheezing, and no accessory muscle usage. Abdominal: soft, nontender to palpation, no guarding, no appreciable organomegaly Ext: ROM intact. No gross muscle atrophy, no edema, no contractures Neuro: Speech clear, face symmetrical and CN II-XII grossly intact with no noted focal neuro deficits Psych: Alert and oriented to person, place, time, and situation. Appropriate and pleasant affect. Assessment and Plan of Care: Chest pain, rule out acute coronary event History of CAD status post CABG x4 in 1987 Hypertension Hyperlipidemia -Cardiology consult, appreciate further recommendations -Telemetry monitoring -Trend troponins -Cardiac diet, NPO at midnight -Continue cardiac medication regimen with aspirin, atorvastatin, midodrine, and isosorbide mononitrate. -Echocardiogram Insulin-dependent diabetes mellitus -Patient placed on glycemic protocol with NovoLog sliding scale and to continue insulin glargine 5 units nightly. The patient is admitted with an anticipated less than 2 midnight stay for evaluation of chest pain.. CODE STATUS: Full code DVT prophylaxis: Lovenox Discussed with: patient and RN Anticipated discharge date: 1-[address]: return to SNF A total of 48 minutes was spent on the care of this complex patient more than 50% of the time was spent in counseling and care coordination. Past Medical History Past Medical History: Coronary Artery Disease (CAD), Cancer, Diabetes Mellitus, GERD/Reflux, Hearing Disorder / Deafness, Hyperlipidemia, Hypertension, Prostate Disorder, Skin Disorder Additional Past Medical History / Comment(s): Rash on face, itchy. stomach cancer History of Any Multi-Drug Resistant Organisms: None Reported Past Surgical History: Cholecystectomy, Coronary Bypass/CABG, Heart Catheterization, Heart Catheterization With Stent Additional Past Surgical History / Comment(s): Quad CABG 1987. Cyst exc Rt abd, behind liver. Past Anesthesia/Blood Transfusion Reactions: No Reported Reaction Date of Last Stent Placement:: 1989 Past Psychological History: No Psychological Hx Reported Smoking Status: Former smoker Past Alcohol Use History: Occasional Additional Past Alcohol Use History / Comment(s): Smoked pipe & cigars, quit 1980 Past Drug Use History: None Reported - Past Family History Mother Family Medical History: Cancer Additional Family Medical History / Comment(s): [place] Lymphoma Medications and Allergies Home Medications Medication Instructions Recorded Confirmed Type Atorvastatin [Lipitor] 40 mg PO HS 02/09/21 08/03/22 History Dapagliflozin Propanediol [Farxiga] 10 mg PO DAILY@0800 02/09/21 08/03/22 History Ezetimibe [Zetia] 10 mg PO DAILY@0800 02/09/21 08/03/22 History Finasteride [Proscar] 5 mg PO HS 02/09/21 08/03/22 History Isosorbide Dinitrate 30 mg PO BID@0800,1700 02/09/21 08/03/22 History Niacin 500 mg PO DAILY@0800 02/09/21 08/03/22 History Nitroglycerin [Nitroglycerin 1 spray TRANSLINGU Q5M PRN 02/09/21 08/03/22 History 400MCG [place]] Terazosin HCl 5 mg PO HS 02/09/21 08/03/22 History atenoloL [Tenormin] 50 mg PO DAILY@0800 02/09/21 08/03/22 History glipiZIDE [Glucotrol] 10 mg PO DAILY@0800 02/09/21 08/03/22 History metFORMIN HCL [Glucophage] 500 mg PO BID@0800,1700 02/09/21 08/03/22 History Insulin Glargine [Lantus Vial] 5 unit SQ 09/02/21 08/03/22 History Multivit-Min/FA/Lycopen/Lutein 1 tab PO DAILY@0800 09/02/21 08/03/22 History [Centrum Silver Tablet] Omeprazole 40 mg PO BID@0600,1700 06/21/22 08/03/22 History traMADol HCL 50 mg PO Q6H PRN 06/21/22 08/03/22 History sitaGLIPtin [Januvia] 100 mg PO DAILY@0800 06/22/22 08/03/22 History Fish Oil/Dha/Epa [Fish Oil 1,200 1 cap PO DAILY@1700 07/01/22 08/03/22 History mg Fish Oil] Gabapentin [Neurontin] 300 mg PO TID@0600,1400,2100 07/01/22 08/03/22 History Glucerna Shake 237 ml PO TID@0800,1200,1700 07/01/22 08/03/22 History INSULIN ASPART (NovoLOG) [NovoLOG See Protocol SQ ACHS 07/01/22 08/03/22 History (formulary)] Magnesium Hydroxide [Milk of 7,200 mg PO Q48H PRN 07/01/22 08/03/22 History Magnesia Concentrate] Na Phos,M-B/Na Phos,Di-Ba [Fleet 133 ml RECTAL DAILY PRN 07/01/22 08/03/22 History Adult] Ondansetron [Zofran] 4 mg PO Q8H PRN 07/01/22 08/03/22 History bisacodyL [Dulcolax] 10 mg RECTAL DAILY PRN 07/01/22 08/03/22 History Acetaminophen Tab [Tylenol] 650 mg PO Q4H PRN 08/03/22 08/03/22 History Ascorbic Acid [Vitamin C] 500 mg PO DAILY@0800 08/03/22 08/03/22 History Midodrine [ProAmatine] 5 mg PO TID PRN 08/03/22 08/03/22 History Sennosides/Docusate Sodium [Senna 1 tab PO DAILY@1700 08/03/22 08/03/22 History Plus 8.6-50 mg Tablet] Zinc Gluconate [Zinc] 50 mg PO DAILY@0800 08/03/22 08/03/22 History Allergies Allergy/AdvReac Type Severity Reaction Status Date / Time canagliflozin [From Invokana] Allergy Rash/Hives, Verified 08/03/22 14:21 Yeast infection Physical Exam Vitals: Vital Signs Temp Pulse Pulse Resp BP Pulse Ox 08/03/22 13:57 68 16 91/62 97 08/03/22 11:57 80 16 86/66 97 08/03/22 11:07 80 08/03/22 10:50 97.9 F 76 16 101/70 97 Intake and Output 08/02/22 08/03/22 08/03/22 22:59 06:59 14:59 Other: Weight 68.175 kg Results CBC & Chem 7: 08/03/22 11:06 08/03/22 11:06 Labs: Abnormal Lab Results - Last 24 Hours (Table) 08/03/22 08/03/22 08/03/22 Range/Units 10:59 11:06 11:06 RBC 4.08 L (4.30-5.90) m/uL Hgb 11.7 L (13.0-17.5) gm/dL Hct 37.1 L (39.0-53.0) % RDW 16.9 H (11.5-15.5) % Lymphocytes # 0.5 L (1.0-4.8) k/uL PT 14.6 H (9.0-12.0) sec INR 1.4 H (<1.2) Sodium (137-145) mmol/L Carbon Dioxide (22-30) mmol/L BUN (9-20) mg/dL Glucose (74-99) mg/dL POC Glucose (mg/dL) 228 H (70-110) mg/dL Calcium (8.4-10.2) mg/dL Total Bilirubin (0.2-1.3) mg/dL AST (17-59) U/L Alkaline Phosphatase (38-126) U/L Albumin (3.5-5.0) g/dL 08/03/22 Range/Units 11:06 RBC (4.30-5.90) m/uL Hgb (13.0-17.5) gm/dL Hct (39.0-53.0) % RDW (11.5-15.5) % Lymphocytes # (1.0-4.8) k/uL PT (9.0-12.0) sec INR (<1.2) Sodium 136 L (137-145) mmol/L Carbon Dioxide 21 L (22-30) mmol/L BUN 27 H (9-20) mg/dL Glucose 233 H (74-99) mg/dL POC Glucose (mg/dL) (70-110) mg/dL Calcium 7.9 L (8.4-10.2) mg/dL Total Bilirubin 1.8 H (0.2-1.3) mg/dL AST 80 H (17-59) U/L Alkaline Phosphatase 219 H (38-126) U/L Albumin 2.7 L (3.5-5.0) g/dL
[2022-08-03] MEDS ORDERED: HYDROcodone/APAP 5-325MG 1 EACH TAB PO PRN (14:08)
[2022-08-03] MEDS ORDERED: ACETAMINOPHEN TAB 325 MG TAB PO PRN (14:08)
[2022-08-03] MEDS ORDERED: ONDANSETRON 4 MG TAB PO PRN (16:47)
[2022-08-03] MEDS ORDERED: MIDODRINE 5 MG TAB PO PRN (16:47)
[2022-08-03] MEDS ORDERED: traMADol 50 MG TAB PO PRN (16:47)
[2022-08-03] MEDS ORDERED: NA PHOS,M-B/NA PHOS,DI-BA 133 ML ENEMA RECTAL PRN (16:47)
[2022-08-03] MEDS ORDERED: DEXTROSE 50% SYRINGE 50 ML IVP PRN ×2 (16:50)
[2022-08-03] MEDS ORDERED: NON FORMULARY DRUG (Omeprazole [Omeprazole] 40 MG Capsule.Dr) PO SCH (17:00)
[2022-08-03] MEDS ORDERED: NON FORMULARY DRUG (Glucerna Shake 1 CAN Ml) PO SCH (17:00)
[2022-08-03] MEDS: INSULIN ASPART (NovoLOG) 100 UNIT/ML VIAL SQ SCH ×2 (19:25→19:53)
[2022-08-03 19:48] LABS: Glucose,Whole Blood 170 mg/dL (70-110)
[2022-08-03] MEDS: SENNOSIDES-DOCUSATE SODIUM 1 EACH TAB PO SCH (19:54)
[2022-08-03] MEDS: GABAPENTIN 300 MG CAP PO SCH (19:54)
[2022-08-03] MEDS: ISOSORBIDE DINITRATE 10 MG TAB PO SCH (20:27)
[2022-08-03] MEDS ORDERED: DOXAZOSIN 4 MG TAB PO SCH (21:00)
[2022-08-03] MEDS ORDERED: FINASTERIDE 5 MG TAB PO SCH (21:00)
[2022-08-03] MEDS ORDERED: INSULIN DETEMIR (LEVEMIR) 100 UNIT/ML SYR SQ SCH (21:00)
[2022-08-03 23:35] LABS: Appearance,Urine Clear (Clear); Bacteria,Urine Rare /hpf; Bilirubin,Urine Negative (Negative); Blood,Urine Negative (Negative); Budding Yeast,Urine Rare /hpf; Color,Urine Yellow; Glucose,Urine (UA) 4+ (Negative); Ketones,Urine Trace (Negative); Leukocyte Esterase,Urine Trace (Negative); Mucus,Urine Rare /hpf; Nitrite,Urine Negative (Negative); PH, Urine 5.5 (5.0-8.0); Protein,Urine Trace (Negative); RBC,Urine 2 /hpf (0-5); Specific Gravity,Urine 1.034 (1.001-1.035); Squamous Epithelial Cell,Urine 2 /hpf (0-4); Urobilinogen,Urine <2.0 mg/dL (<2.0); WBC,Urine 7 /hpf (0-5)
[2022-08-04 06:16] LABS: Glucose,Whole Blood 60 mg/dL (70-110)
[2022-08-04] MEDS: GABAPENTIN 300 MG CAP PO SCH ×2 (06:20→14:45)
[2022-08-04] MEDS: INSULIN ASPART (NovoLOG) 100 UNIT/ML VIAL SQ SCH ×3 (06:21→16:42)
[2022-08-04 06:35] LABS: Glucose,Whole Blood 81 mg/dL (70-110)
[2022-08-04] MEDS ORDERED: PANTOPRAZOLE 40 MG TABLET PO SCH (07:30)
[2022-08-04] MEDS ORDERED: EZETIMIBE 10 MG TAB PO SCH (08:00)
[2022-08-04] MEDS ORDERED: ASCORBIC ACID 500 MG TAB PO SCH (08:00)
[2022-08-04] MEDS ORDERED: NIACIN TR 500 MG CAPLET PO SCH (08:00)
[2022-08-04] MEDS ORDERED: MULTIVITAMINS, THERA 1 EACH TAB PO SCH (08:00)
[2022-08-04] MEDS ORDERED: NON FORMULARY DRUG (Zinc Gluconate 50 MG Tab) PO SCH (08:00)
[2022-08-04 08:09] LABS: Anisocytosis Slight; Basophils % (A) 1 %; Eosinophils # (A) 0.1 k/uL (0-0.7); Eosinophils % (A) 2 %; HCT 37.8 % (39.0-53.0); HGB 11.1 gm/dL (13.0-17.5); Hypochromasia Marked; Lymphocytes # (A) 0.3 k/uL (1.0-4.8); Lymphocytes % (A) 7 %; MCH 27.1 pg (25.0-35.0); MCHC 29.3 g/dL (31.0-37.0); MCV 92.6 fL (80.0-100.0); Mean Platelet Volume 8.3; Monocytes # (A) 0.4 k/uL (0-1.0); Monocytes % (A) 7 %; Neutrophils # (A) 4.2 k/uL (1.3-7.7); Neutrophils % (A) 83 %; Platelet Count 153 k/uL (150-450); RBC 4.08 m/uL (4.30-5.90); RDW 16.8 % (11.5-15.5); WBC 5.1 k/uL (3.8-10.6)
[2022-08-04 08:19] LABS: African American GFR (CKD) >90 (>60 ml/min/1.73 sqM); Anion Gap 7 mmol/L; Blood Urea Nitrogen 21 mg/dL (9-20); Calcium 7.8 mg/dL (8.4-10.2); Carbon Dioxide 24 mmol/L (22-30); Chloride 103 mmol/L (98-107); Glucose 89 mg/dL (74-99); Non-African American GFR(CKD) >90 (>60 ml/min/1.73 sqM); Potassium 3.8 mmol/L (3.5-5.1); Sodium 134 mmol/L (137-145)
[2022-08-04] MEDS ORDERED: ENOXAPARIN 40 MG/0.4 ML SYRINGE SQ SCH (09:00)
[2022-08-04] MEDS ORDERED: ATORVASTATIN 80 MG TAB PO SCH (09:00)
[2022-08-04] MEDS ORDERED: ASPIRIN 81 MG PO SCH (09:00)
[2022-08-04] MEDS: ISOSORBIDE DINITRATE 10 MG TAB PO SCH ×2 (09:34→16:41)
[2022-08-04] MEDS ORDERED: METOPROLOL TARTRATE 12.5 MG TAB PO SCH (10:00)
[2022-08-04] MEDS ORDERED: POTASSIUM CHLORIDE ER 20 MEQ TAB.ER PO STA (10:27)
--- NOTE | 2022-08-04 10:58 | CA ---
Transthoracic Echo Report Name: Jimmy Wood Age: 82 Gender: M : 1940 Exam Date: 08/04/2022 07:53 Exam Location: [place] [facility] Ht (in): 69 Wt (lb): 150 Ordering Physician: Chip Benítez Attending/Referring Phys: Wax Pot Tender Darlene Grier RDCS Procedure CPT: Indications: Assess structure and function Cardiac Hx: Technical Quality: Fair Contrast 1: Total Dose (mL): Contrast 2: Total Dose (mL): MEASUREMENTS (Male / Female) Normal Values 2D ECHO LV Diastolic Diameter PLAX 5.5 cm 4.2 - 5.9 / 3.9 - 5.3 cm LV Systolic Diameter PLAX 4.6 cm IVS Diastolic Thickness 1.2 cm 0.6 - 1.0 / 0.6 - 0.9 cm LVPW Diastolic Thickness 1.2 cm 0.6 - 1.0 / 0.6 - 0.9 cm LV Relative Wall Thickness 0.4 RV Internal Dim ED PLAX 3.7 cm LA Systolic Diameter LX 3.9 cm 3.0 - 4.0 / 2.7 - 3.8 cm LA Volume 36.8 cm??? 18 - 58 / 22 - 52 cm??? M-MODE Aortic Root Diameter MM 3.7 cm MV E Point Septal Separation 1.4 cm AV Cusp Separation MM 1.9 cm DOPPLER AV Peak Velocity 128.4 cm/s AV Peak Gradient 6.6 mmHg MV Area PHT 3.0 cm??? Mitral E Point Velocity 74.0 cm/s Mitral A Point Velocity 90.7 cm/s Mitral E to A Ratio 0.8 MV Deceleration Time 252.3 ms MV E' Velocity 4.9 cm/s Mitral E to MV E' Ratio 15.2 FINDINGS Left Ventricle Mildly impaired LV function was EF between 45-50% with concentric left ventricular hypertrophy Right Ventricle Moderate right ventricular dilatation. Unable to estimate the right ventricular systolic pressure. Right Atrium Normal right atrial size. Left Atrium Normal left atrial size. No evidence for an atrial septal defect. Mitral Valve Mitral valve thickened. Trace to mild mitral regurgitation. Aortic Valve Trileaflet aortic valve. Focal thickening of the aortic valve cusps. Tricuspid Valve Structurally normal tricuspid valve. Pulmonic Valve Pulmonic valve not well visualized. Pericardium Normal pericardium. No pericardial effusion. Aorta Normal size aortic root and proximal ascending aorta. CONCLUSIONS Mildly impaired LV function was EF between 45-50% and mild concentric LVH Aortic sclerosis without stenosis or insufficiency Mitral annular calcification Previewed by: Dr. Tam Allen MD (Electronically Signed) Final Date: 04 August 2022 10:57
--- NOTE | 2022-08-04 11:17 | P.CRDCN ---
History of Present Illness History of present illness: HISTORY OF PRESENT ILLNESS: This is a 82-year-old male with a past medical history significant for hypertension, hyperlipidemia, diabetes, and coronary artery disease with previous stenting and 4 vessel CABG. Patient used to see Dr. Foreman but has not been seen in the office since December 2020. We have been asked to see the patient in consultation for chest pain. Patient examined at the bedside. Patient is currently residing at an extended care facility for rehab. According to documentation, the patient complained of chest pain to the staff there and was brought to the hospital for further evaluation. Patient currently denies having any chest pain. He is unable to recall the events of his chest pain yesterday. Patient's vital signs are currently stable. * EKG reveals sinus mechanism with T-wave inversions in inferior leads * Chest xray bibasilar atelectasis. Otherwise no acute thoracic process. * Laboratory data: WBC 5.1. Hemoglobin 11.1. Platelet count 153. Sodium 134. Potassium 3.8. BUN 21. Creatinine 0.60. Troponin negative 3. * Current home cardiac medications include atenolol 50 mg daily, isosorbide 30 mg twice a day, Zetia 10 mg daily, Lipitor 40 mg at night, Midodrine 5mg PRN * Echocardiogram obtained revealed ejection fraction 45-50%, trace to mild mitral regurgitation REVIEW OF SYSTEMS: At the time of my exam: CONSTITUTIONAL: Denies fever or chills. HEENT: Denies blurred vision, vision changes, or eye pain. Denies hemoptysis CARDIOVASCULAR: Denies chest pain. Denies orthopnea. Denies PND. Denies palpitations RESPIRATORY: Denies shortness of breath. GASTROINTESTINAL: Denies abdominal pain. Denies nausea or vomiting. HEMATOLOGIC: Denies bleeding disorders. GENITOURINARY: Denies any blood in urine. SKIN: Denies pruitis. Denies rash. PHYSICAL EXAM: VITAL SIGNS: Reviewed. GENERAL: Well-developed in no acute distress. HEENT: Head is normocephalic. Pupils are equal, round. Sclerae anicteric. Mucous membranes of the mouth are moist. Neck supple. No JVD or thyromegaly LUNGS: Respirations even and unlabored. Lungs essentially clear to auscultation bilaterally. HEART: Regular rate and rhythm. S1 and S2 heard. ABDOMEN: Soft. Nondistended. Nontender. EXTREMITIES: Normal range of motion. No clubbing or cyanosis. Peripheral pulses intact. No lower extremity edema NEUROLOGIC: Awake and alert. Oriented x 2. ASSESSMENT: Chest pain, troponins negative 3 Coronary artery disease with previous stenting and 4 vessel CABG, 1987 Borderline hypotension Hypertension Hyperlipidemia Diabetes PLAN: 2D echo obtained and reviewed Resume home cardiac medications Change beta lizzy to metoprolol 12.5mg daily Monitor blood pressure No further inpatient recommendations from a cardiac standpoint Patient may be discharged from a cardiac perspective Nurse practitioner note has been reviewed by physician. Signing provider agrees with the documented findings, assessment, and plan of care. Past Medical History Past Medical History: Coronary Artery Disease (CAD), Cancer, Diabetes Mellitus, GERD/Reflux, Hearing Disorder / Deafness, Hyperlipidemia, Hypertension, Prostate Disorder, Skin Disorder Additional Past Medical History / Comment(s): stomach cancer-son states last treatment during may 2022 History of Any Multi-Drug Resistant Organisms: None Reported Past Surgical History: Cholecystectomy, Coronary Bypass/CABG, Heart Catheterization, Heart Catheterization With Stent Additional Past Surgical History / Comment(s): Quad CABG 1987. Cyst exc Rt abd, behind liver. Past Anesthesia/Blood Transfusion Reactions: No Reported Reaction Date of Last Stent Placement:: 1989 Past Psychological History: No Psychological Hx Reported Smoking Status: Former smoker Past Alcohol Use History: Occasional Additional Past Alcohol Use History / Comment(s): Smoked pipe & cigars, quit 1980 Past Drug Use History: None Reported - Past Family History Mother Family Medical History: Cancer Additional Family Medical History / Comment(s): [place] Lymphoma Medications and Allergies Home Medications Medication Instructions Recorded Confirmed Type Atorvastatin [Lipitor] 40 mg PO HS 02/09/21 08/03/22 History Dapagliflozin Propanediol [Farxiga] 10 mg PO DAILY@0800 02/09/21 08/03/22 History Ezetimibe [Zetia] 10 mg PO DAILY@0800 02/09/21 08/03/22 History Finasteride [Proscar] 5 mg PO HS 02/09/21 08/03/22 History Isosorbide Dinitrate 30 mg PO BID@0800,1700 02/09/21 08/03/22 History Niacin 500 mg PO DAILY@0800 02/09/21 08/03/22 History Nitroglycerin [Nitroglycerin 1 spray TRANSLINGU Q5M PRN 02/09/21 08/03/22 History 400MCG [place]] Terazosin HCl 5 mg PO HS 02/09/21 08/03/22 History atenoloL [Tenormin] 50 mg PO DAILY@0800 02/09/21 08/03/22 History glipiZIDE [Glucotrol] 10 mg PO DAILY@0800 02/09/21 08/03/22 History metFORMIN HCL [Glucophage] 500 mg PO BID@0800,1700 02/09/21 08/03/22 History Insulin Glargine [Lantus Vial] 5 unit SQ HS 09/02/21 08/03/22 History Multivit-Min/FA/Lycopen/Lutein 1 tab PO DAILY@0800 09/02/21 08/03/22 History [Centrum Silver Tablet] Omeprazole 40 mg PO BID@0600,1700 06/21/22 08/03/22 History traMADol HCL 50 mg PO Q6H PRN 06/21/22 08/03/22 History sitaGLIPtin [Januvia] 100 mg PO DAILY@0800 06/22/22 08/03/22 History Fish Oil/Dha/Epa [Fish Oil 1,200 1 cap PO DAILY@1700 07/01/22 08/03/22 History mg Fish Oil] Gabapentin [Neurontin] 300 mg PO TID@0600,1400,2100 07/01/22 08/03/22 History Glucerna Shake 237 ml PO TID@0800,1200,1700 07/01/22 08/03/22 History INSULIN ASPART (NovoLOG) [NovoLOG See Protocol SQ ACHS 07/01/22 08/03/22 History (formulary)] Magnesium Hydroxide [Milk of 7,200 mg PO Q48H PRN 07/01/22 08/03/22 History Magnesia Concentrate] Na Phos,M-B/Na Phos,Di-Ba [Fleet 133 ml RECTAL DAILY PRN 07/01/22 08/03/22 History Adult] Ondansetron [Zofran] 4 mg PO Q8H PRN 07/01/22 08/03/22 History bisacodyL [Dulcolax] 10 mg RECTAL DAILY PRN 07/01/22 08/03/22 History Acetaminophen Tab [Tylenol] 650 mg PO Q4H PRN 08/03/22 08/03/22 History Ascorbic Acid [Vitamin C] 500 mg PO DAILY@0800 08/03/22 08/03/22 History Midodrine [ProAmatine] 5 mg PO TID PRN 08/03/22 08/03/22 History Sennosides/Docusate Sodium [Senna 1 tab PO DAILY@1700 08/03/22 08/03/22 History Plus 8.6-50 mg Tablet] Zinc Gluconate [Zinc] 50 mg PO DAILY@0800 08/03/22 08/03/22 History Allergies Allergy/AdvReac Type Severity Reaction Status Date / Time canagliflozin [From Invokana] Allergy Rash/Hives, Verified 08/03/22 14:21 Yeast infection Physical Exam Vitals: Vital Signs Temp Pulse Pulse Pulse Resp BP BP 08/04/22 09:11 97.9 F 77 14 97/59 08/04/22 03:45 76 18 104/66 08/04/22 02:00 18 08/03/22 23:45 72 18 96/60 08/03/22 20:00 66 16 08/03/22 18:50 66 16 111/69 08/03/22 13:57 68 16 91/62 08/03/22 11:57 80 16 86/66 Pulse Ox 08/04/22 09:11 96 08/04/22 03:45 97 08/04/22 02:00 08/03/22 23:45 97 08/03/22 20:00 08/03/22 18:50 97 08/03/22 13:57 97 08/03/22 11:57 97 Intake and Output 08/03/22 08/04/22 08/04/22 22:59 06:59 14:59 Output Total 301 380 Balance -301 -380 Output: Urine 301 380 Other: Voiding Method Diaper Diaper External Catheter # Voids 1 Weight 68.175 kg Results 08/04/22 07:42 08/04/22 07:42 Cardiac Enzymes 08/03/22 08/03/22 08/03/22 Range/Units 11:06 11:06 14:40 AST 80 H (17-59) U/L Troponin I <0.012 <0.012 (0.000-0.034) ng/mL 08/03/22 Range/Units 18:54 AST (17-59) U/L Troponin I <0.012 (0.000-0.034) ng/mL Coagulation 08/03/22 Range/Units 11:06 PT 14.6 H (9.0-12.0) sec APTT 26.7 (22.0-30.0) sec CBC 08/03/22 08/04/22 Range/Units 11:06 07:42 WBC 6.8 5.1 (3.8-10.6) k/uL RBC 4.08 L 4.08 L (4.30-5.90) m/uL Hgb 11.7 L 11.1 L (13.0-17.5) gm/dL Hct 37.1 L 37.8 L (39.0-53.0) % Plt Count 160 153 (150-450) k/uL Comprehensive Metabolic Panel 08/03/22 08/04/22 Range/Units 11:06 07:42 Sodium 136 L 134 L (137-145) mmol/L Potassium 4.2 3.8 (3.5-5.1) mmol/L Chloride 102 103 (98-107) mmol/L Carbon Dioxide 21 L 24 (22-30) mmol/L BUN 27 H 21 H (9-20) mg/dL Creatinine 0.98 0.60 L (0.66-1.25) mg/dL Glucose 233 H 89 (74-99) mg/dL Calcium 7.9 L 7.8 L (8.4-10.2) mg/dL AST 80 H (17-59) U/L ALT 25 (4-49) U/L Alkaline Phosphatase 219 H (38-126) U/L Total Protein 6.3 (6.3-8.2) g/dL Albumin 2.7 L (3.5-5.0) g/dL Current Medications Generic Name Dose Route Start Last Admin Trade Name Freq PRN Reason Stop Dose Admin Acetaminophen 650 mg 08/03/22 14:08 Acetaminophen Tab 325 Mg Tab PO Q6HR PRN Mild Pain or Fever > 100.5 Hydrocodone Bitart/Acetaminophen 1 each 08/03/22 14:08 Hydrocodone/Apap 5-325mg 1 Each Tab PO Q4HR PRN Moderate Pain (Scale 4 to 6) Ascorbic Acid 500 mg 08/04/22 08:00 08/04/22 09:35 Ascorbic Acid 500 Mg Tab PO 500 mg DAILY@0800 ZOEY Administration Aspirin 81 mg 08/04/22 09:00 08/04/22 09:34 Aspirin 81 Mg PO 81 mg DAILY ZOEY Administration Atorvastatin Calcium 80 mg 08/04/22 09:00 08/04/22 09:34 Atorvastatin 80 Mg Tab PO 80 mg DAILY ZOEY Administration Dextrose/Water 25 ml 08/03/22 16:50 Dextrose 50% Syringe 50 Ml IVP PER PROTOCOL PRN Hypoglycemia Protocol Dextrose/Water 50 ml 08/03/22 16:50 Dextrose 50% Syringe 50 Ml IVP PER PROTOCOL PRN Hypoglycemia Protocol Doxazosin Mesylate 4 mg 08/03/22 21:00 08/03/22 19:54 Doxazosin 4 Mg Tab PO 4 mg HS ZOEY Administration Ezetimibe 10 mg 08/04/22 08:00 08/04/22 09:34 Ezetimibe 10 Mg Tab PO 10 mg DAILY@0800 ZOEY Administration Enoxaparin Sodium 40 mg 08/04/22 09:00 08/04/22 09:35 Enoxaparin 40 Mg/0.4 Ml Syringe SQ 40 mg DAILY ZOEY Administration Finasteride 5 mg 08/03/22 21:00 08/03/22 19:54 Finasteride 5 Mg Tab PO 5 mg HS ZOEY Administration Gabapentin 300 mg 08/03/22 21:00 08/04/22 06:20 Gabapentin 300 Mg Cap PO Not Given TID@0600,1400,2100 [facility] Insulin Aspart 0 unit 08/03/22 17:30 08/04/22 06:21 Insulin Aspart (Novolog) 100 Unit/Ml Vial SQ Not Given ACHS [facility] Protocol Insulin Detemir 5 unit 08/03/22 21:00 08/03/22 20:27 Insulin Detemir (Levemir) 100 Unit/Ml Syr SQ 5 unit HS [facility] Administration Isosorbide Dinitrate 30 mg 08/03/22 17:00 08/04/22 09:34 Isosorbide Dinitrate 10 Mg Tab PO 30 mg BID@0800,1700 [facility] Administration Metoprolol Tartrate 12.5 mg 08/04/22 10:00 Metoprolol Tartrate 12.5 Mg Tab PO DAILY [facility] Midodrine 5 mg 08/03/22 16:47 Midodrine 5 Mg Tab PO TID PRN Hypotension Multivitamins 1 each 08/04/22 08:00 08/04/22 09:34 Multivitamins, Thera 1 Each Tab PO 1 each DAILY@0800 ZOEY Administration Naloxone HCl 0.2 mg 08/03/22 14:04 Naloxone 0.4 Mg/Ml 1 Ml Vial IV Q2M PRN Opioid Reversal Niacin 500 mg 08/04/22 08:00 08/04/22 09:34 Niacin Tr 500 Mg Caplet PO 500 mg DAILY@0800 ZOEY Administration Ondansetron HCl 4 mg 08/03/22 16:47 Ondansetron 4 Mg Tab PO Q8H PRN Nausea Pantoprazole Sodium 40 mg 08/04/22 07:30 08/04/22 06:21 Pantoprazole 40 Mg Tablet PO Not Given AC-BRKFST [facility] Senna/Docusate Sodium 1 each 08/03/22 17:00 08/03/22 19:54 Sennosides-Docusate Sodium 1 Each Tab PO 1 each DAILY@1700 ZOEY Administration Sodium Biphosphate/Sodium Phosphate 133 ml 08/03/22 16:47 Na Phos,M-B/Na Phos,Di-Ba 133 Ml Enema RECTAL DAILY PRN Constipation Tramadol HCl 50 mg 08/03/22 16:47 Tramadol 50 Mg Tab PO Q6H PRN Pain Intake and Output 08/03/22 08/04/22 08/04/22 22:59 06:59 14:59 Output Total 301 380 Balance -301 -380 Output: Urine 301 380 Other: Voiding Method Diaper Diaper External Catheter # Voids 1 Weight 68.175 kg 08/04/22 07:42 08/04/22 07:42
[2022-08-04 11:26] VITALS: RESP 16; TEMP 98.2
[2022-08-04 11:53] LABS: Glucose,Whole Blood 135 mg/dL (70-110)
--- NOTE | 2022-08-04 13:53 | P.DS ---
Providers Date of admission: 08/03/22 14:04 Expected date of discharge: 08/04/22 Attending physician: Raquel Hawley MD [facility] Course: Discharge Diagnosis: Chest pain, acute coronary event ruled out. History of CAD status post CABG x4 in 1987. Hypertension Hyperlipidemia Insulin-dependent diabetes mellitus Hospital Course: Patient is a very pleasant 82-year-old male with a past medical history of gastric cancer with metastasis currently undergoing chemotherapy, CAD status post CABG 4 in 1987, hypertension, hyperlipidemia, GERD, and insulin-dependent diabetes mellitus. He presented to the emergency department from [facility] secondary to reports of chest pain. Patient reports he is currently staying at the [facility] for rehab and experienced some chest pain last night. Patient reports this pain completely subsided but when he told staff about the chest pain they said he also had a low fever and had to go to the hospital for evaluation.upon arrival to our facility patient afebrile and denied having any complaints including headache, lightheadedness, dizziness, chest pain, palpitations, shortness of breath, nausea, vomiting, abdominal pain, or experiencing any numbness/tingling/weakness/swelling in his extremities. Upon arrival to our facility, pts vital signs were unremarkable with temp 97.9F, heart rate 76, respiratory rate 16, blood pressure 101/70, and SpO2 of 97% on room air. He underwent full evaluation in the emergency department. EKG was completed showing normal sinus rhythm at 81 bpm with T-wave inversion in inferior leads III, and aVF, T-wave inversions are a new finding when compared to previous EKG completed on 07/01/22.CBC revealed normocytic anemia with hemoglobin of 11.7, at baseline. BMP showing no significant abnormalities. Liver profile revealing slightly elevated total bili of 1.8 with AST of 80 and alkaline phosphatase of 219. Troponin normal findings at less than 0.012. Patient was admitted under our services consultation to cardiology. Troponins trended throughout the night all negative at less than 0.0123 draws. Patient's atenolol was discontinued by cardiology and patient started on metoprolol 12.5 mg daily. Cardiology recommending outpatient follow-up in their office in 1-2 weeks. Patient has remained free from any chest pain since admission to our facility and denies having any other complaints or concerns at this time. Patient is medically stable for transfer back to [facility]. Physical exam: Vital signs reviewed and stable. General: Nontoxic, no distress and appears stated age. Derm: Skin warm and dry, normal coloration for ethnicity. Head: Atraumatic, normocephalic and symmetric. Eyes: EOMs intact, no lid lag, and anicteric sclera Mouth: no lip lesions, mucus membranes moist Cardiovascular: regular rate and rhythm with normal S1S2, systolic murmur, positive posterior tibial pulses bilaterally, and cap refill < 2 seconds. Lungs: Respirations even, regular, and unlabored on room air. Lungs CTA bilaterally, no rhonchi, no rales, no wheezing, and no accessory muscle usage. Abdominal: soft, nontender to palpation, no guarding, no appreciable organomegaly Ext: ROM intact. No gross muscle atrophy, no edema, no contractures Neuro: Speech clear, face symmetrical and CN II-XII grossly intact with no noted focal neuro deficits Psych: Alert and oriented to person, place, time, and situation. Appropriate and pleasant affect. A total of 33 minutes of time were spent preparing this complex discharge summary. Pt was discharged on 08/04/22 at 12:14 PM. I reviewed the documentation as provided by the MARK above, who is the original author of this note. I agree with the documented assessment and plan, with the following changes: none Patient Condition at Discharge: Stable Plan - Discharge Summary Discharge Rx Participant: Yes New Discharge Prescriptions: New Aspirin 81 mg PO DAILY tab Metoprolol Tartrate [Lopressor] 12.5 mg PO DAILY 30 Days #30 tab Continue Terazosin HCl 5 mg PO HS Nitroglycerin [Nitroglycerin 400MCG [place]] 1 spray TRANSLINGU Q5M PRN PRN Reason: Chest Pain metFORMIN HCL [Glucophage] 500 mg PO BID@0800,1700 Finasteride [Proscar] 5 mg PO HS Ezetimibe [Zetia] 10 mg PO DAILY@0800 Magnesium Hydroxide [Milk of Magnesia Concentrate] 7,200 mg PO Q48H PRN PRN Reason: Constipation bisacodyL [Dulcolax] 10 mg RECTAL DAILY PRN PRN Reason: Constipation Sennosides/Docusate Sodium [Senna Plus 8.6-50 mg Tablet] 1 tab PO DAILY@1700 Acetaminophen Tab [Tylenol] 650 mg PO Q4H PRN PRN Reason: Fever And/ Or Pain Gabapentin [Neurontin] 300 mg PO TID@0600,1400,2100 #9 cap traMADol HCL 50 mg PO Q6H PRN #12 tab PRN Reason: Pain Niacin 500 mg PO DAILY@0800 Isosorbide Dinitrate 30 mg PO BID@0800,1700 glipiZIDE [Glucotrol] 10 mg PO DAILY@0800 Dapagliflozin Propanediol [Farxiga] 10 mg PO DAILY@0800 Atorvastatin [Lipitor] 40 mg PO HS Multivit-Min/FA/Lycopen/Lutein [Centrum Silver Tablet] 1 tab PO DAILY@0800 Insulin Glargine [Lantus Vial] 5 unit SQ HS Omeprazole 40 mg PO BID@0600,1700 sitaGLIPtin [Januvia] 100 mg PO DAILY@0800 Ondansetron [Zofran] 4 mg PO Q8H PRN PRN Reason: Nausea Na Phos,M-B/Na Phos,Di-Ba [Fleet Adult] 133 ml RECTAL DAILY PRN PRN Reason: Constipation INSULIN ASPART (NovoLOG) [NovoLOG (formulary)] See Protocol SQ ACHS Glucerna Shake 237 ml PO TID@0800,1200,1700 Fish Oil/Dha/Epa [Fish Oil 1,200 mg Fish Oil] 1 cap PO DAILY@1700 Zinc Gluconate [Zinc] 50 mg PO DAILY@0800 Midodrine [ProAmatine] 5 mg PO TID PRN PRN Reason: Hypotension Ascorbic Acid [Vitamin C] 500 mg PO DAILY@0800 Discontinued atenoloL [Tenormin] 50 mg PO DAILY@0800 Discharge Medication List Atorvastatin [Lipitor] 40 mg PO HS 02/09/21 [History] Dapagliflozin Propanediol [Farxiga] 10 mg PO DAILY@0800 02/09/21 [History] Ezetimibe [Zetia] 10 mg PO DAILY@0800 02/09/21 [History] Finasteride [Proscar] 5 mg PO HS 02/09/21 [History] Isosorbide Dinitrate 30 mg PO BID@0800,1700 02/09/21 [History] Niacin 500 mg PO DAILY@0800 02/09/21 [History] Nitroglycerin [Nitroglycerin 400MCG [place]] 1 spray TRANSLINGU Q5M PRN 02/09/21 [History] Terazosin HCl 5 mg PO HS 02/09/21 [History] glipiZIDE [Glucotrol] 10 mg PO DAILY@0800 02/09/21 [History] metFORMIN HCL [Glucophage] 500 mg PO BID@0800,1700 02/09/21 [History] Insulin Glargine [Lantus Vial] 5 unit SQ HS 09/02/21 [History] Multivit-Min/FA/Lycopen/Lutein [Centrum Silver Tablet] 1 tab PO DAILY@0800 09/02/21 [History] Omeprazole 40 mg PO BID@0600,1700 06/21/22 [History] sitaGLIPtin [Januvia] 100 mg PO DAILY@0800 06/22/22 [History] Fish Oil/Dha/Epa [Fish Oil 1,200 mg Fish Oil] 1 cap PO DAILY@1700 07/01/22 [History] Glucerna Shake 237 ml PO TID@0800,1200,1700 07/01/22 [History] INSULIN ASPART (NovoLOG) [NovoLOG (formulary)] See Protocol SQ ACHS 07/01/22 [History] Magnesium Hydroxide [Milk of Magnesia Concentrate] 7,200 mg PO Q48H PRN 07/01/22 [History] Na Phos,M-B/Na Phos,Di-Ba [Fleet Adult] 133 ml RECTAL DAILY PRN 07/01/22 [History] Ondansetron [Zofran] 4 mg PO Q8H PRN 07/01/22 [History] bisacodyL [Dulcolax] 10 mg RECTAL DAILY PRN 07/01/22 [History] Acetaminophen Tab [Tylenol] 650 mg PO Q4H PRN 08/03/22 [History] Ascorbic Acid [Vitamin C] 500 mg PO DAILY@0800 08/03/22 [History] Midodrine [ProAmatine] 5 mg PO TID PRN 08/03/22 [History] Sennosides/Docusate Sodium [Senna Plus 8.6-50 mg Tablet] 1 tab PO DAILY@1700 08/03/22 [History] Zinc Gluconate [Zinc] 50 mg PO DAILY@0800 08/03/22 [History] Aspirin 81 mg PO DAILY tab 10/07/22 [Rx] Gabapentin [Neurontin] 300 mg PO TID@0600,1400,2100 #9 cap 08/04/22 [Rx] Metoprolol Tartrate [Lopressor] 12.5 mg PO DAILY 30 Days #30 tab 08/04/22 [Rx] traMADol HCL 50 mg PO Q6H PRN #12 tab 08/04/22 [Rx] Follow up Appointment(s)/Referral(s): Juanis Simmons MD [STAFF PHYSICIAN] - 1 Week Chely Huntley MD [Primary Care Provider] - 1-2 days Activity/Diet/Wound Care/Special Instructions: Activity: As tolerated. Take breaks as needed. Diet: Heart healthy and carb consistent diet. Avoid salts, or foods with hidden salts such as canned or boxed foods and frozen dinners. Extra salt makes your heart work harder and traps the fluid in your body for longer. Special Instructions: Take all of your medications as directed and remember to keep all of your doctor's appointments and follow-up as needed. Thank you for allowing us to participate in your care, it was truly a pleasure having you for our patient!!! Discharge Disposition: TRANSFER TO SNF/ECF
[2022-08-04 16:29] LABS: Glucose,Whole Blood 152 mg/dL (70-110)
[2022-08-04 16:41] VITALS: BP 112/65; PULSE 75
[2022-08-04] MEDS: SENNOSIDES-DOCUSATE SODIUM 1 EACH TAB PO SCH (16:41)
== END 2022-08-04 18:20 ==
LOC: EC 10:49 → 6NMEDSUR 14:04 → 3SCARD 18:01
PROVIDERS: ADMIT Internal Medicine; ATTEND Internal Medicine
DX: R07.9 Chest pain, unspecified (principal); I10 Essential (primary) hypertension; E78.5 Hyperlipidemia, unspecified; E11.9 Type 2 diabetes mellitus without complications; I25.10 Atherosclerotic heart disease of native coronary artery without angina pectoris; K21.9 Gastro-esophageal reflux disease without esophagitis; D64.9 Anemia, unspecified; I95.9 Hypotension, unspecified; Z85.028 Personal history of other malignant neoplasm of stomach; Z92.21 Personal history of antineoplastic chemotherapy; Z20.822 Contact with and (suspected) exposure to COVID-19; Z95.5 Presence of coronary angioplasty implant and graft; Z87.891 Personal history of nicotine dependence; Z80.7 Family history of other malignant neoplasms of lymphoid, hematopoietic and related tissues; Z79.899 Other long term (current) drug therapy; Z79.84 Long term (current) use of oral hypoglycemic drugs; Z79.4 Long term (current) use of insulin
CPT/HCPCS: 96372 ×2; 99285; 36415; 93005; 93306; 83880; 80053; 80048; 83690; 83735; 84484; 85025 ×2; 85610; 85730; 81001; 83036; 87635 ×2; 71046; G0378 ×3; S0138; J1650